=== PATIENT | female | born 1935 | race African-American/Black ===

== ENCOUNTER 2023-05-28 12:24 | Inpatient (IN) | payer OTHER ==
[~2023-05-28] VITALS: Ht 165.1 cm; Wt 51.6 kg
[2023-05-28 13:07] VITALS: O2SAT 95
[2023-05-28 14:30] LABS: Basophils # (auto) 0 10 ^3/uL (0-0.2); Basophils % (auto) 0.8 % (0.0-2.0); Eosinophils # (auto) 0 10 ^3/uL (0-0.8); Eosinophils % (auto) 0.1 % (0.0-7.0); Hematocrit 35.2 % (36.0-46.0); Lymphocytes # (auto) 0.7 10 ^3/uL (0.4-5.4); Lymphocytes % (auto) 11.8 % (10.0-50.0); Mean Corpuscular Hemoglobin 28.9 pg (28.0-32.0); Mean Corpuscular Hgb Conc. 31.1 g/dL (32.0-36.0); Mean Corpuscular Volume 92.7 fL (80.0-100.0); Monocytes # (auto) 0.3 10 ^3/uL (0-1.3); Monocytes % (auto) 5.5 % (0.0-12.0); Neutrophils # (auto) 4.6 10 ^3/uL (1.6-8.6); Neutrophils % (auto) 81.8 % (37.0-80.0); Nucleated Red Blood Cells % 0.1 %; Red Blood Cells 3.79 10^6/uL (4.0-5.20); White Blood Cell 5.6 10^3/uL (4.4-10.8)
[2023-05-28] MEDS: FUROSEMIDE 40 MG/4 ML VIAL IV ONE (14:41)
[2023-05-28] MEDS: cloNIDine HCL 0.1 MG TAB PO ONE ×2 (14:42→20:51)
[2023-05-28 14:43] LABS: Chloride 108 mmol/L (98-107); Potassium 3.8 mmol/L (3.5-5.1); Sodium 138 mmol/L (136-145)
[2023-05-28 14:44] LABS: Anion Gap 9 (5-15); Calcium 9.6 mg/dL (8.7-10.4); Carbon Dioxide 21 mmol/L (20-30)
[2023-05-28 14:49] LABS: BUN/Creatinine Ratio 15.6 (10.0-20.0); Blood Urea Nitrogen 21 mg/dL (9-23); Glucose 90 mg/dL (74-106)
[2023-05-28 14:50] LABS: Magnesium 2.1 mg/dL (1.6-2.6)
[2023-05-28 15:21] LABS: Urine Bacteria NONE SEEN /hpf (None Seen); Urine Blood TRACE /uL (Negative); Urine Clarity Clear (Clear); Urine Color Colorless (Yellow); Urine Hyaline Cast FEW /lpf (0 - 2); Urine Protein, UAD 3+ (Negative); Urine Specific Gravity 1.015 (1.001-1.035); Urine Urobilinogen Normal (Negative); Urine WBC 3 /hpf (0 - 5)
[2023-05-28] MEDS ORDERED: MORPHINE SULFATE INJ 2 MG/ml SYRG IV PRN (17:15)
[2023-05-28] MEDS ORDERED: ONDANSETRON HCL 4 MG/2 ML VIAL IV PRN (17:15)
[2023-05-28] MEDS ORDERED: DOCUSATE SOD 100 MG CAP PO PRN (17:15)
[2023-05-28] MEDS ORDERED: NITROGLYCERIN 0.4 MG SL TAB SL PRN (17:15)
[2023-05-28] MEDS ORDERED: FLUO60TA PO (17:23)
[2023-05-28] MEDS ORDERED: NIFE90TA75 PO (17:23)
[2023-05-28] MEDS ORDERED: CARV6.2551 PO (17:23)
[2023-05-28] MEDS ORDERED: ALLO100T PO (17:23)
[2023-05-28] MEDS ORDERED: ASPI-325 PO (17:23)
[2023-05-28] MEDS ORDERED: SIMV20TA20 PO (17:23)
[2023-05-28] MEDS ORDERED: POTA8TAB38 PO (17:23)
[2023-05-28] MEDS: FUROSEMIDE 100 MG/10ML VIAL IV SCH (19:29)
[2023-05-28 20:00] VITALS: O2SAT 96
[2023-05-28] MEDS: hydrALAZINE HCL 20 MG/ML VL IV PRN (20:01)
[2023-05-28] MEDS: CARVEDILOL 3.125 MG TAB PO SCH (22:29)
[2023-05-28] MEDS: ATORVASTATIN 20 MG TAB PO SCH (22:29)
[2023-05-29] VITALS (7 sets, daily range): BP systolic 127–186; BP diastolic 40–61; PULSE 64–72; RESP 14–21; TEMP 97.8–98.6; O2SAT 92–95
[2023-05-29 05:11] LABS: Basophils # (auto) 0.1 10 ^3/uL (0-0.2); Basophils % (auto) 0.9 % (0.0-2.0); Eosinophils # (auto) 0 10 ^3/uL (0-0.8); Eosinophils % (auto) 0.7 % (0.0-7.0); Hematocrit 32.8 % (36.0-46.0); Hemoglobin 10.1 g/dL (12.2-16.2); Lymphocytes # (auto) 1.1 10 ^3/uL (0.4-5.4); Lymphocytes % (auto) 17.2 % (10.0-50.0); Mean Corpuscular Hemoglobin 28.2 pg (28.0-32.0); Mean Corpuscular Hgb Conc. 30.8 g/dL (32.0-36.0); Mean Corpuscular Volume 91.8 fL (80.0-100.0); Monocytes # (auto) 0.6 10 ^3/uL (0-1.3); Monocytes % (auto) 9.7 % (0.0-12.0); Neutrophils # (auto) 4.5 10 ^3/uL (1.6-8.6); Neutrophils % (auto) 71.5 % (37.0-80.0); Nucleated Red Blood Cells % 0.1 %; Red Blood Cells 3.57 10^6/uL (4.0-5.20); Red Cell Distribution Width 18.2 % (11.8-14.3); White Blood Cell 6.2 10^3/uL (4.4-10.8)
[2023-05-29 05:32] LABS: Alanine Aminotransferase 11 U/L (7-40); Alkaline Phosphatase 81 U/L (46-116); Anion Gap 11 (5-15); BUN/Creatinine Ratio 11.4 (10.0-20.0); Blood Urea Nitrogen 16 mg/dL (9-23); Calcium 9.8 mg/dL (8.5-10.1); Carbon Dioxide 18 mmol/L (20-30); Chloride 109 mmol/L (98-107); Glucose 52 mg/dL (74-106); LDL Cholesterol 48 mg/dL (< 100); Potassium 3.8 mmol/L (3.5-5.1); Sodium 138 mmol/L (136-145); Triglycerides 66 mg/dL (< 150)
[2023-05-29 05:33] LABS: Albumin 3.2 g/dL (3.2-4.8); Aspartate Aminotransferase 28 U/L (13-40); Cholesterol 138 mg/dL (< 200); HDL Cholesterol 63 mg/dL (40-59)
[2023-05-29 05:34] LABS: Bilirubin, Total 0.3 mg/dL (0.2-1.0); Total Protein 6.2 g/dL (5.7-8.2)
[2023-05-29] MEDS: SPIRONOLACTONE 25 MG TAB PO SCH ×2 (07:39→17:32)
[2023-05-29] MEDS ORDERED: FUROSEMIDE 40 MG/4 ML VIAL IV SCH (10:00)
[2023-05-29] MEDS ORDERED: POTASSIUM CHLORIDE 8 MEQ TAB PO SCH (10:00)
[2023-05-29] MEDS: ALLOPURINOL 100 MG TAB PO SCH (10:44)
[2023-05-29] MEDS: NIFEdipine ER 30 MG TAB PO SCH (10:46)
[2023-05-29] MEDS: FLUoxetine HCL 10 MG CAP PO SCH (10:46)
[2023-05-29] MEDS: LISINOPRIL 20 MG TAB PO SCH (10:47)
[2023-05-29] MEDS: ENOXAPARIN SOD 30 MG/0.3 ML SYRINGE SC SCH (10:48)
[2023-05-29] MEDS: ASPirin-EC 81 mg tab PO SCH (10:48)
[2023-05-29 11:15] LABS: Magnesium 2.1 mg/dL (1.6-2.6)
[2023-05-29 11:17] LABS: Phosphorus 3.1 mg/dL (2.4-5.1)
[2023-05-29 13:28] LABS: INR 1.1 (0.9-1.15); Partial Thromboplastin Time 33.3 SEC (24.5-34.5); Prothrombin Time 11.5 sec (9.3-11.8)
[2023-05-29] MEDS ORDERED: LISI40TA16 PO (13:47)
[2023-05-29] MEDS ORDERED: AMLO1TAB22 PO (13:47)
[2023-05-29] MEDS ORDERED: HYDR25TA4 PO (13:47)
[2023-05-29] MEDS ORDERED: PANT40TA2 PO (13:47)
[2023-05-29] MEDS ORDERED: hydrALAZINE HCL 25 MG TAB PO SCH (14:00)
[2023-05-29] MEDS: hydrALAZINE HCL 25 MG TAB PO SCH (14:00)
[2023-05-29] MEDS ORDERED: ALLO100T PO (14:02)
[2023-05-29] MEDS: hydrALAZINE HCL 25 MG TAB PO ONE (16:12)
[2023-05-29] MEDS: metOLazone 5 MG TAB PO ONE (19:00)
[2023-05-29] MEDS: ACETAMINOPHEN 325 MG TAB PO PRN (22:06)
[2023-05-30] VITALS (7 sets, daily range): BP systolic 135–158; BP diastolic 42–48; PULSE 64–72; RESP 14–18; TEMP 98–98.4; O2SAT 93–98
[2023-05-30 05:52] LABS: Calcium 9.8 mg/dL (8.5-10.1); Chloride 106 mmol/L (98-107); Potassium 3.8 mmol/L (3.5-5.1); Sodium 137 mmol/L (136-145)
[2023-05-30 05:53] LABS: Anion Gap 11 (5-15); Carbon Dioxide 20 mmol/L (20-30)
[2023-05-30 05:59] LABS: BUN/Creatinine Ratio 13.5 (10.0-20.0); Blood Urea Nitrogen 23 mg/dL (9-23); Glucose 58 mg/dL (74-106)
[2023-05-30] MEDS: hydrALAZINE HCL 25 MG TAB PO SCH (14:53)
[2023-05-31 04:31] VITALS: BP 154/45; PULSE 73; RESP 14; TEMP 98.3; O2SAT 95
[2023-05-31 07:48] VITALS: BP 158/50; PULSE 72; RESP 18; TEMP 98.2; O2SAT 98
[2023-05-31 08:00] VITALS: PULSE 72; RESP 18; O2SAT 98
[2023-05-31 09:47] LABS: Chloride 104 mmol/L (98-107); Potassium 3.5 mmol/L (3.5-5.1); Sodium 135 mmol/L (136-145)
[2023-05-31 09:48] LABS: Anion Gap 6 (5-15); Carbon Dioxide 25 mmol/L (20-30)
[2023-05-31 09:49] LABS: Calcium 9.5 mg/dL (8.5-10.1)
[2023-05-31 09:53] LABS: BUN/Creatinine Ratio 12.8 (10.0-20.0); Blood Urea Nitrogen 22 mg/dL (9-23); Glucose 130 mg/dL (74-106)
[2023-05-31 12:27] VITALS: BP 168/52; PULSE 66; RESP 18; TEMP 98.6; O2SAT 97
[2023-05-31 16:27] VITALS: BP 133/52; PULSE 71; RESP 16; TEMP 98.1; O2SAT 93
[2023-05-31] MEDS ORDERED: FURO1TAB31 PO (17:05)
[2023-05-31] MEDS: INFLUENZA QUAD 2023-2024 0.5 ML SYRG IM ONE (17:21)
[2023-05-31 17:39] VITALS: BP 126/53; PULSE 62; RESP 17; TEMP 98; O2SAT 94
== END 2023-05-31 19:26 | disposition home or self-care (01) | DRG 280 ==
LOC: ER 12:24 → EDSEX 12:24 → EDBD 12:24 → TELE 17:23 → TELE-WESTW 05-29 10:55
PROVIDERS: ADMIT Nurse Practitioner Family; ATTEND Internal Medicine
DX: I13.2 Hypertensive heart and chronic kidney disease with heart failure and with stage 5 chronic kidney disease, or end stage renal disease (principal); I21.A1 Myocardial infarction type 2; I50.43 Acute on chronic combined systolic (congestive) and diastolic (congestive) heart failure; J96.01 Acute respiratory failure with hypoxia; N17.0 Acute kidney failure with tubular necrosis; I16.1 Hypertensive emergency; I73.9 Peripheral vascular disease, unspecified; E78.5 Hyperlipidemia, unspecified; M10.9 Gout, unspecified; F32.A Depression, unspecified; D64.9 Anemia, unspecified; Z99.2 Dependence on renal dialysis; Z85.3 Personal history of malignant neoplasm of breast; Z90.710 Acquired absence of both cervix and uterus; Z89.612 Acquired absence of left leg above knee; Z89.611 Acquired absence of right leg above knee; Z90.13 Acquired absence of bilateral breasts and nipples; Z87.891 Personal history of nicotine dependence; Z79.899 Other long term (current) drug therapy; Z90.49 Acquired absence of other specified parts of digestive tract
CPT/HCPCS: 36415; 71045; 76604; 76775; 80048; 80053; 80061; 81001; 82306; 82607; 83036; 83605; 83735; 83880; 84100; 84443; 84484; 85025; 85610; 85730; 87081; 93005; 93306; 99291; G0378

== ENCOUNTER 2023-07-26 17:17 | Inpatient (IN) | payer OTHER ==
[~2023-07-26] VITALS: Ht 160 cm; Wt 47.9 kg
[~2023-07-26 17:17] MED LIST: ALLO100T PO; ASPI-325 PO; CARV6.2551 PO; FLUO60TA PO; FURO1TAB31 PO; HYDR25TA4 PO; LISI40TA16 PO; NIFE90TA75 PO; PANT40TA2 PO; POTA8TAB38 PO; SIMV20TA20 PO
[2023-07-26 18:36] VITALS: PULSE 64; RESP 18; O2SAT 92
[2023-07-26] MEDS: IPRATROPIUM BROM 0.5 MG/2.5ML INH SOL NEB ONE (19:25)
[2023-07-26] MEDS: ALBUTEROL SULF 2.5 MG/0.5ML(0.5%) NEB SOLN NEB ONE (19:26)
[2023-07-26 19:48] LABS: Basophils # (auto) 0.1 10 ^3/uL (0-0.2); Basophils % (auto) 1.2 % (0.0-2.0); Eosinophils # (auto) 0 10 ^3/uL (0-0.8); Eosinophils % (auto) 0.1 % (0.0-7.0); Hematocrit 36.2 % (36.0-46.0); Hemoglobin 11.6 g/dL (12.2-16.2); Lymphocytes # (auto) 1.2 10 ^3/uL (0.4-5.4); Lymphocytes % (auto) 28.9 % (10.0-50.0); Mean Corpuscular Hemoglobin 28.3 pg (28.0-32.0); Mean Corpuscular Hgb Conc. 31.9 g/dL (32.0-36.0); Mean Corpuscular Volume 88.7 fL (80.0-100.0); Monocytes # (auto) 0.4 10 ^3/uL (0-1.3); Monocytes % (auto) 8.6 % (0.0-12.0); Neutrophils # (auto) 2.6 10 ^3/uL (1.6-8.6); Neutrophils % (auto) 61.2 % (37.0-80.0); Red Blood Cells 4.08 10^6/uL (4.0-5.20); Red Cell Distribution Width 20.2 % (11.8-14.3); White Blood Cell 4.3 10^3/uL (4.4-10.8)
[2023-07-26 20:05] LABS: Alanine Aminotransferase 59 U/L (7-40); Albumin 3.5 g/dL (3.2-4.8); Alkaline Phosphatase 86 U/L (46-116); Anion Gap 13 (5-15); Aspartate Aminotransferase 59 U/L (13-40); BUN/Creatinine Ratio 16.2 (10.0-20.0); Bilirubin, Total 0.5 mg/dL (0.2-1.0); Blood Urea Nitrogen 22 mg/dL (9-23); Calcium 10.2 mg/dL (8.7-10.4); Carbon Dioxide 21 mmol/L (20-30); Chloride 106 mmol/L (98-107); Glucose 70 mg/dL (74-106); Potassium 3.5 mmol/L (3.5-5.1); Sodium 140 mmol/L (136-145); Total Protein 6.5 g/dL (5.7-8.2)
[2023-07-26] MEDS: FUROSEMIDE 40 MG/4 ML VIAL IV ONE (22:09)
[2023-07-26] MEDS: NITROGLYCERIN 2% OINT 1GM PKG TD ONE (22:10)
[2023-07-26] MEDS ORDERED: MORPHINE SULFATE INJ 2 MG/ml SYRG IV PRN (22:30)
[2023-07-26] MEDS ORDERED: NITROGLYCERIN 0.4 MG SL TAB SL PRN (22:30)
[2023-07-26] MEDS ORDERED: ONDANSETRON HCL 4 MG/2 ML VIAL IV PRN (22:30)
[2023-07-26] MEDS ORDERED: ACETAMINOPHEN 325 MG TAB PO PRN (22:30)
[2023-07-26 22:41] LABS: Urine Bacteria None Seen /hpf (None Seen)
[2023-07-26 23:07] LABS: Urine Blood TRACE /uL (Negative); Urine Budding Yeast OCCASIONAL /hpf (None Seen); Urine Clarity Clear (Clear); Urine Color Light-Yellow (Yellow); Urine Hyaline Cast FEW /lpf (0 - 2); Urine Mucus FEW (None Seen); Urine Protein, UAD 3+ (Negative); Urine Specific Gravity 1.017 (1.001-1.035); Urine Urobilinogen Normal (Negative); Urine WBC 66 /hpf (0 - 5); Urine WBC Clumps PRESENT /hpf (None Seen)
[2023-07-27] VITALS (9 sets, daily range): BP systolic 129–180; BP diastolic 46–78; PULSE 63–73; RESP 17–22; TEMP 97.2–98.9; O2SAT 92–98
[2023-07-27] MEDS: hydrALAZINE HCL 20 MG/ML VL IV PRN (01:47)
[2023-07-27] MEDS: FUROSEMIDE 20 MG/2 ML VIAL IV SCH (05:22)
[2023-07-27 05:57] LABS: Basophils # (auto) 0 10 ^3/uL (0-0.2); Basophils % (auto) 0.9 % (0.0-2.0); Eosinophils # (auto) 0 10 ^3/uL (0-0.8); Eosinophils % (auto) 0.5 % (0.0-7.0); Hematocrit 33.5 % (36.0-46.0); Hemoglobin 10.5 g/dL (12.2-16.2); Lymphocytes # (auto) 1.3 10 ^3/uL (0.4-5.4); Lymphocytes % (auto) 27.9 % (10.0-50.0); Mean Corpuscular Hemoglobin 27.9 pg (28.0-32.0); Mean Corpuscular Hgb Conc. 31.4 g/dL (32.0-36.0); Mean Corpuscular Volume 88.9 fL (80.0-100.0); Monocytes # (auto) 0.6 10 ^3/uL (0-1.3); Monocytes % (auto) 13.6 % (0.0-12.0); Neutrophils # (auto) 2.6 10 ^3/uL (1.6-8.6); Neutrophils % (auto) 57.1 % (37.0-80.0); Nucleated Red Blood Cells % 0.3 %; Red Blood Cells 3.77 10^6/uL (4.0-5.20); Red Cell Distribution Width 19.5 % (11.8-14.3); White Blood Cell 4.5 10^3/uL (4.4-10.8)
[2023-07-27 06:14] LABS: Alanine Aminotransferase 46 U/L (7-40); Alkaline Phosphatase 74 U/L (46-116); Anion Gap 13 (5-15); Aspartate Aminotransferase 55 U/L (13-40); BUN/Creatinine Ratio 12.8 (10.0-20.0); Blood Urea Nitrogen 18 mg/dL (9-23); Calcium 9.6 mg/dL (8.5-10.1); Carbon Dioxide 21 mmol/L (20-30); Chloride 107 mmol/L (98-107); Glucose 59 mg/dL (74-106); Potassium 3.4 mmol/L (3.5-5.1); Sodium 141 mmol/L (136-145)
[2023-07-27 06:15] LABS: Albumin 3.2 g/dL (3.2-4.8); Bilirubin, Total 0.4 mg/dL (0.2-1.0); Total Protein 6.1 g/dL (5.7-8.2)
[2023-07-27] MEDS: ALLOPURINOL 100 MG TAB PO SCH (09:01)
[2023-07-27] MEDS: NIFEdipine ER 30 MG TAB PO SCH (09:02)
[2023-07-27] MEDS: ASPirin 81 mg TAB PO SCH (09:03)
[2023-07-27] MEDS: amLODIPine BESYLATE 5 MG TAB PO SCH (09:03)
[2023-07-27] MEDS: CARVEDILOL 3.125 MG TAB PO SCH ×2 (09:03→11:45)
[2023-07-27] MEDS: cefTRIAXone 1GM/50ML D5W 50 ML IV ONE (10:34)
[2023-07-27] MEDS: POTASSIUM CHL 10 Meq TABLET PO ONE (11:44)
[2023-07-27] MEDS: hydrALAZINE HCL 10 MG TAB PO ONE (11:44)
[2023-07-27] MEDS: ENOXAPARIN SOD 30 MG/0.3 ML SYRINGE SC ONE (11:46)
[2023-07-27] MEDS: IRON SUCROSE COMPLEX 100 ML IV SCH (11:46)
[2023-07-27] MEDS: hydrALAZINE HCL 10 MG TAB PO SCH (14:07)
[2023-07-27] MEDS: FUROSEMIDE 40 MG/4 ML VIAL IV SCH (17:33)
[2023-07-27] MEDS ORDERED: hydroCHLOROthiazide 25 MG TAB PO ONE (18:45)
[2023-07-27] MEDS ORDERED: VANCOMYCIN PER PHARMACY 0 MG IV SCH (18:45)
[2023-07-27 19:55] LABS: % Iron Saturation 13.2 % (15-50)
[2023-07-27] MEDS: VANCOMYCIN 750mg/150ml 150 ML IV ONE (21:19)
[2023-07-27] MEDS: ATORVASTATIN 20 MG TAB PO SCH (21:23)
[2023-07-28] VITALS (7 sets, daily range): BP systolic 121–186; BP diastolic 46–73; PULSE 66–140; RESP 17–20; TEMP 97.6–98.6; O2SAT 94–99
[2023-07-28] MEDS: hydroCHLOROthiazide 25 MG TAB PO ONE (00:30)
[2023-07-28 02:21] LABS: Rapid Influenza A Negative (Negative); Rapid Influenza B Negative (Negative)
[2023-07-28 02:22] LABS: COVID19 ANTIGEN SOFIA FIA NEGATIVE (NEGATIVE)
[2023-07-28 03:17] LABS: Creatinine, Urine 23.21 mg/dL (30.0-125.0)
[2023-07-28 06:40] LABS: Basophils # (auto) 0.1 10 ^3/uL (0-0.2); Basophils % (auto) 1.2 % (0.0-2.0); Eosinophils # (auto) 0.1 10 ^3/uL (0-0.8); Eosinophils % (auto) 1.8 % (0.0-7.0); Hematocrit 34.4 % (36.0-46.0); Hemoglobin 10.9 g/dL (12.2-16.2); Lymphocytes # (auto) 1.5 10 ^3/uL (0.4-5.4); Lymphocytes % (auto) 29.8 % (10.0-50.0); Mean Corpuscular Hemoglobin 28.6 pg (28.0-32.0); Mean Corpuscular Hgb Conc. 31.7 g/dL (32.0-36.0); Mean Corpuscular Volume 90.3 fL (80.0-100.0); Monocytes # (auto) 0.6 10 ^3/uL (0-1.3); Monocytes % (auto) 12.7 % (0.0-12.0); Neutrophils # (auto) 2.7 10 ^3/uL (1.6-8.6); Neutrophils % (auto) 54.5 % (37.0-80.0); Nucleated Red Blood Cells % 0.3 %; Red Blood Cells 3.81 10^6/uL (4.0-5.20); Red Cell Distribution Width 19.7 % (11.8-14.3); White Blood Cell 4.9 10^3/uL (4.4-10.8)
[2023-07-28] MEDS: cefTRIAXone 1GM/50ML D5W 50 ML IV SCH (08:04)
[2023-07-28] MEDS: ASPirin 81 mg TAB PO SCH (08:05)
[2023-07-28] MEDS: hydroCHLOROthiazide 25 MG TAB PO SCH (08:06)
[2023-07-28 08:31] LABS: Chloride 106 mmol/L (98-107); Sodium 140 mmol/L (136-145)
[2023-07-28 08:34] LABS: Anion Gap 12 (5-15); Calcium 10.1 mg/dL (8.5-10.1); Carbon Dioxide 22 mmol/L (20-30)
[2023-07-28 08:39] LABS: Alkaline Phosphatase 78 U/L (46-116); Glucose 101 mg/dL (74-106)
[2023-07-28 08:41] LABS: Albumin 3.4 g/dL (3.2-4.8); Aspartate Aminotransferase 47 U/L (13-40); Bilirubin, Total 0.3 mg/dL (0.2-1.0); Total Protein 6.5 g/dL (5.7-8.2)
[2023-07-28 08:44] LABS: Alanine Aminotransferase 43 U/L (7-40); Blood Urea Nitrogen 17 mg/dL (9-23); Potassium 3.3 mmol/L (3.5-5.1)
[2023-07-28 08:48] LABS: BUN/Creatinine Ratio 11.6 (10.0-20.0)
[2023-07-28] MEDS: ENOXAPARIN SOD 30 MG/0.3 ML SYRINGE SC SCH (10:00)
[2023-07-28] MEDS: POTASSIUM CHL 10 Meq TABLET PO ONE (12:19)
[2023-07-29] MEDS ORDERED: FUROSEMIDE 40 MG/4 ML VIAL IV SCH (10:00)
[2023-07-30 11:24] LABS: Hepatitis B Core Total AB Negative (Negative)
[2023-07-30 12:22] LABS: Hepatitis A Total Antibody Negative (Negative); Hepatitis B Surface Antibody Negative (Negative); Hepatitis B Surface Antigen Negative (Negative)
[2023-07-30 12:23] LABS: Hepatitis C Antibody Negative (Negative)
== END 2023-07-28 18:59 | disposition home or self-care (01) | DRG 280 ==
LOC: ER 17:17 → EDBD 17:17 → TELE 22:37 → TELE-CENTR 07-27 00:35
PROVIDERS: ADMIT Internal Medicine Pulmonary Disease; ATTEND Internal Medicine Pulmonary Disease
DX: I13.2 Hypertensive heart and chronic kidney disease with heart failure and with stage 5 chronic kidney disease, or end stage renal disease (principal); I50.33 Acute on chronic diastolic (congestive) heart failure; I21.A1 Myocardial infarction type 2; N18.6 End stage renal disease; J96.01 Acute respiratory failure with hypoxia; N17.0 Acute kidney failure with tubular necrosis; N39.0 Urinary tract infection, site not specified; E44.1 Mild protein-calorie malnutrition; Z68.1 Body mass index [BMI] 19.9 or less, adult; I50.82 Biventricular heart failure; I16.0 Hypertensive urgency; I25.10 Atherosclerotic heart disease of native coronary artery without angina pectoris; K21.9 Gastro-esophageal reflux disease without esophagitis; D64.9 Anemia, unspecified; E87.6 Hypokalemia; Z90.710 Acquired absence of both cervix and uterus; Z89.612 Acquired absence of left leg above knee; Z89.611 Acquired absence of right leg above knee; Z85.3 Personal history of malignant neoplasm of breast; Z87.891 Personal history of nicotine dependence
CPT/HCPCS: 36415; 71045; 80053; 80202; 81001; 82570; 82728; 83540; 83550; 83605; 83735; 83880; 84133; 84300; 84484; 85025; 85045; 86704; 86706; 86708; 86803; 87040; 87077; 87081; 87086; 87088; 87186; 87340; 87426; 87804; 93005; 94640; 99291; G0378; J1756

== ENCOUNTER 2023-10-19 04:51 | Inpatient (IN) | payer OTHER ==
[~2023-10-19] VITALS: Ht 121.9 cm; Wt 40.5 kg
[2023-10-19 05:45] VITALS: PULSE 59; RESP 18; O2SAT 97
[2023-10-19 07:08] LABS: Basophils # (auto) 0 10 ^3/uL (0-0.2); Basophils % (auto) 0.9 % (0.0-2.0); Eosinophils # (auto) 0 10 ^3/uL (0-0.8); Eosinophils % (auto) 0.5 % (0.0-7.0); Hematocrit 32.5 % (36.0-46.0); Hemoglobin 10.6 g/dL (12.2-16.2); Lymphocytes # (auto) 0.9 10 ^3/uL (0.4-5.4); Lymphocytes % (auto) 21.3 % (10.0-50.0); Mean Corpuscular Hemoglobin 30.3 pg (28.0-32.0); Mean Corpuscular Hgb Conc. 32.6 g/dL (32.0-36.0); Mean Corpuscular Volume 92.8 fL (80.0-100.0); Monocytes # (auto) 0.4 10 ^3/uL (0-1.3); Monocytes % (auto) 8.8 % (0.0-12.0); Neutrophils # (auto) 2.9 10 ^3/uL (1.6-8.6); Neutrophils % (auto) 68.5 % (37.0-80.0); Nucleated Red Blood Cells % 0.1 %; Red Cell Distribution Width 18.2 % (11.8-14.3); White Blood Cell 4.2 10^3/uL (4.4-10.8)
[2023-10-19 07:23] LABS: Chloride 110 mmol/L (98-107); Potassium 3.4 mmol/L (3.5-5.1); Sodium 139 mmol/L (136-145)
[2023-10-19 07:24] LABS: Anion Gap 4 (5-15); Calcium 10.2 mg/dL (8.7-10.4); Carbon Dioxide 25 mmol/L (20-30)
[2023-10-19 07:29] LABS: Glucose 100 mg/dL (74-106)
[2023-10-19 07:30] LABS: BUN/Creatinine Ratio 21.5 (10.0-20.0); Blood Urea Nitrogen 26 mg/dL (9-23)
[2023-10-19 07:35] VITALS: PULSE 65; RESP 20; O2SAT 96
[2023-10-19] MEDS: hydrALAZINE HCL 20 MG/ML VL IV ONE (08:16)
[2023-10-19] MEDS: FUROSEMIDE 40 MG/4 ML VIAL IV ONE (09:21)
[2023-10-19] MEDS ORDERED: MORPHINE SULFATE INJ 2 MG/ml SYRG IV PRN (11:15)
[2023-10-19] MEDS ORDERED: NITROGLYCERIN 0.4 MG SL TAB SL PRN (11:15)
[2023-10-19] MEDS: NITROGLYCERIN 50MG/250ML 250 ML IV SCH (11:39)
[2023-10-19 13:39] LABS: Magnesium 1.9 mg/dL (1.6-2.6)
[2023-10-19] MEDS: NIFEdipine ER 30 MG TAB PO ONE (13:56)
[2023-10-19] MEDS: FUROSEMIDE 20 MG/2 ML VIAL IV ONE (13:57)
[2023-10-19] MEDS ORDERED: PATIENTS OWN MEDICATION (Simvastatin 1 TAB) PO SCH (22:00)
[2023-10-19] MEDS ORDERED: ATORVASTATIN 20 MG TAB PO SCH (22:00)
[2023-10-19] MEDS ORDERED: FUROSEMIDE 20 MG/2 ML VIAL IV SCH (22:00)
[2023-10-19] MEDS: ATORVASTATIN 20 MG TAB PO SCH (22:15)
[2023-10-19] MEDS: FUROSEMIDE 100 MG/10ML VIAL IV SCH (22:23)
[2023-10-19] MEDS: hydrALAZINE HCL 20 MG/ML VL IV PRN (23:34)
[2023-10-20] VITALS (66 sets, daily range): BP systolic 107–182; BP diastolic 20–76; PULSE 57–69; RESP 11–21; TEMP 97.6–98.3; O2SAT 90–100
[2023-10-20 05:24] LABS: Basophils # (auto) 0 10 ^3/uL (0-0.2); Basophils % (auto) 1.2 % (0.0-2.0); Eosinophils # (auto) 0 10 ^3/uL (0-0.8); Eosinophils % (auto) 1.2 % (0.0-7.0); Hematocrit 28.6 % (36.0-46.0); Hemoglobin 9.6 g/dL (12.2-16.2); Lymphocytes # (auto) 1.3 10 ^3/uL (0.4-5.4); Lymphocytes % (auto) 32.7 % (10.0-50.0); Mean Corpuscular Hemoglobin 31.2 pg (28.0-32.0); Mean Corpuscular Hgb Conc. 33.6 g/dL (32.0-36.0); Mean Corpuscular Volume 92.8 fL (80.0-100.0); Monocytes # (auto) 0.5 10 ^3/uL (0-1.3); Monocytes % (auto) 12.5 % (0.0-12.0); Neutrophils # (auto) 2.2 10 ^3/uL (1.6-8.6); Neutrophils % (auto) 52.4 % (37.0-80.0); Nucleated Red Blood Cells % 0.1 %; Red Blood Cells 3.08 10^6/uL (4.0-5.20); Red Cell Distribution Width 18.5 % (11.8-14.3); White Blood Cell 4.1 10^3/uL (4.4-10.8)
[2023-10-20 05:58] LABS: Alanine Aminotransferase 15 U/L (7-40); Albumin 2.8 g/dL (3.2-4.8); Alkaline Phosphatase 65 U/L (46-116); Anion Gap 8 (5-15); Aspartate Aminotransferase 22 U/L (13-40); BUN/Creatinine Ratio 20.1 (10.0-20.0); Blood Urea Nitrogen 27 mg/dL (9-23); Calcium 10.1 mg/dL (8.7-10.4); Carbon Dioxide 25 mmol/L (20-30); Chloride 108 mmol/L (98-107); Glucose 88 mg/dL (74-106); Potassium 3.3 mmol/L (3.5-5.1); Sodium 141 mmol/L (136-145)
[2023-10-20 05:59] LABS: Bilirubin, Total 0.5 mg/dL (0.2-1.0); Total Protein 5.3 g/dL (5.7-8.2)
[2023-10-20] MEDS: ASPirin-EC 81 mg tab PO SCH (09:18)
[2023-10-20] MEDS: NIFEdipine ER 30 MG TAB PO SCH (09:19)
[2023-10-20] MEDS: PANTOPRAZOLE 40 MG TAB PO SCH (09:20)
[2023-10-20] MEDS: hydroCHLOROthiazide 25 MG TAB PO SCH (09:20)
[2023-10-20] MEDS: ALLOPURINOL 100 MG TAB PO SCH (09:20)
[2023-10-20] MEDS: POTASSIUM CHLORIDE 8 MEQ TAB PO SCH (09:21)
[2023-10-20] MEDS: ENOXAPARIN SOD 30 MG/0.3 ML SYRINGE SC SCH (09:22)
[2023-10-20] MEDS: POTASSIUM EFFERVESENT TAB 25 MEQ PO ONE (09:33)
[2023-10-20] MEDS ORDERED: ENOXAPARIN SOD 40 MG/0.4 ML SYRINGE SC SCH (10:00)
[2023-10-20] MEDS ORDERED: LOSARTAN POTASSIUM 50 MG TAB PO SCH (10:00)
[2023-10-20] MEDS ORDERED: FUROSEMIDE 40 MG TAB PO SCH (10:00)
[2023-10-20] MEDS ORDERED: CARVEDILOL 3.125 MG TAB PO ONE (13:00)
[2023-10-20] MEDS: FUROSEMIDE 40 MG/4 ML VIAL IV ONE (17:23)
[2023-10-20] MEDS ORDERED: CARVEDILOL 3.125 MG TAB PO SCH (22:00)
[2023-10-20] MEDS: hydrALAZINE HCL 25 MG TAB PO SCH (22:08)
[2023-10-21] VITALS (8 sets, daily range): BP systolic 123–158; BP diastolic 55–81; PULSE 58–129; RESP 16–22; TEMP 36.4; O2SAT 93–98
[2023-10-21] MEDS: ACETAMINOPHEN 325 MG TAB PO PRN (02:18)
[2023-10-21 07:17] LABS: Basophils # (auto) 0 10 ^3/uL (0-0.2); Basophils % (auto) 0.9 % (0.0-2.0); Chloride 106 mmol/L (98-107); Eosinophils # (auto) 0.1 10 ^3/uL (0-0.8); Eosinophils % (auto) 2.6 % (0.0-7.0); Hematocrit 30.2 % (36.0-46.0); Hemoglobin 10.1 g/dL (12.2-16.2); Lymphocytes # (auto) 1.5 10 ^3/uL (0.4-5.4); Lymphocytes % (auto) 30.4 % (10.0-50.0); Mean Corpuscular Hemoglobin 31.4 pg (28.0-32.0); Mean Corpuscular Hgb Conc. 33.4 g/dL (32.0-36.0); Mean Corpuscular Volume 93.8 fL (80.0-100.0); Monocytes # (auto) 0.6 10 ^3/uL (0-1.3); Monocytes % (auto) 12.8 % (0.0-12.0); Neutrophils # (auto) 2.6 10 ^3/uL (1.6-8.6); Neutrophils % (auto) 53.3 % (37.0-80.0); Nucleated Red Blood Cells % 0.3 %; Potassium 3.5 mmol/L (3.5-5.1); Red Blood Cells 3.22 10^6/uL (4.0-5.20); Sodium 138 mmol/L (136-145)
[2023-10-21 07:20] LABS: Glucose 83 mg/dL (74-106)
[2023-10-21 07:21] LABS: BUN/Creatinine Ratio 15.5 (10.0-20.0); Blood Urea Nitrogen 20 mg/dL (9-23)
[2023-10-21 07:24] LABS: Carbon Dioxide 24 mmol/L (20-30)
[2023-10-21 07:32] LABS: Anion Gap 8 (5-15)
[2023-10-21] MEDS: SPIRONOLACTONE 25 MG TAB PO SCH (09:58)
[2023-10-21] MEDS: CARVEDILOL 3.125 MG TAB PO SCH (10:00)
[2023-10-21] MEDS: ISOSORBIDE MONONITRATE ER 60 MG TAB PO SCH (10:00)
[2023-10-21] MEDS: FUROSEMIDE 40 MG/4 ML VIAL IV SCH (10:02)
[2023-10-21 15:34] LABS: Base Excess 3.1 mmol/L (-2.0-2.0)
[2023-10-21] MEDS ORDERED: SPIR25TA PO (17:31)
[2023-10-21] MEDS ORDERED: EMPA1TAB PO (17:31)
[2023-10-21] MEDS ORDERED: ATORVASTATIN 20 MG TAB PO SCH (22:00)
== END 2023-10-21 19:25 | disposition home or self-care (01) | DRG 280 ==
LOC: EDUNIT# 04:51 → EDBD 04:51 → ER 04:51 → TELE 11:14 → ICU CENTRL 10-20 03:45 → TELE-WESTW 10-20 17:58
PROVIDERS: ADMIT Internal Medicine Pulmonary Disease; ATTEND Internal Medicine Pulmonary Disease
DX: I13.2 Hypertensive heart and chronic kidney disease with heart failure and with stage 5 chronic kidney disease, or end stage renal disease (principal); I50.23 Acute on chronic systolic (congestive) heart failure; I21.A1 Myocardial infarction type 2; J96.01 Acute respiratory failure with hypoxia; N18.6 End stage renal disease; N17.9 Acute kidney failure, unspecified; E44.1 Mild protein-calorie malnutrition; I16.1 Hypertensive emergency; D64.9 Anemia, unspecified; E87.6 Hypokalemia; I25.10 Atherosclerotic heart disease of native coronary artery without angina pectoris; E78.5 Hyperlipidemia, unspecified; I73.9 Peripheral vascular disease, unspecified; K21.9 Gastro-esophageal reflux disease without esophagitis; Z89.612 Acquired absence of left leg above knee; Z91.199 Patient's noncompliance with other medical treatment and regimen due to unspecified reason; Z89.611 Acquired absence of right leg above knee; Z87.891 Personal history of nicotine dependence; Z90.49 Acquired absence of other specified parts of digestive tract; Z90.710 Acquired absence of both cervix and uterus; Z99.2 Dependence on renal dialysis; Z85.3 Personal history of malignant neoplasm of breast; Z90.11 Acquired absence of right breast and nipple; Z83.3 Family history of diabetes mellitus; Z82.49 Family history of ischemic heart disease and other diseases of the circulatory system; Z89.512 Acquired absence of left leg below knee; Z89.511 Acquired absence of right leg below knee; Z68.27 Body mass index [BMI] 27.0-27.9, adult
CPT/HCPCS: 36415; 36600; 71045; 80048; 80053; 80061; 82088; 82805; 83036; 83735; 83880; 84244; 84443; 84484; 85025; 87081; 93005; 93306; 93975; 96374; 96375; 99291; G0378

== ENCOUNTER 2024-02-18 09:57 | Inpatient (IN) | payer OTHER ==
[2024-02-18] VITALS (7 sets, daily range): BP systolic 167–169; BP diastolic 63–66; PULSE 60–67; RESP 16–20; TEMP 98; O2SAT 96–100
[~2024-02-18] VITALS: Ht 61 cm; Wt 44.2 kg
[~2024-02-18 09:57] MED LIST changes: +EMPA1TAB PO; -HYDR25TA4 PO; +SPIR25TA PO
--- NOTE | 2024-02-18 10:55 | ED.PDOC ---
HPI Comments 88-year-old female presented with complaints of shortness of breath that started today at 0730 in the morning when she woke up from the sleep. She mentioned that shortness of breath improved on sitting up but worsened on lying down. She denied any associated cough, chest pain, palpitations. She denied any other complaints of headache, nausea, vomiting, dizziness, diarrhea, constipation, generalized weakness. She did not take any of her home medications today, on arrival blood pressure is 233/99. 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 Social history Denied smoking, alcohol, marijuana or any other drug intake Medication history Lasix, carvedilol, spironolactone, atorvastatin, Jardiance, fluoxetine, nifedipine, aspirin, allopurinol Review of system As addressed in HPI Examination General Appearance: Alert, Oriented X3, Cooperative, No acute distress Respiratory: Crackles, basilar, on the right side Cardiovascular: Irregular rate Abdominal: Normal bowel sounds Extremities: Above-knee amputation bilateral, amputation at the level of hip on the left side and above knee in the right side Neuro: Normal speech, tone Differential diagnosis CHF exacerbation, COPD exacerbation, PE, NV, pneumonia, viral pneumonitis, anxiety, hypertensive crisis Attestation note: Dr. Medina: I was the supervising attending for this ED encounter. Please see the resident's notes. I was available for questions and consultations. Differential diagnosis: DDx include ACS, unstable angina, anxiety, PE, pneumothroax, neoplasm, cardiac ischemia, COPD, asthma, CHF, pleural effusion, tobacco abuse, pneumonia, hypoxia, hypercapnia, anemia., infection/sepsis., pulmonary edema. Asthma, Cardiac tamponade, infection. MDM: Patient presented with the above HPI.--dyspnea----workup was initiated. patient was found with the above mentioned diagnosis. Patient was given: Patient ED course and VS have been stabilized. Patient has been reassessed in the ED and remained in a stable condition. Pertinent incidental findings were discussed with the patient and/or family. Patient/family voices understanding and is agreeable with plan. Patient has been observed in the ED adequate length of time to insure improvement/stability. patient was admitted to the medicine team for further evaluation and treatment of their presentation. All the reports of any imaging studies that were ordered by myself were reviewed by myself. Chief Complaint: Shortness of Breath Time Seen by MD: 10:43 Primary Care Provider: DARIUSZ Reviewed Notes: Nurses Notes, Allergies Allergies: Coded Allergies: NO KNOWN ALLERGIES (Unverified , 05/28/23) Home Meds Active Scripts Empagliflozin (Jardiance) 10 Mg Tab, 10 MG PO DAILY for 30 Days, #30 TAB Prov:RITA AVILA RESIDENT 10/21/23 Spironolactone (Aldactone) 25 Mg Tab, 25 MG PO DAILY for 30 Days, #30 TAB Prov:RITA AVILA RESIDENT 10/21/23 Furosemide (Lasix) 40 Mg Tab, 40 MG PO DAILY for 15 Days, #15 TAB Prov:SAMSON ODOM DO 05/31/23 Reported Medications Allopurinol (Allopurinol) 100 Mg Tab, 100 MG PO DAILY, MG 05/29/23 Lisinopril (Lisinopril) 40 Mg Tab, 40 MG PO DAILY, MG 05/29/23 Pantoprazole Sodium Sesquihydr (Protonix) 40 Mg Tab, 40 MG PO DAILY, TAB 05/29/23 Aspirin (Aspirin Low Dose) 81 Mg Tab, 81 MG PO DAILY, TAB 05/28/23 Potassium Chloride (Klor-Con 8) 8 Meq Tab, 1 TAB PO DAILY 05/28/23 Simvastatin (Simvastatin) 20 Mg Tab, 1 TAB PO HS 05/28/23 Carvedilol (Carvedilol) 6.25 Mg Tab, 1 TAB PO BID 05/28/23 Nifedipine (Nifedipine Er) 90 Mg Tab, 1 TAB PO DAILY 05/28/23 Fluoxetine Hcl (FLUOXETINE HCL) 60 Mg Tab, 1 TAB PO QAM 05/28/23 Information Source: Patient Mode of Arrival: EMS X-Ray, Labs, Meds, VS Vital Signs Date Time Temp Pulse Resp B/P (MAP) Pulse Ox O2 Delivery O2 Flow Rate FiO2 02/18/24 12:53 62 225/98 02/18/24 12:51 62 20 225/94 (137) 96 02/18/24 11:56 59 238/99 02/18/24 11:39 61 20 238/99 (145) 96 02/18/24 11:28 60 02/18/24 11:11 67 20 96 Room Air* 0 02/18/24 11:10 98.1 60 20 246/99 (148) 96 98.1 02/18/24 09:57 18 98 Nasal Cannula* 1 02/18/24 09:57 97.8 84 18 136/84 (101) 98 Lab Test 02/18/24 12:19 02/18/24 11:21 02/18/24 11:10 Range/Units White Blood Count 6.7 4.4-10.8 10^3/uL Red Blood Count 3.78 L 4.0-5.20 10^6/uL Hemoglobin 11.4 L 12.2-16.2 g/dL Hematocrit 34.9 L 36.0-46.0 % Mean Corpuscular Volume 92.2 80.0-100.0 fL Mean Corpuscular Hemoglobin 30.3 28.0-32.0 pg Mean Corpuscular Hemoglobin Concent 32.8 32.0-36.0 g/dL Red Cell Distribution Width 17.4 H 11.8-14.3 % Platelet Count 217 140-450 10^3/uL Mean Platelet Volume 10.3 6.9-10.8 fL Neutrophils (%) (Auto) 77.6 37.0-80.0 % Lymphocytes (%) (Auto) 14.0 10.0-50.0 % Monocytes (%) (Auto) 6.8 0.0-12.0 % Eosinophils (%) (Auto) 0.7 0.0-7.0 % Basophils (%) (Auto) 0.9 0.0-2.0 % Neutrophils # (Auto) 5.2 1.6-8.6 10 ^3/uL Lymphocytes # (Auto) 0.9 0.4-5.4 10 ^3/uL Monocytes # (Auto) 0.5 0-1.3 10 ^3/uL Eosinophils # (Auto) 0.1 0-0.8 10 ^3/uL Basophils # (Auto) 0.1 0-0.2 10 ^3/uL Nucleated Red Blood Cells 0.1 % Troponin I High Sensitivity 73 *H 77 *H </=34 ng/L B-Type Natriuretic Peptide 4116.00 0-100 pg/mL Blood Gas Specimen Type Arterial Blood Gas Sample Site Right radial Blood Gas Patient Temperature 37.0 Arterial Blood Date Drawn Arterial Blood pH 7.428 7.350-7.450 Arterial Blood Partial Pressure CO2 33.2 32.0-45.0 mmHg Arterial Blood Partial Pressure O2 55.7 L 83.0-108.0 mmHg Arterial Blood HCO3 21.4 21.0-28.0 mmol/L Arterial Blood Oxygen Saturation 88.8 L 94.0-98.0 % Arterial Blood Base Excess -2.2 L -2.0-3.0 mmol/L Arterial Blood Oxyhemoglobin 87.3 L 94.0-98.0 % Arterial Blood Carboxyhemoglobin 1.3 0.5-1.5 % Arterial Blood Methemoglobin 0.4 0.0-1.5 % Braulio Test Yes Blood Gas Total Hemoglobin 12.30 12.0-16.0 g/dL Blood Gas Modality Room air FiO2 % 21.0 Sodium Level 138 136-145 mmol/L Potassium Level 4.5 3.5-5.1 mmol/L Chloride Level 109 H 98-107 mmol/L Carbon Dioxide Level 21 20-31 mmol/L Anion Gap 8 5-15 Blood Urea Nitrogen 38 H 9-23 mg/dL Creatinine 1.69 H 0.550-1.02 mg/dL Glomerular Filtration Rate Calc 29 >90 mL/min BUN/Creatinine Ratio 22.5 H 10.0-20.0 Serum Glucose 95 74-106 mg/dL Lactic Acid Level 1.0 0.4-2.0 mmol/L Calcium Level 10.3 8.7-10.4 mg/dL Magnesium Level 2.7 H 1.6-2.6 mg/dL Total Bilirubin 0.6 0.2-1.0 mg/dL Aspartate Amino Transferase (AST) 24 13-40 U/L Alanine Aminotransferase (ALT) 20 7-40 U/L Alkaline Phosphatase 114 46-116 U/L Total Protein 6.4 5.7-8.2 g/dL Albumin 3.4 3.2-4.8 g/dL Time of 1ST Reevaluation: 11:45 (Patient blood pressure is 233/99. We will give IV labetalol 5 mg once) Reevaluation 1ST: Unchanged Patient Education/Counseling: Diagnosis, Treatment Family Education/Counseling: No Family Present Comments Patient presented with the shortness of breath. workup was initiated. pt desaturated to 86% without oxygen, restarted on O2. ABG on room air reveals PO2 of 55.7. Chest x-ray showed multifocal opacities bilateral. Patient was given: IV labetalol for hypertensive crisis, and IV Zosyn for possible pneumonia Patient has been observed in the ED adequate length of time to insure improvement/stability. patient was admitted to the medicine team for further evaluation and treatment of their presentation. Departure 1 Departure Time of Disposition: 11:51 Impression: Primary Impression: Hypoxemia Additional Impressions: Hypertensive crisis Elevated troponin Multifocal pneumonia CHF exacerbation Disposition: ADMITTED INPATIENT Admit to: Tele Condition: Guarded Discharged With: Self Critical Care Note Critical Care Time?: Yes (35 min-critical care time only) I personally scribed for ADRIANA MEDINA DO ([email or web address]) on 02/18/24 at 17:34. Electronically submitted by Kary Mina ([facility]). RITA AVILA RESIDENT Feb 18, 2024 10:55 ADRIANA MEDINA DO Feb 18, 2024 12:23
--- NOTE | 2024-02-18 11:10 | DVH ---
CHEST RADIOGRAPH Indication: SOB Technique: Single frontal view of the chest was obtained COMPARISON: XY CHEST PORTABLE on DOS: 10/19/23, XY CHEST PORTABLE on DOS: 07/26/23, XY CHEST PORTABLE o n DOS: 05/28/23 FINDINGS: Lines and Tubes: None Lungs: Multifocal airspace disease. Pleura: No effusion. No pneumothorax. Cardiomediastinal contours: Cardiomegaly. Vascular calcifications of the aorta. Bones: Unremarkable IMPRESSION: Multifocal airspace disease.
[2024-02-18 11:26] LABS: Base Excess -2.2 mmol/L (-2.0-3.0)
[2024-02-18] MEDS: PIPERACILLIN-TAZOB 3.375GM 100 ML IV ONE (11:27)
[2024-02-18 11:43] LABS: Alanine Aminotransferase 20 U/L (7-40); Alkaline Phosphatase 114 U/L (46-116); Anion Gap 8 (5-15); BUN/Creatinine Ratio 22.5 (10.0-20.0); Blood Urea Nitrogen 38 mg/dL (9-23); Calcium 10.3 mg/dL (8.7-10.4); Carbon Dioxide 21 mmol/L (20-31); Chloride 109 mmol/L (98-107); Glucose 95 mg/dL (74-106); Magnesium 2.7 mg/dL (1.6-2.6); Potassium 4.5 mmol/L (3.5-5.1); Sodium 138 mmol/L (136-145)
[2024-02-18 11:44] LABS: Albumin 3.4 g/dL (3.2-4.8); Aspartate Aminotransferase 24 U/L (13-40)
[2024-02-18 11:45] LABS: Bilirubin, Total 0.6 mg/dL (0.2-1.0); Total Protein 6.4 g/dL (5.7-8.2)
[2024-02-18] MEDS: LABETALOL HCL 20 MG/4 ML VL IV ONE ×2 (11:56→13:56)
[2024-02-18 12:30] LABS: Basophils # (auto) 0.1 10 ^3/uL (0-0.2); Basophils % (auto) 0.9 % (0.0-2.0); Eosinophils # (auto) 0.1 10 ^3/uL (0-0.8); Eosinophils % (auto) 0.7 % (0.0-7.0); Hematocrit 34.9 % (36.0-46.0); Hemoglobin 11.4 g/dL (12.2-16.2); Lymphocytes # (auto) 0.9 10 ^3/uL (0.4-5.4); Mean Corpuscular Hemoglobin 30.3 pg (28.0-32.0); Mean Corpuscular Hgb Conc. 32.8 g/dL (32.0-36.0); Mean Corpuscular Volume 92.2 fL (80.0-100.0); Monocytes # (auto) 0.5 10 ^3/uL (0-1.3); Monocytes % (auto) 6.8 % (0.0-12.0); Neutrophils # (auto) 5.2 10 ^3/uL (1.6-8.6); Neutrophils % (auto) 77.6 % (37.0-80.0); Nucleated Red Blood Cells % 0.1 %; Platelet Count (auto) 217 10^3/uL (140-450); Red Blood Cells 3.78 10^6/uL (4.0-5.20); Red Cell Distribution Width 17.4 % (11.8-14.3); White Blood Cell 6.7 10^3/uL (4.4-10.8)
[2024-02-18] MEDS: CLOPIDOGREL BISULFATE 75 MG TAB PO SCH (13:15)
[2024-02-18] MEDS ORDERED: ONDANSETRON HCL 4 MG/2 ML VIAL IV PRN (13:15)
[2024-02-18] MEDS ORDERED: DEXTROSE (50%) 50ML SYRG IV PRN (13:15)
[2024-02-18] MEDS ORDERED: MAALOX PLUS or MAALOX 30 ML PO PRN (13:15)
[2024-02-18] MEDS ORDERED: ACETAMINOPHEN 325 MG TAB PO PRN (13:15)
[2024-02-18] MEDS ORDERED: HYDROcodone-ACET 5/325MG TAB PO PRN (13:15)
[2024-02-18] MEDS ORDERED: MORPHINE SULFATE INJ 2 MG/ml SYRG IV PRN (13:15)
[2024-02-18] MEDS: SODIUM CHLORIDE 0.9% 1,000 ML IV SCH (13:55)
--- NOTE | 2024-02-18 13:56 | DVHHP2 ---
History of Present Illness Reason for Visit: shortness of breath History of Present Illness 88 yo with PMH CHF,PR, CAD,CKD comes to the ed on evaluation with signs of htn urgency and shortness of breath and suspected multifocal pna patient was evaluated having hypoxia in the ed and recommended for admission Cardiovascular: CAD, CHF, HTN Renal/: Chronic renal insuff Review of Systems Constitutional: Yes: Weakness; No: Fever, Chills, Sweats, Malaise, Other Eyes: No: Pain, Vision change, Conjunctivae inflammation, Eyelid inflammation, Other, Redness ENT: No: Ear pain, Ear discharge, Nose pain, Nose discharge, Nose congestion, Mouth pain, Mouth swelling, Throat pain, Throat swelling, Other Respiratory: Cough, Shortness of breath; No: Dry, SOB with excertion, Wheezing, Hemoptysis, Pleuritic Pain, Sputum, Wheezing, Other Cardiovascular: Chest Pain; No: Palpitations, Orthopnea, Paroxysmal Noc. Dyspnea, Edema, Lt Headedness, Other Gastrointestinal: No: Nausea, Vomiting, Abdominal Pain, Diarrhea, Constipation, Melena, Hematochezia, Other Genitourinary: No Dysuria, No Frequency, No Incontinence, No Hematuria, No Retention, No Other Musculoskeletal: No: other, neck pain, shoulder pain, arm pain, back pain, hand pain, leg pain, foot pain Neurological: No: Weakness, Numbness, Incoordination, Change in speech, Confusion, Seizures, Other Allergies: Coded Allergies: NO KNOWN ALLERGIES (Unverified , 05/28/23) Exam Vital Signs Vital Signs Date Time Temp Pulse Resp B/P (MAP) Pulse Ox O2 Delivery O2 Flow Rate FiO2 02/18/24 12:53 62 225/98 02/18/24 12:51 20 96 02/18/24 11:11 Room Air* 0 21 02/18/24 11:10 98.1 98.1 General Appearance: Alert, Oriented X3 HEENT: Atraumatic, PERRLA Respiratory: Clear to auscultation Cardiovascular: Regular rate, Normal S1, Normal S2 Abdominal: Normal bowel sounds, Soft, No tenderness Extremities: No clubbing, No cyanosis, No edema Skin: No rashes, No breakdown Neuro: Normal gait, Normal speech Psych/Mental Status: Mood NL Labs/Xrays Labs Test 02/18/24 12:19 02/18/24 11:21 02/18/24 11:10 Range/Units White Blood Count 6.7 4.4-10.8 10^3/uL Red Blood Count 3.78 L 4.0-5.20 10^6/uL Hemoglobin 11.4 L 12.2-16.2 g/dL Hematocrit 34.9 L 36.0-46.0 % Mean Corpuscular Volume 92.2 80.0-100.0 fL Mean Corpuscular Hemoglobin 30.3 28.0-32.0 pg Mean Corpuscular Hemoglobin Concent 32.8 32.0-36.0 g/dL Red Cell Distribution Width 17.4 H 11.8-14.3 % Platelet Count 217 140-450 10^3/uL Mean Platelet Volume 10.3 6.9-10.8 fL Neutrophils (%) (Auto) 77.6 37.0-80.0 % Lymphocytes (%) (Auto) 14.0 10.0-50.0 % Monocytes (%) (Auto) 6.8 0.0-12.0 % Eosinophils (%) (Auto) 0.7 0.0-7.0 % Basophils (%) (Auto) 0.9 0.0-2.0 % Neutrophils # (Auto) 5.2 1.6-8.6 10 ^3/uL Lymphocytes # (Auto) 0.9 0.4-5.4 10 ^3/uL Monocytes # (Auto) 0.5 0-1.3 10 ^3/uL Eosinophils # (Auto) 0.1 0-0.8 10 ^3/uL Basophils # (Auto) 0.1 0-0.2 10 ^3/uL Nucleated Red Blood Cells 0.1 % Troponin I High Sensitivity 73 *H </=34 ng/L B-Type Natriuretic Peptide 4116.00 0-100 pg/mL Blood Gas Specimen Type Arterial Blood Gas Sample Site Right radial Blood Gas Patient Temperature 37.0 Arterial Blood Date Drawn Arterial Blood pH 7.428 7.350-7.450 Arterial Blood Partial Pressure CO2 33.2 32.0-45.0 mmHg Arterial Blood Partial Pressure O2 55.7 L 83.0-108.0 mmHg Arterial Blood HCO3 21.4 21.0-28.0 mmol/L Arterial Blood Oxygen Saturation 88.8 L 94.0-98.0 % Arterial Blood Base Excess -2.2 L -2.0-3.0 mmol/L Arterial Blood Oxyhemoglobin 87.3 L 94.0-98.0 % Arterial Blood Carboxyhemoglobin 1.3 0.5-1.5 % Arterial Blood Methemoglobin 0.4 0.0-1.5 % Braulio Test Yes Blood Gas Total Hemoglobin 12.30 12.0-16.0 g/dL Blood Gas Modality Room air FiO2 % 21.0 Sodium Level 138 136-145 mmol/L Potassium Level 4.5 3.5-5.1 mmol/L Chloride Level 109 H 98-107 mmol/L Carbon Dioxide Level 21 20-31 mmol/L Anion Gap 8 5-15 Blood Urea Nitrogen 38 H 9-23 mg/dL Creatinine 1.69 H 0.550-1.02 mg/dL Glomerular Filtration Rate Calc 29 >90 mL/min BUN/Creatinine Ratio 22.5 H 10.0-20.0 Serum Glucose 95 74-106 mg/dL Lactic Acid Level 1.0 0.4-2.0 mmol/L Calcium Level 10.3 8.7-10.4 mg/dL Magnesium Level 2.7 H 1.6-2.6 mg/dL Total Bilirubin 0.6 0.2-1.0 mg/dL Aspartate Amino Transferase (AST) 24 13-40 U/L Alanine Aminotransferase (ALT) 20 7-40 U/L Alkaline Phosphatase 114 46-116 U/L Total Protein 6.4 5.7-8.2 g/dL Albumin 3.4 3.2-4.8 g/dL Assessment/Plan Assessment/Plan Admit Med/Surg Suspected Multifocal PNA CXR with multiple opacities hypoxia PRN breathing Treatments IV abx Zosyn started in the Ed continue in patient HTN Urgency Given Labetolol in the ED BP 200/100 in the ed PRN hydralazine q6 history CKD Tropenemia Elevated trops denies chest pain elevated trops 77 first trop trops pending Plan discussed with: Patient My Orders Orders - JC ELLIS MD Procedure Category Date Status Time Allopurinol Tablet PHA 02/19/24 Logged (Zyloprim Tablet) 10:00 Aspirin Enteric PHA 02/19/24 Logged Coated Tablet 10:00 Empagliflozin PHA 02/19/24 Logged (Jardiance) 10:00 Furosemide Tablet PHA 02/19/24 Logged (Lasix Tablet) 10:00 Pantoprazole Tablet PHA 02/19/24 Logged (Protonix Tablet) 10:00 Potassium Er Tablet PHA 02/19/24 Logged (Klor-Con Tablet) 10:00 Spironolactone PHA 02/19/24 Logged (Aldactone) 10:00 (Nf) Carvedilol PHA 02/18/24 Logged 22:00 (Nf) Fluoxetine Hcl PHA 02/19/24 Logged 07:00 (Nf) Lisinopril PHA 02/19/24 Logged 10:00 (Nf) Nifedipine PHA 02/19/24 Logged (Nifedipine Er) 10:00 (Nf) Simvastatin PHA 02/18/24 Transmitted 22:00 Zosyn Extended PHA 02/18/24 Transmitted Infusion 14:00 Clopidogrel Bisulfate PHA 02/18/24 Transmitted (Plavix) 13:15 Albuterol Medneb PHA 02/18/24 Logged (Ventolin Medneb) 13:15 Ipratropium Medneb PHA 02/18/24 Logged (Atrovent Medneb) 13:15 Med Neb Initial RT 02/18/24 Logged Treatment 13:07 Glucose Blood PHA 02/18/24 Logged (Accu-Chek Comfort 16:00 Insulin R (Human) PHA 02/18/24 Logged (Insulin R) 16:00 Dextrose 50% Syringe PHA 02/18/24 Logged 13:15 Admit ADMIT 02/18/24 Transmitted 13:07 Code Status CODE 02/18/24 Transmitted 13:07 Vital Signs [facility] 02/18/24 In Process 13:07 Review Orders With [facility] 02/18/24 In Process Adm. 13:07 Consistent DIET 02/18/24 Transmitted Carb(Ccho)Diabetes Lunch Sodium Chloride 0.9% PHA 02/18/24 Logged 13:15 Alum & Mag PHA 02/18/24 Transmitted Hydrox-Simethicone 13:15 Docusate Sodium PHA 02/18/24 Transmitted Capsule (Colace 13:15 Acetaminophen Tablet PHA 02/18/24 Transmitted (Tylenol Tablet) 13:15 Notify Of Changes [facility] 02/18/24 In Process From Base 13:07 Advance Directive [facility] 02/18/24 In Process 13:07 Basic Metabolic Panel LAB 02/19/24 Verified 04:00 Complete Blood Count LAB 02/19/24 Verified 04:00 Patient Condition ORDERS 02/18/24 Transmitted 13:07 Allergies GREGOR[facility] 02/18/24 In Process 13:07 Hydrocodone-Acet PHA 02/18/24 Transmitted 5/325mg Tab ([place] 13:15 Ondansetron Hcl PHA 02/18/24 Transmitted (Zofran) 13:15 Morphine 2mg Iv Q4hprn PHA 02/18/24 Transmitted 13:15 Notify Md Of Changes GREG[facility] 02/18/24 In Process From Base 13:07 Oxygen By Nasal RT 02/18/24 Transmitted Cannula 13:07 Hydralazine Injection PHA 02/18/24 Transmitted (Apresoline Inject 13:15 Problem List: (1) Acute on chronic diastolic heart failure (2) ESRD on dialysis (3) Hypertensive crisis (4) Hypoxemia (5) Elevated troponin (6) Multifocal pneumonia Date of Service: Feb 18, 2024 Billing Provider: JC ELLIS MD Common Visit Codes: [id number] INP/OBS CARE (HIGH) JC ELLIS MD Feb 18, 2024 13:56
[2024-02-18] MEDS: PIPERACILLIN-TAZOB 3.375GM 100 ML IV SCH (14:00)
[2024-02-18] MEDS: hydrALAZINE HCL 20 MG/ML VL IV PRN (15:27)
[2024-02-18] MEDS: InsuLIN REG 1unit/0.01ml Soln (100units/ml) SC SCH (16:00)
[2024-02-18] MEDS: ACCU-CHEK COMFORT CURVE STRIP VI SCH (16:14)
[2024-02-18] MEDS: ALBUTEROL SULF 2.5 MG/0.5ML(0.5%) NEB SOLN NEB PRN (18:33)
[2024-02-18] MEDS: IPRATROPIUM BROM 0.5 MG/2.5ML INH SOL NEB PRN (18:33)
--- NOTE | 2024-02-18 19:09 | ECG ---
[facility] Test Date: 2024-02-18 Test Time: 09:59:38 Pat Name: BRIAN FAJARDO Department: ED Room: 0281 B Gender: F Misdraw Hand: LISA : 1935 Requested By: ADRIANA MEDINA Order Number: [id number] Reading MD: Beltran Ruvalcaba Measurements Intervals [place] Rate: 60 P: 32 NH: 161 QRS: -38 QRSD: 84 T: -60 QT: 505 QTc: 505 Interpretive Statements Sinus rhythm Left atrial enlargement LVH with secondary repolarization abnormality Inferior infarct, age indeterminate Probable anterior infarct, age indeterminate Prolonged QT interval Baseline wander in lead(s) V4 Electronically Signed On 02-19-2024 17:42:29 PST by Beltran Ruvalcaba Please click the below link to view image of tracing.
[2024-02-18] MEDS: CARVEDILOL 12.5 MG TAB PO SCH (21:41)
[2024-02-18] MEDS: ATORVASTATIN 20 MG TAB PO SCH (21:41)
[2024-02-18] MEDS ORDERED: PATIENTS OWN MEDICATION (Carvedilol 1 TAB) PO SCH (22:00)
[2024-02-18] MEDS ORDERED: PATIENTS OWN MEDICATION (Simvastatin 1 TAB) PO SCH (22:00)
[2024-02-19] VITALS (9 sets, daily range): BP systolic 114–186; BP diastolic 35–62; PULSE 52–58; RESP 16–19; TEMP 97.3–98.6; O2SAT 92–99
[2024-02-19 05:49] LABS: Basophils # (auto) 0.1 10 ^3/uL (0-0.2); Basophils % (auto) 0.9 % (0.0-2.0); Eosinophils # (auto) 0.1 10 ^3/uL (0-0.8); Eosinophils % (auto) 1.8 % (0.0-7.0); Hematocrit 31.8 % (36.0-46.0); Hemoglobin 10.4 g/dL (12.2-16.2); Lymphocytes % (auto) 17.3 % (10.0-50.0); Mean Corpuscular Hemoglobin 30.4 pg (28.0-32.0); Mean Corpuscular Hgb Conc. 32.8 g/dL (32.0-36.0); Mean Corpuscular Volume 92.7 fL (80.0-100.0); Monocytes # (auto) 0.6 10 ^3/uL (0-1.3); Monocytes % (auto) 10.9 % (0.0-12.0); Neutrophils # (auto) 3.8 10 ^3/uL (1.6-8.6); Neutrophils % (auto) 69.1 % (37.0-80.0); Nucleated Red Blood Cells % 0.2 %; Platelet Count (auto) 186 10^3/uL (140-450); Red Blood Cells 3.43 10^6/uL (4.0-5.20); Red Cell Distribution Width 17.2 % (11.8-14.3); White Blood Cell 5.5 10^3/uL (4.4-10.8)
[2024-02-19 05:58] LABS: Anion Gap 10 (5-15); Carbon Dioxide 21 mmol/L (20-31); Chloride 108 mmol/L (98-107); Potassium 4.6 mmol/L (3.5-5.1); Sodium 139 mmol/L (136-145)
[2024-02-19 06:00] LABS: Calcium 9.4 mg/dL (8.7-10.4)
[2024-02-19 06:04] LABS: BUN/Creatinine Ratio 23.6 (10.0-20.0); Blood Urea Nitrogen 43 mg/dL (9-23); Glucose 81 mg/dL (74-106)
[2024-02-19] MEDS: FLUoxetine HCL 20 MG CAP PO SCH (06:37)
[2024-02-19] MEDS ORDERED: PATIENTS OWN MEDICATION (Fluoxetine Hcl 1 TAB) PO SCH (07:00)
[2024-02-19] MEDS: ASPirin-EC 81 mg tab PO SCH (09:01)
[2024-02-19] MEDS: PANTOPRAZOLE 40 MG TAB PO SCH (09:01)
[2024-02-19] MEDS: ALLOPURINOL 100 MG TAB PO SCH (09:01)
[2024-02-19] MEDS: EMPAGLIFLOZIN 10 MG TAB PO SCH (09:01)
[2024-02-19] MEDS: SPIRONOLACTONE 25 MG TAB PO SCH (09:02)
[2024-02-19] MEDS: POTASSIUM CHLORIDE 8 MEQ TAB PO SCH (09:02)
[2024-02-19] MEDS: DOCUSATE SOD 100 MG CAP PO PRN (09:03)
[2024-02-19] MEDS: FUROSEMIDE 40 MG TAB PO SCH (09:03)
[2024-02-19] MEDS: LISINOPRIL 20 MG TAB PO SCH (09:04)
[2024-02-19] MEDS: NIFEdipine ER 30 MG TAB PO SCH (09:05)
[2024-02-19] MEDS ORDERED: FLUoxetine HCL 20 MG CAP PO SCH (10:00)
[2024-02-19] MEDS ORDERED: PATIENTS OWN MEDICATION (Lisinopril 40 MG) PO SCH (10:00)
[2024-02-19] MEDS ORDERED: PATIENTS OWN MEDICATION (Nifedipine (Nifedipine Er) 1 TAB) PO SCH (10:00)
--- NOTE | 2024-02-19 11:23 | DVHPN2 ---
Reviewed: Care Plan, H&P, Labs, Medications, Previous Orders Changes from previous H/P or p: No Changes Eyes: No Pain, No Vision change, No Conjunctivae inflammation, No Eyelid inflammation, No Other, No Redness ENT: No Ear pain, No Ear discharge, No Nose pain, No Nose discharge, No Nose congestion, No Mouth pain, No Mouth swelling, No Throat pain, No Throat swelling, No Other Cardiovascular: Chest Pain; No Palpitations, No Orthopnea, No Paroxysmal Noc. Dyspnea, No Edema, No Lt Headedness, No Other Respiratory: Cough; No Dry; Shortness of breath; No SOB with excertion, No Wheezing, No Hemoptysis, No Pleuritic Pain, No Sputum, No Other Gastrointestinal: No Nausea, No Vomiting, No Abdominal Pain, No Diarrhea, No Constipation, No Melena, No Hematochezia, No Other Genitourinary: No Dysuria, No Frequency, No Incontinence, No Hematuria, No Retention, No Other Musculoskeletal: No other, No neck pain, No shoulder pain, No arm pain, No back pain, No hand pain, No leg pain, No foot pain Objective Vitals Vital Signs Date Time Temp Pulse Resp B/P (MAP) Pulse Ox O2 Delivery O2 Flow Rate FiO2 02/19/24 09:05 186/62 02/19/24 09:02 60 02/19/24 08:52 98.6 17 98 98.6 02/19/24 07:30 Nasal Cannula* 2 28 Intake/Output Intake and Output 02/19/24 07:00 Intake Total 880 ml Output Total 400 ml Balance 480 ml Intake Oral 500 ml IV Total 380 ml Output Urine Total 400 ml Medications Current Medications Medications Dose Ordered Sig/Abundio Route Start Time Stop Time Status Last Admin Dose Admin Allopurinol 100 mg DAILY PO 02/19/24 10:00 02/19/24 09:01 100 MG Aspirin 81 mg DAILY PO 02/19/24 10:00 02/19/24 09:01 81 MG Empaglifozin 10 mg DAILY PO 02/19/24 10:00 02/19/24 09:01 10 MG Furosemide 40 mg DAILY PO 02/19/24 10:00 02/19/24 09:03 40 MG Pantoprazole Sodium 40 mg DAILY PO 02/19/24 10:00 02/19/24 09:01 40 MG Potassium Chloride 8 meq DAILY PO 02/19/24 10:00 02/19/24 09:02 8 MEQ Spironolactone 25 mg DAILY PO 02/19/24 10:00 02/19/24 09:02 25 MG Patient Own Medication 1 tab BID PO 02/18/24 22:00 UNV Patient Own Medication 1 tab QAM PO 02/19/24 07:00 UNV Patient Own Medication 40 mg DAILY PO 02/19/24 10:00 UNV Patient Own Medication 1 tab DAILY PO 02/19/24 10:00 UNV Patient Own Medication 1 tab HS PO 02/18/24 22:00 UNV Piperacillin Sod/ Tazobactam Sod 100 ml @ 100 mls/hr Q12HR IV 02/18/24 14:00 02/19/24 09:05 100 MLS/HR Clopidogrel Bisulfate 75 mg DAILY PO 02/18/24 13:15 02/19/24 09:01 75 MG Albuterol 2.5 mg Q4HWA PRN NEB 02/18/24 13:15 02/18/24 18:33 2.5 MG Ipratropium [place] 0.5 mg Q4HWA PRN NEB 02/18/24 13:15 02/18/24 18:33 0.5 MG Diagnostic Test (Pha) 1 strip IQ4HR 02/18/24 16:00 02/19/24 08:00 1 STRIP Insulin Human Regular IQ4HR SC 02/18/24 16:00 Dextrose 50 ml UD PRN IV 02/18/24 13:15 Sodium Chloride 1,000 ml @ 60 mls/hr [id number] IV 02/18/24 13:15 02/18/24 13:55 60 MLS/HR Al Hydrox/Mg Hydrox/Simethicone 30 ml Q6HP PRN PO 02/18/24 13:15 Docusate Sodium 100 mg BIDPRN PRN PO 02/18/24 13:15 02/19/24 09:03 100 MG Acetaminophen 650 mg Q6HP PRN PO 02/18/24 13:15 Acetaminophen/ Hydrocodone Bitart 1 tab Q4HP PRN PO 02/18/24 13:15 Ondansetron HCl 4 mg Q4HP PRN IV 02/18/24 13:15 Morphine Sulfate 2 mg Q4HPRN PRN IV 02/18/24 13:15 Hydralazine HCl 10 mg Q6HPRN PRN IV 02/18/24 13:15 02/19/24 01:12 10 MG Carvedilol 25 mg BID PO 02/18/24 22:00 02/19/24 09:02 25 MG Lisinopril 40 mg DAILY PO 02/19/24 10:00 02/19/24 09:04 40 MG Nifedipine 60 mg DAILY PO 02/19/24 10:00 02/19/24 09:05 60 MG Atorvastatin Calcium 10 mg HS PO 02/18/24 22:00 02/18/24 21:41 10 MG Fluoxetine HCl 60 mg QAM PO 02/19/24 07:00 02/19/24 06:37 60 MG Laboratory Results Laboratory Tests 02/19/24 04:59 Chemistry Test 02/19/24 04:59 Calcium Level 9.4 mg/dL (8.7-10.4) Cardiac Markers Test 02/18/24 12:19 B-Type Natriuretic Peptide 4116.00 pg/mL (0-100) Assessment/Plan Assessment/Plan (1) Acute on chronic diastolic heart failure (2) ESRD on dialysis (3) Hypertensive crisis (4) Hypoxemia (5) Elevated troponin (6) Multifocal pneumonia Continuing current management. Continuing with IV antibiotic Zosyn. Continuing with nebulizer. Appreciate pulmonology and Nephrology input. Continuing hemodialysis per schedule. Continuing with hypertensive medication. Plan discussed with: Patient Date of Service: Feb 19, 2024 Billing Provider: MCKAYLA HAWKINS MD Common Visit Codes: [id number] INP/OBS CARE(HIGH) MCKAYLA HAWKINS MD Feb 19, 2024 11:23
--- NOTE | 2024-02-19 15:06 | DVH ---
INDICATION: ckd TECHNIQUE: Multiple real-time sonographic images of the kidneys and bladder were obtained. COMPARISON: US KIDNEY on DOS: 05/29/23 FINDINGS: The right kidney measures 10 cm in length, which is normal in size. Bilateral increased echogenicity. Bilateral renal cysts are noted measuring up to 3 cm. There is mi ld left hydronephrosis. There is mild ascites. The left kidney measures 9 cm in length, which is normal in size IMPRESSION: Mild left hydronephrosis. Bilateral medical renal disease. mild ascites Bilateral renal cysts measuring up to 3 cm
--- NOTE | 2024-02-19 19:29 | DVHINCON2 ---
Date of service: Feb 19, 2024 Referring Physician Michael Reason for Consultation CKD History of Present Illness 88 y/o female presented to the ER with complaints of dyspnea. Reports hx of CHF,GA, CAD,and CKD with hx of dialysis in 2022 no longer on dialysis. Consulted for CKD. Patient does not recall most recent GFR. 02/17- BUN 38, creatinine 1.69, GFR 29. Repeat chemistry panel on 02/18 resulted in Na 139, K +4.6, BUN 43, creat 1.82, GFR 27. Denies CP, current dyspnea. On oxygen via NC. Denies GI issues. Denies NSAID use Past Medical History CHF, CAD, GA, CKD, past history of hemodialysis. Allergies: Coded Allergies: NO KNOWN ALLERGIES (Unverified , 05/28/23) Home Meds Active Scripts Empagliflozin (Jardiance) 10 Mg Tab, 10 MG PO DAILY for 30 Days, #30 TAB Prov:RITA AVILA RESIDENT 10/21/23 Spironolactone (Aldactone) 25 Mg Tab, 25 MG PO DAILY for 30 Days, #30 TAB Prov:RITA AVILA RESIDENT 10/21/23 Furosemide (Lasix) 40 Mg Tab, 40 MG PO DAILY for 15 Days, #15 TAB Prov:SAMSON ODOM DO 05/31/23 Reported Medications Allopurinol (Allopurinol) 100 Mg Tab, 100 MG PO DAILY, MG 05/29/23 Lisinopril (Lisinopril) 40 Mg Tab, 40 MG PO DAILY, MG 05/29/23 Pantoprazole Sodium Sesquihydr (Protonix) 40 Mg Tab, 40 MG PO DAILY, TAB 05/29/23 Aspirin (Aspirin Low Dose) 81 Mg Tab, 81 MG PO DAILY, TAB 05/28/23 Potassium Chloride (Klor-Con 8) 8 Meq Tab, 1 TAB PO DAILY 05/28/23 Simvastatin (Simvastatin) 20 Mg Tab, 1 TAB PO HS 05/28/23 Carvedilol (Carvedilol) 6.25 Mg Tab, 1 TAB PO BID 05/28/23 Nifedipine (Nifedipine Er) 90 Mg Tab, 1 TAB PO DAILY 05/28/23 Fluoxetine Hcl (FLUOXETINE HCL) 60 Mg Tab, 1 TAB PO QAM 05/28/23 Current Medications Current Medications Medications (Trade) Dose Ordered Sig/Abundio Route PRN Reason Start Time Stop Time Status Last Admin Allopurinol (Zyloprim Tablet) 100 mg DAILY PO 02/19/24 10:00 02/19/24 09:01 Aspirin (Ecotrin Enteric Coated Tablet) 81 mg DAILY PO 02/19/24 10:00 02/19/24 09:01 Empaglifozin (Jardiance) 10 mg DAILY PO 02/19/24 10:00 02/19/24 09:01 Furosemide (Lasix Tablet) 40 mg DAILY PO 02/19/24 10:00 02/19/24 09:03 Pantoprazole Sodium (Protonix Tablet) 40 mg DAILY PO 02/19/24 10:00 02/19/24 09:01 Potassium Chloride (Klor-Con Tablet) 8 meq DAILY PO 02/19/24 10:00 02/19/24 09:02 Spironolactone (Aldactone) 25 mg DAILY PO 02/19/24 10:00 02/19/24 09:02 Patient Own Medication 1 tab BID PO 02/18/24 22:00 UNV Patient Own Medication 1 tab QAM PO 02/19/24 07:00 UNV Patient Own Medication 40 mg DAILY PO 02/19/24 10:00 UNV Patient Own Medication 1 tab DAILY PO 02/19/24 10:00 UNV Patient Own Medication 1 tab HS PO 02/18/24 22:00 UNV Carvedilol (Coreg Tablet) 25 mg BID PO 02/18/24 22:00 02/19/24 09:02 Fluoxetine HCl (PROzac CAPSULE) 60 mg DAILY PO 02/19/24 10:00 02/18/24 14:17 DC Lisinopril (Zestril Tablet) 40 mg DAILY PO 02/19/24 10:00 02/19/24 09:04 Nifedipine (Procardia Xl (Time-Release)) 60 mg DAILY PO 02/19/24 10:00 02/19/24 09:05 Atorvastatin Calcium (Lipitor) 10 mg HS PO 02/18/24 22:00 02/18/24 21:41 Fluoxetine HCl (PROzac CAPSULE) 60 mg QAM PO 02/19/24 07:00 02/19/24 06:37 Family History: Diabetes mellitus G8 SISTER Hypertension G8 MOTHER Review of Systems 10 systems reviewed and negative except as per HPI H&P Exam Vital Signs/I&O Vital Sign Date Time Temp Pulse Resp B/P (MAP) Pulse Ox O2 Delivery O2 Flow Rate FiO2 02/19/24 16:59 98.0 54 17 137/43 (74) 93 98.0 02/19/24 07:30 Nasal Cannula* 2 28 Intake and Output 02/18/24 02/19/24 19:00 07:00 Intake Total 280 ml 600 ml Output Total 400 ml Balance 280 ml 200 ml Intake Oral 500 ml IV Total 280 ml 100 ml Output Urine Total 400 ml Physical Exam Gen: Patient appears stated age, in no acute distress HEENT: Pupils equal and reactive to light and accommodation Pulm: diminished bilaterally Cardio: RRR, normal S1 and S2 Abd: Normoactive bowel sounds, soft and nontender Ext: No edema Neuro: Alert and oriented x 4 Labs/Diagnostic Data Labs/Diagnostic Data Laboratory Tests Test 02/19/24 08:11 02/19/24 04:59 02/19/24 04:34 02/18/24 23:53 Range/Units POC Glucose 99 91 106 70-106 mg/dl White Blood Count 5.5 4.4-10.8 10^3/uL Red Blood Count 3.43 L 4.0-5.20 10^6/uL Hemoglobin 10.4 L 12.2-16.2 g/dL Hematocrit 31.8 L 36.0-46.0 % Mean Corpuscular Volume 92.7 80.0-100.0 fL Mean Corpuscular Hemoglobin 30.4 28.0-32.0 pg Mean Corpuscular Hemoglobin Concent 32.8 32.0-36.0 g/dL Red Cell Distribution Width 17.2 H 11.8-14.3 % Platelet Count 186 140-450 10^3/uL Mean Platelet Volume 9.7 6.9-10.8 fL Neutrophils (%) (Auto) 69.1 37.0-80.0 % Lymphocytes (%) (Auto) 17.3 10.0-50.0 % Monocytes (%) (Auto) 10.9 0.0-12.0 % Eosinophils (%) (Auto) 1.8 0.0-7.0 % Basophils (%) (Auto) 0.9 0.0-2.0 % Neutrophils # (Auto) 3.8 1.6-8.6 10 ^3/uL Lymphocytes # (Auto) 1.0 0.4-5.4 10 ^3/uL Monocytes # (Auto) 0.6 0-1.3 10 ^3/uL Eosinophils # (Auto) 0.1 0-0.8 10 ^3/uL Basophils # (Auto) 0.1 0-0.2 10 ^3/uL Nucleated Red Blood Cells 0.2 % Sodium Level 139 136-145 mmol/L Potassium Level 4.6 3.5-5.1 mmol/L Chloride Level 108 H 98-107 mmol/L Carbon Dioxide Level 21 20-31 mmol/L Anion Gap 10 5-15 Blood Urea Nitrogen 43 H 9-23 mg/dL Creatinine 1.82 H 0.550-1.02 mg/dL Glomerular Filtration Rate Calc 27 >90 mL/min BUN/Creatinine Ratio 23.6 H 10.0-20.0 Serum Glucose 81 74-106 mg/dL Calcium Level 9.4 8.7-10.4 mg/dL Test 02/18/24 20:31 02/18/24 16:13 02/18/24 14:02 02/18/24 12:19 Range/Units POC Glucose 94 83 70-106 mg/dl Troponin I High Sensitivity 74 *H 73 *H </=34 ng/L White Blood Count 6.7 4.4-10.8 10^3/uL Red Blood Count 3.78 L 4.0-5.20 10^6/uL Hemoglobin 11.4 L 12.2-16.2 g/dL Hematocrit 34.9 L 36.0-46.0 % Mean Corpuscular Volume 92.2 80.0-100.0 fL Mean Corpuscular Hemoglobin 30.3 28.0-32.0 pg Mean Corpuscular Hemoglobin Concent 32.8 32.0-36.0 g/dL Red Cell Distribution Width 17.4 H 11.8-14.3 % Platelet Count 217 140-450 10^3/uL Mean Platelet Volume 10.3 6.9-10.8 fL Neutrophils (%) (Auto) 77.6 37.0-80.0 % Lymphocytes (%) (Auto) 14.0 10.0-50.0 % Monocytes (%) (Auto) 6.8 0.0-12.0 % Eosinophils (%) (Auto) 0.7 0.0-7.0 % Basophils (%) (Auto) 0.9 0.0-2.0 % Neutrophils # (Auto) 5.2 1.6-8.6 10 ^3/uL Lymphocytes # (Auto) 0.9 0.4-5.4 10 ^3/uL Monocytes # (Auto) 0.5 0-1.3 10 ^3/uL Eosinophils # (Auto) 0.1 0-0.8 10 ^3/uL Basophils # (Auto) 0.1 0-0.2 10 ^3/uL Nucleated Red Blood Cells 0.1 % B-Type Natriuretic Peptide 4116.00 0-100 pg/mL Test 02/18/24 11:21 02/18/24 11:10 Range/Units Blood Gas Specimen Type Arterial Blood Gas Sample Site Right radial Blood Gas Patient Temperature 37.0 Arterial Blood Date Drawn Arterial Blood pH 7.428 7.350-7.450 Arterial Blood Partial Pressure CO2 33.2 32.0-45.0 mmHg Arterial Blood Partial Pressure O2 55.7 L 83.0-108.0 mmHg Arterial Blood HCO3 21.4 21.0-28.0 mmol/L Arterial Blood Oxygen Saturation 88.8 L 94.0-98.0 % Arterial Blood Base Excess -2.2 L -2.0-3.0 mmol/L Arterial Blood Oxyhemoglobin 87.3 L 94.0-98.0 % Arterial Blood Carboxyhemoglobin 1.3 0.5-1.5 % Arterial Blood Methemoglobin 0.4 0.0-1.5 % Braulio Test Yes Blood Gas Total Hemoglobin 12.30 12.0-16.0 g/dL Blood Gas Modality Room air FiO2 % 21.0 Sodium Level 138 136-145 mmol/L Potassium Level 4.5 3.5-5.1 mmol/L Chloride Level 109 H 98-107 mmol/L Carbon Dioxide Level 21 20-31 mmol/L Anion Gap 8 5-15 Blood Urea Nitrogen 38 H 9-23 mg/dL Creatinine 1.69 H 0.550-1.02 mg/dL Glomerular Filtration Rate Calc 29 >90 mL/min BUN/Creatinine Ratio 22.5 H 10.0-20.0 Serum Glucose 95 74-106 mg/dL Lactic Acid Level 1.0 0.4-2.0 mmol/L Calcium Level 10.3 8.7-10.4 mg/dL Magnesium Level 2.7 H 1.6-2.6 mg/dL Total Bilirubin 0.6 0.2-1.0 mg/dL Aspartate Amino Transferase (AST) 24 13-40 U/L Alanine Aminotransferase (ALT) 20 7-40 U/L Alkaline Phosphatase 114 46-116 U/L Troponin I High Sensitivity 77 *H </=34 ng/L Total Protein 6.4 5.7-8.2 g/dL Albumin 3.4 3.2-4.8 g/dL Plan/Recommendation 1.) MAYA on CKD- hemodynamically mediated. 2.) hx CKD IV 3.) Hypertensive crisis 4.) Multifocal pneumonia 5.) Acute on chronic diastolic heart failure 6) elevated troponin Patient has history of hemodialysis in 2022 no longer on hemodialysis. REC - Will evaluate blood pressure, electrolytes - Serial chemistry panels, urine studies, renal ultrasound - Hold lisinopril during timecourse of MAYA - Avoidance of NSAIDs/IV contrast is possible - Agree with continuing IV abx - We will continue to follow closely Thank you for the consult Plan discussed with: Patient, Other (Dr. Falk) NATHAN OLMOS EXCEPTIONAL NEEDS TEACHER Feb 19, 2024 19:28
--- NOTE | 2024-02-19 20:41 | DVHINCON2 ---
Date of service: Feb 19, 2024 Referring Physician Vishnu Rodriguez MD Reason for Consultation Acute hypoxic respiratory failure and multifocal pneumonia History of Present Illness An 88-year-old woman with past medical history of hypertension, CHF, [place], coronary artery disease, and CKD who presented to the ED on 02/18/24 with complaint of shortness of breath. Patient was found to have signs of hypertensive urgency and suspected multifocal pneumonia, was noted to be hypoxic in the ED and therefore, admitted for further care. Pulmonary consultation is requested for evaluation and management due to the above findings. Review of Systems: 14-point review of systems negative unless otherwise noted above. Past Medical History: Hypertension, CHF, coronary artery disease, [place], and CKD with hx of hemodialysis. Past Surgical History: None. Medications: Reviewed. Allergies: No known drug allergies. Family History: Mom with hypertension, sister with DM. Social History: Nonsmoker. No alcohol or illicit drug use. Family History: Diabetes mellitus G8 SISTER Hypertension G8 MOTHER Allergies: Coded Allergies: NO KNOWN ALLERGIES (Unverified , 05/28/23) Home Meds Active Scripts Empagliflozin (Jardiance) 10 Mg Tab, 10 MG PO DAILY for 30 Days, #30 TAB Prov:RITA AVILA RESIDENT 10/21/23 Spironolactone (Aldactone) 25 Mg Tab, 25 MG PO DAILY for 30 Days, #30 TAB Prov:RITA AVILA RESIDENT 10/21/23 Furosemide (Lasix) 40 Mg Tab, 40 MG PO DAILY for 15 Days, #15 TAB Prov:SAMSON ODOM DO 05/31/23 Reported Medications Allopurinol (Allopurinol) 100 Mg Tab, 100 MG PO DAILY, MG 05/29/23 Lisinopril (Lisinopril) 40 Mg Tab, 40 MG PO DAILY, MG 05/29/23 Pantoprazole Sodium Sesquihydr (Protonix) 40 Mg Tab, 40 MG PO DAILY, TAB 05/29/23 Aspirin (Aspirin Low Dose) 81 Mg Tab, 81 MG PO DAILY, TAB 05/28/23 Potassium Chloride (Klor-Con 8) 8 Meq Tab, 1 TAB PO DAILY 05/28/23 Simvastatin (Simvastatin) 20 Mg Tab, 1 TAB PO HS 05/28/23 Carvedilol (Carvedilol) 6.25 Mg Tab, 1 TAB PO BID 05/28/23 Nifedipine (Nifedipine Er) 90 Mg Tab, 1 TAB PO DAILY 05/28/23 Fluoxetine Hcl (FLUOXETINE HCL) 60 Mg Tab, 1 TAB PO QAM 05/28/23 Current Medications Current Medications Medications (Trade) Dose Ordered Sig/Abundio Route PRN Reason Start Time Stop Time Status Last Admin Allopurinol (Zyloprim Tablet) 100 mg DAILY PO 02/19/24 10:00 02/19/24 09:01 Aspirin (Ecotrin Enteric Coated Tablet) 81 mg DAILY PO 02/19/24 10:00 02/19/24 09:01 Empaglifozin (Jardiance) 10 mg DAILY PO 02/19/24 10:00 02/19/24 09:01 Furosemide (Lasix Tablet) 40 mg DAILY PO 02/19/24 10:00 02/19/24 09:03 Pantoprazole Sodium (Protonix Tablet) 40 mg DAILY PO 02/19/24 10:00 02/19/24 09:01 Potassium Chloride (Klor-Con Tablet) 8 meq DAILY PO 02/19/24 10:00 02/19/24 09:02 Spironolactone (Aldactone) 25 mg DAILY PO 02/19/24 10:00 02/19/24 09:02 Patient Own Medication 1 tab BID PO 02/18/24 22:00 UNV Patient Own Medication 1 tab QAM PO 02/19/24 07:00 UNV Patient Own Medication 40 mg DAILY PO 02/19/24 10:00 UNV Patient Own Medication 1 tab DAILY PO 02/19/24 10:00 UNV Patient Own Medication 1 tab HS PO 02/18/24 22:00 UNV Carvedilol (Coreg Tablet) 25 mg BID PO 02/18/24 22:00 02/19/24 09:02 Fluoxetine HCl (PROzac CAPSULE) 60 mg DAILY PO 02/19/24 10:00 02/18/24 14:17 DC Lisinopril (Zestril Tablet) 40 mg DAILY PO 02/19/24 10:00 02/19/24 19:30 DC 02/19/24 09:04 Nifedipine (Procardia Xl (Time-Release)) 60 mg DAILY PO 02/19/24 10:00 02/19/24 09:05 Atorvastatin Calcium (Lipitor) 10 mg HS PO 02/18/24 22:00 02/18/24 21:41 Fluoxetine HCl (PROzac CAPSULE) 60 mg QAM PO 02/19/24 07:00 02/19/24 06:37 Vital Signs Vital Signs Date Time Temp Pulse Resp B/P (MAP) Pulse Ox O2 Delivery O2 Flow Rate FiO2 02/19/24 16:59 98.0 54 17 137/43 (74) 93 98.0 02/19/24 07:30 Nasal Cannula* 2 28 Physical Exam Gen.: Patient lying in bed in no apparent distress. On supplemental oxygen. Head: Normocephalic, atraumatic. Eyes: EOMI/PERRLA. Ears: Normal hearing. Normal anatomy. Neck/trachea: Trachea midline, supple. Nose: Normal external anatomy. Mouth: Moist mucous membranes. Chest: Decreased air entry bilaterally. No wheezing or rhonchi. Cardiovascular: Positive S1, positive S2. Regular rate and rhythm. Abdomen: Positive bowel sounds in all 4 quadrants. Soft, non-tender, non- distended. : Deferred. Rectal: Deferred. Skin: Warm, dry. Intact. Extremities: 2+ radial pulses bilaterally. No lower extremity edema. Neuro: Awake, alert, oriented x3. No gross motor or sensory deficits. Cranial nerves II through XII intact. Gait not assessed. Labs/Diagnostic Data Labs Test 02/19/24 11:22 02/19/24 04:59 02/18/24 14:02 02/18/24 12:19 Range/Units POC Glucose 147 H 70-106 mg/dl White Blood Count 5.5 4.4-10.8 10^3/uL Red Blood Count 3.43 L 4.0-5.20 10^6/uL Hemoglobin 10.4 L 12.2-16.2 g/dL Hematocrit 31.8 L 36.0-46.0 % Mean Corpuscular Volume 92.7 80.0-100.0 fL Mean Corpuscular Hemoglobin 30.4 28.0-32.0 pg Mean Corpuscular Hemoglobin Concent 32.8 32.0-36.0 g/dL Red Cell Distribution Width 17.2 H 11.8-14.3 % Platelet Count 186 140-450 10^3/uL Mean Platelet Volume 9.7 6.9-10.8 fL Neutrophils (%) (Auto) 69.1 37.0-80.0 % Lymphocytes (%) (Auto) 17.3 10.0-50.0 % Monocytes (%) (Auto) 10.9 0.0-12.0 % Eosinophils (%) (Auto) 1.8 0.0-7.0 % Basophils (%) (Auto) 0.9 0.0-2.0 % Neutrophils # (Auto) 3.8 1.6-8.6 10 ^3/uL Lymphocytes # (Auto) 1.0 0.4-5.4 10 ^3/uL Monocytes # (Auto) 0.6 0-1.3 10 ^3/uL Eosinophils # (Auto) 0.1 0-0.8 10 ^3/uL Basophils # (Auto) 0.1 0-0.2 10 ^3/uL Nucleated Red Blood Cells 0.2 % Sodium Level 139 136-145 mmol/L Potassium Level 4.6 3.5-5.1 mmol/L Chloride Level 108 H 98-107 mmol/L Carbon Dioxide Level 21 20-31 mmol/L Anion Gap 10 5-15 Blood Urea Nitrogen 43 H 9-23 mg/dL Creatinine 1.82 H 0.550-1.02 mg/dL Glomerular Filtration Rate Calc 27 >90 mL/min BUN/Creatinine Ratio 23.6 H 10.0-20.0 Serum Glucose 81 74-106 mg/dL Calcium Level 9.4 8.7-10.4 mg/dL Troponin I High Sensitivity 74 *H </=34 ng/L B-Type Natriuretic Peptide 4116.00 0-100 pg/mL Test 02/18/24 11:21 02/18/24 11:10 Range/Units Blood Gas Specimen Type Arterial Blood Gas Sample Site Right radial Blood Gas Patient Temperature 37.0 Arterial Blood Date Drawn [id number] Arterial Blood pH 7.428 7.350-7.450 Arterial Blood Partial Pressure CO2 33.2 32.0-45.0 mmHg Arterial Blood Partial Pressure O2 55.7 L 83.0-108.0 mmHg Arterial Blood HCO3 21.4 21.0-28.0 mmol/L Arterial Blood Oxygen Saturation 88.8 L 94.0-98.0 % Arterial Blood Base Excess -2.2 L -2.0-3.0 mmol/L Arterial Blood Oxyhemoglobin 87.3 L 94.0-98.0 % Arterial Blood Carboxyhemoglobin 1.3 0.5-1.5 % Arterial Blood Methemoglobin 0.4 0.0-1.5 % Braulio Test Yes Blood Gas Total Hemoglobin 12.30 12.0-16.0 g/dL Blood Gas Modality Room air FiO2 % 21.0 Lactic Acid Level 1.0 0.4-2.0 mmol/L Magnesium Level 2.7 H 1.6-2.6 mg/dL Total Bilirubin 0.6 0.2-1.0 mg/dL Aspartate Amino Transferase (AST) 24 13-40 U/L Alanine Aminotransferase (ALT) 20 7-40 U/L Alkaline Phosphatase 114 46-116 U/L Total Protein 6.4 5.7-8.2 g/dL Albumin 3.4 3.2-4.8 g/dL Assessment Impression: Acute hypoxic respiratory failure Multifocal pneumonia Acute on chronic diastolic CHF exacerbation Elevated troponin Plan: Supplemental oxygen 2 LPM NC Titrate to keep O2 sats above 92%. Taper O2 as tolerated. ABG reviewed, c/w hypoxemia - PaO2 55.7 mmHg Blood pressure control. Continue bronchodilators. Continue antibiotics Send sputum if able to produce. Diurese w/ Lasix as tolerated. Monitor renal function. Monitor electrolytes. Supplement as necessary. Monitor ins and outs. GI prophylaxis w/ Protonix. DVT prophylaxis. Prognosis: Poor given patient's multiple co-morbidities. Rest of plan per hospitalist and other consultants. A total of 76 minutes of clinical care time was spent reviewing the patient record, examining the patient, making a diagnostic and therapeutic plan, discussing this plan with the medical personnel, following up on diagnostic studies and following the patient for clinical stability excluding any and all procedures. At least 50% of this time was spent in direct, [id number] contact. Thank you Dr. Vishnu Rodriguez MD, for allowing me to participate in this patient's care. Further recommendations will depend on the patient's clinical course. Please do not hesitate to contact me if you have any questions or concerns. This medical document was created using an electronic medical record system with [employer] system. Although these documentations are being carefully reviewed, there may still be some phonetic and typographical changes. The errors are purely typographical, due to imperfection on the software program, and do not reflect any compromise in the patient's medical care. Plan discussed with: Patient, Other (RN, Michael LOBATO) NIKKI PÉREZ MD Feb 19, 2024 20:41
[2024-02-19 22:51] LABS: Urine Bacteria None Seen /hpf (None Seen)
[2024-02-19 23:13] LABS: Urine Blood 1+ /uL (Negative); Urine Budding Yeast OCCASIONAL /hpf (None Seen); Urine Clarity Clear (Clear); Urine Color Light-Yellow (Yellow); Urine Hyaline Cast FEW /lpf (0 - 2); Urine Protein, UAD 1+ (Negative); Urine Specific Gravity 1.013 (1.001-1.035); Urine Urobilinogen Normal (Negative); Urine WBC 17 /hpf (0 - 5)
[2024-02-19 23:30] LABS: Creatinine, Urine 44.8 mg/dL (30.0-125.0)
[2024-02-20] VITALS (7 sets, daily range): BP systolic 128–186; BP diastolic 48–64; PULSE 50–61; RESP 16–18; TEMP 97.3–98.2; O2SAT 97–100
[2024-02-20 07:12] LABS: Basophils # (auto) 0 10 ^3/uL (0-0.2); Basophils % (auto) 0.5 % (0.0-2.0); Eosinophils # (auto) 0.3 10 ^3/uL (0-0.8); Eosinophils % (auto) 4.9 % (0.0-7.0); Hematocrit 30.6 % (36.0-46.0); Hemoglobin 9.9 g/dL (12.2-16.2); Lymphocytes # (auto) 1.3 10 ^3/uL (0.4-5.4); Lymphocytes % (auto) 21.4 % (10.0-50.0); Mean Corpuscular Hemoglobin 29.7 pg (28.0-32.0); Mean Corpuscular Hgb Conc. 32.3 g/dL (32.0-36.0); Mean Corpuscular Volume 91.7 fL (80.0-100.0); Monocytes # (auto) 0.7 10 ^3/uL (0-1.3); Monocytes % (auto) 11.5 % (0.0-12.0); Neutrophils # (auto) 3.7 10 ^3/uL (1.6-8.6); Neutrophils % (auto) 61.7 % (37.0-80.0); Platelet Count (auto) 191 10^3/uL (140-450); Red Blood Cells 3.34 10^6/uL (4.0-5.20); Red Cell Distribution Width 16.8 % (11.8-14.3)
[2024-02-20 07:15] LABS: Alanine Aminotransferase 14 U/L (7-40); Alkaline Phosphatase 87 U/L (46-116); Anion Gap 9 (5-15); Aspartate Aminotransferase 17 U/L (13-40); BUN/Creatinine Ratio 22.9 (10.0-20.0); Blood Urea Nitrogen 40 mg/dL (9-23); Calcium 9.5 mg/dL (8.7-10.4); Carbon Dioxide 22 mmol/L (20-31); Chloride 108 mmol/L (98-107); Glucose 90 mg/dL (74-106); Potassium 4.5 mmol/L (3.5-5.1); Sodium 139 mmol/L (136-145); Uric Acid 6.5 mg/dL (3.1-7.8)
[2024-02-20 07:16] LABS: Bilirubin, Total 0.3 mg/dL (0.2-1.0); Total Protein 5.4 g/dL (5.7-8.2)
[2024-02-20 07:33] LABS: Bilirubin, Direct 0.1 mg/dL (<0.3)
--- NOTE | 2024-02-20 13:48 | DVHPN2 ---
Progress Note - Dictate Date Seen: Feb 20, 2024 Medical Necessity Reason Pt with a Central, PICC or Fol: No Subjective States she feels okay vital signs Vital Sign Date Time Temp Pulse Resp B/P (MAP) Pulse Ox O2 Delivery O2 Flow Rate FiO2 02/20/24 12:58 185/70 02/20/24 12:50 98.0 58 18 100 98.0 02/20/24 09:49 Nasal Cannula 2.0 02/20/24 09:49 28 Total Intake and Output 02/19/24 02/19/24 02/20/24 15:00 23:00 07:00 Intake Total 100 ml 600 ml 200 ml Output Total 350 ml Balance 100 ml 250 ml 200 ml medications Current Medications Medications Dose Ordered Sig/Abundio Route Start Time Stop Time Status Last Admin Dose Admin Allopurinol 100 mg DAILY PO 02/19/24 10:00 02/20/24 09:41 100 MG Aspirin 81 mg DAILY PO 02/19/24 10:00 02/20/24 09:39 81 MG Empaglifozin 10 mg DAILY PO 02/19/24 10:00 02/20/24 09:39 10 MG Furosemide 40 mg DAILY PO 02/19/24 10:00 02/20/24 09:41 40 MG Pantoprazole Sodium 40 mg DAILY PO 02/19/24 10:00 02/20/24 09:40 40 MG Potassium Chloride 8 meq DAILY PO 02/19/24 10:00 02/20/24 09:40 8 MEQ Spironolactone 25 mg DAILY PO 02/19/24 10:00 02/20/24 09:41 25 MG Patient Own Medication 1 tab BID PO 02/18/24 22:00 UNV Patient Own Medication 1 tab QAM PO 02/19/24 07:00 UNV Patient Own Medication 40 mg DAILY PO 02/19/24 10:00 UNV Patient Own Medication 1 tab DAILY PO 02/19/24 10:00 UNV Patient Own Medication 1 tab HS PO 02/18/24 22:00 UNV Piperacillin Sod/ Tazobactam Sod 100 ml @ 100 mls/hr Q12HR IV 02/18/24 14:00 02/20/24 09:38 100 MLS/HR Clopidogrel Bisulfate 75 mg DAILY PO 02/18/24 13:15 02/20/24 09:40 75 MG Albuterol 2.5 mg Q4HWA PRN NEB 02/18/24 13:15 02/18/24 18:33 2.5 MG Ipratropium [place] 0.5 mg Q4HWA PRN NEB 02/18/24 13:15 02/18/24 18:33 0.5 MG Al Hydrox/Mg Hydrox/Simethicone 30 ml Q6HP PRN PO 02/18/24 13:15 Docusate Sodium 100 mg BIDPRN PRN PO 02/18/24 13:15 02/19/24 09:03 100 MG Acetaminophen 650 mg Q6HP PRN PO 02/18/24 13:15 Acetaminophen/ Hydrocodone Bitart 1 tab Q4HP PRN PO 02/18/24 13:15 Ondansetron HCl 4 mg Q4HP PRN IV 02/18/24 13:15 Morphine Sulfate 2 mg Q4HPRN PRN IV 02/18/24 13:15 Hydralazine HCl 10 mg Q6HPRN PRN IV 02/18/24 13:15 02/20/24 12:58 10 MG Carvedilol 25 mg BID PO 02/18/24 22:00 02/19/24 22:14 25 MG Nifedipine 60 mg DAILY PO 02/19/24 10:00 02/20/24 09:40 60 MG Atorvastatin Calcium 10 mg HS PO 02/18/24 22:00 02/19/24 22:14 10 MG Fluoxetine HCl 60 mg QAM PO 02/19/24 07:00 02/20/24 06:41 60 MG objective Gen: nad heent: nc/at, mmm lungs: cta anteriorly cvs: no rub abd: soft, bowel sounds audible ext: no edema skin: no rash neuro: alert and oriented laboratory and microbiology Laboratory Tests 02/20/24 05:51 Test 02/20/24 05:51 Range/Units Serum Glucose 90 74-106 mg/dL Assessment/Plan 1.) MAYA on CKD- hemodynamically mediated. 2.) hx CKD IV 3.) Hypertensive crisis 4.) Multifocal pneumonia 5.) Acute on chronic diastolic heart failure 6) elevated troponin REC - essentially stable GFR, clinically unchanged from Nephrology perspective. - avoidance of NSAIDs, IV contrast studies if able. - we will continue to follow along with you, discussed plan of care From renal standpoint with patient. Plan discussed with: Patient LELA LATHAM MD Feb 20, 2024 13:48
--- NOTE | 2024-02-20 14:37 | DVHPN2 ---
Subjective The patient is seen and examined at bedside. The patient feel better today. Less shortness a breath. Reviewed: Care Plan, H&P, Labs, Medications, Previous Orders Changes from previous H/P or p: No Changes Eyes: No Pain, No Vision change, No Conjunctivae inflammation, No Eyelid inflammation, No Other, No Redness ENT: No Ear pain, No Ear discharge, No Nose pain, No Nose discharge, No Nose congestion, No Mouth pain, No Mouth swelling, No Throat pain, No Throat swelling, No Other Cardiovascular: Chest Pain; No Palpitations, No Orthopnea, No Paroxysmal Noc. Dyspnea, No Edema, No Lt Headedness, No Other Respiratory: Cough; No Dry; Shortness of breath; No SOB with excertion, No Wheezing, No Hemoptysis, No Pleuritic Pain, No Sputum, No Other Gastrointestinal: No Nausea, No Vomiting, No Abdominal Pain, No Diarrhea, No Constipation, No Melena, No Hematochezia, No Other Genitourinary: No Dysuria, No Frequency, No Incontinence, No Hematuria, No Retention, No Other Musculoskeletal: No other, No neck pain, No shoulder pain, No arm pain, No back pain, No hand pain, No leg pain, No foot pain Objective Vitals Vital Signs Date Time Temp Pulse Resp B/P (MAP) Pulse Ox O2 Delivery O2 Flow Rate FiO2 02/20/24 12:58 185/70 02/20/24 12:50 98.0 58 18 100 98.0 02/20/24 09:49 Nasal Cannula 2.0 02/20/24 09:49 28 Intake/Output Intake and Output 02/20/24 07:00 Intake Total 900 ml Output Total 350 ml Balance 550 ml Intake Oral 700 ml IV Total 200 ml Output Urine Total 350 ml General Appearance: Alert, Oriented X3, Cooperative, No acute distress HEENT: Atraumatic, PERRLA, EOMI, Mucous membr. moist/pink Lungs: Clear to auscultation, Normal air movement Cardiovascular: Regular rate, Normal S1, Normal S2, No murmurs, Gallops, Rubs Abdomen: Normal bowel sounds, Soft, No tenderness Extremities: Other (Bilateral above-knee amputation) Neuro: Cranial nerves 3-12 NL Psych/Mental Status: Mental status NL Medications Current Medications Medications Dose Ordered Sig/Abundio Route Start Time Stop Time Status Last Admin Dose Admin Allopurinol 100 mg DAILY PO 02/19/24 10:00 02/20/24 09:41 100 MG Aspirin 81 mg DAILY PO 02/19/24 10:00 02/20/24 09:39 81 MG Empaglifozin 10 mg DAILY PO 02/19/24 10:00 02/20/24 09:39 10 MG Furosemide 40 mg DAILY PO 02/19/24 10:00 02/20/24 09:41 40 MG Pantoprazole Sodium 40 mg DAILY PO 02/19/24 10:00 02/20/24 09:40 40 MG Potassium Chloride 8 meq DAILY PO 02/19/24 10:00 02/20/24 09:40 8 MEQ Spironolactone 25 mg DAILY PO 02/19/24 10:00 02/20/24 09:41 25 MG Patient Own Medication 1 tab BID PO 02/18/24 22:00 UNV Patient Own Medication 1 tab QAM PO 02/19/24 07:00 UNV Patient Own Medication 40 mg DAILY PO 02/19/24 10:00 UNV Patient Own Medication 1 tab DAILY PO 02/19/24 10:00 UNV Patient Own Medication 1 tab HS PO 02/18/24 22:00 UNV Piperacillin Sod/ Tazobactam Sod 100 ml @ 100 mls/hr Q12HR IV 02/18/24 14:00 02/20/24 09:38 100 MLS/HR Clopidogrel Bisulfate 75 mg DAILY PO 02/18/24 13:15 02/20/24 09:40 75 MG Albuterol 2.5 mg Q4HWA PRN NEB 02/18/24 13:15 02/18/24 18:33 2.5 MG Ipratropium [place] 0.5 mg Q4HWA PRN NEB 02/18/24 13:15 02/18/24 18:33 0.5 MG Al Hydrox/Mg Hydrox/Simethicone 30 ml Q6HP PRN PO 02/18/24 13:15 Docusate Sodium 100 mg BIDPRN PRN PO 02/18/24 13:15 02/19/24 09:03 100 MG Acetaminophen 650 mg Q6HP PRN PO 02/18/24 13:15 Acetaminophen/ Hydrocodone Bitart 1 tab Q4HP PRN PO 02/18/24 13:15 Ondansetron HCl 4 mg Q4HP PRN IV 02/18/24 13:15 Morphine Sulfate 2 mg Q4HPRN PRN IV 02/18/24 13:15 Hydralazine HCl 10 mg Q6HPRN PRN IV 02/18/24 13:15 02/20/24 12:58 10 MG Carvedilol 25 mg BID PO 02/18/24 22:00 02/19/24 22:14 25 MG Nifedipine 60 mg DAILY PO 02/19/24 10:00 02/20/24 09:40 60 MG Atorvastatin Calcium 10 mg HS PO 02/18/24 22:00 02/19/24 22:14 10 MG Fluoxetine HCl 60 mg QAM PO 02/19/24 07:00 02/20/24 06:41 60 MG Laboratory Results Laboratory Tests 02/20/24 05:51 Chemistry Test 02/20/24 05:51 Albumin 3.0 g/dL (3.2-4.8) L Calcium Level 9.5 mg/dL (8.7-10.4) Phosphorus Level 3.0 mg/dL (2.4-5.1) Total Protein 5.4 g/dL (5.7-8.2) L LFT Test 02/20/24 05:51 Alanine Aminotransferase (ALT) 14 U/L (7-40) Alkaline Phosphatase 87 U/L (46-116) Aspartate Amino Transferase (AST) 17 U/L (13-40) Direct Bilirubin 0.1 mg/dL (<0.3) Total Bilirubin 0.3 mg/dL (0.2-1.0) HgA1c, TSH Test 02/20/24 05:51 Thyroid Stimulating Hormone (TSH) 0.26 uIU/mL (0.55-4.78) L Urinalysis Test 02/19/24 22:18 Urine Color Light-yellow (Yellow) Urine Clarity Clear (Clear) Urine pH 5.0 (5.0-9.0) Urine Specific [place] 1.013 (1.001-1.035) Urine Protein 1+ (Negative) H Urine Ketones Negative (Negative) Urine Blood 1+ /uL (Negative) H Urine Nitrite Negative (Negative) Urine Bilirubin Negative (Negative) Urine Urobilinogen Normal mg/dL (Negative) Urine Leukocyte Esterase 2+ /uL (Negative) Urine RBC 8 /hpf (0 - 4) Urine WBC 17 /hpf (0 - 5) Urine Squamous Epithelial Cells Few /hpf (<5) Urine Bacteria None seen /hpf (None Seen) Urine Hyaline Casts Few /lpf (0 - 2) Urine Yeast (Budding) Occasional /hpf (None Urine Creatinine 44.80 mg/dL (30.0-125.0) Urine Sodium 39 mmol/L (40-220) L Urine Glucose 3+ mg/dL (Normal) H Labs and/or images reviewed: Labs reviewed by me Assessment/Plan Assessment/Plan (1) Acute on chronic diastolic heart failure (2) ESRD on dialysis (3) Hypertensive crisis (4) Hypoxemia (5) Elevated troponin (6) Multifocal pneumonia (7) acute on chronic respiratory failure, the patient on home oxygen 2 L Continuing current management. Continuing with IV antibiotic Zosyn. Continuing with nebulizer. Appreciate pulmonology and Nephrology input. Continuing hemodialysis per schedule. Continuing with hypertensive medication. Encouraged the patient to sit up on bed. The patient had bilateral amputation so she can not walk around. Continuing pain medication. Continuing to monitor blood pressure Plan discussed with: Patient Date of Service: Feb 20, 2024 Billing Provider: MCKAYLA HAWKINS MD Common Visit Codes: [id number] INP/OBS CARE(HIGH) MCKAYLA HAWKINS MD Feb 20, 2024 14:37
--- NOTE | 2024-02-20 22:11 | DVHPN2 ---
Progress Note - Dictate Date Seen: Feb 20, 2024 Medical Necessity Reason Pt with a Central, PICC or Fol: Yes The following are medically ne: Erwin Catheter Reason for erwin catheter: Strict I&O Subjective Patient seen and examined at bedside. Remains on supplemental oxygen Overnight events reviewed. vital signs Vital Sign Date Time Temp Pulse Resp B/P (MAP) Pulse Ox O2 Delivery O2 Flow Rate FiO2 02/20/24 17:00 98.0 60 16 149/53 (85) 97 98.0 02/20/24 09:49 Nasal Cannula 2.0 02/20/24 09:49 28 Total Intake and Output 02/19/24 02/19/24 02/20/24 15:00 23:00 07:00 Intake Total 100 ml 600 ml 200 ml Output Total 350 ml Balance 100 ml 250 ml 200 ml medications Current Medications Medications Dose Ordered Sig/Abundio Route Start Time Stop Time Status Last Admin Dose Admin Allopurinol 100 mg DAILY PO 02/19/24 10:00 02/20/24 09:41 100 MG Aspirin 81 mg DAILY PO 02/19/24 10:00 02/20/24 09:39 81 MG Empaglifozin 10 mg DAILY PO 02/19/24 10:00 02/20/24 09:39 10 MG Furosemide 40 mg DAILY PO 02/19/24 10:00 02/20/24 09:41 40 MG Pantoprazole Sodium 40 mg DAILY PO 02/19/24 10:00 02/20/24 09:40 40 MG Potassium Chloride 8 meq DAILY PO 02/19/24 10:00 02/20/24 09:40 8 MEQ Spironolactone 25 mg DAILY PO 02/19/24 10:00 02/20/24 09:41 25 MG Patient Own Medication 1 tab BID PO 02/18/24 22:00 UNV Patient Own Medication 1 tab QAM PO 02/19/24 07:00 UNV Patient Own Medication 40 mg DAILY PO 02/19/24 10:00 UNV Patient Own Medication 1 tab DAILY PO 02/19/24 10:00 UNV Patient Own Medication 1 tab HS PO 02/18/24 22:00 UNV Piperacillin Sod/ Tazobactam Sod 100 ml @ 100 mls/hr Q12HR IV 02/18/24 14:00 02/20/24 09:38 100 MLS/HR Clopidogrel Bisulfate 75 mg DAILY PO 02/18/24 13:15 02/20/24 09:40 75 MG Albuterol 2.5 mg Q4HWA PRN NEB 02/18/24 13:15 02/18/24 18:33 2.5 MG Ipratropium [place] 0.5 mg Q4HWA PRN NEB 02/18/24 13:15 02/18/24 18:33 0.5 MG Al Hydrox/Mg Hydrox/Simethicone 30 ml Q6HP PRN PO 02/18/24 13:15 Docusate Sodium 100 mg BIDPRN PRN PO 02/18/24 13:15 02/19/24 09:03 100 MG Acetaminophen 650 mg Q6HP PRN PO 02/18/24 13:15 Acetaminophen/ Hydrocodone Bitart 1 tab Q4HP PRN PO 02/18/24 13:15 Ondansetron HCl 4 mg Q4HP PRN IV 02/18/24 13:15 Morphine Sulfate 2 mg Q4HPRN PRN IV 02/18/24 13:15 Hydralazine HCl 10 mg Q6HPRN PRN IV 02/18/24 13:15 02/20/24 12:58 10 MG Carvedilol 25 mg BID PO 02/18/24 22:00 02/19/24 22:14 25 MG Nifedipine 60 mg DAILY PO 02/19/24 10:00 02/20/24 09:40 60 MG Atorvastatin Calcium 10 mg HS PO 02/18/24 22:00 02/19/24 22:14 10 MG Fluoxetine HCl 60 mg QAM PO 02/19/24 07:00 02/20/24 06:41 60 MG objective Gen.: Patient lying in bed in no apparent distress. On supplemental oxygen. Head: Normocephalic, atraumatic. Eyes: EOMI/PERRLA. Ears: Normal hearing. Normal anatomy. Neck/trachea: Trachea midline, supple. Nose: Normal external anatomy. Mouth: Moist mucous membranes. Chest: Decreased air entry bilaterally. No wheezing or rhonchi. Cardiovascular: Positive S1, positive S2. Regular rate and rhythm. Abdomen: Positive bowel sounds in all 4 quadrants. Soft, non-tender, non- distended. : Deferred. Rectal: Deferred. Skin: Warm, dry. Intact. Extremities: 2+ radial pulses bilaterally. No lower extremity edema. Neuro: Awake, alert, oriented x3. No gross motor or sensory deficits. Cranial nerves II through XII intact. Gait not assessed. laboratory and microbiology Laboratory Tests 02/20/24 05:51 Test 02/20/24 05:51 Range/Units Serum Glucose 90 74-106 mg/dL Assessment/Plan Impression: Acute hypoxic respiratory failure Multifocal pneumonia Acute on chronic diastolic CHF exacerbation Elevated troponin Events: Remains on supplemental oxygen, 2 LPM NC Taper O2 as tolerated Continue bronchodilators Continue antibiotics Incentive spirometry Diurese w/ Lasix QD Monitor renal function. Monitor electrolytes. Supplement as necessary. GI prophylaxis w/ Protonix Labs and imaging reviewed. Rest of plan as noted below. Plan: Supplemental oxygen 2 LPM NC Titrate to keep O2 sats above 92%. Taper O2 as tolerated. ABG c/w hypoxemia - PaO2 55.7 mmHg Blood pressure control. Continue bronchodilators. Continue antibiotics Send sputum if able to produce. Diurese w/ Lasix as tolerated. Monitor renal function. Monitor electrolytes. Supplement as necessary. Monitor ins and outs. GI prophylaxis w/ Protonix. DVT prophylaxis. Prognosis: Poor given patient's multiple co-morbidities. Rest of plan per hospitalist and other consultants. A total of 51 minutes of clinical care time was spent reviewing the patient record, examining the patient, making a diagnostic and therapeutic plan, discussing this plan with the medical personnel, following up on diagnostic studies and following the patient for clinical stability excluding any and all procedures. At least 50% of this time was spent in direct, [id number] contact. Thank you Dr. Vishnu Rodriguez MD, for allowing me to participate in this patient's care. Further recommendations will depend on the patient's clinical course. Please do not hesitate to contact me if you have any questions or concerns. This medical document was created using an electronic medical record system with [employer] dictation system. Although these documentations are being carefully reviewed, there may still be some phonetic and typographical changes. The errors are purely typographical, due to imperfection on the software program, and do not reflect any compromise in the patient's medical care. Plan discussed with: Patient, Other (JACOB Pena) NIKKI PÉREZ MD Feb 20, 2024 22:11
[2024-02-21] VITALS (7 sets, daily range): BP systolic 144–183; BP diastolic 44–62; PULSE 53–60; RESP 16–18; TEMP 97.7–98.5; O2SAT 97–100
[2024-02-21 06:31] LABS: Anion Gap 9 (5-15); Carbon Dioxide 21 mmol/L (20-31); Chloride 108 mmol/L (98-107); Potassium 4.4 mmol/L (3.5-5.1); Sodium 138 mmol/L (136-145)
[2024-02-21 06:32] LABS: Calcium 10.1 mg/dL (8.7-10.4)
[2024-02-21 06:37] LABS: BUN/Creatinine Ratio 19.4 (10.0-20.0); Blood Urea Nitrogen 34 mg/dL (9-23); Glucose 81 mg/dL (74-106)
--- NOTE | 2024-02-21 10:09 | DVHPN2 ---
Eyes: No Pain, No Vision change, No Conjunctivae inflammation, No Eyelid inflammation, No Other, No Redness ENT: No Ear pain, No Ear discharge, No Nose pain, No Nose discharge, No Nose congestion, No Mouth pain, No Mouth swelling, No Throat pain, No Throat swelling, No Other Cardiovascular: Chest Pain; No Palpitations, No Orthopnea, No Paroxysmal Noc. Dyspnea, No Edema, No Lt Headedness, No Other Respiratory: Cough; No Dry; Shortness of breath; No SOB with excertion, No Wheezing, No Hemoptysis, No Pleuritic Pain, No Sputum, No Other Gastrointestinal: No Nausea, No Vomiting, No Abdominal Pain, No Diarrhea, No Constipation, No Melena, No Hematochezia, No Other Genitourinary: No Dysuria, No Frequency, No Incontinence, No Hematuria, No Retention, No Other Musculoskeletal: No other, No neck pain, No shoulder pain, No arm pain, No back pain, No hand pain, No leg pain, No foot pain Objective Vitals Vital Signs Date Time Temp Pulse Resp B/P (MAP) Pulse Ox O2 Delivery O2 Flow Rate FiO2 02/21/24 09:15 144/48 02/21/24 09:14 60 02/21/24 05:00 97.8 18 97 97.8 02/21/24 02:22 Nasal Cannula 2.0 02/21/24 02:22 28 Intake/Output Intake and Output 02/21/24 07:00 Intake Total 900 ml Output Total 725 ml Balance 175 ml Intake Oral 700 ml IV Total 200 ml Output Urine Total 725 ml # Voids 1 Medications Current Medications Medications Dose Ordered Sig/Abundio Route Start Time Stop Time Status Last Admin Dose Admin Allopurinol 100 mg DAILY PO 02/19/24 10:00 02/21/24 09:12 100 MG Aspirin 81 mg DAILY PO 02/19/24 10:00 02/21/24 09:11 81 MG Empaglifozin 10 mg DAILY PO 02/19/24 10:00 02/21/24 09:11 10 MG Furosemide 40 mg DAILY PO 02/19/24 10:00 02/21/24 09:13 40 MG Pantoprazole Sodium 40 mg DAILY PO 02/19/24 10:00 02/21/24 09:11 40 MG Potassium Chloride 8 meq DAILY PO 02/19/24 10:00 02/21/24 09:12 8 MEQ Spironolactone 25 mg DAILY PO 02/19/24 10:00 02/21/24 09:12 25 MG Patient Own Medication 1 tab BID PO 02/18/24 22:00 UNV Patient Own Medication 1 tab QAM PO 02/19/24 07:00 UNV Patient Own Medication 40 mg DAILY PO 02/19/24 10:00 UNV Patient Own Medication 1 tab DAILY PO 02/19/24 10:00 UNV Patient Own Medication 1 tab HS PO 02/18/24 22:00 UNV Piperacillin Sod/ Tazobactam Sod 100 ml @ 100 mls/hr Q12HR IV 02/18/24 14:00 02/21/24 09:16 100 MLS/HR Clopidogrel Bisulfate 75 mg DAILY PO 02/18/24 13:15 02/21/24 09:15 75 MG Albuterol 2.5 mg Q4HWA PRN NEB 02/18/24 13:15 02/18/24 18:[address] 0.5 mg Q4HWA PRN NEB 02/18/24 13:15 02/18/24 18:33 0.5 MG Al Hydrox/Mg Hydrox/Simethicone 30 ml Q6HP PRN PO 02/18/24 13:15 Docusate Sodium 100 mg BIDPRN PRN PO 02/18/24 13:15 02/19/24 09:03 100 MG Acetaminophen 650 mg Q6HP PRN PO 02/18/24 13:15 Acetaminophen/ Hydrocodone Bitart 1 tab Q4HP PRN PO 02/18/24 13:15 Ondansetron HCl 4 mg Q4HP PRN IV 02/18/24 13:15 Morphine Sulfate 2 mg Q4HPRN PRN IV 02/18/24 13:15 Hydralazine HCl 10 mg Q6HPRN PRN IV 02/18/24 13:15 02/21/24 07:53 10 MG Carvedilol 25 mg BID PO 02/18/24 22:00 02/21/24 09:14 25 MG Nifedipine 60 mg DAILY PO 02/19/24 10:00 02/21/24 09:15 60 MG Atorvastatin Calcium 10 mg HS PO 02/18/24 22:00 02/20/24 23:03 10 MG Fluoxetine HCl 60 mg QAM PO 02/19/24 07:00 02/21/24 06:36 60 MG Laboratory Results Laboratory Tests 02/20/24 05:51 02/21/24 05:26 Chemistry Test 02/21/24 05:26 Calcium Level 10.1 mg/dL (8.7-10.4) Urinalysis Test 02/19/24 22:18 Urine Color Light-yellow (Yellow) Urine Clarity Clear (Clear) Urine pH 5.0 (5.0-9.0) Urine Specific [place] 1.013 (1.001-1.035) Urine Protein 1+ (Negative) H Urine Ketones Negative (Negative) Urine Blood 1+ /uL (Negative) H Urine Nitrite Negative (Negative) Urine Bilirubin Negative (Negative) Urine Urobilinogen Normal mg/dL (Negative) Urine Leukocyte Esterase 2+ /uL (Negative) Urine RBC 8 /hpf (0 - 4) Urine WBC 17 /hpf (0 - 5) Urine Squamous Epithelial Cells Few /hpf (<5) Urine Bacteria None seen /hpf (None Seen) Urine Hyaline Casts Few /lpf (0 - 2) Urine Yeast (Budding) Occasional /hpf (None Urine Creatinine 44.80 mg/dL (30.0-125.0) Urine Sodium 39 mmol/L (40-220) L Urine Glucose 3+ mg/dL (Normal) H MCKAYLA HAWKINS MD Feb 21, 2024 10:09
--- NOTE | 2024-02-21 12:47 | DVHDS2 ---
Discharge Summary Date of Admission Feb 18, 2024 at 13:07 Labs/Diagnostic Data: Laboratory Results Test 02/21/24 05:26 02/20/24 05:51 02/19/24 22:18 02/19/24 11:22 Sodium Level 138 mmol/L (136-145) Potassium Level 4.4 mmol/L (3.5-5.1) Chloride Level 108 mmol/L (98-107) Carbon Dioxide Level 21 mmol/L (20-31) Anion Gap 9 (5-15) Blood Urea Nitrogen 34 mg/dL (9-23) Creatinine 1.75 mg/dL (0.550-1.02) Glomerular Filtration Rate Calc 28 mL/min (>90) BUN/Creatinine Ratio 19.4 (10.0-20.0) Serum Glucose 81 mg/dL (74-106) Calcium Level 10.1 mg/dL (8.7-10.4) White Blood Count 6.0 10^3/uL (4.4-10.8) Red Blood Count 3.34 10^6/uL (4.0-5.20) Hemoglobin 9.9 g/dL (12.2-16.2) Hematocrit 30.6 % (36.0-46.0) Mean Corpuscular Volume 91.7 fL (80.0-100.0) Mean Corpuscular Hemoglobin 29.7 pg (28.0-32.0) Mean Corpuscular Hemoglobin Concent 32.3 g/dL (32.0-36.0) Red Cell Distribution Width 16.8 % (11.8-14.3) Platelet Count 191 10^3/uL (140-450) Mean Platelet Volume 9.7 fL (6.9-10.8) Neutrophils (%) (Auto) 61.7 % (37.0-80.0) Lymphocytes (%) (Auto) 21.4 % (10.0-50.0) Monocytes (%) (Auto) 11.5 % (0.0-12.0) Eosinophils (%) (Auto) 4.9 % (0.0-7.0) Basophils (%) (Auto) 0.5 % (0.0-2.0) Neutrophils # (Auto) 3.7 10 ^3/uL (1.6-8.6) Lymphocytes # (Auto) 1.3 10 ^3/uL (0.4-5.4) Monocytes # (Auto) 0.7 10 ^3/uL (0-1.3) Eosinophils # (Auto) 0.3 10 ^3/uL (0-0.8) Basophils # (Auto) 0 10 ^3/uL (0-0.2) Nucleated Red Blood Cells 0.0 % Uric Acid 6.5 mg/dL (3.1-7.8) Phosphorus Level 3.0 mg/dL (2.4-5.1) Total Bilirubin 0.3 mg/dL (0.2-1.0) Direct Bilirubin 0.1 mg/dL (<0.3) Aspartate Amino Transferase (AST) 17 U/L (13-40) Alanine Aminotransferase (ALT) 14 U/L (7-40) Alkaline Phosphatase 87 U/L (46-116) Total Protein 5.4 g/dL (5.7-8.2) Albumin 3.0 g/dL (3.2-4.8) Thyroid Stimulating Hormone (TSH) 0.26 uIU/mL (0.55-4.78) Urine Color Light-yellow (Yellow) Urine Clarity Clear (Clear) Urine pH 5.0 (5.0-9.0) Urine Specific [place] 1.013 (1.001-1.035) Urine Protein 1+ (Negative) Urine Ketones Negative (Negative) Urine Blood 1+ /uL (Negative) Urine Nitrite Negative (Negative) Urine Bilirubin Negative (Negative) Urine Urobilinogen Normal mg/dL (Negative) Urine Leukocyte Esterase 2+ /uL (Negative) Urine RBC 8 /hpf (0 - 4) Urine WBC 17 /hpf (0 - 5) Urine Squamous Epithelial Cells Few /hpf (<5) Urine Bacteria None seen /hpf (None Seen) Urine Hyaline Casts Few /lpf (0 - 2) Urine Yeast (Budding) Occasional /hpf (None Urine Creatinine 44.80 mg/dL (30.0-125.0) Urine Sodium 39 mmol/L (40-220) Urine Glucose 3+ mg/dL (Normal) POC Glucose 147 mg/dl (70-106) Test 02/18/24 14:02 02/18/24 12:19 02/18/24 11:21 02/18/24 11:10 Troponin I High Sensitivity 74 ng/L (</=34) B-Type Natriuretic Peptide 4116.00 pg/mL (0-100) Blood Gas Specimen Type Arterial Blood Gas Sample Site Right radial Blood Gas Patient Temperature 37.0 Arterial Blood Date Drawn Arterial Blood pH 7.428 (7.350-7.450) Arterial Blood Partial Pressure CO2 33.2 mmHg (32.0-45.0) Arterial Blood Partial Pressure O2 55.7 mmHg (83.0-108.0) Arterial Blood HCO3 21.4 mmol/L (21.0-28.0) Arterial Blood Oxygen Saturation 88.8 % (94.0-98.0) Arterial Blood Base Excess -2.2 mmol/L (-2.0-3.0) Arterial Blood Oxyhemoglobin 87.3 % (94.0-98.0) Arterial Blood Carboxyhemoglobin 1.3 % (0.5-1.5) Arterial Blood Methemoglobin 0.4 % (0.0-1.5) Braulio Test Yes Blood Gas Total Hemoglobin 12.30 g/dL (12.0-16.0) Blood Gas Modality Room air FiO2 % 21.0 Lactic Acid Level 1.0 mmol/L (0.4-2.0) Magnesium Level 2.7 mg/dL (1.6-2.6) Other Laboratory Tests 02/21/24 05:26 02/20/24 05:51 Discharge Statement: "Patient was advised to return to the ER or call 911 if any headaches, dizziness, shortness of breath, chest pain, abdominal pain, bleeding, fevers, or worsening of medical condition. Patient was counseled about treatment plan, medications, possible side effects, patientverbalized understanding. All questions were answered to the best of my ability. This discharge took greater then 30 minutes in planning, reviewing documentation, counseling the patient, and discussing with other team members." ASSESSMENT ASSESSMENT Assessment MCKAYLA HAWKINS MD Feb 21, 2024 12:47
[2024-02-21] MEDS ORDERED: AZIT-185 PO (12:49)
--- NOTE | 2024-02-21 12:50 | DVHDS2 ---
Discharge Summary Date of Admission Feb 18, 2024 at 13:07 Date of Discharge: Feb 21, 2024 Admitting Diagnosis (1) Acute on chronic diastolic heart failure (2) ESRD on dialysis. The patient apparently stop dialysis since 2022. 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 Labs/Diagnostic Data: Laboratory Results Test 02/21/24 05:26 02/20/24 05:51 02/19/24 22:18 02/19/24 11:22 Sodium Level 138 mmol/L (136-145) Potassium Level 4.4 mmol/L (3.5-5.1) Chloride Level 108 mmol/L (98-107) Carbon Dioxide Level 21 mmol/L (20-31) Anion Gap 9 (5-15) Blood Urea Nitrogen 34 mg/dL (9-23) Creatinine 1.75 mg/dL (0.550-1.02) Glomerular Filtration Rate Calc 28 mL/min (>90) BUN/Creatinine Ratio 19.4 (10.0-20.0) Serum Glucose 81 mg/dL (74-106) Calcium Level 10.1 mg/dL (8.7-10.4) White Blood Count 6.0 10^3/uL (4.4-10.8) Red Blood Count 3.34 10^6/uL (4.0-5.20) Hemoglobin 9.9 g/dL (12.2-16.2) Hematocrit 30.6 % (36.0-46.0) Mean Corpuscular Volume 91.7 fL (80.0-100.0) Mean Corpuscular Hemoglobin 29.7 pg (28.0-32.0) Mean Corpuscular Hemoglobin Concent 32.3 g/dL (32.0-36.0) Red Cell Distribution Width 16.8 % (11.8-14.3) Platelet Count 191 10^3/uL (140-450) Mean Platelet Volume 9.7 fL (6.9-10.8) Neutrophils (%) (Auto) 61.7 % (37.0-80.0) Lymphocytes (%) (Auto) 21.4 % (10.0-50.0) Monocytes (%) (Auto) 11.5 % (0.0-12.0) Eosinophils (%) (Auto) 4.9 % (0.0-7.0) Basophils (%) (Auto) 0.5 % (0.0-2.0) Neutrophils # (Auto) 3.7 10 ^3/uL (1.6-8.6) Lymphocytes # (Auto) 1.3 10 ^3/uL (0.4-5.4) Monocytes # (Auto) 0.7 10 ^3/uL (0-1.3) Eosinophils # (Auto) 0.3 10 ^3/uL (0-0.8) Basophils # (Auto) 0 10 ^3/uL (0-0.2) Nucleated Red Blood Cells 0.0 % Uric Acid 6.5 mg/dL (3.1-7.8) Phosphorus Level 3.0 mg/dL (2.4-5.1) Total Bilirubin 0.3 mg/dL (0.2-1.0) Direct Bilirubin 0.1 mg/dL (<0.3) Aspartate Amino Transferase (AST) 17 U/L (13-40) Alanine Aminotransferase (ALT) 14 U/L (7-40) Alkaline Phosphatase 87 U/L (46-116) Total Protein 5.4 g/dL (5.7-8.2) Albumin 3.0 g/dL (3.2-4.8) Thyroid Stimulating Hormone (TSH) 0.26 uIU/mL (0.55-4.78) Urine Color Light-yellow (Yellow) Urine Clarity Clear (Clear) Urine pH 5.0 (5.0-9.0) Urine Specific [place] 1.013 (1.001-1.035) Urine Protein 1+ (Negative) Urine Ketones Negative (Negative) Urine Blood 1+ /uL (Negative) Urine Nitrite Negative (Negative) Urine Bilirubin Negative (Negative) Urine Urobilinogen Normal mg/dL (Negative) Urine Leukocyte Esterase 2+ /uL (Negative) Urine RBC 8 /hpf (0 - 4) Urine WBC 17 /hpf (0 - 5) Urine Squamous Epithelial Cells Few /hpf (<5) Urine Bacteria None seen /hpf (None Seen) Urine Hyaline Casts Few /lpf (0 - 2) Urine Yeast (Budding) Occasional /hpf (None Urine Creatinine 44.80 mg/dL (30.0-125.0) Urine Sodium 39 mmol/L (40-220) Urine Glucose 3+ mg/dL (Normal) POC Glucose 147 mg/dl (70-106) Test 02/18/24 14:02 02/18/24 12:19 02/18/24 11:21 02/18/24 11:10 Troponin I High Sensitivity 74 ng/L (</=34) B-Type Natriuretic Peptide 4116.00 pg/mL (0-100) Blood Gas Specimen Type Arterial Blood Gas Sample Site Right radial Blood Gas Patient Temperature 37.0 Arterial Blood Date Drawn Arterial Blood pH 7.428 (7.350-7.450) Arterial Blood Partial Pressure CO2 33.2 mmHg (32.0-45.0) Arterial Blood Partial Pressure O2 55.7 mmHg (83.0-108.0) Arterial Blood HCO3 21.4 mmol/L (21.0-28.0) Arterial Blood Oxygen Saturation 88.8 % (94.0-98.0) Arterial Blood Base Excess -2.2 mmol/L (-2.0-3.0) Arterial Blood Oxyhemoglobin 87.3 % (94.0-98.0) Arterial Blood Carboxyhemoglobin 1.3 % (0.5-1.5) Arterial Blood Methemoglobin 0.4 % (0.0-1.5) Braulio Test Yes Blood Gas Total Hemoglobin 12.30 g/dL (12.0-16.0) Blood Gas Modality Room air FiO2 % 21.0 Lactic Acid Level 1.0 mmol/L (0.4-2.0) Magnesium Level 2.7 mg/dL (1.6-2.6) Other Laboratory Tests 02/21/24 05:26 02/20/24 05:51 Brief Hx & Hospital Course: This is a 88 years old female with multiple medical history including hypertension, peripheral artery disease status post above knee amputation bilateral, history end-stage renal disease used to be on hemodialysis. The hemodialysis was stopped at the end of 2022. She come to emergency department because shortness for breath, cough, subjective fever and chills at home. The patient was found to have multilobar pneumonia and hypoxia. The patient was admitted. The patient was put on IV antibiotic with Zosyn 2.25 g IV Q 8 hours. The patient subsequently doing well. Less shortness for breath. Nephrology and counter intelligence agent see the patient in the hospital. The patient doing well today. The patient does not need more dialysis per Nephrology recommendation. The patient shortness for breath improved so I am going to discharge the patient home. Advised her to follow up with primary care physician 1-2 weeks. Follow up with counter intelligence agent per schedule. Follow up with her gem setter and her family advocate per schedule also. Physical exam: HEENT: Normocephalic atraumatic pupils equal react to light and accommodation. Extraocular muscles intact, conjunctiva pink, oropharynx moist, no thrush, no exudate. Lymphatic: No lymphadenopathy Cardiovascular exam: S1, S2 was heard. No murmurs, rubs, gallops Lung: Clear on auscultation bilaterally, no wheeze, rale, rhonchi. GI: Abdominal soft, nondistended, nontenderness, positive bowel sounds. Extremity: No crepitus, cyanosis, edema. Bilateral above-knee amputation Skin: Normal turgor, no rash. Psych: Alert, oriented x3. Neurology: No focal deficits, cranial nerve II to XII grossly intact. Condition at Discharge: Stable Final Diagnosis/Problems List (1) Acute on chronic diastolic heart failure (2) ESRD on dialysis. The patient apparently stop dialysis since 2022. 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 Patient was counseled about treatment plan, medications, possible side effects, patientverbalized understanding. All questions were answered to the best of my ability. This discharge took greater then 30 minutes in planning, reviewing documentation, counseling the patient, and discussing with other team members." ASSESSMENT ASSESSMENT Assessment pna Date of Service: Feb 21, 2024 Billing Provider: MCKAYLA HAWKINS MD Common Visit Codes: 97356-XOM/OBS DISCH DAY >30min MCKAYLA HAWKINS MD Feb 21, 2024 12:50
--- NOTE | 2024-02-21 23:07 | DVHPN2 ---
Progress Note - Dictate Date Seen: Feb 21, 2024 Medical Necessity Reason Pt with a Central, PICC or Fol: Yes The following are medically ne: Erwin Catheter Reason for erwin catheter: Strict I&O Subjective Patient seen and examined at bedside. Remains on supplemental oxygen Overnight events reviewed. vital signs Vital Sign Date Time Temp Pulse Resp B/P (MAP) Pulse Ox O2 Delivery O2 Flow Rate FiO2 02/21/24 17:19 169/84 02/21/24 17:00 98.5 57 17 97 98.5 02/21/24 08:00 Nasal Cannula* 2 28 Total Intake and Output 02/20/24 02/20/24 02/21/24 15:00 23:00 07:00 Intake Total 100 ml 700 ml 100 ml Output Total 725 ml Balance 100 ml -25 ml 100 ml medications Current Medications Medications Dose Ordered Sig/Abundio Route Start Time Stop Time Status Last Admin Dose Admin Patient Own Medication 1 tab BID PO 02/18/24 22:00 UNV Patient Own Medication 1 tab QAM PO 02/19/24 07:00 UNV Patient Own Medication 40 mg DAILY PO 02/19/24 10:00 UNV Patient Own Medication 1 tab DAILY PO 02/19/24 10:00 UNV Patient Own Medication 1 tab HS PO 02/18/24 22:00 UNV objective Gen.: Patient lying in bed in no apparent distress. On supplemental oxygen. Head: Normocephalic, atraumatic. Eyes: EOMI/PERRLA. Ears: Normal hearing. Normal anatomy. Neck/trachea: Trachea midline, supple. Nose: Normal external anatomy. Mouth: Moist mucous membranes. Chest: Decreased air entry bilaterally. No wheezing or rhonchi. Cardiovascular: Positive S1, positive S2. Regular rate and rhythm. Abdomen: Positive bowel sounds in all 4 quadrants. Soft, non-tender, non- distended. : Deferred. Rectal: Deferred. Skin: Warm, dry. Intact. Extremities: 2+ radial pulses bilaterally. No lower extremity edema. Neuro: Awake, alert, oriented x3. No gross motor or sensory deficits. Cranial nerves II through XII intact. Gait not assessed. laboratory and microbiology Laboratory Tests 02/21/24 05:26 02/20/24 05:51 Test 02/21/24 05:26 Range/Units Serum Glucose 81 74-106 mg/dL Assessment/Plan Impression: Acute hypoxic respiratory failure Multifocal pneumonia Acute on chronic diastolic CHF exacerbation Elevated troponin Events: Remains on supplemental oxygen, 2 LPM NC Taper O2 as tolerated Continue antibiotics Incentive spirometry Diurese w/ Lasix QD Monitor renal function. Monitor electrolytes. Supplement as necessary. GI prophylaxis w/ Protonix Labs and imaging reviewed. Rest of plan as noted below. Plan: Supplemental oxygen 2 LPM NC Titrate to keep O2 sats above 92%. Taper O2 as tolerated. ABG c/w hypoxemia - PaO2 55.7 mmHg Blood pressure control. Continue bronchodilators. Continue antibiotics Send sputum if able to produce. Diurese w/ Lasix as tolerated. Monitor renal function. Monitor electrolytes. Supplement as necessary. Monitor ins and outs. GI prophylaxis w/ Protonix. DVT prophylaxis. Prognosis: Poor given patient's multiple co-morbidities. Rest of plan per hospitalist and other consultants. A total of 51 minutes of clinical care time was spent reviewing the patient record, examining the patient, making a diagnostic and therapeutic plan, discussing this plan with the medical personnel, following up on diagnostic studies and following the patient for clinical stability excluding any and all procedures. At least 50% of this time was spent in direct, [id number] contact. Thank you Dr. Vishnu Rodriguez MD, for allowing me to participate in this patient's care. Further recommendations will depend on the patient's clinical course. Please do not hesitate to contact me if you have any questions or concerns. This medical document was created using an electronic medical record system with [employer] dictation system. Although these documentations are being carefully reviewed, there may still be some phonetic and typographical changes. The errors are purely typographical, due to imperfection on the software program, and do not reflect any compromise in the patient's medical care. Plan discussed with: Patient, Other (JACOB Ryder) NIKKI PÉREZ MD Feb 21, 2024 23:07
== END 2024-02-21 19:45 | disposition home or self-care (01) | DRG 177 ==
LOC: EDBD 09:57 → ER 09:57 → OVERFLOW 13:07 → WEST WING 17:47
PROVIDERS: ADMIT Hospitalist; ATTEND Internal Medicine
DX: J15.69 Pneumonia due to other Gram-negative bacteria (principal); I50.33 Acute on chronic diastolic (congestive) heart failure; J96.01 Acute respiratory failure with hypoxia; I13.0 Hypertensive heart and chronic kidney disease with heart failure and stage 1 through stage 4 chronic kidney disease, or unspecified chronic kidney disease; N18.4 Chronic kidney disease, stage 4 (severe); N17.9 Acute kidney failure, unspecified; J15.9 Unspecified bacterial pneumonia; I16.0 Hypertensive urgency; I25.10 Atherosclerotic heart disease of native coronary artery without angina pectoris; Z83.3 Family history of diabetes mellitus; Z82.49 Family history of ischemic heart disease and other diseases of the circulatory system; Z85.3 Personal history of malignant neoplasm of breast; Z98.61 Coronary angioplasty status; Z89.612 Acquired absence of left leg above knee; Z89.611 Acquired absence of right leg above knee
CPT/HCPCS: 36415; 36600; 71045; 76775; 80048; 80053; 80076; 81001; 82570; 82805; 82962; 83605; 83735; 83880; 84100; 84300; 84443; 84484; 84550; 85025; 93005; 94640; 99291; G0378; J1815; J2543

== ENCOUNTER → 2024-04-22 | Outpatient (CLI) | payer OTHER ==
[~2024-04-22] MED LIST changes: +AZIT-185 PO
[2024-04-22 11:56] LABS: Basophils # (auto) 0 10 ^3/uL (0-0.2); Basophils % (auto) 0.3 % (0.0-2.0); Eosinophils # (auto) 0.1 10 ^3/uL (0-0.8); Eosinophils % (auto) 0.9 % (0.0-7.0); Hematocrit 35.7 % (36.0-46.0); Hemoglobin 11.6 g/dL (12.2-16.2); Lymphocytes # (auto) 0.8 10 ^3/uL (0.4-5.4); Lymphocytes % (auto) 8.5 % (10.0-50.0); Mean Corpuscular Hemoglobin 30.1 pg (28.0-32.0); Mean Corpuscular Hgb Conc. 32.4 g/dL (32.0-36.0); Mean Corpuscular Volume 92.8 fL (80.0-100.0); Monocytes # (auto) 0.5 10 ^3/uL (0-1.3); Monocytes % (auto) 5.8 % (0.0-12.0); Neutrophils # (auto) 7.8 10 ^3/uL (1.6-8.6); Neutrophils % (auto) 84.5 % (37.0-80.0); Platelet Count (auto) 190 10^3/uL (140-450); Red Blood Cells 3.84 10^6/uL (4.0-5.20); White Blood Cell 9.2 10^3/uL (4.4-10.8)
[2024-04-22 12:03] LABS: Alanine Aminotransferase 27 U/L (7-40); Anion Gap 9 (5-15); Calcium 10.1 mg/dL (8.7-10.4); Carbon Dioxide 21 mmol/L (20-31); Potassium 4.7 mmol/L (3.5-5.1); Sodium 142 mmol/L (136-145); Triglycerides 43 mg/dL (< 150)
[2024-04-22 12:04] LABS: LDL Cholesterol 67 mg/dL (< 100)
[2024-04-22 12:05] LABS: Aspartate Aminotransferase 20 U/L (13-40); Bilirubin, Total 0.4 mg/dL (0.2-1.0); Cholesterol 142 mg/dL (< 200)
[2024-04-22 12:14] LABS: Alkaline Phosphatase 119 U/L (46-116); Blood Urea Nitrogen 44 mg/dL (9-23); Chloride 112 mmol/L (98-107); Glucose 106 mg/dL (74-106); HDL Cholesterol 64 mg/dL (40-59)
== END | disposition home or self-care (01) ==
LOC: LAB 10:46
PROVIDERS: ATTEND Nurse Practitioner Family
DX: I11.0 Hypertensive heart disease with heart failure (principal); I50.9 Heart failure, unspecified; D50.9 Iron deficiency anemia, unspecified
CPT/HCPCS: 36415; 80053; 80061; 84443; 85025

== ENCOUNTER 2024-05-20 13:41 | Inpatient (IN) | payer OTHER ==
[~2024-05-20] VITALS: Ht 165.1 cm; Wt 49.0 kg
--- NOTE | 2024-05-20 14:38 | ED.PDOC ---
History of Present Illness HPI Comments 88-year-old female with PMHx CVA, [place], HTN brought in by EMS presents with a chief complaint of SOB increasing over the past few days. Patient is normally SOB at baseline per EMS, but has been feeling increasingly worse over the past few days and family decided to call EMS. Patient was found to be 93% on room air and was placed on 3L/NC by EMS. Patient is hypertensive on arrival at 240/112 and rechecked at 250/108. Patient denies any chest pain at this time. Chief Complaint: Shortness of Breath Time Seen by MD: 14:10 Primary Care Provider: DARIUSZ Reviewed Notes: Medications, Allergies Allergies: Coded Allergies: NO KNOWN ALLERGIES (Unverified , 05/28/23) Home Meds Active Scripts Azithromycin (ZITHROMAX TABLET) 250 Mg Tb, 250 MG PO DAILY, #6 TAB take 2 tablets the first day, then one tablet daily until finish Prov:MCKAYLA HAWKINS MD 02/21/24 Empagliflozin (Jardiance) 10 Mg Tab, 10 MG PO DAILY for 30 Days, #30 TAB Prov:RITA AVILA RESIDENT 10/21/23 Spironolactone (Aldactone) 25 Mg Tab, 25 MG PO DAILY for 30 Days, #30 TAB Prov:RITA AVILA RESIDENT 10/21/23 Furosemide (Lasix) 40 Mg Tab, 40 MG PO DAILY for 15 Days, #15 TAB Prov:SAMSON ODOM DO 05/31/23 Reported Medications Ferrous Sulfate (Ferosul) 325 Mg Tab, 1 TAB PO 05/20/24 Allopurinol (Allopurinol) 100 Mg Tab, 100 MG PO DAILY, MG 05/29/23 Lisinopril (Lisinopril) 40 Mg Tab, 40 MG PO DAILY, MG 05/29/23 Pantoprazole Sodium Sesquihydr (Protonix) 40 Mg Tab, 40 MG PO DAILY, TAB 05/29/23 Aspirin (Aspirin Low Dose) 81 Mg Tab, 81 MG PO DAILY, TAB 05/28/23 Potassium Chloride (Klor-Con 8) 8 Meq Tab, 1 TAB PO DAILY 05/28/23 Simvastatin (Simvastatin) 20 Mg Tab, 1 TAB PO HS 05/28/23 Carvedilol (Carvedilol) 6.25 Mg Tab, 1 TAB PO BID 05/28/23 Nifedipine (Nifedipine Er) 90 Mg Tab, 1 TAB PO DAILY 05/28/23 Fluoxetine Hcl (FLUOXETINE HCL) 60 Mg Tab, 1 TAB PO QAM 05/28/23 Information Source: Emergency Med Personnel Mode of Arrival: EMS Severity: Moderate Timing: Days Duration: Intermittent Prehospital treatment: Oxygen Past Medical History PAST MEDICAL HISTORY: Cancer, CHF, ESRD, GERD, HTN, [place] Surgical History: Appendectomy, AKA, Hysterectomy, Tonsillectomy Family History Family History: Reviewed,noncontributory to illness Social History Smoker: Quit Greater Than 1 Year, Cigarettes Alcohol: Denies ETOH Use Drugs: Denies Drug Use Lives In: Home Constitutional: denies: chills, diaphoresis, fatigue, fever, malaise, sweats, weakness, others EENTM: denies: blurred vision, double vision, ear bleeding, ear discharge, ear drainage, ear pain, ear ringing, eye pain, eye redness, hearing loss, mouth pain, mouth swelling, nasal discharge, nose bleeding, nose congestion, nose pain, photophobia, tearing, throat pain, throat swelling, voice changes, others Respiratory: reports: SOB at rest, shortness of breath; denies: cough, hemoptysis, orthopnea, SOB with excertion, stridor, wheezing, others Cardiovascular: denies: chest pain, dizzy spells, diaphoresis, Dyspnea on exertion, edema, irregular heart beat, left arm pain, lightheadedness, palpitations, PND, syncope, others Gastrointestinal: denies: abdomen distended, abdominal pain, blood streaked bowels, constipated, diarrhea, dysphagia, difficulty swallowing, hematemesis, melena, nausea, poor appetite, poor fluid intake, rectal bleeding, rectal pain, vomiting, others Genitourinary: denies: abnormal vagina bleeding, burning, dyspareunia, dysuria, flank pain, frequency, hematuria, incontinence, pain, , vagina discharge, urgency, others Neurological: denies: dizziness, fainting, headache, left sided numbness, left sided weakness, numbness, paresthesia, pre-existing deficit, right sided numbness, right sided weakness, seizure, speech problems, tingling, tremors, weakness, others Musculoskeletal: denies: back pain, gout, joint pain, joint swelling, muscle pain, muscle stiffness, neck pain, others Integumetry: denies: bruises, change in color, change in hair/nails, dryness, laceration, lesions, lumps, rash, wounds, others Allergic/Immunocompromised: denies: Difficulty Healing, Frequent Infections, Hi ves, Itching, others Hematologic/Lymphatic: denies: anemia, blood clots, easy bleeding, easy bruising, swollen glands, others Endocrine: denies: excessive hunger, excessive sweating, excessive thirst, excessive urination, flushing, intolerance to cold, intolerance to heat, unexplained weight gain, unexplained weight loss, others Psychiatric: denies: anxiety, bipolar disorder, depression, hopeless, panic disorder, schizophrenia, sleepless, suicidal, others All Other Systems: Reviewed and Negative Physical Exam General Appearance: Moderate Distress, Thin HEENT: Normal ENT Inspection, Pharynx Normal, TMs Normal Neck: Full Range of Motion, Non-Tender, Normal, Normal Inspection Respiratory: Chest Non-Tender, Lungs Clear, No Accessory Muscle Use, Normal Breath Sounds, Respiratory Distress Cardiovascular: No Edema, No JVD, No Murmur, No Gallop, Normal Peripheral Pulses, Regular Rate/Rhythm Breast Exam: Deferred Gastrointestinal: No Organomegaly, Non Tender, No Pulsatile Mass, Normal Bowel Sounds, Soft Genitalia: Deferred Pelvic: Deferred Rectal: Deferred Extremities: No calf tenderness, Normal capillary refill, Normal range of motion, Non-tender, No pedal edema, Other (Bilateral lower extremity amputation ) Musculoskeletal : Apperance: Normal Neurologic: Alert, skiing teacher II-XII nml as Tested, No Motor Deficits, Normal Affect, Normal Mood, No Sensory Deficits Cerebellar Function: NOT DONE Reflexes: NOT DONE Skin: Dry, Normal Color, Warm Peripheral Pulses: 3+ Radial (R), 3+ Radial (L) Lymphatic: No Adenopathy Was a procedure done? Was a procedure done?: No Differential Dx Considerations may include: CHF Electrolyte imbalance X-Ray, Labs, Meds, VS Vital Signs Date Time Temp Pulse Resp B/P (MAP) Pulse Ox O2 Delivery O2 Flow Rate FiO2 05/20/24 15:45 218/106 05/20/24 15:34 218/106 05/20/24 15:00 61 18 218/106 (143) 96 05/20/24 14:02 24 95 Nasal Cannula 2.0 05/20/24 13:53 97.9 62 24 250/108 (155) 95 Lab Test 05/20/24 14:56 Range/Units White Blood Count 5.1 4.4-10.8 10^3/uL Red Blood Count 4.01 4.0-5.20 10^6/uL Hemoglobin 11.7 L 12.2-16.2 g/dL Hematocrit 37.0 36.0-46.0 % Mean Corpuscular Volume 92.4 80.0-100.0 fL Mean Corpuscular Hemoglobin 29.2 28.0-32.0 pg Mean Corpuscular Hemoglobin Concent 31.6 L 32.0-36.0 g/dL Red Cell Distribution Width 18.3 H 11.8-14.3 % Platelet Count 262 140-450 10^3/uL Mean Platelet Volume 9.1 6.9-10.8 fL Neutrophils (%) (Auto) 70.2 37.0-80.0 % Lymphocytes (%) (Auto) 20.0 10.0-50.0 % Monocytes (%) (Auto) 7.7 0.0-12.0 % Eosinophils (%) (Auto) 1.2 0.0-7.0 % Basophils (%) (Auto) 0.9 0.0-2.0 % Neutrophils # (Auto) 3.6 1.6-8.6 10 ^3/uL Lymphocytes # (Auto) 1.0 0.4-5.4 10 ^3/uL Monocytes # (Auto) 0.4 0-1.3 10 ^3/uL Eosinophils # (Auto) 0.1 0-0.8 10 ^3/uL Basophils # (Auto) 0 0-0.2 10 ^3/uL Nucleated Red Blood Cells 0.3 % Sodium Level 143 136-145 mmol/L Potassium Level 4.5 3.5-5.1 mmol/L Chloride Level 114 H 98-107 mmol/L Carbon Dioxide Level 20 20-31 mmol/L Anion Gap 9 5-15 Blood Urea Nitrogen 47 H 9-23 mg/dL Creatinine 1.27 H 0.550-1.02 mg/dL Glomerular Filtration Rate Calc 41 >90 mL/min BUN/Creatinine Ratio 37.0 H 10.0-20.0 Serum Glucose 100 74-106 mg/dL Calcium Level 10.3 8.7-10.4 mg/dL Troponin I High Sensitivity 100 *H </=34 ng/L Current Medications Medications (Trade) Dose Ordered Sig/Abundio Route Start Time Stop Time Status Last Admin Amlodipine Besylate (Norvasc Tablet) 10 mg ONCE ONCE PO 05/20/24 15:15 05/20/24 15:16 DC 05/20/24 15:34 Furosemide (Lasix Injection) 40 mg ONCE ONCE IV 05/20/24 15:30 05/20/24 15:31 DC 05/20/24 15:45 Piperacillin Sod/ Tazobactam Sod 100 ml @ 100 mls/hr ONCE ONCE IV 05/20/24 15:30 05/20/24 16:29 DC 05/20/24 16:02 Patient alert. Shortness a breath. Blood pressure elevated. Currently on oxygen. Was given Norvasc. Hypertension emergency. Has old bilateral lower extremity amputation. Chest x-ray does show CHF. Was given Lasix. Explained to the patient. Continue cardiac monitoring. Time of 1ST Reevaluation: 14:40 Reevaluation 1ST: Unchanged Patient Education/Counseling: Diagnosis, Treatment, Prognosis Family Education/Counseling: Diagnosis, Treatment, Prognosis Departure 1 Departure Time of Disposition: 15:21 Impression: Primary Impression: Acute on chronic diastolic heart failure Additional Impressions: Hypertensive emergency Pneumonitis Chronic kidney disease Qualified Codes: N18.9 - Chronic kidney disease, unspecified Demand ischemia Disposition: ADMITTED INPATIENT Admit to: Med Surg Condition: Guarded Critical Care Note Critical Care Time?: Yes (90 min-critical care time only) Critical care comment: Placed on oxygen Stability Stability form required: No Heart Score Heart Score: Heart Score Response (Comments) Value History Slightly Suspicious 0 EKG Normal 0 Age >65 2 Risk Factors >3 or Hx ASHD 2 Troponin Normal limit 0 Total 4 I personally scribed for SRIKANTH VAUGHAN MD ([email or web address]) on 05/20/24 at 14:38. Electronically submitted by Montez Aldana ([email or web address]). SRIKANTH VAUGHAN MD May 20, 2024 14:38
[2024-05-20] MEDS: SODIUM CHLORIDE 0.9% 1,000 ML IV ONE ×2 (14:45→20:28)
--- NOTE | 2024-05-20 14:56 | DVH ---
EXAM: XY CHEST PORTABLE Indication: sob Technique: Single frontal view of the chest was obtained Comparison: XY CHEST PORTABLE on DOS: 02/18/24, XY CHEST PORTABLE on DOS: 10/19/23, XY CHEST PORTABLE on DOS: 07/26/23, XY CHEST PORTABLE on DOS: 05/28/23 FINDINGS: Lines and Tubes: None Lungs: Pulmonary edema. Pleura: No effusion. No pneumothorax. Cardiomediastinal contours: Cardiomegaly. Atherosclerotic vascular calcifications of the thoracic aor ta are noted. Bones: No acute osseous abnormality. IMPRESSION: Cardiomegaly with pulmonary edema.
[2024-05-20 15:27] LABS: Basophils # (auto) 0 10 ^3/uL (0-0.2); Basophils % (auto) 0.9 % (0.0-2.0); Eosinophils # (auto) 0.1 10 ^3/uL (0-0.8); Eosinophils % (auto) 1.2 % (0.0-7.0); Hemoglobin 11.7 g/dL (12.2-16.2); Mean Corpuscular Hemoglobin 29.2 pg (28.0-32.0); Mean Corpuscular Hgb Conc. 31.6 g/dL (32.0-36.0); Mean Corpuscular Volume 92.4 fL (80.0-100.0); Monocytes # (auto) 0.4 10 ^3/uL (0-1.3); Monocytes % (auto) 7.7 % (0.0-12.0); Neutrophils # (auto) 3.6 10 ^3/uL (1.6-8.6); Neutrophils % (auto) 70.2 % (37.0-80.0); Nucleated Red Blood Cells % 0.3 %; Platelet Count (auto) 262 10^3/uL (140-450); Red Blood Cells 4.01 10^6/uL (4.0-5.20); Red Cell Distribution Width 18.3 % (11.8-14.3); White Blood Cell 5.1 10^3/uL (4.4-10.8)
[2024-05-20] MEDS: amLODIPine BESYLATE 5 MG TAB PO ONE (15:34)
[2024-05-20 15:44] LABS: Potassium 4.5 mmol/L (3.5-5.1); Sodium 143 mmol/L (136-145)
[2024-05-20 15:45] LABS: Anion Gap 9 (5-15); Calcium 10.3 mg/dL (8.7-10.4); Carbon Dioxide 20 mmol/L (20-31)
[2024-05-20] MEDS: FUROSEMIDE 40 MG/4 ML VIAL IV ONE (15:45)
[2024-05-20 15:49] LABS: Glucose 100 mg/dL (74-106)
[2024-05-20 15:51] LABS: Blood Urea Nitrogen 47 mg/dL (9-23); Chloride 114 mmol/L (98-107)
[2024-05-20] MEDS: PIPERACILLIN-TAZOB 3.375GM 100 ML IV ONE (16:02)
[2024-05-20] MEDS ORDERED: FERR325T20 PO (16:21)
[2024-05-20] MEDS ORDERED: ONDANSETRON HCL 4 MG/2 ML VIAL IV PRN (16:30)
--- NOTE | 2024-05-20 16:40 | DVHHP2 ---
History of Present Illness Reason for Visit: SOB History of Present Illness Harini Soni is an 88-year-old female with past medical history of CAD, AK, hypertension, COPD, CKD, CHF, breast cancer with a right mastectomy, appendectomy, bilateral AKA, hysterectomy, and tonsillectomy who presents to the ED for SOB x5 days. Patient states that it is difficult for her to lay down without being short of breath. She also reports that she does not use home o xygen. She is currently on 2 L nasal cannula. Patient also reports that she quit smoking and drinking and denies illicit drug use. Patient denies any chest pain, abdominal pain, nausea, vomiting, diarrhea, fever, chills, recent sick contacts, recent trauma or injury, lightheadedness, and dizziness. Patient also reports that she uses a scooter to mobilize. Cardiovascular: CAD, CHF, HTN, AK Pulmonary: COPD Renal/: Chronic renal insuff Past Medical History Breast cancer Past Surgical History: Appendectomy, Hysterectomy, Mastectomy, Other (Bilateral [id number] amputation), Tonsillectomy Family History: Other (Sisters with end-stage renal disease) Smoke: Quit ALCOHOL: none Drugs: None Lives: with Family Domestic Violence: Neg Review of Systems Constitutional: No: Fever, Chills, Sweats, Weakness, Malaise, Other Eyes: No: Pain, Vision change, Conjunctivae inflammation, Eyelid inflammation, Other, Redness ENT: No: Ear pain, Ear discharge, Nose pain, Nose discharge, Nose congestion, Mouth pain, Mouth swelling, Throat pain, Throat swelling, Other Respiratory: Shortness of breath; No: Cough, Dry, SOB with excertion, Wheezing, Hemoptysis, Pleuritic Pain, Sputum, Wheezing, Other Cardiovascular: No: Chest Pain, Palpitations, Orthopnea, Paroxysmal Noc. Dyspnea, Edema, Lt Headedness, Other Gastrointestinal: No: Nausea, Vomiting, Abdominal Pain, Diarrhea, Constipation, Melena, Hematochezia, Other Genitourinary: No Dysuria, No Frequency, No Incontinence, No Hematuria, No Retention, No Other Skin: No: Rash, Lesions, Jaundice, Bruising, Other Neurological: No: Weakness, Numbness, Incoordination, Change in speech, Confusion, Seizures, Other Allergies: Coded Allergies: NO KNOWN ALLERGIES (Unverified , 05/28/23) Medications Current Medications Medications Dose Ordered Sig/Abundio Route Start Time Stop Time Status Last Admin Dose Admin Ondansetron HCl 4 mg Q4HP PRN IV 05/20/24 16:30 UNV Enoxaparin Sodium 30 mg DAILY SC 05/21/24 10:00 UNV Acetaminophen 650 mg Q6HP PRN PO 05/20/24 16:30 UNV Allopurinol 100 mg DAILY PO 05/21/24 10:00 UNV Aspirin 81 mg DAILY PO 05/21/24 10:00 UNV Empaglifozin 10 mg DAILY PO 05/21/24 10:00 UNV Pantoprazole Sodium 40 mg DAILY PO 05/21/24 10:00 UNV Potassium Chloride 8 meq DAILY PO 05/21/24 10:00 UNV Spironolactone 25 mg DAILY PO 05/21/24 10:00 UNV Patient Own Medication 1 tab BID PO 05/20/24 22:00 UNV Patient Own Medication 1 tab QAM PO 05/21/24 07:00 UNV Patient Own Medication 40 mg DAILY PO 05/21/24 10:00 UNV Patient Own Medication 1 tab DAILY PO 05/21/24 10:00 UNV Patient Own Medication 1 tab HS PO 05/20/24 22:00 UNV Exam Vital Signs Vital Signs Date Time Temp Pulse Resp B/P (MAP) Pulse Ox O2 Delivery O2 Flow Rate FiO2 05/20/24 15:45 218/106 05/20/24 15:00 61 18 96 05/20/24 14:02 Nasal Cannula 2.0 05/20/24 13:53 97.9 General Appearance: Alert, Oriented X3, Cooperative, mild distress HEENT: Atraumatic, PERRLA, EOMI, Mucous membr. moist/pink Respiratory: Normal air movement, Other (CR joni) Cardiovascular: Normal S1, Normal S2, No murmurs Abdominal: Normal bowel sounds, Soft, No tenderness, No hepatospenomegaly, No masses Extremities: Normal pulses, No tenderness/swelling Neuro: Normal speech, Normal tone, Sensation intact Psych/Mental Status: Mental status NL Labs/Xrays Labs Test 05/20/24 14:56 Range/Units White Blood Count 5.1 4.4-10.8 10^3/uL Red Blood Count 4.01 4.0-5.20 10^6/uL Hemoglobin 11.7 L 12.2-16.2 g/dL Hematocrit 37.0 36.0-46.0 % Mean Corpuscular Volume 92.4 80.0-100.0 fL Mean Corpuscular Hemoglobin 29.2 28.0-32.0 pg Mean Corpuscular Hemoglobin Concent 31.6 L 32.0-36.0 g/dL Red Cell Distribution Width 18.3 H 11.8-14.3 % Platelet Count 262 140-450 10^3/uL Mean Platelet Volume 9.1 6.9-10.8 fL Neutrophils (%) (Auto) 70.2 37.0-80.0 % Lymphocytes (%) (Auto) 20.0 10.0-50.0 % Monocytes (%) (Auto) 7.7 0.0-12.0 % Eosinophils (%) (Auto) 1.2 0.0-7.0 % Basophils (%) (Auto) 0.9 0.0-2.0 % Neutrophils # (Auto) 3.6 1.6-8.6 10 ^3/uL Lymphocytes # (Auto) 1.0 0.4-5.4 10 ^3/uL Monocytes # (Auto) 0.4 0-1.3 10 ^3/uL Eosinophils # (Auto) 0.1 0-0.8 10 ^3/uL Basophils # (Auto) 0 0-0.2 10 ^3/uL Nucleated Red Blood Cells 0.3 % Sodium Level 143 136-145 mmol/L Potassium Level 4.5 3.5-5.1 mmol/L Chloride Level 114 H 98-107 mmol/L Carbon Dioxide Level 20 20-31 mmol/L Anion Gap 9 5-15 Blood Urea Nitrogen 47 H 9-23 mg/dL Creatinine 1.27 H 0.550-1.02 mg/dL Glomerular Filtration Rate Calc 41 >90 mL/min BUN/Creatinine Ratio 37.0 H 10.0-20.0 Serum Glucose 100 74-106 mg/dL Calcium Level 10.3 8.7-10.4 mg/dL Troponin I High Sensitivity 100 *H </=34 ng/L EXAM: XY CHEST PORTABLE Indication: sob Technique: Single frontal view of the chest was obtained Comparison: XY CHEST PORTABLE on DOS: 02/18/24, XY CHEST PORTABLE on DOS: 10/19/23, XY CHEST PORTABLE on DOS: 07/26/23, XY CHEST PORTABLE on DOS: 05/28/23 FINDINGS: Lines and Tubes: None Lungs: Pulmonary edema. Pleura: No effusion. No pneumothorax. Cardiomediastinal contours: Cardiomegaly. Atherosclerotic vascular shanika cifications of the thoracic aorta are noted. Bones: No acute osseous abnormality. IMPRESSION: Cardiomegaly with pulmonary edema. Assessment/Plan Assessment/Plan Assessment/Plan: Hypertensive emergency Acute on chronic CHF exacerbation Nicardipine drip ordered Zosyn ordered in ED diuretics Antihypertensives NS 2 L ordered in ED Batista catheterization UA Chest x-ray Troponin BNP Strict I&Os Daily weights Lovenox Antiemetics Pain management A.m. labs History of hypertension Continue home medications History of CAD History of AK Monitor History of COPD P.r.n. respiratory treatments History of CKD Follow up outpatient with PCP History of breast cancer with right mastectomy Follow up outpatient with PCP Ex tobacco use Counseled patient on maintenance of cessation of tobacco use FEN/PPX Diet Hep-Lock DVT prophylaxis Lovenox PUD prophylaxis- continue home medication, Protonix Admit to ICU Home medications reconciled Discussed plan of care with patient and nurse Plan discussed with: Patient My Orders Orders - BURT LEVINE [employer]GRAM[employer] Procedure Category Date Status Time B-Type Natriuretic LAB 05/20/24 Logged Peptide 16:18 Strict I & O GREGORIO 05/20/24 In Process 16:18 Daily Weight GREGORIO 05/20/24 In Process 16:18 Admit ADMIT 05/20/24 Transmitted 16:18 Allergies GREGORIO 05/20/24 In Process 16:18 Code Status CODE 05/20/24 Transmitted 16:18 Ondansetron Hcl PHA 05/20/24 Logged (Zofran) 16:30 Complete Blood Count LAB 05/21/24 Verified 04:00 Comprehensive LAB 05/21/24 Verified Metabolic Panel 04:00 Cardiac DIET 05/20/24 Transmitted Diet-2gna,Lofat,Lochol Dinner Enoxaparin Sodium PHA 05/21/24 Logged (Lovenox) 10:00 Acetaminophen Tablet PHA 05/20/24 Logged (Tylenol Tablet) 16:30 Allopurinol Tablet PHA 05/21/24 Logged (Zyloprim Tablet) 10:00 Aspirin Enteric PHA 05/21/24 Logged Coated Tablet 10:00 Empagliflozin PHA 05/21/24 Logged (Jardiance) 10:00 Pantoprazole Tablet PHA 05/21/24 Logged (Protonix Tablet) 10:00 Potassium Er Tablet PHA 05/21/24 Logged (Klor-Con Tablet) 10:00 Spironolactone PHA 05/21/24 Logged (Aldactone) 10:00 (Nf) Carvedilol PHA 05/20/24 Logged 22:00 (Nf) Fluoxetine Hcl PHA 05/21/24 Logged 07:00 (Nf) Lisinopril PHA 05/21/24 Logged 10:00 (Nf) Nifedipine PHA 05/21/24 Logged (Nifedipine Er) 10:00 (Nf) Simvastatin PHA 05/20/24 Logged 22:00 Date of Service: May 20, 2024 Billing Provider: BURT LEVINE Common Visit Codes: [id number] INP/OBS CARE (HIGH) BURT LEVINE May 20, 2024 16:40
[2024-05-20 16:55] LABS: Urine Bacteria None Seen /hpf (None Seen)
[2024-05-20 17:18] LABS: Urine Blood Negative /uL (Negative); Urine Clarity Clear (Clear); Urine Color Colorless (Yellow); Urine Protein, UAD 1+ (Negative); Urine Specific Gravity 1.009 (1.001-1.035); Urine Squamous Epithelial Cell FEW /hpf (<5); Urine Urobilinogen Normal (Negative); Urine WBC 3 /HPF (0-5); Urine pH 5.5 (5.0-9.0)
[2024-05-20] MEDS: FUROSEMIDE 40 MG/4 ML VIAL IV SCH (18:00)
[2024-05-20 20:16] VITALS: PULSE 53; O2SAT 94
[2024-05-20] MEDS: CARVEDILOL 3.125 MG TAB PO SCH (22:00)
[2024-05-20] MEDS: ATORVASTATIN 20 MG TAB PO SCH (22:14)
[2024-05-20] MEDS: ENOXAPARIN SOD 30 MG/0.3 ML SYRINGE SC SCH (23:47)
[2024-05-21] MEDS: FLUoxetine HCL 20 MG CAP PO SCH (06:02)
[2024-05-21 08:49] VITALS: PULSE 49; RESP 21; O2SAT 97
[2024-05-21] MEDS: PANTOPRAZOLE 40 MG TAB PO SCH (09:54)
[2024-05-21] MEDS: LISINOPRIL 20 MG TAB PO SCH (09:55)
[2024-05-21] MEDS ORDERED: ENOXAPARIN SOD 30 MG/0.3 ML SYRINGE SC SCH (10:00)
[2024-05-21] MEDS: SPIRONOLACTONE 25 MG TAB PO SCH (10:10)
[2024-05-21] MEDS: ASPirin-EC 81 mg tab PO SCH (10:12)
[2024-05-21] MEDS: EMPAGLIFLOZIN 10 MG TAB PO SCH (10:12)
[2024-05-21] MEDS: NIFEdipine ER 30 MG TAB PO SCH (10:13)
[2024-05-21] MEDS: ALLOPURINOL 100 MG TAB PO SCH (10:13)
[2024-05-21] MEDS: POTASSIUM CHLORIDE 8 MEQ TAB PO SCH (10:20)
[2024-05-21] MEDS: ACETAMINOPHEN 325 MG TAB PO PRN (11:27)
[2024-05-21 12:04] LABS: Basophils # (auto) 0 10 ^3/uL (0-0.2); Basophils % (auto) 0.7 % (0.0-2.0); Eosinophils # (auto) 0 10 ^3/uL (0-0.8); Eosinophils % (auto) 0.8 % (0.0-7.0); Hematocrit 37.6 % (36.0-46.0); Hemoglobin 11.8 g/dL (12.2-16.2); Lymphocytes % (auto) 18.8 % (10.0-50.0); Mean Corpuscular Hemoglobin 29.5 pg (28.0-32.0); Mean Corpuscular Hgb Conc. 31.5 g/dL (32.0-36.0); Mean Corpuscular Volume 93.6 fL (80.0-100.0); Monocytes # (auto) 0.3 10 ^3/uL (0-1.3); Monocytes % (auto) 6.1 % (0.0-12.0); Neutrophils # (auto) 4.1 10 ^3/uL (1.6-8.6); Neutrophils % (auto) 73.6 % (37.0-80.0); Platelet Count (auto) 291 10^3/uL (140-450); Red Blood Cells 4.01 10^6/uL (4.0-5.20); Red Cell Distribution Width 18.9 % (11.8-14.3); White Blood Cell 5.5 10^3/uL (4.4-10.8)
[2024-05-21 12:29] LABS: Alanine Aminotransferase 19 U/L (7-40); Albumin 3.8 g/dL (3.2-4.8); Alkaline Phosphatase 115 U/L (46-116); Anion Gap 11 (5-15); Aspartate Aminotransferase 26 U/L (13-40); BUN/Creatinine Ratio 25.8 (10.0-20.0); Calcium 9.9 mg/dL (8.7-10.4)
[2024-05-21 12:30] LABS: Bilirubin, Total 0.3 mg/dL (0.2-1.0); Total Protein 6.7 g/dL (5.7-8.2)
[2024-05-21 12:32] LABS: Blood Urea Nitrogen 40 mg/dL (9-23); Carbon Dioxide 18 mmol/L (20-31); Chloride 113 mmol/L (98-107); Glucose 117 mg/dL (74-106); Potassium 4.5 mmol/L (3.5-5.1); Sodium 142 mmol/L (136-145)
--- NOTE | 2024-05-21 14:49 | DVHPN2 ---
Subjective The patient is seen and examined at bedside. Complain of shortness for breath and tired. Reviewed: Care Plan, H&P, Labs, Medications, Previous Orders, Radiology Changes from previous H/P or p: No Changes Eyes: No Pain, No Vision change, No Conjunctivae inflammation, No Eyelid inflammation, No Other, No Redness ENT: No Ear pain, No Ear discharge, No Nose pain, No Nose discharge, No Nose congestion, No Mouth pain, No Mouth swelling, No Throat pain, No Throat swelling, No Other Cardiovascular: No Chest Pain, No Palpitations, No Orthopnea, No Paroxysmal Noc. Dyspnea, No Edema, No Lt Headedness, No Other Respiratory: No Cough, No Dry; Shortness of breath; No SOB with excertion, No Wheezing, No Hemoptysis, No Pleuritic Pain, No Sputum, No Other Gastrointestinal: No Nausea, No Vomiting, No Abdominal Pain, No Diarrhea, No Constipation, No Melena, No Hematochezia, No Other Genitourinary: No Dysuria, No Frequency, No Incontinence, No Hematuria, No Retention, No Other Skin: No Rash, No Lesions, No Jaundice, No Bruising, No Other Objective Vitals Vital Signs Date Time Temp Pulse Resp B/P (MAP) Pulse Ox O2 Delivery O2 Flow Rate FiO2 05/21/24 11:30 52 17 137/61 (86) 94 05/21/24 08:49 Nasal Cannula* 3 32 05/21/24 00:31 98.0 98.0 Intake/Output Intake and Output 05/21/24 07:00 Intake Total 1147.5 ml Output Total 400 ml Balance 747.5 ml Intake IV Total 1147.5 ml Output Urine Total 400 ml General Appearance: Alert, Cooperative HEENT: Atraumatic, PERRLA, EOMI, Mucous membr. moist/pink Neck: Supple Lungs: Clear to auscultation, Normal air movement Cardiovascular: Regular rate, Normal S1, Normal S2, No murmurs, Gallops, Rubs Abdomen: Normal bowel sounds, Soft, No tenderness Neuro: Cranial nerves 3-12 NL Medications Current Medications Medications Dose Ordered Sig/Abundio Route Start Time Stop Time Status Last Admin Dose Admin Ondansetron HCl 4 mg Q4HP PRN IV 05/20/24 16:30 Acetaminophen 650 mg Q6HP PRN PO 05/20/24 16:30 05/21/24 11:27 650 MG Allopurinol 100 mg DAILY PO 05/21/24 10:00 05/21/24 10:13 100 MG Aspirin 81 mg DAILY PO 05/21/24 10:00 05/21/24 10:12 81 MG Empaglifozin 10 mg DAILY PO 05/21/24 10:00 05/21/24 10:12 10 MG Pantoprazole Sodium 40 mg DAILY PO 05/21/24 10:00 05/21/24 09:54 40 MG Potassium Chloride 8 meq DAILY PO 05/21/24 10:00 05/21/24 10:20 8 MEQ Spironolactone 25 mg DAILY PO 05/21/24 10:00 05/21/24 10:10 25 MG Carvedilol 6.25 mg BID PO 05/20/24 22:00 05/21/24 10:12 6.25 MG Fluoxetine HCl 60 mg QAM PO 05/21/24 07:00 05/21/24 06:02 60 MG Lisinopril 40 mg DAILY PO 05/21/24 10:00 05/21/24 09:55 40 MG Nifedipine 90 mg DAILY PO 05/21/24 10:00 05/21/24 10:13 90 MG Atorvastatin Calcium 10 mg HS PO 05/20/24 22:00 05/20/24 22:14 10 MG Nicardipine HCl 250 ml @ 50 mls/hr Q5H IV 05/20/24 16:45 05/21/24 11:22 100 MLS/HR Furosemide 40 mg BIDD IV 05/20/24 18:00 05/21/24 06:01 40 MG Enoxaparin Sodium 30 mg DAILY SC 05/20/24 23:45 05/21/24 09:54 30 MG Laboratory Results Laboratory Tests 05/21/24 11:20 Chemistry Test 05/20/24 14:56 05/21/24 11:20 Calcium Level 10.3 mg/dL (8.7-10.4) 9.9 mg/dL (8.7-10.4) Albumin 3.8 g/dL (3.2-4.8) Total Protein 6.7 g/dL (5.7-8.2) Cardiac Markers Test 05/20/24 14:56 B-Type Natriuretic Peptide 3208.52 pg/mL (0-100) LFT Test 05/21/24 11:20 Alanine Aminotransferase (ALT) 19 U/L (7-40) Alkaline Phosphatase 115 U/L (46-116) Aspartate Amino Transferase (AST) 26 U/L (13-40) Total Bilirubin 0.3 mg/dL (0.2-1.0) Urinalysis Test 05/20/24 16:45 Urine Color Colorless (Yellow) Urine Clarity Clear (Clear) Urine pH 5.5 (5.0-9.0) Urine Specific [place] 1.009 (1.001-1.035) Urine Protein 1+ (Negative) H Urine Ketones Negative (Negative) Urine Blood Negative /uL (Negative) Urine Nitrite Negative (Negative) Urine Bilirubin Negative (Negative) Urine Urobilinogen Normal mg/dL (Negative) Urine Leukocyte Esterase Negative /uL (Negative) Urine RBC 2 /hpf (0 - 4) Urine Microscopic WBC 3 /HPF (0-5) Urine Squamous Epithelial Cells Few /hpf (<5) Urine Bacteria None seen /hpf (None Seen) Urine Glucose Normal mg/dL (Normal) Labs and/or images reviewed: Labs reviewed by me Assessment/Plan Assessment/Plan Hypertensive emergency Acute on chronic CHF exacerbation Hypertension Non ST-elevation [place] type 2 History of CAD History of [place] History of COPD Acute kidney injury superimposed on chronic kidney disease stage 3 History of breast cancer with right mastectomy History of tobacco abuse 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 Continuing with nifedipine drip. We will consult Nephrology. Continuing with Lasix This medical document was created using an electronic medical record system with [employer] direct computerized dictation system. Although this document has been carefully reviewed, there may still be some phonetic and typographical errors. These areas are purely typographical due to imperfections of the software programs, and do not reflect any compromise in the patient's medical care. Plan discussed with: Patient, Other (RN) Date of Service: May 21, 2024 Billing Provider: MCKAYLA HAWKINS MD Common Visit Codes: [id number] INP/OBS CARE(HIGH) MCKAYLA HAWKINS MD May 21, 2024 14:49
[2024-05-21 17:07] LABS: INR 1.11 (0.9-1.15); Partial Thromboplastin Time 27.7 SEC (24.5-34.5); Prothrombin Time 11.6 sec (9.3-11.8)
[2024-05-21 19:20] VITALS: PULSE 51; RESP 17; O2SAT 97
[2024-05-22 08:05] VITALS: PULSE 52; RESP 19
--- NOTE | 2024-05-22 12:45 | DVHPN2 ---
Subjective The patient is seen and examined at bedside. Blood pressure remained high. IV access is infiltrate. Reviewed: Care Plan, H&P, Labs, Medications, Previous Orders, Radiology Changes from previous H/P or p: No Changes Eyes: No Pain, No Vision change, No Conjunctivae inflammation, No Eyelid inflammation, No Other, No Redness ENT: No Ear pain, No Ear discharge, No Nose pain, No Nose discharge, No Nose congestion, No Mouth pain, No Mouth swelling, No Throat pain, No Throat swelling, No Other Cardiovascular: No Chest Pain, No Palpitations, No Orthopnea, No Paroxysmal Noc. Dyspnea, No Edema, No Lt Headedness, No Other Respiratory: No Cough, No Dry; Shortness of breath; No SOB with excertion, No Wheezing, No Hemoptysis, No Pleuritic Pain, No Sputum, No Other Gastrointestinal: No Nausea, No Vomiting, No Abdominal Pain, No Diarrhea, No Constipation, No Melena, No Hematochezia, No Other Genitourinary: No Dysuria, No Frequency, No Incontinence, No Hematuria, No Retention, No Other Skin: No Rash, No Lesions, No Jaundice, No Bruising, No Other Objective Vitals Vital Signs Date Time Temp Pulse Resp B/P (MAP) Pulse Ox O2 Delivery O2 Flow Rate FiO2 05/22/24 12:30 52 16 143/54 (83) 98 05/22/24 08:05 Nasal Cannula* 4 36 05/22/24 07:30 98.1 98.1 Intake/Output Intake and Output 05/22/24 07:00 Intake Total 841.25 ml Output Total 525 ml Balance 316.25 ml Intake IV Total 841.25 ml Output Urine Total 525 ml General Appearance: Alert, Oriented X3, Cooperative, No acute distress HEENT: Atraumatic, PERRLA, EOMI, Mucous membr. moist/pink Neck: Supple Lungs: Clear to auscultation, Normal air movement Cardiovascular: Regular rate, Normal S1, Normal S2, No murmurs, Gallops, Rubs Abdomen: Normal bowel sounds, Soft, No tenderness Neuro: Cranial nerves 3-12 NL Psych/Mental Status: Mental status NL Medications Current Medications Medications Dose Ordered Sig/Abundio Route Start Time Stop Time Status Last Admin Dose Admin Ondansetron HCl 4 mg Q4HP PRN IV 05/20/24 16:30 Acetaminophen 650 mg Q6HP PRN PO 2/21/25 16:30 05/21/24 11:27 650 MG Allopurinol 100 mg DAILY PO 05/21/24 10:00 05/22/24 10:23 100 MG Aspirin 81 mg DAILY PO 05/21/24 10:00 05/22/24 10:23 81 MG Empaglifozin 10 mg DAILY PO 05/21/24 10:00 05/22/24 10:23 10 MG Pantoprazole Sodium 40 mg DAILY PO 05/21/24 10:00 05/22/24 10:24 40 MG Potassium Chloride 8 meq DAILY PO 05/21/24 10:00 05/22/24 10:23 8 MEQ Spironolactone 25 mg DAILY PO 05/21/24 10:00 05/22/24 10:25 25 MG Carvedilol 6.25 mg BID PO 05/20/24 22:00 05/21/24 21:44 6.25 MG Fluoxetine HCl 60 mg QAM PO 05/21/24 07:00 05/22/24 06:36 60 MG Lisinopril 40 mg DAILY PO 05/21/24 10:00 05/21/24 09:55 40 MG Nifedipine 90 mg DAILY PO 05/21/24 10:00 05/22/24 10:24 90 MG Atorvastatin Calcium 10 mg HS PO 05/20/24 22:00 05/21/24 21:45 10 MG Nicardipine HCl 250 ml @ 50 mls/hr Q5H IV 05/20/24 16:45 05/22/24 06:36 50 MLS/HR Furosemide 40 mg BIDD IV 05/20/24 18:00 05/22/24 05:39 40 MG Enoxaparin Sodium 30 mg DAILY SC 05/20/24 23:45 05/22/24 10:25 30 MG Acetaminophen/ Hydrocodone Bitart 1 tab Q6HPRN PRN PO 05/21/24 15:30 Laboratory Results Laboratory Tests 05/21/24 11:20 Coagulation Test 05/21/24 16:31 Prothrombin Time 11.6 sec (9.3-11.8) Prothrombin Time INR 1.11 (0.9-1.15) Activated Partial Thromboplast Time 27.7 SEC (24.5-34.5) Urinalysis Test 05/20/24 16:45 Urine Color Colorless (Yellow) Urine Clarity Clear (Clear) Urine pH 5.5 (5.0-9.0) Urine Specific [place] 1.009 (1.001-1.035) Urine Protein 1+ (Negative) H Urine Ketones Negative (Negative) Urine Blood Negative /uL (Negative) Urine Nitrite Negative (Negative) Urine Bilirubin Negative (Negative) Urine Urobilinogen Normal mg/dL (Negative) Urine Leukocyte Esterase Negative /uL (Negative) Urine RBC 2 /hpf (0 - 4) Urine Microscopic WBC 3 /HPF (0-5) Urine Squamous Epithelial Cells Few /hpf (<5) Urine Bacteria None seen /hpf (None Seen) Urine Glucose Normal mg/dL (Normal) Labs and/or images reviewed: Labs reviewed by me Assessment/Plan Assessment/Plan Hypertensive emergency Acute on chronic CHF exacerbation Hypertension Non ST-elevation [place] type 2 History of CAD History of [place] History of COPD Acute kidney injury superimposed on chronic kidney disease stage 3 History of breast cancer with right mastectomy History of tobacco abuse 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 Continuing with nifedipine drip. PICC line placement if okay with Nephrology Cardiology consult Continuing with Lasix This medical document was created using an electronic medical record system with [employer] direct computerized dictation system. Although this document has been carefully reviewed, there may still be some phonetic and typographical errors. These areas are purely typographical due to imperfections of the software programs, and do not reflect any compromise in the patient's medical care. Plan discussed with: Patient My Orders Orders - MCKAYLA HAWKINS MD Procedure Category Date Status Time * Picc Line Consult CONS 05/21/24 Transmitted 15:12 Hydrocodone-Acet PHA 05/21/24 In Process 5/325mg Tab ([place] 15:30 *[facility] CONS 05/22/24 Transmitted -[place] 12:14 Date of Service: May 22, 2024 Billing Provider: MCKAYLA HAWKINS MD Common Visit Codes: [id number] INP/OBS CARE(HIGH) MCKAYLA HAWKINS MD May 22, 2024 12:45
--- NOTE | 2024-05-22 12:52 | DVHINCON2 ---
Date of service: May 22, [address] Marrufo Reason for Consultation Acute kidney injury History of Present Illness Patient is 88-year-old female with past medical history significant for Cancer, CHF, CKD, GERD, HTN, and OK is admitted for shortness of breath and hypertensive urgency. On admission patient found to have elevated BUN creatinine nephrology is consulted for acute kidney injury Past Medical History Breast Cancer, CHF, CKD, Acute kidney injury requiring hemodialysis now off he modialysis GERD, HTN, and OK Past Surgical History Surgical History: Appendectomy, AKA, Hysterectomy, mastectomy, Tonsillectomy Allergies: Coded Allergies: NO KNOWN ALLERGIES (Unverified , 05/28/23) Home Meds Active Scripts Azithromycin (ZITHROMAX TABLET) 250 Mg Tb, 250 MG PO DAILY, #6 TAB take 2 tablets the first day, then one tablet daily until finish Prov:MCKAYLA HAWKINS MD 02/21/24 Empagliflozin (Jardiance) 10 Mg Tab, 10 MG PO DAILY for 30 Days, #30 TAB Prov:RITA AVILA RESIDENT 10/21/23 Spironolactone (Aldactone) 25 Mg Tab, 25 MG PO DAILY for 30 Days, #30 TAB Prov:RITA AVILA RESIDENT 10/21/23 Furosemide (Lasix) 40 Mg Tab, 40 MG PO DAILY for 15 Days, #15 TAB Prov:SAMSON ODOM DO 05/31/23 Reported Medications Ferrous Sulfate (Ferosul) 325 Mg Tab, 1 TAB PO 05/20/24 Allopurinol (Allopurinol) 100 Mg Tab, 100 MG PO DAILY, MG 05/29/23 Lisinopril (Lisinopril) 40 Mg Tab, 40 MG PO DAILY, MG 05/29/23 Pantoprazole Sodium Sesquihydr (Protonix) 40 Mg Tab, 40 MG PO DAILY, TAB 05/29/23 Aspirin (Aspirin Low Dose) 81 Mg Tab, 81 MG PO DAILY, TAB 05/28/23 Potassium Chloride (Klor-Con 8) 8 Meq Tab, 1 TAB PO DAILY 05/28/23 Simvastatin (Simvastatin) 20 Mg Tab, 1 TAB PO HS 05/28/23 Carvedilol (Carvedilol) 6.25 Mg Tab, 1 TAB PO BID 05/28/23 Nifedipine (Nifedipine Er) 90 Mg Tab, 1 TAB PO DAILY 05/28/23 Fluoxetine Hcl (FLUOXETINE HCL) 60 Mg Tab, 1 TAB PO QAM 05/28/23 Current Medications Current Medications Medications (Trade) Dose Ordered Sig/Abundio Route PRN Reason Start Time Stop Time Status Last Admin Sodium Chloride (Saline Lock Ns) 10 ml QSHIFT@10,22 IV 05/22/24 22:00 Family History: Diabetes mellitus G8 SISTER Hypertension G8 MOTHER Review of Systems All 12 item review of systems reviewed with the patient nonsignificant except what is mentioned in the history of present illness H&P Exam Vital Signs/I&O Vital Sign Date Time Temp Pulse Resp B/P (MAP) Pulse Ox O2 Delivery O2 Flow Rate FiO2 05/22/24 15:27 51 137/43 05/22/24 12:30 16 98 05/22/24 08:05 Nasal Cannula* 4 36 05/22/24 07:30 98.1 98.1 Intake and Output 05/21/24 05/22/24 19:00 07:00 Intake Total 110.0 ml 731.25 ml Output Total 525 ml Balance -415.0 ml 731.25 ml IV Total 110.0 ml 731.25 ml Output Urine Total 525 ml Physical Exam Patient is awake alert Lungs bibasilar crackles Cardiac exam regular rate and rhythm GI soft nontender normal Left above knee amputation Right lbwea-[id number]-[id number] Neuro nonfocal Labs/Diagnostic Data Labs/Diagnostic Data Laboratory Tests Test 05/22/24 07:32 05/21/24 16:31 05/21/24 11:20 05/20/24 22:18 Range/Units POC Glucose 104 70-106 mg/dl Prothrombin Time 11.6 9.3-11.8 sec Prothrombin Time INR 1.11 0.9-1.15 Activated Partial Thromboplast Time 27.7 24.5-34.5 SEC White Blood Count 5.5 4.4-10.8 10^3/uL Red Blood Count 4.01 4.0-5.20 10^6/uL Hemoglobin 11.8 L 12.2-16.2 g/dL Hematocrit 37.6 36.0-46.0 % Mean Corpuscular Volume 93.6 80.0-100.0 fL Mean Corpuscular Hemoglobin 29.5 28.0-32.0 pg Mean Corpuscular Hemoglobin Concent 31.5 L 32.0-36.0 g/dL Red Cell Distribution Width 18.9 H 11.8-14.3 % Platelet Count 291 140-450 10^3/uL Mean Platelet Volume 9.1 6.9-10.8 fL Neutrophils (%) (Auto) 73.6 37.0-80.0 % Lymphocytes (%) (Auto) 18.8 10.0-50.0 % Monocytes (%) (Auto) 6.1 0.0-12.0 % Eosinophils (%) (Auto) 0.8 0.0-7.0 % Basophils (%) (Auto) 0.7 0.0-2.0 % Neutrophils # (Auto) 4.1 1.6-8.6 10 ^3/uL Lymphocytes # (Auto) 1.0 0.4-5.4 10 ^3/uL Monocytes # (Auto) 0.3 0-1.3 10 ^3/uL Eosinophils # (Auto) 0 0-0.8 10 ^3/uL Basophils # (Auto) 0 0-0.2 10 ^3/uL Nucleated Red Blood Cells 0.0 % Sodium Level 142 136-145 mmol/L Potassium Level 4.5 3.5-5.1 mmol/L Chloride Level 113 H 98-107 mmol/L Carbon Dioxide Level 18 L 20-31 mmol/L Anion Gap 11 5-15 Blood Urea Nitrogen 40 H 9-23 mg/dL Creatinine 1.55 H 0.550-1.02 mg/dL Glomerular Filtration Rate Calc 32 >90 mL/min BUN/Creatinine Ratio 25.8 H 10.0-20.0 Serum Glucose 117 H 74-106 mg/dL Calcium Level 9.9 8.7-10.4 mg/dL Total Bilirubin 0.3 0.2-1.0 mg/dL Aspartate Amino Transferase (AST) 26 13-40 U/L Alanine Aminotransferase (ALT) 19 7-40 U/L Alkaline Phosphatase 115 46-116 U/L Total Protein 6.7 5.7-8.2 g/dL Albumin 3.8 3.2-4.8 g/dL Troponin I High Sensitivity 101 *H </=34 ng/L Test 05/20/24 20:39 05/20/24 19:16 05/20/24 16:45 05/20/24 14:56 Range/Units Troponin I High Sensitivity 95 *H 107 *H 100 *H </=34 ng/L Urine Color Colorless Yellow Urine Clarity Clear Clear Urine pH 5.5 5.0-9.0 Urine Specific [place] 1.009 1.001-1.035 Urine Protein 1+ H Negative Urine Ketones Negative Negative Urine Blood Negative Negative /uL Urine Nitrite Negative Negative Urine Bilirubin Negative Negative Urine Urobilinogen Normal Negative mg/dL Urine Leukocyte Esterase Negative Negative /uL Urine RBC 2 0 - 4 /hpf Urine Microscopic WBC 3 0-5 /HPF Urine Squamous Epithelial Cells Few <5 /hpf Urine Bacteria None seen None Seen /hpf Urine Glucose Normal Normal mg/dL White Blood Count 5.1 4.4-10.8 10^3/uL Red Blood Count 4.01 4.0-5.20 10^6/uL Hemoglobin 11.7 L 12.2-16.2 g/dL Hematocrit 37.0 36.0-46.0 % Mean Corpuscular Volume 92.4 80.0-100.0 fL Mean Corpuscular Hemoglobin 29.2 28.0-32.0 pg Mean Corpuscular Hemoglobin Concent 31.6 L 32.0-36.0 g/dL Red Cell Distribution Width 18.3 H 11.8-14.3 % Platelet Count 262 140-450 10^3/uL Mean Platelet Volume 9.1 6.9-10.8 fL Neutrophils (%) (Auto) 70.2 37.0-80.0 % Lymphocytes (%) (Auto) 20.0 10.0-50.0 % Monocytes (%) (Auto) 7.7 0.0-12.0 % Eosinophils (%) (Auto) 1.2 0.0-7.0 % Basophils (%) (Auto) 0.9 0.0-2.0 % Neutrophils # (Auto) 3.6 1.6-8.6 10 ^3/uL Lymphocytes # (Auto) 1.0 0.4-5.4 10 ^3/uL Monocytes # (Auto) 0.4 0-1.3 10 ^3/uL Eosinophils # (Auto) 0.1 0-0.8 10 ^3/uL Basophils # (Auto) 0 0-0.2 10 ^3/uL Nucleated Red Blood Cells 0.3 % Sodium Level 143 136-145 mmol/L Potassium Level 4.5 3.5-5.1 mmol/L Chloride Level 114 H 98-107 mmol/L Carbon Dioxide Level 20 20-31 mmol/L Anion Gap 9 5-15 Blood Urea Nitrogen 47 H 9-23 mg/dL Creatinine 1.27 H 0.550-1.02 mg/dL Glomerular Filtration Rate Calc 41 >90 mL/min BUN/Creatinine Ratio 37.0 H 10.0-20.0 Serum Glucose 100 74-106 mg/dL Calcium Level 10.3 8.7-10.4 mg/dL B-Type Natriuretic Peptide 3208.52 0-100 pg/mL Assessment Acute kidney injury superimposed Chronic Kidney Disease secondary hemodynamic mediated Congestive heart failure exacerbation NSTEMI Hypertensive urgency Anemia of chronic kidney disease Peripheral arterial disease 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 I discussed my plan of care with the patient and primary nurse at the bedside I would like to thank Dr. Marrufo for the consult, will follow up Plan discussed with: Patient RAEANN RODRIGUEZ MD May 22, 2024 12:52
[2024-05-22] MEDS: LIDOCAINE 1% (LOCAL ANESTH.) PF 5ml SDV ID ONE (13:38)
--- NOTE | 2024-05-22 14:23 | DVH ---
EXAM: XY CHEST XRAY 1 VIEW TECHNIQUE: Single frontal chest radiograph CLINICAL HISTORY: PICC LINE PLACEMENT COMPARISON: XY CHEST PORTABLE on DOS: 05/20/24, XY CHEST PORTABLE on DOS: 02/18/24, XY CHEST PORTABLE on DOS: 10/19/23 Findings/Impression: Frontal chest radiograph demonstrates no acute osseous or superficial soft tissue abnormalities. Left upper extremity PICC terminates near the superior cavoatrial junction. The trachea is midline. Cardiomegaly. Coarsened interstitial markings, similar to prior. No pneumothorax, pleural effusions, or consolidations.
[2024-05-22] MEDS: MELATONIN 5 MG TAB PO ONE (22:01)
[2024-05-22] MEDS: SODIUM CHLOR 0.9% PF (SALINE LOCK) 10ML VIAL/SYR IV SCH (22:02)
[2024-05-23] MEDS: HYDROcodone-ACET 5/325MG TAB PO PRN (03:39)
[2024-05-23 08:14] LABS: Basophils # (auto) 0 10 ^3/uL (0-0.2); Basophils % (auto) 0.4 % (0.0-2.0); Eosinophils # (auto) 0.1 10 ^3/uL (0-0.8); Hematocrit 32.5 % (36.0-46.0); Hemoglobin 10.3 g/dL (12.2-16.2); Lymphocytes # (auto) 0.9 10 ^3/uL (0.4-5.4); Lymphocytes % (auto) 15.8 % (10.0-50.0); Mean Corpuscular Hemoglobin 29.5 pg (28.0-32.0); Mean Corpuscular Hgb Conc. 31.6 g/dL (32.0-36.0); Mean Corpuscular Volume 93.4 fL (80.0-100.0); Monocytes # (auto) 0.6 10 ^3/uL (0-1.3); Monocytes % (auto) 11.4 % (0.0-12.0); Neutrophils % (auto) 71.4 % (37.0-80.0); Nucleated Red Blood Cells % 0.1 %; Platelet Count (auto) 230 10^3/uL (140-450); Red Blood Cells 3.47 10^6/uL (4.0-5.20); Red Cell Distribution Width 18.3 % (11.8-14.3); White Blood Cell 5.6 10^3/uL (4.4-10.8)
[2024-05-23 08:29] LABS: Calcium 9.2 mg/dL (8.7-10.4); Sodium 141 mmol/L (136-145)
[2024-05-23 08:30] LABS: Anion Gap 10 (5-15)
[2024-05-23 08:35] LABS: Glucose 104 mg/dL (74-106)
[2024-05-23 08:36] LABS: Blood Urea Nitrogen 42 mg/dL (9-23); Carbon Dioxide 19 mmol/L (20-31); Chloride 112 mmol/L (98-107)
--- NOTE | 2024-05-23 11:20 | DVHPN2 ---
Progress Note Date Seen: May 23, 2024 Medical Necessity Reason Pt with a Central, PICC or Fol: Yes The following are medically ne: Batista Catheter Subjective Patient reports: Feels better Review of Systems: RESPIRATORY:Abnormal Objective vital signs Vital Sign Date Time Temp Pulse Resp B/P (MAP) Pulse Ox O2 Delivery O2 Flow Rate FiO2 05/23/24 10:45 47 12 162/39 (80) 99 05/23/24 07:30 Nasal Cannula* 5 40 05/23/24 07:15 98.2 98.2 Total Intake and Output 05/22/24 05/22/24 05/23/24 15:00 23:00 07:00 Intake Total 437.5 ml 250 ml 650 ml Output Total 200 ml Balance 237.5 ml 250 ml 650 ml medications Current Medications Medications Dose Ordered Sig/Abundio Route Start Time Stop Time Status Last Admin Dose Admin Ondansetron HCl 4 mg Q4HP PRN IV 05/20/24 16:30 Acetaminophen 650 mg Q6HP PRN PO 05/20/24 16:30 05/21/24 11:27 650 MG Allopurinol 100 mg DAILY PO 05/21/24 10:00 05/23/24 09:35 100 MG Aspirin 81 mg DAILY PO 05/21/24 10:00 05/23/24 09:35 81 MG Empaglifozin 10 mg DAILY PO 05/21/24 10:00 05/23/24 09:35 10 MG Pantoprazole Sodium 40 mg DAILY PO 05/21/24 10:00 05/23/24 09:37 40 MG Potassium Chloride 8 meq DAILY PO 05/21/24 10:00 05/23/24 09:37 8 MEQ Spironolactone 25 mg DAILY PO 05/21/24 10:00 05/23/24 09:37 25 MG Carvedilol 6.25 mg BID PO 05/20/24 22:00 05/23/24 09:38 6.25 MG Fluoxetine HCl 60 mg QAM PO 05/21/24 07:00 05/23/24 07:00 60 MG Lisinopril 40 mg DAILY PO 05/21/24 10:00 05/23/24 09:36 40 MG Nifedipine 90 mg DAILY PO 05/21/24 10:00 05/23/24 09:37 90 MG Atorvastatin Calcium 10 mg HS PO 05/20/24 22:00 05/22/24 22:04 10 MG Nicardipine HCl 250 ml @ 50 mls/hr Q5H IV 05/20/24 16:45 05/23/24 10:03 150 MLS/HR Furosemide 40 mg BIDD IV 05/20/24 18:00 05/23/24 06:04 40 MG Enoxaparin Sodium 30 mg DAILY SC 05/20/24 23:45 05/23/24 09:38 30 MG Acetaminophen/ Hydrocodone Bitart 1 tab Q6HPRN PRN PO 05/21/24 15:30 05/23/24 03:39 1 TAB Sodium Chloride 10 ml QSHIFT@10,22 IV 05/22/24 22:00 05/23/24 09:37 10 ML Examination: GENERAL:Abnormal, CVS:Abnormal, MSK:Abnormal laboratory and microbiology Laboratory Tests 05/23/24 07:29 Test 05/23/24 07:29 Range/Units Serum Glucose 104 74-106 mg/dL Problem List/Assessment/Plan Problem List/Assessment/Plan 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 Increase diuretic IV to q.6 hours. Monitor urinary output via Batista catheter We will consider dual diuretic therapy if does not have adequate output are response Start sodium bicarbonate due to metabolic acidosis Renal diet No emergent indication for hemodialysis however we will require close monitoring Currently on nifedipine recommend convert to p.o. Plan discussed with: Patient My Orders My Orders Orders - TERRY SMITH MD Procedure Category Date Status Time Furosemide Injection PHA 05/23/24 Transmitted (Lasix Injection) 11:15 Sodium Bicarb Tab PHA 05/23/24 Transmitted 14:00 TERRY SMITH MD May 23, 2024 11:20
--- NOTE | 2024-05-23 12:02 | DVHINCON2 ---
Date Seen: May 23, 2024 Referring Physician MD Fernanda Reason for Consultation Elevated troponin History of Present Illness This is an 88-year-old female patient who presents to emergency room with chief complaint of worsening shortness of breath for one week. She comes to the emergency room for further evaluation. Cardiology has now been consulted for elevated troponin level. Patient denies any chest pain or palpitations. Initial twelve lead electrocardiogram done at time of assessment and reveals junctional rhythm with prolonged QTc interval. Initial troponin level of 100ng/L with flat trend thereafter. Initial BNP level of 3208.52pg/mL. Significant past medical history includes congestive heart failure, hypertension, dyslipidemia, abdominal aorta aneurysm with repair, peripheral arterial disease status post bilateral qwxrz-psx-nclp amputation, previous acute kidney injury from ATN on hemodialysis with regained renal function (has not had dialysis since April 2023), breast cancer with right mastectomy, gout, and depression. The patient reports that she does not follow up with a health and safety trainer in the outpatient setting. The patient reports compliance with medications and diet. The patient's granddaughter who was at bedside states that the patient is not compliant with her diet and eats very salty foods. Past Medical History Past medical history reviewed. No other significant than mentioned above. Past Surgical History Abdominal aortic aneurysm repair Bilateral [id number] amputations Right mastectomy Hysterectomy Tonsillectomy Appendectomy Family History: Diabetes mellitus G8 SISTER Hypertension G8 MOTHER Family History Family history reviewed. Social History Denies the use of tobacco, alcohol or illicit drugs. Allergies: Coded Allergies: NO KNOWN ALLERGIES (Unverified , 05/28/23) Home Meds Active Scripts Azithromycin (ZITHROMAX TABLET) 250 Mg Tb, 250 MG PO DAILY, #6 TAB take 2 tablets the first day, then one tablet daily until finish Prov:MCKAYLA HAWKINS MD 02/21/24 Empagliflozin (Jardiance) 10 Mg Tab, 10 MG PO DAILY for 30 Days, #30 TAB Prov:RITA AVILA 10/21/23 Spironolactone (Aldactone) 25 Mg Tab, 25 MG PO DAILY for 30 Days, #30 TAB Prov:RITA AVILA RESIDENT 10/21/23 Furosemide (Lasix) 40 Mg Tab, 40 MG PO DAILY for 15 Days, #15 TAB Prov:SAMSON ODOM DO 05/31/23 Reported Medications Ferrous Sulfate (Ferosul) 325 Mg Tab, 1 TAB PO 05/20/24 Allopurinol (Allopurinol) 100 Mg Tab, 100 MG PO DAILY, MG 05/29/23 Lisinopril (Lisinopril) 40 Mg Tab, 40 MG PO DAILY, MG 05/29/23 Pantoprazole Sodium Sesquihydr (Protonix) 40 Mg Tab, 40 MG PO DAILY, TAB 05/29/23 Aspirin (Aspirin Low Dose) 81 Mg Tab, 81 MG PO DAILY, TAB 05/28/23 Potassium Chloride (Klor-Con 8) 8 Meq Tab, 1 TAB PO DAILY 05/28/23 Simvastatin (Simvastatin) 20 Mg Tab, 1 TAB PO HS 05/28/23 Carvedilol (Carvedilol) 6.25 Mg Tab, 1 TAB PO BID 05/28/23 Nifedipine (Nifedipine Er) 90 Mg Tab, 1 TAB PO DAILY 05/28/23 Fluoxetine Hcl (FLUOXETINE HCL) 60 Mg Tab, 1 TAB PO QAM 05/28/23 Home Meds Home medications reviewed. Current Medications Current Medications Medications (Trade) Dose Ordered Sig/Abundio Route PRN Reason Start Time Stop Time Status Last Admin Sodium Chloride (Saline Lock Ns) 10 ml QSHIFT@10,22 IV 05/22/24 22:00 05/23/24 09:37 Furosemide (Lasix Injection) 80 mg Q6HR IV 05/23/24 11:15 Sodium Bicarbonate 650 mg TID PO 05/23/24 14:00 Review of Systems Constitutional: No symptom reported Ears, Nose, & Throat: No symptom reported Eyes: No symptom reported Neurological: No symptoms reported Pulmonary/Respiratory: Shortness of breath Cardiovascular: No symptom reported Gastrointestinal: No symptom reported Genitourinary: No symptom reported Musculoskeletal: No symptom reported Skin: No symptom reported Psychiatric: No symptom reported Endocrine: No symptom reported Hematologic/Lymphatic: No symptom reported Vital Signs Vital Signs Date Time Temp Pulse Resp B/P (MAP) Pulse Ox O2 Delivery O2 Flow Rate FiO2 05/23/24 11:30 45 12 137/43 (74) 97 05/23/24 07:30 Nasal Cannula* 5 40 05/23/24 07:15 98.2 98.2 Physical Exam General Appearance: Cooperative. Well-developed. Well-nourished. No acute distress. Pulmonary/Respiratory: Clear, bilateral breaths sounds. Cardiovascular/Chest: Regular rate and rhythm. Peripheral Pulses: 2+ Radial (R). 2+ Radial (L). Abdominal Exam: Normal bowel sounds. Ankle Exam: Negative ankle edema Lower extremities: Negative lower extremity edema Neuro/Mental Status: A/OX4, coherent. Thoughts/Psych: Normal thought pattern. Appropriate mood and affect. Good judgment and insight. Appearance: No acute distress. Skin Exam: Normal inspection. Normal color. Warm and dry. Labs/Diagnostic Data Labs Test 05/23/24 07:29 05/22/24 07:32 05/21/24 16:31 05/21/24 11:20 Range/Units White Blood Count 5.6 4.4-10.8 10^3/uL Red Blood Count 3.47 L 4.0-5.20 10^6/uL Hemoglobin 10.3 L 12.2-16.2 g/dL Hematocrit 32.5 #L 36.0-46.0 % Mean Corpuscular Volume 93.4 80.0-100.0 fL Mean Corpuscular Hemoglobin 29.5 28.0-32.0 pg Mean Corpuscular Hemoglobin Concent 31.6 L 32.0-36.0 g/dL Red Cell Distribution Width 18.3 H 11.8-14.3 % Platelet Count 230 140-450 10^3/uL Mean Platelet Volume 9.2 6.9-10.8 fL Neutrophils (%) (Auto) 71.4 37.0-80.0 % Lymphocytes (%) (Auto) 15.8 10.0-50.0 % Monocytes (%) (Auto) 11.4 0.0-12.0 % Eosinophils (%) (Auto) 1.0 0.0-7.0 % Basophils (%) (Auto) 0.4 0.0-2.0 % Neutrophils # (Auto) 4.0 1.6-8.6 10 ^3/uL Lymphocytes # (Auto) 0.9 0.4-5.4 10 ^3/uL Monocytes # (Auto) 0.6 0-1.3 10 ^3/uL Eosinophils # (Auto) 0.1 0-0.8 10 ^3/uL Basophils # (Auto) 0 0-0.2 10 ^3/uL Nucleated Red Blood Cells 0.1 % Sodium Level 141 136-145 mmol/L Potassium Level 5.0 3.5-5.1 mmol/L Chloride Level 112 H 98-107 mmol/L Carbon Dioxide Level 19 L 20-31 mmol/L Anion Gap 10 5-15 Blood Urea Nitrogen 42 H 9-23 mg/dL Creatinine 1.83 H 0.550-1.02 mg/dL Glomerular Filtration Rate Calc 27 >90 mL/min BUN/Creatinine Ratio 23.0 H 10.0-20.0 Serum Glucose 104 74-106 mg/dL Calcium Level 9.2 8.7-10.4 mg/dL POC Glucose 104 70-106 mg/dl Prothrombin Time 11.6 9.3-11.8 sec Prothrombin Time INR 1.11 0.9-1.15 Activated Partial Thromboplast Time 27.7 24.5-34.5 SEC Total Bilirubin 0.3 0.2-1.0 mg/dL Aspartate Amino Transferase (AST) 26 13-40 U/L Alanine Aminotransferase (ALT) 19 7-40 U/L Alkaline Phosphatase 115 46-116 U/L Total Protein 6.7 5.7-8.2 g/dL Albumin 3.8 3.2-4.8 g/dL Test 05/20/24 22:18 05/20/24 16:45 05/20/24 14:56 Range/Units Troponin I High Sensitivity 101 *H </=34 ng/L Urine Color Colorless Yellow Urine Clarity Clear Clear Urine pH 5.5 5.0-9.0 Urine Specific [place] 1.009 1.001-1.035 Urine Protein 1+ H Negative Urine Ketones Negative Negative Urine Blood Negative Negative /uL Urine Nitrite Negative Negative Urine Bilirubin Negative Negative Urine Urobilinogen Normal Negative mg/dL Urine Leukocyte Esterase Negative Negative /uL Urine RBC 2 0 - 4 /hpf Urine Microscopic WBC 3 0-5 /HPF Urine Squamous Epithelial Cells Few <5 /hpf Urine Bacteria None seen None Seen /hpf Urine Glucose Normal Normal mg/dL B-Type Natriuretic Peptide 3208.52 0-100 pg/mL Assessment Acute on chronic decompensated HFrEF, NYHA class III Hypertensive urgency NSTEMI type II secondary to above ?Cardiac amyloidosis Dyslipidemia Prolonged QTc interval Peripheral arterial disease s/p bilateral above the knee amputations Acute on chronic kidney disease Medical noncompliance Plan/Recommendation We will continue following plan/recommendations (Dr. Ruvalcaba): * Transthoracic echocardiogram to evaluate cardiac function * Previous echocardiogram from 10/20/2023 reveals an EF of 35% * Guideline directed medical therapy for CHF as renal function permits * Aggressive BP control * Decrease beta rc-patient bradycardic at time of assessment * Aggressive diuresis as tolerated * Strict intake and output, daily weights, maintain fluid restriction * Avoid medication that prolong QTc interval; patient is at risk for Torsades de pointes * Lipid-lowering agent * Nephrology recommendations Case discussed with . Thank you for allowing us to care for this patient. Please call with any questions or concerns. Critical care time spent: 42 minutes This medical document was created using an electronic medical record system with voice recognition software and computerized dictation system. Although this document has been carefully reviewed, there might still be some phonetic and typographical errors. Occasional wrong-word or ``sound-alike substitutions may have occurred due to the inherent limitations of voice recognition software. These areas are purely typographical due to imperfections of the software programs and do not reflect any compromise in the patient's medical care. Please read the chart carefully and recognize, using context, where these substitutions have occurred. Plan discussed with: Patient NYHA Physical activity limitations: Class3(Marked) ordinary Date of Service: May 23, 2024 Billing Provider: SUKHDEV CORTES Cardiology Common Codes: 03030-AQQDXSH INP/OBS CARE (High) Cardiology Consultation Codes: 56937-[id number] CONSULT <45MIN SUKHDEV CORTES May 23, 2024 12:02
[2024-05-23] MEDS: FUROSEMIDE 40 MG/4 ML VIAL IV SCH (12:08)
--- NOTE | 2024-05-23 12:33 | ECG ---
[facility] Test Date: 2024-05-23 Test Time: 12:32:19 Pat Name: BRIAN FAJARDO Department: er Room: 0219T Gender: F Rehabilitation Director: sivakumar : [id number] Requested By: SUKHDEV CORTES Order Number: [id number] Reading MD: Beltran Ruvalcaba Measurements Intervals [place] Rate: 47 P: -65 [place]: 246 QRS: 259 QRSD: 93 T: 13 QT: 693 QTc: 613 Interpretive Statements Sinus or ectopic atrial bradycardia Left anterior fascicular block Anterolateral infarct, age indeterminate Prolonged QT interval Baseline wander in lead(s) V1,V6 Electronically Signed On 05-28-2024 17:07:07 PST by Beltran Ruvalcaba Please click the below link to view image of tracing.
[2024-05-23] MEDS: SODIUM BICARBONATE 650 MG TAB PO SCH (13:47)
[2024-05-23 18:28] LABS: Magnesium 2.1 mg/dL (1.6-2.6)
[2024-05-23 19:30] VITALS: PULSE 49; RESP 12; O2SAT 96
--- NOTE | 2024-05-23 19:51 | DVHPN2 ---
Subjective in bed resting Reviewed: Care Plan, H&P, Labs, Medications, Previous Orders, Radiology Changes from previous H/P or p: No Changes Eyes: No Pain, No Vision change, No Conjunctivae inflammation, No Eyelid inflammation, No Other, No Redness ENT: No Ear pain, No Ear discharge, No Nose pain, No Nose discharge, No Nose congestion, No Mouth pain, No Mouth swelling, No Throat pain, No Throat swelling, No Other Cardiovascular: No Chest Pain, No Palpitations, No Orthopnea, No Paroxysmal Noc. Dyspnea, No Edema, No Lt Headedness, No Other Respiratory: No Cough, No Dry; Shortness of breath; No SOB with excertion, No Wheezing, No Hemoptysis, No Pleuritic Pain, No Sputum, No Other Gastrointestinal: No Nausea, No Vomiting, No Abdominal Pain, No Diarrhea, No Constipation, No Melena, No Hematochezia, No Other Genitourinary: No Dysuria, No Frequency, No Incontinence, No Hematuria, No Retention, No Other Skin: No Rash, No Lesions, No Jaundice, No Bruising, No Other Objective Vitals Vital Signs Date Time Temp Pulse Resp B/P (MAP) Pulse Ox O2 Delivery O2 Flow Rate FiO2 05/23/24 19:01 51 15 114/42 (66) 100 05/23/24 07:30 Nasal Cannula* 5 40 05/23/24 07:15 98.2 98.2 Intake/Output Intake and Output 05/23/24 07:00 Intake Total 1337.5 ml Output Total 200 ml Balance 1137.5 ml Intake Oral 0 ml IV Total 1337.5 ml Output Urine Total 200 ml General Appearance: Alert, Oriented X3, Cooperative, No acute distress HEENT: Atraumatic, PERRLA, EOMI, Mucous membr. moist/pink Neck: Supple Lungs: Clear to auscultation, Normal air movement Cardiovascular: Regular rate, Normal S1, Normal S2, No murmurs, Gallops, Rubs Abdomen: Normal bowel sounds, Soft, No tenderness Neuro: Cranial nerves 3-12 NL Psych/Mental Status: Mental status NL Medications Current Medications Medications Dose Ordered Sig/Abundio Route Start Time Stop Time Status Last Admin Dose Admin Ondansetron HCl 4 mg Q4HP PRN IV 05/20/24 16:30 Acetaminophen 650 mg Q6HP PRN PO 05/20/24 16:30 05/21/24 11:27 650 MG Allopurinol 100 mg DAILY PO 05/21/24 10:00 05/23/24 09:35 100 MG Aspirin 81 mg DAILY PO 05/21/24 10:00 05/23/24 09:35 81 MG Empaglifozin 10 mg DAILY PO 05/21/24 10:00 05/23/24 09:35 10 MG Pantoprazole Sodium 40 mg DAILY PO 05/21/24 10:00 05/23/24 09:37 40 MG Fluoxetine HCl 60 mg QAM PO 05/21/24 07:00 05/23/24 07:00 60 MG Lisinopril 40 mg DAILY PO 05/21/24 10:00 05/23/24 09:36 40 MG Nifedipine 90 mg DAILY PO 05/21/24 10:00 05/23/24 09:37 90 MG Atorvastatin Calcium 10 mg HS PO 05/20/24 22:00 05/22/24 22:04 10 MG Nicardipine HCl 250 ml @ 50 mls/hr Q5H IV 05/20/24 16:45 05/23/24 10:03 150 MLS/HR Enoxaparin Sodium 30 mg DAILY SC 05/20/24 23:45 05/23/24 09:38 30 MG Acetaminophen/ Hydrocodone Bitart 1 tab Q6HPRN PRN PO 05/21/24 15:30 05/23/24 03:39 1 TAB Sodium Chloride 10 ml QSHIFT@10,22 IV 05/22/24 22:00 05/23/24 09:37 10 ML Furosemide 80 mg Q6HR IV 05/23/24 11:15 05/23/24 18:17 80 MG Sodium Bicarbonate 650 mg TID PO 05/23/24 14:00 05/23/24 13:47 650 MG Carvedilol 3.125 mg BID PO 05/23/24 22:00 Laboratory Results Laboratory Tests 05/23/24 07:29 Chemistry Test 05/23/24 07:29 Calcium Level 9.2 mg/dL (8.7-10.4) Magnesium Level 2.1 mg/dL (1.6-2.6) Lipid panel Test 05/23/24 07:29 Cholesterol Level 136 mg/dL (< 200) HDL Cholesterol 50 mg/dL (40-59) Triglycerides Level 46 mg/dL (< 150) HgA1c, TSH Test 05/23/24 07:29 Hemoglobin A1c 5.0 % A1C (<5.7) Thyroid Stimulating Hormone (TSH) 2.11 uIU/mL (0.55-4.78) Urinalysis Test 05/20/24 16:45 Urine Color Colorless (Yellow) Urine Clarity Clear (Clear) Urine pH 5.5 (5.0-9.0) Urine Specific [place] 1.009 (1.001-1.035) Urine Protein 1+ (Negative) H Urine Ketones Negative (Negative) Urine Blood Negative /uL (Negative) Urine Nitrite Negative (Negative) Urine Bilirubin Negative (Negative) Urine Urobilinogen Normal mg/dL (Negative) Urine Leukocyte Esterase Negative /uL (Negative) Urine RBC 2 /hpf (0 - 4) Urine Microscopic WBC 3 /HPF (0-5) Urine Squamous Epithelial Cells Few /hpf (<5) Urine Bacteria None seen /hpf (None Seen) Urine Glucose Normal mg/dL (Normal) Assessment/Plan Assessment/Plan Hypertensive emergency Acute on chronic CHF exacerbation Hypertension Non ST-elevation CA type 2 History of CAD History of CA History of COPD Acute kidney injury superimposed on chronic kidney disease stage 3 History of breast cancer with right mastectomy History of tobacco abuse 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 Continuing with nifedipine drip. PICC line placement if okay with Nephrology Cardiology consult>echo ordered Continuing with Lasix>increased to 80 mg q 6 per nephrology. No indication for urgent HD Plan discussed with: Patient Date of Service: May 23, 2024 Billing Provider: TYSON NAVARRO MD Common Visit Codes: [id number] INP/OBS CARE(HIGH) TYSON NAVARRO MD May 23, 2024 19:51
--- NOTE | 2024-05-23 20:05 | DVH ---
INDICATION: Hypertension TECHNIQUE: Multiple real-time sonographic images of the kidneys and bladder were obtained. Duplex Doppler evaluation including color Doppler and spectral/pulsed waveform analysis of the bilate ral renal arteries was performed. COMPARISON: US RENAL ARTERY COMP on DOS: 10/20/23 FINDINGS: The right kidney measures 10.4 cm in length. The right renal echogenicity, contour and cortical thick ness are within normal limits. No hydronephrosis or large masses/calculi are seen. Multiple right gumaro al cysts are present measuring up to 3.3 cm. The left kidney measures 9.2 cm in length. The left renal echogenicity, contour, and cortical thickne ss are within normal limits. No hydronephrosis or large masses/calculi are seen. Aorta peak systolic velocity, 28 cm/s Right renal artery peak systolic velocity, 30 cm/s (< 180 cm/s = normal). Left renal artery peak systolic velocity 19 cm/s (< 180 cm/s = normal). Right RAR : 1.0 (< 3.5, normal) Left RAR 0.7 (< 3.5, normal) Right RI: 0.8 (< 0.75, normal) Left RI: 0.7 (< 0.75, normal) IMPRESSION: Limited examination secondary to patient body habitus and patient motion artifact. No findings to suggest renal artery stenosis. *Mandy Argueta Techniques in Noninvasive Vascular Diagnosis 2001
--- NOTE | 2024-05-23 20:06 | DVH ---
Exam: US US GUIDED VASCULAR ACCESS Clinical History: PICC Line Insertion Comparison: None Findings: Targeted sonographic evaluation of the upper extremity veinwas obtained utilizing grayscale and color Doppler imaging. IMPRESSION: Sonographic assistance for central line placement. Please refer to procedural report for detailed fin dings.
[2024-05-23] MEDS: CARVEDILOL 3.125 MG TAB PO SCH (22:00)
[2024-05-24] VITALS (50 sets, daily range): BP systolic 120–211; BP diastolic 33–152; PULSE 46–162; RESP 12–22; TEMP 97.8–98.6; O2SAT 76–100
[2024-05-24 07:43] LABS: Anion Gap 10 (5-15); Chloride 105 mmol/L (98-107); Potassium 4.9 mmol/L (3.5-5.1)
[2024-05-24 07:49] LABS: BUN/Creatinine Ratio 22.9 (10.0-20.0)
[2024-05-24 07:55] LABS: Blood Urea Nitrogen 49 mg/dL (9-23); Carbon Dioxide 18 mmol/L (20-31); Glucose 271 mg/dL (74-106); Sodium 133 mmol/L (136-145)
--- NOTE | 2024-05-24 12:05 | DVHPN2 ---
Progress Note Date Seen: May 24, 2024 Medical Necessity Reason Pt with a Central, PICC or Fol: Yes The following are medically ne: Batista Catheter Subjective Patient reports: Feels better Objective vital signs Vital Sign Date Time Temp Pulse Resp B/P (MAP) Pulse Ox O2 Delivery O2 Flow Rate FiO2 05/24/24 11:34 156/62 05/24/24 09:47 54 05/24/24 06:45 9 05/24/24 06:30 97 05/23/24 19:30 97.9 97.9 05/23/24 19:30 Nasal Cannula* 6 44 Total Intake and Output 05/23/24 05/23/24 05/24/24 15:00 23:00 07:00 Intake Total 1100 ml 450 ml 546 ml Output Total 550 ml Balance 1100 ml 450 ml -4 ml medications Current Medications Medications Dose Ordered Sig/Abundio Route Start Time Stop Time Status Last Admin Dose Admin Ondansetron HCl 4 mg Q4HP PRN IV 05/20/24 16:30 Acetaminophen 650 mg Q6HP PRN PO 05/20/24 16:30 05/21/24 11:27 650 MG Allopurinol 100 mg DAILY PO 05/21/24 10:00 05/24/24 09:41 100 MG Aspirin 81 mg DAILY PO 05/21/24 10:00 05/24/24 09:47 81 MG Empaglifozin 10 mg DAILY PO 05/21/24 10:00 05/24/24 09:37 10 MG Pantoprazole Sodium 40 mg DAILY PO 05/21/24 10:00 05/24/24 09:33 40 MG Fluoxetine HCl 60 mg QAM PO 05/21/24 07:00 05/24/24 06:48 60 MG Lisinopril 40 mg DAILY PO 05/21/24 10:00 05/24/24 09:37 40 MG Nifedipine 90 mg DAILY PO 05/21/24 10:00 05/24/24 09:40 90 MG Atorvastatin Calcium 10 mg HS PO 05/20/24 22:00 05/23/24 22:35 10 MG Nicardipine HCl 250 ml @ 50 mls/hr Q5H IV 05/20/24 16:45 05/24/24 06:15 50 MLS/HR Enoxaparin Sodium 30 mg DAILY SC 05/20/24 23:45 05/24/24 09:51 30 MG Acetaminophen/ Hydrocodone Bitart 1 tab Q6HPRN PRN PO 05/21/24 15:30 05/23/24 22:52 1 TAB Sodium Chloride 10 ml QSHIFT@10,22 IV 05/22/24 22:00 05/24/24 09:47 10 ML Furosemide 80 mg Q6HR IV 05/23/24 11:15 05/24/24 11:34 80 MG Sodium Bicarbonate 650 mg TID PO 05/23/24 14:00 05/24/24 09:38 650 MG Carvedilol 3.125 mg BID PO 05/23/24 22:00 Metolazone 5 mg DAILY PO 05/24/24 11:15 UNV Examination: CVS:Normal, MSK:Abnormal, SKIN:Abnormal laboratory and microbiology Laboratory Tests 05/24/24 07:09 05/23/24 07:29 Test 05/24/24 07:09 Range/Units Serum Glucose 271 H 74-106 mg/dL Problem List/Assessment/Plan Problem List/Assessment/Plan Acute kidney injury on chronic kidney disease stage 4 Grade 3 diastolic heart failure , EF 35% -- 2023 Hypertensive emergency Hyperkalemia Metabolic acidosis PVD b/l AKA Echocardiogram ongoing report high BP could be missread due to peripheral vascular disease difficult to obtain accurate measurements Due to hyperkalemia recommend discontinue oral potassium, discontinue spironolactone. loop diuretic IV to q.6 hours , add metolazone Monitor urinary output via Batista catheter sodium bicarbonate due to metabolic acidosis Renal diet , fluid restriction No emergent indication for hemodialysis however we will require close monitoring oral BP meds tolerate SBP 140-160 Plan discussed with: Patient My Orders My Orders Orders - TERRY SMITH MD Procedure Category Date Status Time Metolazone (Zaroxolyn) PHA 05/24/24 Logged 11:15 Basic Metabolic Panel LAB 05/25/24 Verified 04:00 TERRY SMITH MD May 24, 2024 12:05
--- NOTE | 2024-05-24 13:06 | DVHPN2 ---
Consult Progress Note Subjective Other Systems: The patient remains in sinus bradycardia on athletic monitor with low voltage Objective vital signs Vital Sign Date Time Temp Pulse Resp B/P (MAP) Pulse Ox O2 Delivery O2 Flow Rate FiO2 05/24/24 12:15 62 16 175/55 (95) 93 05/24/24 12:00 Nasal Cannula* 5 40 05/24/24 08:01 97.8 97.8 Total Intake and Output 05/23/24 05/23/24 05/24/24 15:00 23:00 07:00 Intake Total 1100 ml 450 ml 596 ml Output Total 550 ml Balance 1100 ml 450 ml 46 ml medications Current Medications Medications Dose Ordered Sig/Abundio Route Start Time Stop Time Status Last Admin Dose Admin Ondansetron HCl 4 mg Q4HP PRN IV 05/20/24 16:30 Acetaminophen 650 mg Q6HP PRN PO 05/20/24 16:30 05/21/24 11:27 650 MG Allopurinol 100 mg DAILY PO 05/21/24 10:00 05/24/24 09:41 100 MG Aspirin 81 mg DAILY PO 05/21/24 10:00 05/24/24 09:47 81 MG Empaglifozin 10 mg DAILY PO 05/21/24 10:00 05/24/24 09:37 10 MG Pantoprazole Sodium 40 mg DAILY PO 05/21/24 10:00 05/24/24 09:33 40 MG Fluoxetine HCl 60 mg QAM PO 05/21/24 07:00 05/24/24 06:48 60 MG Lisinopril 40 mg DAILY PO 05/21/24 10:00 05/24/24 09:37 40 MG Nifedipine 90 mg DAILY PO 05/21/24 10:00 05/24/24 09:40 90 MG Atorvastatin Calcium 10 mg HS PO 05/20/24 22:00 05/23/24 22:35 10 MG Nicardipine HCl 250 ml @ 50 mls/hr Q5H IV 05/20/24 16:45 05/24/24 06:15 50 MLS/HR Enoxaparin Sodium 30 mg DAILY SC 05/20/24 23:45 05/24/24 09:51 30 MG Acetaminophen/ Hydrocodone Bitart 1 tab Q6HPRN PRN PO 05/21/24 15:30 05/23/24 22:52 1 TAB Sodium Chloride 10 ml QSHIFT@, IV 05/22/24 22:00 05/24/24 09:47 10 ML Furosemide 80 mg Q6HR IV 05/23/24 11:15 05/24/24 11:34 80 MG Sodium Bicarbonate 650 mg TID PO 05/23/24 14:00 05/24/24 09:38 650 MG Carvedilol 3.125 mg BID PO 05/23/24 22:00 Metolazone 5 mg DAILY PO 05/24/24 11:15 UNV Examination: GENERAL:Abnormal, LUNGS:Normal, CVS:Normal, NEURO:Normal laboratory and microbiology Laboratory Tests 05/24/24 07:09 05/23/24 07:29 Test 05/24/24 07:09 Range/Units Serum Glucose 271 H 74-106 mg/dL Problem List/Assessment/Plan Problem List/Assessment/Plan Acute on chronic decompensated HFrEF, NYHA class III Hypertensive urgency NSTEMI type II secondary to above ?Cardiac amyloidosis Dyslipidemia Prolonged QTc interval Peripheral arterial disease s/p bilateral above the knee amputations Acute on chronic kidney disease Medical noncompliance Plan/Recommendation (Dr. Ruvalcaba): * Transthoracic echocardiogram to evaluate cardiac function * Previous echocardiogram from 10/20/2023 reveals an EF of 35% * Guideline directed medical therapy for CHF as renal function permits * Aggressive BP control * Aggressive diuresis as tolerated * Strict intake and output, daily weights, maintain fluid restriction * Avoid medication that prolong QTc interval; patient is at risk for Torsades de pointes * Lipid-lowering agent * Repeat EKG in AM Case discussed with . Thank you for allowing us to care for this patient. Please call with any questions or concerns. Critical care time spent: 37 minutes.This medical document was created using an electronic medical record system with voice recognition software and computerized dictation system. Although this document has been carefully reviewed, there might still be some phonetic and typographical errors. Occasional wrong-word or ``sound-alike substitutions may have occurred due to the inherent limitations of voice recognition software. These areas are purely typographical due to imperfections of the software programs and do not reflect any compromise in the patient's medical care. Please read the chart carefully and recognize, using context, where these substitutions have occurred. Plan discussed with: Patient Date of Service: May 24, 2024 Billing Provider: SUKHDEV CORTES Common Visit Codes: [id number] CARE 30-74 MIN SUKHDEV CORTES May 24, 2024 13:06
[2024-05-24] MEDS: metOLazone 5 MG TAB PO SCH (15:11)
[2024-05-24] MEDS: hydrALAZINE HCL 25 MG TAB PO PRN (17:00)
--- NOTE | 2024-05-24 18:43 | DVHPN2 ---
Subjective Seen and examined at bedside. Monitor BP and adjust meds as needed Reviewed: Care Plan, H&P, Labs, Medications, Previous Orders, Radiology Changes from previous H/P or p: No Changes Eyes: No Pain, No Vision change, No Conjunctivae inflammation, No Eyelid inflammation, No Other, No Redness ENT: No Ear pain, No Ear discharge, No Nose pain, No Nose discharge, No Nose congestion, No Mouth pain, No Mouth swelling, No Throat pain, No Throat swelling, No Other Cardiovascular: No Chest Pain, No Palpitations, No Orthopnea, No Paroxysmal Noc. Dyspnea, No Edema, No Lt Headedness, No Other Respiratory: No Cough, No Dry; Shortness of breath; No SOB with excertion, No Wheezing, No Hemoptysis, No Pleuritic Pain, No Sputum, No Other Gastrointestinal: No Nausea, No Vomiting, No Abdominal Pain, No Diarrhea, No Constipation, No Melena, No Hematochezia, No Other Genitourinary: No Dysuria, No Frequency, No Incontinence, No Hematuria, No Retention, No Other Skin: No Rash, No Lesions, No Jaundice, No Bruising, No Other Objective Vitals Vital Signs Date Time Temp Pulse Resp B/P (MAP) Pulse Ox O2 Delivery O2 Flow Rate FiO2 05/24/24 18:15 63 15 172/50 (90) 05/24/24 18:00 76 05/24/24 18:00 Nasal Cannula* 5 40 05/24/24 16:00 98.6 98.6 Intake/Output Intake and Output 05/24/24 07:00 Intake Total 2146 ml Output Total 550 ml Balance 1596 ml Intake Oral 396 ml IV Total 1750 ml Output Urine Total 550 ml General Appearance: Alert, Oriented X3, Cooperative, No acute distress HEENT: Atraumatic, PERRLA, EOMI, Mucous membr. moist/pink Neck: Supple Lungs: Other (Creps) Cardiovascular: Regular rate, Normal S1, Normal S2, No murmurs, Gallops, Rubs Abdomen: Normal bowel sounds, Soft, No tenderness Musculoskeletal: Other (B/L BKA) Neuro: Cranial nerves 3-12 NL Psych/Mental Status: Mental status NL Medications Current Medications Medications Dose Ordered Sig/Abundio Route Start Time Stop Time Status Last Admin Dose Admin Ondansetron HCl 4 mg Q4HP PRN IV 05/20/24 16:30 Acetaminophen 650 mg Q6HP PRN PO 05/20/24 16:30 05/21/24 11:27 650 MG Allopurinol 100 mg DAILY PO 05/21/24 10:00 05/24/24 09:41 100 MG Aspirin 81 mg DAILY PO 05/21/24 10:00 05/24/24 09:47 81 MG Empaglifozin 10 mg DAILY PO 05/21/24 10:00 05/24/24 09:37 10 MG Pantoprazole Sodium 40 mg DAILY PO 05/21/24 10:00 05/24/24 09:33 40 MG Fluoxetine HCl 60 mg QAM PO 05/21/24 07:00 05/24/24 06:48 60 MG Lisinopril 40 mg DAILY PO 05/21/24 10:00 05/24/24 09:37 40 MG Nifedipine 90 mg DAILY PO 05/21/24 10:00 05/24/24 09:40 90 MG Atorvastatin Calcium 10 mg HS PO 05/20/24 22:00 05/23/24 22:35 10 MG Nicardipine HCl 250 ml @ 50 mls/hr Q5H IV 05/20/24 16:45 05/24/24 06:15 50 MLS/HR Enoxaparin Sodium 30 mg DAILY SC 05/20/24 23:45 05/24/24 09:51 30 MG Acetaminophen/ Hydrocodone Bitart 1 tab Q6HPRN PRN PO 05/21/24 15:30 05/24/24 18:30 1 TAB Sodium Chloride 10 ml QSHIFT@10,22 IV 05/22/24 22:00 05/24/24 09:47 10 ML Furosemide 80 mg Q6HR IV 05/23/24 11:15 05/24/24 17:42 80 MG Sodium Bicarbonate 650 mg TID PO 05/23/24 14:00 05/24/24 15:11 650 MG Carvedilol 3.125 mg BID PO 05/23/24 22:00 Metolazone 5 mg DAILY PO 05/24/24 11:15 05/24/24 15:11 5 MG Hydralazine HCl 25 mg Q8HR PRN PO 05/24/24 16:30 05/24/24 17:00 25 MG Laboratory Results Laboratory Tests 05/23/24 07:29 05/24/24 07:09 Chemistry Test 05/23/24 20:10 05/24/24 07:09 Albumin Pending Albumin/Globulin Ratio Pending Total Protein Pending Calcium Level 9.0 mg/dL (8.7-10.4) Urinalysis Test 05/20/24 16:45 Urine Color Colorless (Yellow) Urine Clarity Clear (Clear) Urine pH 5.5 (5.0-9.0) Urine Specific [place] 1.009 (1.001-1.035) Urine Protein 1+ (Negative) H Urine Ketones Negative (Negative) Urine Blood Negative /uL (Negative) Urine Nitrite Negative (Negative) Urine Bilirubin Negative (Negative) Urine Urobilinogen Normal mg/dL (Negative) Urine Leukocyte Esterase Negative /uL (Negative) Urine RBC 2 /hpf (0 - 4) Urine Microscopic WBC 3 /HPF (0-5) Urine Squamous Epithelial Cells Few /hpf (<5) Urine Bacteria None seen /hpf (None Seen) Urine Glucose Normal mg/dL (Normal) Assessment/Plan Assessment/Plan Hypertensive emergency- Monitor and adjust meds as needed Acute on chronic CHF exacerbation- Lasix Non ST-elevation LA type 2- Cardio Eval Acute kidney injury superimposed on chronic kidney disease stage 3 due to ATN? 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
[2024-05-24] MEDS: cloNIDine HCL 0.1 MG TAB PO ONE (19:54)
[2024-05-25] VITALS (7 sets, daily range): BP systolic 156–176; BP diastolic 54–130; PULSE 65–80; RESP 18–20; TEMP 98.1–98.5; O2SAT 94–97
--- NOTE | 2024-05-25 07:38 | DVHSR ---
APPROVED REPORT EXAM: Two-dimensional and M-mode echocardiogram with Doppler and color Doppler. Blood Pressure: 143/41 mmHg INDICATION Evaluate cardiac function RISK FACTORS Height: 5'5", Weight: 120 DIMENSIONS LVDd4.0 (3.8-5.7cm)LA (2D)4.7 (1.9-4.0cm)Aortic Root3.0 (2.0-3.7cm) LVDs2.7 (2.5-4.0cm)LA (MM) (1.9-4.0cm)Aortic Cusp Exc1.7 (1.5-2.0cm) EF (%) 55.0 (55-70%)Rt. Atrium4.8 (1.9-4.0cm)Asc. Aorta cm IVSd1.4 (0.7-1.1cm)RV (D)5.2 (1.8-2.4cm) PWd1.5 (0.7-1.1cm) Mitral Valve MitralMitral Stenosis E wave1.19m/sMV Mean GR.mmHg A wave0.78m/sMV Peak GR.mmHg E/A ratio1.52D MVAcm2 DECEL [id number] 1/2 Timems Aortic Valve Aortic ValveAortic Stenosis V10.79m/Skylar Mean GR.3mmHg V21.21m/Skylar Peak GR.6mmHg LVOT Diameter1.8 (1.8-2.4cm)Doppler AVA1.66cm2 Pulmonic Valve V20.72m/s Tricuspid Valve TR Velocity3.33m/s [id number] Conclusion Technically good study. Sinus bradycardia. Biatrial and biventricular enlargement. Concentric LVH of moderate degree. Mild thickening of the aortic leaflets. Mild thickening and mild calcification of the left coronary cusp Left ventricular function is mildly diminished. There is a component of systolic as well as diastoli c dysfunction of [id number]-[id number] degree. EF is approximately 40%. Impaired diastolic relaxation at least grade 3. Normal RV function. Moderate tricuspid insufficiency. Noted pulmonary hypertension. Inflow patterns suggest significant diastolic dysfunction. Moderate pulmonic insufficiency. Small pericardial effusion not hemodynamically significant. No intracardiac masses thrombi or vegetations discernible.
[2024-05-25 08:07] LABS: Immunoglobulin A 318 mg/dL (64-422); Immunoglobulin G, Serum 1064 mg/dL (586-1602); Immunoglobulin M 81 mg/dL (26-217)
[2024-05-25] MEDS ORDERED: hydrALAZINE HCL 25 MG TAB PO PRN (08:15)
[2024-05-25] MEDS: CARVEDILOL 3.125 MG TAB PO SCH (09:04)
--- NOTE | 2024-05-25 10:16 | DVH ---
LEFT Upper Extremity Venous Duplex Clinical History: SWELLING, PICC LINE Comparison: None Findings: Duplex Doppler evaluation of the venous system of the LEFT lower neck and upper extremity including c olor Doppler and spectral/pulsed waveform analysis was performed. Nonocclusive thrombus seen along the PICC line at the left subclavian and axillary vein. Impression: Nonocclusive thrombus seen along the PICC line at the left subclavian and axillary vein. Critical Result: DVT Findings discussed with PATIENTS RN at 05/25/2024 10:13 AM, and acknowledged receipt and understandin g of the findings.
--- NOTE | 2024-05-25 10:25 | ECG ---
[facility] [place] Test Date: 2024-05-24 Test Time: 21:17:27 Pat Name: BRIAN FAJARDO Department: ED Room: 0219T Gender: F Low Pressure Firer: THADDEUS : 1935 Requested By: SUKHDEV CORTES Order Number: [id number] Reading MD: Beltran Ruvalcaba Measurements Intervals [place] Rate: 66 P: 50 VA: 172 QRS: -52 QRSD: 65 T: 0 QT: 526 QTc: 552 Interpretive Statements Sinus rhythm Probable left atrial enlargement Left anterior fascicular block Anterolateral infarct, age indeterminate Prolonged QT interval Electronically Signed On 05-28-2024 17:34:34 PST by Beltran Ruvalcaba Please click the below link to view image of tracing.
[2024-05-25 11:01] LABS: Anion Gap 9 (5-15); Carbon Dioxide 22 mmol/L (20-31); Potassium 4.8 mmol/L (3.5-5.1); Sodium 140 mmol/L (136-145)
[2024-05-25 11:02] LABS: Calcium 9.5 mg/dL (8.7-10.4)
[2024-05-25 11:07] LABS: BUN/Creatinine Ratio 25.1 (10.0-20.0); Magnesium 1.9 mg/dL (1.6-2.6)
[2024-05-25 11:09] LABS: Phosphorus 4.5 mg/dL (2.4-5.1)
[2024-05-25 11:16] LABS: Blood Urea Nitrogen 57 mg/dL (9-23); Chloride 109 mmol/L (98-107); Glucose 106 mg/dL (74-106)
--- NOTE | 2024-05-25 14:06 | DVHPN2 ---
Progress Note Date Seen: May 25, 2024 Medical Necessity Reason Pt with a Central, PICC or Fol: Yes The following are medically ne: Batista Catheter Objective vital signs Vital Sign Date Time Temp Pulse Resp B/P (MAP) Pulse Ox O2 Delivery O2 Flow Rate FiO2 05/25/24 13:09 161/71 05/25/24 09:04 67 05/25/24 08:58 98.1 20 97 98.1 05/25/24 01:45 Nasal Cannula* 5 40 Total Intake and Output 05/24/24 05/24/24 05/25/24 15:00 23:00 07:00 Intake Total 25 ml 600 ml Output Total 1200 ml 1350 ml Balance 25 ml -600 ml -1350 ml medications Current Medications Medications Dose Ordered Sig/Abundio Route Start Time Stop Time Status Last Admin Dose Admin Ondansetron HCl 4 mg Q4HP PRN IV 05/20/24 16:30 Acetaminophen 650 mg Q6HP PRN PO 05/20/24 16:30 05/21/24 11:27 650 MG Allopurinol 100 mg DAILY PO 05/21/24 10:00 05/25/24 09:03 100 MG Aspirin 81 mg DAILY PO 05/21/24 10:00 05/25/24 09:03 81 MG Pantoprazole Sodium 40 mg DAILY PO 05/21/24 10:00 05/25/24 09:02 40 MG Fluoxetine HCl 60 mg QAM PO 05/21/24 07:00 05/25/24 05:21 60 MG Nifedipine 90 mg DAILY PO 05/21/24 10:00 05/25/24 09:02 90 MG Enoxaparin Sodium 30 mg DAILY SC 05/20/24 23:45 05/25/24 09:05 30 MG Acetaminophen/ Hydrocodone Bitart 1 tab Q6HPRN PRN PO 05/21/24 15:30 05/24/24 18:30 1 TAB Sodium Chloride 10 ml QSHIFT@10, IV 05/22/24 22:00 05/25/24 10:00 10 ML Furosemide 80 mg Q6HR IV 05/23/24 11:15 05/25/24 13:09 80 MG Sodium Bicarbonate 650 mg TID PO 05/23/24 14:00 05/25/24 13:13 650 MG Metolazone 5 mg DAILY PO 05/24/24 11:15 05/25/24 09:03 5 MG Atorvastatin Calcium 40 mg HS PO 05/25/24 22:00 Carvedilol 6.25 mg BID PO 05/25/24 10:00 05/25/24 09:04 6.25 MG Hydralazine HCl 100 mg Q8HR PRN PO 05/25/24 08:15 Examination: GENERAL:Abnormal, CVS:Abnormal, ABDOMEN:Abnormal, NEURO:Abnormal laboratory and microbiology Laboratory Tests 05/25/24 10:33 05/23/24 07:29 Test 05/25/24 10:33 Range/Units Serum Glucose 106 74-106 mg/dL Problem List/Assessment/Plan Problem List/Assessment/Plan Acute kidney injury on chronic kidney disease stage 4 severe systolic and diastolic HF Hypertensive emergency Hyperkalemia Metabolic acidosis PVD b/l AKA high BP could be missread due to peripheral vascular disease difficult to obtain accurate measurements Due to hyperkalemia recommend discontinue oral potassium, discontinue spironolactone. loop diuretic IV to q.8 hours , add metolazone -> decrease metolzone tomorrow Monitor urinary output via Batista catheter sodium bicarbonate due to metabolic acidosis Renal diet , fluid restriction No emergent indication for hemodialysis however we will require close monitoring oral BP meds tolerate SBP 140-160 Plan discussed with: Patient TERRY SMITH MD May 25, 2024 14:06
[2024-05-25] MEDS: FUROSEMIDE 40 MG/4 ML VIAL IV SCH (14:15)
--- NOTE | 2024-05-25 15:23 | DVHCONRES ---
Date Seen: May 25, 2024 Resident Creating Document: ENRIQUE WALL Jr., MD Referring Physician yazan Reason for Consultation non occlusive dvt of left subclavian vein History of Present Illness This is an 88-year-old female patient who presents to emergency room with chief complaint of worsening shortness of breath for one week. She comes to the emergency room for further evaluation. Cardiology has now been consulted for elevated troponin level. Patient denies any chest pain or palpitations. Initial twelve lead electrocardiogram done at time of assessment and reveals junctional rhythm with prolonged QTc interval. picc line place on admission. left arm swelling over the last 24 hours Past Medical History congestive heart failure, hypertension, dyslipidemia, abdominal aorta aneurysm with repair, peripheral arterial disease status post bilateral [id number] amputation, previous acute kidney injury from ATN on hemodialysis with regained renal function (has not had dialysis since April 2023), breast cancer with right mastectomy, gout, and depression Family History: Diabetes mellitus G8 SISTER Hypertension G8 MOTHER Social History non smoker or drinker Allergies: Coded Allergies: NO KNOWN ALLERGIES (Unverified , 05/28/23) Home Meds Active Scripts Azithromycin (ZITHROMAX TABLET) 250 Mg Tb, 250 MG PO DAILY, #6 TAB take 2 tablets the first day, then one tablet daily until finish Prov:MCKAYLA HAWKINS MD 02/21/24 Empagliflozin (Jardiance) 10 Mg Tab, 10 MG PO DAILY for 30 Days, #30 TAB Prov:RITA AVILA RESIDENT 10/21/23 Spironolactone (Aldactone) 25 Mg Tab, 25 MG PO DAILY for 30 Days, #30 TAB Prov:RITA AVILA RESIDENT 10/21/23 Furosemide (Lasix) 40 Mg Tab, 40 MG PO DAILY for 15 Days, #15 TAB Prov:SAMSON ODOM DO 05/31/23 Reported Medications Ferrous Sulfate (Ferosul) 325 Mg Tab, 1 TAB PO 05/20/24 Allopurinol (Allopurinol) 100 Mg Tab, 100 MG PO DAILY, MG 05/29/23 Lisinopril (Lisinopril) 40 Mg Tab, 40 MG PO DAILY, MG 05/29/23 Pantoprazole Sodium Sesquihydr (Protonix) 40 Mg Tab, 40 MG PO DAILY, TAB 05/29/23 Aspirin (Aspirin Low Dose) 81 Mg Tab, 81 MG PO DAILY, TAB 05/28/23 Potassium Chloride (Klor-Con 8) 8 Meq Tab, 1 TAB PO DAILY 05/28/23 Simvastatin (Simvastatin) 20 Mg Tab, 1 TAB PO HS 05/28/23 Carvedilol (Carvedilol) 6.25 Mg Tab, 1 TAB PO BID 05/28/23 Nifedipine (Nifedipine Er) 90 Mg Tab, 1 TAB PO DAILY 05/28/23 Fluoxetine Hcl (FLUOXETINE HCL) 60 Mg Tab, 1 TAB PO QAM 05/28/23 Current Medications Current Medications Medications (Trade) Dose Ordered Sig/Abundio Route PRN Reason Start Time Stop Time Status Last Admin Hydralazine HCl (Apresoline Tablet) 25 mg Q8HR PRN PO SBP>170 05/24/24 16:30 05/25/24 08:10 DC 05/25/24 05:28 Atorvastatin Calcium (Lipitor) 40 mg HS PO 05/25/24 22:00 Carvedilol (Coreg Tablet) 6.25 mg BID PO 05/25/24 10:00 05/25/24 09:04 Hydralazine HCl (Apresoline Tablet) 100 mg Q8HR PRN PO SBP>170 05/25/24 08:15 Furosemide (Lasix Injection) 80 mg Q8HR IV 05/25/24 14:15 Hydralazine HCl (Apresoline Tablet) 25 mg Q8HR PO 05/25/24 14:15 Enoxaparin Sodium (Lovenox) 50 mg Q12HR SC 05/25/24 22:00 UNV Review of Systems all systems reviewed otherwise negative other positives in hpi Vital Signs Vital Signs Date Time Temp Pulse Resp B/P (MAP) Pulse Ox O2 Delivery O2 Flow Rate FiO2 05/25/24 13:09 161/71 05/25/24 10:04 60 05/25/24 08:58 98.1 20 97 98.1 05/25/24 08:00 Nasal Cannula* 4 36 Physical Exam left arm swelling. left upper arm picc line Labs/Diagnostic Data Labs Test 05/25/24 10:33 05/23/24 20:10 05/23/24 07:29 05/22/24 07:32 Range/Units Sodium Level 140 # 136-145 mmol/L Potassium Level 4.8 3.5-5.1 mmol/L Chloride Level 109 H 98-107 mmol/L Carbon Dioxide Level 22 20-31 mmol/L Anion Gap 9 5-15 Blood Urea Nitrogen 57 H 9-23 mg/dL Creatinine 2.27 H 0.550-1.02 mg/dL Glomerular Filtration Rate Calc 21 >90 mL/min BUN/Creatinine Ratio 25.1 H 10.0-20.0 Serum Glucose 106 74-106 mg/dL Calcium Level 9.5 8.7-10.4 mg/dL Phosphorus Level 4.5 2.4-5.1 mg/dL Magnesium Level 1.9 1.6-2.6 mg/dL Serum Immunoglobulin G 7325 369-2014 mg/dL Immunoglobulin A 318 64-422 mg/dL Immunoglobulin M 81 26-217 mg/dL White Blood Count 5.6 4.4-10.8 10^3/uL Red Blood Count 3.47 L 4.0-5.20 10^6/uL Hemoglobin 10.3 L 12.2-16.2 g/dL Hematocrit 32.5 #L 36.0-46.0 % Mean Corpuscular Volume 93.4 80.0-100.0 fL Mean Corpuscular Hemoglobin 29.5 28.0-32.0 pg Mean Corpuscular Hemoglobin Concent 31.6 L 32.0-36.0 g/dL Red Cell Distribution Width 18.3 H 11.8-14.3 % Platelet Count 230 140-450 10^3/uL Mean Platelet Volume 9.2 6.9-10.8 fL Neutrophils (%) (Auto) 71.4 37.0-80.0 % Lymphocytes (%) (Auto) 15.8 10.0-50.0 % Monocytes (%) (Auto) 11.4 0.0-12.0 % Eosinophils (%) (Auto) 1.0 0.0-7.0 % Basophils (%) (Auto) 0.4 0.0-2.0 % Neutrophils # (Auto) 4.0 1.6-8.6 10 ^3/uL Lymphocytes # (Auto) 0.9 0.4-5.4 10 ^3/uL Monocytes # (Auto) 0.6 0-1.3 10 ^3/uL Eosinophils # (Auto) 0.1 0-0.8 10 ^3/uL Basophils # (Auto) 0 0-0.2 10 ^3/uL Nucleated Red Blood Cells 0.1 % Hemoglobin A1c 5.0 <5.7 % A1C Triglycerides Level 46 < 150 mg/dL Cholesterol Level 136 < 200 mg/dL LDL Cholesterol 74 < 100 mg/dL HDL Cholesterol 50 40-59 mg/dL Thyroid Stimulating Hormone (TSH) 2.11 0.55-4.78 uIU/mL POC Glucose 104 70-106 mg/dl Test 05/21/24 16:31 05/21/24 11:20 05/20/24 22:18 05/20/24 16:45 Range/Units Prothrombin Time 11.6 9.3-11.8 sec Prothrombin Time INR 1.11 0.9-1.15 Activated Partial Thromboplast Time 27.7 24.5-34.5 SEC Total Bilirubin 0.3 0.2-1.0 mg/dL Aspartate Amino Transferase (AST) 26 13-40 U/L Alanine Aminotransferase (ALT) 19 7-40 U/L Alkaline Phosphatase 115 46-116 U/L Troponin I High Sensitivity 101 *H </=34 ng/L Urine Color Colorless Yellow Urine Clarity Clear Clear Urine pH 5.5 5.0-9.0 Urine Specific [place] 1.009 1.001-1.035 Urine Protein 1+ H Negative Urine Ketones Negative Negative Urine Blood Negative Negative /uL Urine Nitrite Negative Negative Urine Bilirubin Negative Negative Urine Urobilinogen Normal Negative mg/dL Urine Leukocyte Esterase Negative Negative /uL Urine RBC 2 0 - 4 /hpf Urine Microscopic WBC 3 0-5 /HPF Urine Squamous Epithelial Cells Few <5 /hpf Urine Bacteria None seen None Seen /hpf Urine Glucose Normal Normal mg/dL Test 05/20/24 14:56 Range/Units B-Type Natriuretic Peptide 3208.52 0-100 pg/mL PROCEDURE(s): LUDVT - LT Upper DVT REASON: SWELLING, PICC LINE ORDER NUMBER(s): [id number], ACCESSION NUMBER(s): [id number] LEFT Upper Extremity Venous Duplex Clinical History: SWELLING, PICC LINE Comparison: None Findings: Duplex Doppler evaluation of the venous system of the LEFT lower neck and upper extremity including color Doppler and spectral/pulsed waveform analysis was performed. Nonocclusive thrombus seen along the PICC line at the left subclavian and axillary vein. Impression: Nonocclusive thrombus seen along the PICC line at the left subclavian and axillary vein. Assessment non occlusive dvt of left subclavian with picc line inplace Rec. anticoagulation repeat u/s in 5 days If symptoms worsen or dvt on repeat u/s is more occlusive will need to pull picc line. Plan/Recommendation non occlusive dvt of left subclavian with picc line inplace Rec. anticoagulation repeat u/s in 5 days If symptoms worsen or dvt on repeat u/s is more occlusive will need to pull picc line. Plan discussed with: Patient ENRIQUE WALL Jr., MD May 25, 2024 15:23
--- NOTE | 2024-05-25 15:53 | DVHPN2 ---
Consult Progress Note Subjective Other Systems: Patient denies any cardiac symptoms at time of assessment Objective vital signs Vital Sign Date Time Temp Pulse Resp B/P (MAP) Pulse Ox O2 Delivery O2 Flow Rate FiO2 05/25/24 13:09 161/71 05/25/24 10:04 60 05/25/24 08:58 98.1 20 97 98.1 05/25/24 08:00 Nasal Cannula* 4 36 Total Intake and Output 05/24/24 05/24/24 05/25/24 15:00 23:00 07:00 Intake Total 25 ml 600 ml Output Total 1200 ml 1350 ml Balance 25 ml -600 ml -1350 ml medications Current Medications Medications Dose Ordered Sig/Abundio Route Start Time Stop Time Status Last Admin Dose Admin Ondansetron HCl 4 mg Q4HP PRN IV 05/20/24 16:30 Acetaminophen 650 mg Q6HP PRN PO 05/20/24 16:30 05/21/24 11:27 650 MG Allopurinol 100 mg DAILY PO 05/21/24 10:00 05/25/24 09:03 100 MG Aspirin 81 mg DAILY PO 05/21/24 10:00 05/25/24 09:03 81 MG Pantoprazole Sodium 40 mg DAILY PO 05/21/24 10:00 05/25/24 09:02 40 MG Fluoxetine HCl 60 mg QAM PO 05/21/24 07:00 05/25/24 05:21 60 MG Nifedipine 90 mg DAILY PO 05/21/24 10:00 05/25/24 09:02 90 MG Acetaminophen/ Hydrocodone Bitart 1 tab Q6HPRN PRN PO 05/21/24 15:30 05/24/24 18:30 1 TAB Sodium Chloride 10 ml QSHIFT@10,22 IV 05/22/24 22:00 05/25/24 10:00 10 ML Sodium Bicarbonate 650 mg TID PO 05/23/24 14:00 05/25/24 13:13 650 MG Metolazone 5 mg DAILY PO 05/24/24 11:15 05/25/24 09:03 5 MG Atorvastatin Calcium 40 mg HS PO 05/25/24 22:00 Carvedilol 6.25 mg BID PO 05/25/24 10:00 05/25/24 09:04 6.25 MG Hydralazine HCl 100 mg Q8HR PRN PO 05/25/24 08:15 Furosemide 80 mg Q8HR IV 05/25/24 14:15 Hydralazine HCl 25 mg Q8HR PO 05/25/24 14:15 Enoxaparin Sodium 50 mg DAILY SC 05/25/24 22:00 Examination: GENERAL:Abnormal (Generalized weakness), LUNGS:Normal, CVS:Normal, NEURO:Normal laboratory and microbiology Laboratory Tests 05/25/24 10:33 05/23/24 07:29 Test 05/25/24 10:33 Range/Units Serum Glucose 106 74-106 mg/dL Problem List/Assessment/Plan Problem List/Assessment/Plan Acute on chronic decompensated HFrEF, NYHA class III Hypertensive urgency NSTEMI type II secondary to above ?Cardiac amyloidosis Dyslipidemia Prolonged QTc interval Peripheral arterial disease s/p bilateral above the knee amputations Pulmonary hypertension Nonocclusive DVT of left subclavian Acute on chronic kidney disease Medical noncompliance Plan/Recommendation (Dr. Ruvalcaba): * Transthoracic echocardiogram reveals EF 40%, RVSP 52 mmHg * Guideline directed medical therapy for CHF as renal function permits * Aggressive BP control * Aggressive diuresis as tolerated * Strict intake and output, daily weights, maintain fluid restriction * Avoid medication that prolong QTc interval; patient is at risk for Torsades de pointes * Lipid-lowering agent Case discussed with . Thank you for allowing us to care for this patient. Please call with any questions or concerns. This medical document was created using an electronic medical record system with voice recognition software and computerized dictation system. Although this document has been carefully reviewed, there might still be some phonetic and typographical errors. Occasional wrong-word or ``sound-alike substitutions may have occurred due to the inherent limitations of voice recognition software. These areas are purely typographical due to imperfections of the software programs and do not reflect any compromise in the patient's medical care. Please read the chart carefully and recognize, using context, where these substitutions have occurred. Plan discussed with: Patient, Other (Bedside RN) Date of Service: May 25, 2024 Billing Provider: SUKHDEV CORTES Common Visit Codes: [id number] INP/OBS CARE(HIGH) SUKHDEV CORTES May 25, 2024 15:53
[2024-05-25] MEDS: hydrALAZINE HCL 25 MG TAB PO SCH (16:55)
[2024-05-25 17:07] LABS: Albumin 2.3 g/dL (2.9-4.4); Alpha-1-Globulin 0.3 g/dL (0.0-0.4); Alpha-2-Globulin 0.6 g/dL (0.4-1.0); Gamma Globulin 1.1 g/dL (0.4-1.8); Globulin Total 2.8 g/dL (2.2-3.9); Protein Total Serum 5.1 g/dL (6.0-8.5)
--- NOTE | 2024-05-25 18:26 | DVHPN2 ---
Subjective in bed resting Reviewed: Care Plan, H&P, Labs, Medications, Previous Orders, Radiology Changes from previous H/P or p: No Changes Eyes: No Pain, No Vision change, No Conjunctivae inflammation, No Eyelid inflammation, No Other, No Redness ENT: No Ear pain, No Ear discharge, No Nose pain, No Nose discharge, No Nose congestion, No Mouth pain, No Mouth swelling, No Throat pain, No Throat swelling, No Other Cardiovascular: No Chest Pain, No Palpitations, No Orthopnea, No Paroxysmal Noc. Dyspnea, No Edema, No Lt Headedness, No Other Respiratory: No Cough, No Dry; Shortness of breath; No SOB with excertion, No Wheezing, No Hemoptysis, No Pleuritic Pain, No Sputum, No Other Gastrointestinal: No Nausea, No Vomiting, No Abdominal Pain, No Diarrhea, No Constipation, No Melena, No Hematochezia, No Other Genitourinary: No Dysuria, No Frequency, No Incontinence, No Hematuria, No Retention, No Other Skin: No Rash, No Lesions, No Jaundice, No Bruising, No Other Objective Vitals Vital Signs Date Time Temp Pulse Resp B/P (MAP) Pulse Ox O2 Delivery O2 Flow Rate FiO2 05/25/24 17:00 98.4 70 18 156/72 (100) 97 98.4 05/25/24 08:00 Nasal Cannula* 4 36 Intake/Output Intake and Output 05/25/24 07:00 Intake Total 625 ml Output Total 2550 ml Balance -1925 ml Intake Oral 600 ml IV Total 25 ml Output Urine Total 2550 ml General Appearance: Alert, Oriented X3, Cooperative, No acute distress HEENT: Atraumatic, PERRLA, EOMI, Mucous membr. moist/pink Neck: Supple Lungs: Other (Creps) Cardiovascular: Regular rate, Normal S1, Normal S2, No murmurs, Gallops, Rubs Abdomen: Normal bowel sounds, Soft, No tenderness Musculoskeletal: Other (B/L BKA) Neuro: Cranial nerves 3-12 NL Psych/Mental Status: Mental status NL Medications Current Medications Medications Dose Ordered Sig/Abundio Route Start Time Stop Time Status Last Admin Dose Admin Ondansetron HCl 4 mg Q4HP PRN IV 05/20/24 16:30 Acetaminophen 650 mg Q6HP PRN PO 05/20/24 16:30 05/21/24 11:27 650 MG Allopurinol 100 mg DAILY PO 05/21/24 10:00 05/25/24 09:03 100 MG Aspirin 81 mg DAILY PO 05/21/24 10:00 05/25/24 09:03 81 MG Pantoprazole Sodium 40 mg DAILY PO 05/21/24 10:00 05/25/24 09:02 40 MG Nifedipine 90 mg DAILY PO 05/21/24 10:00 05/25/24 09:02 90 MG Acetaminophen/ Hydrocodone Bitart 1 tab Q6HPRN PRN PO 05/21/24 15:30 05/24/24 18:30 1 TAB Sodium Chloride 10 ml QSHIFT@10,22 IV 05/22/24 22:00 05/25/24 10:00 10 ML Sodium Bicarbonate 650 mg TID PO 05/23/24 14:00 05/25/24 13:13 650 MG Metolazone 5 mg DAILY PO 05/24/24 11:15 05/25/24 09:03 5 MG Atorvastatin Calcium 40 mg HS PO 05/25/24 22:00 Carvedilol 6.25 mg BID PO 05/25/24 10:00 05/25/24 09:04 6.25 MG Hydralazine HCl 100 mg Q8HR PRN PO 05/25/24 08:15 Hold Furosemide 80 mg Q8HR IV 05/25/24 14:15 Hydralazine HCl 25 mg Q8HR PO 05/25/24 14:15 05/25/24 16:55 25 MG Enoxaparin Sodium 50 mg DAILY SC 05/25/24 22:00 Laboratory Results Laboratory Tests 05/23/24 07:29 05/25/24 10:33 Chemistry Test 05/25/24 10:33 Calcium Level 9.5 mg/dL (8.7-10.4) Magnesium Level 1.9 mg/dL (1.6-2.6) Phosphorus Level 4.5 mg/dL (2.4-5.1) Urinalysis Test 05/20/24 16:45 Urine Color Colorless (Yellow) Urine Clarity Clear (Clear) Urine pH 5.5 (5.0-9.0) Urine Specific [place] 1.009 (1.001-1.035) Urine Protein 1+ (Negative) H Urine Ketones Negative (Negative) Urine Blood Negative /uL (Negative) Urine Nitrite Negative (Negative) Urine Bilirubin Negative (Negative) Urine Urobilinogen Normal mg/dL (Negative) Urine Leukocyte Esterase Negative /uL (Negative) Urine RBC 2 /hpf (0 - 4) Urine Microscopic WBC 3 /HPF (0-5) Urine Squamous Epithelial Cells Few /hpf (<5) Urine Bacteria None seen /hpf (None Seen) Urine Glucose Normal mg/dL (Normal) Assessment/Plan Assessment/Plan Hypertensive emergency Acute on chronic CHF exacerbation Hypertension Non ST-elevation IN type 2 History of CAD History of IN History of COPD Acute kidney injury superimposed on chronic kidney disease stage 3 History of breast cancer with right mastectomy History of tobacco abuse 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 now on oral nifedipine PICC line placed New DVT left subclavia vein noted on US, non occlusive>Lovenox started and can continue using. Vascular surgery consulted Cardiology consult managing BP Continuing with Lasix>increased to 80 mg q8 hours per nephrology Plan discussed with: Patient My Orders Orders - TYSON NAVARRO MD Procedure Category Date Status Time Enoxaparin Sodium PHA 05/25/24 In Process (Lovenox) 22:00 Communication Order ORDERS 05/25/24 Transmitted 17:38 Date of Service: May 25, 2024 Billing Provider: TYSON NAVARRO MD Common Visit Codes: [id number] INP/OBS CARE(HIGH) TYSON NAVARRO MD May 25, 2024 18:26
[2024-05-25] MEDS: ATORVASTATIN 20 MG TAB PO SCH (22:02)
[2024-05-25] MEDS: ENOXAPARIN SOD 100 MG/1 ML SYRINGE SC SCH (22:07)
[2024-05-26] VITALS (8 sets, daily range): BP systolic 146–196; BP diastolic 56–82; PULSE 65–71; RESP 16–19; TEMP 97.1–99.2; O2SAT 85–100
--- NOTE | 2024-05-26 11:25 | DVHPN2 ---
Consult Progress Note Subjective Other Systems: Normal sinus rhythm on media monitor Objective vital signs Vital Sign Date Time Temp Pulse Resp B/P (MAP) Pulse Ox O2 Delivery O2 Flow Rate FiO2 05/26/24 09:35 196/63 05/26/24 09:34 70 05/26/24 09:00 97.6 19 94 97.6 05/25/24 20:00 Nasal Cannula* 4 36 Total Intake and Output 05/25/24 05/25/24 05/26/24 15:00 23:00 07:00 Intake Total 15 ml 300 ml 100 ml Output Total 2600 ml 3850 ml Balance 15 ml -2300 ml -3750 ml medications Current Medications Medications Dose Ordered Sig/Abundio Route Start Time Stop Time Status Last Admin Dose Admin Ondansetron HCl 4 mg Q4HP PRN IV 05/20/24 16:30 Acetaminophen 650 mg Q6HP PRN PO 05/20/24 16:30 05/21/24 11:27 650 MG Allopurinol 100 mg DAILY PO 05/21/24 10:00 05/26/24 09:34 100 MG Aspirin 81 mg DAILY PO 05/21/24 10:00 05/26/24 09:33 81 MG Pantoprazole Sodium 40 mg DAILY PO 05/21/24 10:00 05/26/24 09:35 40 MG Nifedipine 90 mg DAILY PO 05/21/24 10:00 05/26/24 09:34 90 MG Acetaminophen/ Hydrocodone Bitart 1 tab Q6HPRN PRN PO 05/21/24 15:30 05/24/24 18:30 1 TAB Sodium Chloride 10 ml QSHIFT@10,22 IV 05/22/24 22:00 05/26/24 09:49 10 ML Sodium Bicarbonate 650 mg TID PO 05/23/24 14:00 05/26/24 06:03 650 MG Metolazone 5 mg DAILY PO 05/24/24 11:15 05/26/24 09:35 5 MG Atorvastatin Calcium 40 mg HS PO 05/25/24 22:00 05/25/24 22:02 40 MG Carvedilol 6.25 mg BID PO 05/25/24 10:00 05/26/24 09:34 6.25 MG Hydralazine HCl 100 mg Q8HR PRN PO 05/25/24 08:15 Furosemide 80 mg Q8HR IV 05/25/24 14:15 05/26/24 06:02 80 MG Hydralazine HCl 25 mg Q8HR PO 05/25/24 14:15 05/26/24 06:03 25 MG Enoxaparin Sodium 50 mg DAILY SC 05/25/24 22:00 05/26/24 09:39 50 MG Examination: GENERAL:Normal, LUNGS:Normal, CVS:Normal, NEURO:Normal laboratory and microbiology Laboratory Tests 05/25/24 10:33 05/23/24 07:29 Test 05/25/24 10:33 Range/Units Serum Glucose 106 74-106 mg/dL Problem List/Assessment/Plan Problem List/Assessment/Plan Acute on chronic decompensated HFrEF, NYHA class III Hypertensive urgency NSTEMI type II secondary to above ?Cardiac amyloidosis Dyslipidemia Prolonged QTc interval Peripheral arterial disease s/p bilateral above the knee amputations Pulmonary hypertension Nonocclusive DVT of left subclavian Acute on chronic kidney disease Medical noncompliance Plan/Recommendation (Dr. Ruvalcaba): * Transthoracic echocardiogram reveals EF 40%, RVSP 52 mmHg * Guideline directed medical therapy for CHF as renal function permits * Avoid MARIE/ARB/ARNI/MRA/SGLT2i * Aggressive BP control * Aggressive diuresis as tolerated * Strict intake and output, daily weights, maintain fluid restriction * Avoid medication that prolong QTc interval; patient is at risk for Torsades de pointes * Lipid-lowering agent * Pending labs: Serum immunofixation, protein electrophoresis * Repeat EKG in AM to assess QTc interval Case discussed with . Thank you for allowing us to care for this patient. Please call with any questions or concerns. This medical document was created using an electronic medical record system with voice recognition software and computerized dictation system. Although this document has been carefully reviewed, there might still be some phonetic and typographical errors. Occasional wrong-word or ``sound-alike substitutions may have occurred due to the inherent limitations of voice recognition software. These areas are purely typographical due to imperfections of the software programs and do not reflect any compromise in the patient's medical care. Please read the chart carefully and recognize, using context, where these substitutions have occurred. Plan discussed with: Patient Date of Service: May 26, 2024 Billing Provider: SUKHDEV CORTES Common Visit Codes: [id number] INP/OBS CARE(HIGH) SUKHDEV CORTES [facility] May 26, 2024 11:25
[2024-05-26 13:41] LABS: Hemoglobin 12.4 g/dL (12.2-16.2); Mean Corpuscular Hemoglobin 29.5 pg (28.0-32.0); Mean Corpuscular Hgb Conc. 32.7 g/dL (32.0-36.0); Mean Corpuscular Volume 90.4 fL (80.0-100.0); Platelet Count (auto) 155 10^3/uL (140-450); Red Blood Cells 4.21 10^6/uL (4.0-5.20); Red Cell Distribution Width 17.2 % (11.8-14.3); White Blood Cell 7.4 10^3/uL (4.4-10.8)
[2024-05-26 13:44] LABS: Basophils % (manual) 0 (0.0-2.0); Blast Cells 0; Eosinophils % (manual) 0 (0-7); Metamyelocytes % 0; Myelocytes % 0; Promyelocytes % 0; Reactive Lymphocytes 0
[2024-05-26 13:48] LABS: Chloride 104 mmol/L (98-107); Potassium 4.1 mmol/L (3.5-5.1); Sodium 139 mmol/L (136-145)
[2024-05-26 13:49] LABS: Anion Gap 11 (5-15); Carbon Dioxide 24 mmol/L (20-31)
[2024-05-26 13:50] LABS: Calcium 9.9 mg/dL (8.7-10.4)
[2024-05-26 13:54] LABS: Glucose 104 mg/dL (74-106)
[2024-05-26 13:55] LABS: Blood Urea Nitrogen 54 mg/dL (9-23)
--- NOTE | 2024-05-26 14:12 | DVHPN2 ---
Progress Note Date Seen: May 26, 2024 Medical Necessity Reason Pt with a Central, PICC or Fol: Yes The following are medically ne: Batista Catheter Objective vital signs Vital Sign Date Time Temp Pulse Resp B/P (MAP) Pulse Ox O2 Delivery O2 Flow Rate FiO2 05/26/24 09:35 196/63 05/26/24 09:34 70 05/26/24 09:00 97.6 19 94 97.6 05/25/24 20:00 Nasal Cannula* 4 36 Total Intake and Output 05/25/24 05/25/24 05/26/24 15:00 23:00 07:00 Intake Total 15 ml 300 ml 100 ml Output Total 2600 ml 3850 ml Balance 15 ml -2300 ml -3750 ml medications Current Medications Medications Dose Ordered Sig/Abundio Route Start Time Stop Time Status Last Admin Dose Admin Ondansetron HCl 4 mg Q4HP PRN IV 05/20/24 16:30 Acetaminophen 650 mg Q6HP PRN PO 05/20/24 16:30 05/21/24 11:27 650 MG Allopurinol 100 mg DAILY PO 05/21/24 10:00 05/26/24 09:34 100 MG Aspirin 81 mg DAILY PO 05/21/24 10:00 05/26/24 09:33 81 MG Pantoprazole Sodium 40 mg DAILY PO 05/21/24 10:00 05/26/24 09:35 40 MG Nifedipine 90 mg DAILY PO 05/21/24 10:00 05/26/24 09:34 90 MG Acetaminophen/ Hydrocodone Bitart 1 tab Q6HPRN PRN PO 05/21/24 15:30 05/24/24 18:30 1 TAB Sodium Chloride 10 ml QSHIFT@10,22 IV 05/22/24 22:00 05/26/24 09:49 10 ML Sodium Bicarbonate 650 mg TID PO 05/23/24 14:00 05/26/24 06:03 650 MG Metolazone 5 mg DAILY PO 05/24/24 11:15 05/26/24 09:35 5 MG Atorvastatin Calcium 40 mg HS PO 05/25/24 22:00 05/25/24 22:02 40 MG Carvedilol 6.25 mg BID PO 05/25/24 10:00 05/26/24 09:34 6.25 MG Furosemide 80 mg Q8HR IV 05/25/24 14:15 05/26/24 06:02 80 MG Hydralazine HCl 25 mg Q8HR PO 05/25/24 14:15 05/26/24 06:03 25 MG Enoxaparin Sodium 50 mg DAILY SC 05/25/24 22:00 05/26/24 09:39 50 MG Isosorbide Mononitrate 30 mg DAILY PO 05/27/24 10:00 UNV Examination: GENERAL:Normal, CVS:Abnormal, MSK:Abnormal laboratory and microbiology Laboratory Tests 05/26/24 13:24 Test 05/26/24 13:24 Range/Units Serum Glucose 104 74-106 mg/dL Problem List/Assessment/Plan Problem List/Assessment/Plan Acute kidney injury on chronic kidney disease stage 4 severe systolic and diastolic HF Hypertensive emergency Hyperkalemia Metabolic acidosis PVD b/l AKA s/p 6L UOP high BP could be missread due to peripheral vascular disease difficult to obtain accurate measurements ( can only measure from 1 arm current which has a superficial clot). Consider [place] for BP measurement if clinical signs of orthostasis or confusion. Low diastolic BP noted Due to hyperkalemia recommend discontinue oral potassium, discontinue spironolactone. loop diuretic IV to q.8 hours ,DC metolazone will start taper doses cardiology Monitor urinary output via Batista catheter sodium bicarbonate due to metabolic acidosis Renal diet , fluid restriction No emergent indication for hemodialysis however we will require close monitoring oral BP meds tolerate SBP 140-160 Plan discussed with: Patient My Orders My Orders Orders - TERRY SMITH MD Procedure Category Date Status Time Furosemide Injection PHA 05/25/24 In Process (Lasix Injection) 14:15 Hydralazine Hcl PHA 05/25/24 In Process Tablet (Apresoline 14:15 TERRY SMITH MD May 26, 2024 14:11
[2024-05-26 14:30] LABS: Band Neutrophils % (manual) 3; Lymphocytes % (manual) 11 (10.0-50.0); Monocytes % (manual) 4 (0-12); Platelet Estimate Adequate
[2024-05-26] MEDS ORDERED: ISOSORBIDE DINITRATE 10 MG TAB PO SCH (14:40)
[2024-05-26] MEDS: ISOSORBIDE DINITRATE 10 MG TAB PO SCH ×2 (15:24→23:16)
--- NOTE | 2024-05-26 17:14 | DVHPN2 ---
Subjective in bed resting Reviewed: Care Plan, H&P, Labs, Medications, Previous Orders, Radiology Changes from previous H/P or p: No Changes Eyes: No Pain, No Vision change, No Conjunctivae inflammation, No Eyelid inflammation, No Other, No Redness ENT: No Ear pain, No Ear discharge, No Nose pain, No Nose discharge, No Nose congestion, No Mouth pain, No Mouth swelling, No Throat pain, No Throat swelling, No Other Cardiovascular: No Chest Pain, No Palpitations, No Orthopnea, No Paroxysmal Noc. Dyspnea, No Edema, No Lt Headedness, No Other Respiratory: No Cough, No Dry; Shortness of breath; No SOB with excertion, No Wheezing, No Hemoptysis, No Pleuritic Pain, No Sputum, No Other Gastrointestinal: No Nausea, No Vomiting, No Abdominal Pain, No Diarrhea, No Constipation, No Melena, No Hematochezia, No Other Genitourinary: No Dysuria, No Frequency, No Incontinence, No Hematuria, No Retention, No Other Skin: No Rash, No Lesions, No Jaundice, No Bruising, No Other Objective Vitals Vital Signs Date Time Temp Pulse Resp B/P (MAP) Pulse Ox O2 Delivery O2 Flow Rate FiO2 05/26/24 15:24 149/82 05/26/24 13:00 97.7 69 16 97 97.7 05/25/24 20:00 Nasal Cannula* 4 36 Intake/Output Intake and Output 05/26/24 07:00 Intake Total 415 ml Output Total 6450 ml Balance -6035 ml Intake Oral 415 ml Output Urine Total 6450 ml General Appearance: Alert, Oriented X3, Cooperative, No acute distress HEENT: Atraumatic, PERRLA, EOMI, Mucous membr. moist/pink Neck: Supple Lungs: Other (Creps) Cardiovascular: Regular rate, Normal S1, Normal S2, No murmurs, Gallops, Rubs Abdomen: Normal bowel sounds, Soft, No tenderness Musculoskeletal: Other (B/L BKA) Neuro: Cranial nerves 3-12 NL Psych/Mental Status: Mental status NL Medications Current Medications Medications Dose Ordered Sig/Abundio Route Start Time Stop Time Status Last Admin Dose Admin Ondansetron HCl 4 mg Q4HP PRN IV 05/20/24 16:30 Acetaminophen 650 mg Q6HP PRN PO 05/20/24 16:30 05/21/24 11:27 650 MG Allopurinol 100 mg DAILY PO 05/21/24 10:00 05/26/24 09:34 100 MG Aspirin 81 mg DAILY PO 05/21/24 10:00 05/26/24 09:33 81 MG Pantoprazole Sodium 40 mg DAILY PO 05/21/24 10:00 05/26/24 09:35 40 MG Nifedipine 90 mg DAILY PO 05/21/24 10:00 05/26/24 09:34 90 MG Acetaminophen/ Hydrocodone Bitart 1 tab Q6HPRN PRN PO 05/21/24 15:30 05/24/24 18:30 1 TAB Sodium Chloride 10 ml QSHIFT@10,22 IV 05/22/24 22:00 05/26/24 09:49 10 ML Sodium Bicarbonate 650 mg TID PO 05/23/24 14:00 05/26/24 15:10 650 MG Atorvastatin Calcium 40 mg HS PO 05/25/24 22:00 05/25/24 22:02 40 MG Carvedilol 6.25 mg BID PO 05/25/24 10:00 05/26/24 09:34 6.25 MG Furosemide 80 mg Q8HR IV 05/25/24 14:15 05/26/24 15:12 80 MG Hydralazine HCl 25 mg Q8HR PO 05/25/24 14:15 05/26/24 15:11 25 MG Enoxaparin Sodium 50 mg DAILY SC 05/25/24 22:00 05/26/24 09:39 50 MG Isosorbide Dinitrate 10 mg HS PO 05/26/24 22:00 Isosorbide Dinitrate 20 mg DAILY PO 05/26/24 14:50 05/26/24 15:24 20 MG Laboratory Results Laboratory Tests 05/26/24 13:24 Chemistry Test 05/26/24 13:24 Calcium Level 9.9 mg/dL (8.7-10.4) Urinalysis Test 05/20/24 16:45 Urine Color Colorless (Yellow) Urine Clarity Clear (Clear) Urine pH 5.5 (5.0-9.0) Urine Specific [place] 1.009 (1.001-1.035) Urine Protein 1+ (Negative) H Urine Ketones Negative (Negative) Urine Blood Negative /uL (Negative) Urine Nitrite Negative (Negative) Urine Bilirubin Negative (Negative) Urine Urobilinogen Normal mg/dL (Negative) Urine Leukocyte Esterase Negative /uL (Negative) Urine RBC 2 /hpf (0 - 4) Urine Microscopic WBC 3 /HPF (0-5) Urine Squamous Epithelial Cells Few /hpf (<5) Urine Bacteria None seen /hpf (None Seen) Urine Glucose Normal mg/dL (Normal) Assessment/Plan Assessment/Plan Hypertensive emergency Acute on chronic CHF exacerbation Hypertension Non ST-elevation [place] type 2 History of CAD History of [place] History of COPD Acute kidney injury superimposed on chronic kidney disease stage 3 History of breast cancer with right mastectomy History of tobacco abuse 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 now on oral nifedipine PICC line placed New DVT left subclavia vein noted on US, non occlusive>Lovenox started and can continue using. per vascular non op management unless worsening symptoms Cardiology consult managing BP Continuing with Lasix>increased to 80 mg q8 hours per nephrology Plan discussed with: Patient My Orders Orders - TYSON NAVARRO MD Procedure Category Date Status Time Communication Order ORDERS 05/25/24 Transmitted 17:38 Date of Service: May 26, 2024 Billing Provider: TYSON NAVARRO MD Common Visit Codes: [id number] INP/OBS CARE(HIGH) TYSON NAVARRO MD May 26, 2024 17:14
[2024-05-27] VITALS (10 sets, daily range): BP systolic 128–174; BP diastolic 53–95; PULSE 57–70; RESP 15–18; TEMP 97.5–98.3; O2SAT 95–99
[2024-05-27] MEDS: CARVEDILOL 3.125 MG TAB PO SCH (09:55)
[2024-05-27] MEDS: ISOSORBIDE MONONITRATE ER 60 MG TAB PO SCH (09:55)
[2024-05-27] MEDS: ENOXAPARIN SOD 60 MG/0.6 ML SYRINGE SC SCH (09:56)
--- NOTE | 2024-05-27 10:38 | DVHPN2 ---
Consult Progress Note Date Seen: May 27, 2024 Subjective Other Systems: Denies any cardiac symptoms Objective vital signs Vital Sign Date Time Temp Pulse Resp B/P (MAP) Pulse Ox O2 Delivery O2 Flow Rate FiO2 05/27/24 09:55 70 157/95 05/27/24 09:00 98.3 17 98 98.3 05/26/24 20:00 Nasal Cannula* 4 36 Total Intake and Output 05/26/24 05/26/24 05/27/24 15:00 23:00 07:00 Intake Total 200 ml 575 ml Output Total 3000 ml 2150 ml Balance -2800 ml -1575 ml medications Current Medications Medications Dose Ordered Sig/Abundio Route Start Time Stop Time Status Last Admin Dose Admin Ondansetron HCl 4 mg Q4HP PRN IV 05/20/24 16:30 Acetaminophen 650 mg Q6HP PRN PO 05/20/24 16:30 05/21/24 11:27 650 MG Allopurinol 100 mg DAILY PO 05/21/24 10:00 05/27/24 09:42 100 MG Aspirin 81 mg DAILY PO 05/21/24 10:00 05/27/24 09:42 81 MG Pantoprazole Sodium 40 mg DAILY PO 05/21/24 10:00 05/27/24 09:42 40 MG Nifedipine 90 mg DAILY PO 05/21/24 10:00 05/27/24 09:42 90 MG Acetaminophen/ Hydrocodone Bitart 1 tab Q6HPRN PRN PO 05/21/24 15:30 05/24/24 18:30 1 TAB Sodium Chloride 10 ml QSHIFT@10,22 IV 05/22/24 22:00 05/27/24 09:48 10 ML Sodium Bicarbonate 650 mg TID PO 05/23/24 14:00 05/27/24 05:18 650 MG Atorvastatin Calcium 40 mg HS PO 05/25/24 22:00 05/26/24 21:33 40 MG Furosemide 80 mg Q8HR IV 05/25/24 14:15 05/27/24 05:18 80 MG Hydralazine HCl 25 mg Q8HR PO 05/25/24 14:15 05/27/24 05:18 25 MG Isosorbide Mononitrate 60 mg DAILY PO 05/27/24 10:00 05/27/24 09:55 60 MG Carvedilol 12.5 mg BID PO 05/27/24 10:00 05/27/24 09:55 12.5 MG Enoxaparin Sodium 50 mg DAILY SC 05/27/24 10:00 05/27/24 09:56 50 MG Examination: LUNGS:Normal, CVS:Normal (No evidence of torsades de pointes or cardiac arrhythmias on monitor), NEURO:Normal laboratory and microbiology Laboratory Tests 05/26/24 13:24 Test 05/26/24 13:24 Range/Units Serum Glucose 104 74-106 mg/dL Problem List/Assessment/Plan Problem List/Assessment/Plan Acute on chronic decompensated HFrEF, NYHA class III Hypertensive urgency NSTEMI type II secondary to above Rule out cardiac amyloidosis Prolonged QTc interval Peripheral arterial disease s/p bilateral above the knee amputations Pulmonary hypertension, moderate degree Nonocclusive DVT of left subclavian Acute on chronic kidney disease Dyslipidemia Medical noncompliance Plan/Recommendation (Dr. Ruvalcaba) * Transthoracic echocardiogram revealed EF 40%, RVSP 52 mmHg * Guideline directed medical therapy for CHF as renal function permits * Avoid MARIE/ARB/ARNI/MRA/SGLT2i * Aggressive BP control: Coreg, isosorbide mononitrate, hydralazine * Avoid medications that prolong QTc interval; patient is at risk for Torsades de pointes * Latest ECG on 05/27/24 revealed QTc 723 ms. No evidence of torsades de pointed or arrhythmias on monitor tech * Lipid-lowering agent and single antiplatelet therapy * Pending labs: Serum immunofixation, protein electrophoresis * Anticoagulation therapy per vascular recommendations Patient appears euvolemic. No cardiac arrhythmias present on monitor tech. AC therapy per vascular specialist recommendations. Follow-up with Cardiology on 06/03/24 at 1100 for pending labs to rule out cardiac amyloidosis. There is no further cardiac work-up indicated at this time. Kindly call with any questions or concerns. Thank you for allowing us to care for this patient. This medical document was created using an electronic medical record system with voice recognition software and computerized dictation system. Although this document has been carefully reviewed, there might still be some phonetic and typographical errors. Occasional wrong-word or ``sound-alike substitutions may have occurred due to the inherent limitations of voice recognition software. These areas are purely typographical due to imperfections of the software programs and do not reflect any compromise in the patient's medical care. Please read the chart carefully and recognize, using context, where these substitutions have occurred. Plan discussed with: Patient, Other Date of Service: May 27, 2024 Billing Provider: CORIE FIGUEREDO Cardiology Common Codes: [id number] HOSP CARE(High CORIE FIGUEREOD May 27, 2024 10:38
[2024-05-27 12:34] LABS: Alanine Aminotransferase 10 U/L (7-40); Alkaline Phosphatase 89 U/L (46-116); Anion Gap 8 (5-15); Aspartate Aminotransferase 33 U/L (13-40); BUN/Creatinine Ratio 22.2 (10.0-20.0); Calcium 9.8 mg/dL (8.7-10.4); Carbon Dioxide 26 mmol/L (20-31); Chloride 101 mmol/L (98-107); Potassium 4.6 mmol/L (3.5-5.1); Total Protein 6.7 g/dL (5.7-8.2)
[2024-05-27 12:35] LABS: Albumin 3.5 g/dL (3.2-4.8); Bilirubin, Total 0.2 mg/dL (0.2-1.0); Blood Urea Nitrogen 51 mg/dL (9-23); Glucose 129 mg/dL (74-106); Sodium 135 mmol/L (136-145)
[2024-05-27 13:52] LABS: Basophils # (auto) 0.1 10 ^3/uL (0-0.2); Basophils % (auto) 0.8 % (0.0-2.0); Eosinophils # (auto) 0 10 ^3/uL (0-0.8); Eosinophils % (auto) 0.7 % (0.0-7.0); Hematocrit 33.5 % (36.0-46.0); Hemoglobin 10.9 g/dL (12.2-16.2); Lymphocytes # (auto) 0.7 10 ^3/uL (0.4-5.4); Lymphocytes % (auto) 11.2 % (10.0-50.0); Mean Corpuscular Hemoglobin 29.5 pg (28.0-32.0); Mean Corpuscular Hgb Conc. 32.4 g/dL (32.0-36.0); Mean Corpuscular Volume 90.9 fL (80.0-100.0); Monocytes # (auto) 0.6 10 ^3/uL (0-1.3); Monocytes % (auto) 8.8 % (0.0-12.0); Neutrophils # (auto) 5.1 10 ^3/uL (1.6-8.6); Neutrophils % (auto) 78.5 % (37.0-80.0); Nucleated Red Blood Cells % 0.1 %; Platelet Count (auto) 257 10^3/uL (140-450); Red Blood Cells 3.68 10^6/uL (4.0-5.20); Red Cell Distribution Width 17.4 % (11.8-14.3); White Blood Cell 6.5 10^3/uL (4.4-10.8)
--- NOTE | 2024-05-27 13:59 | ECG ---
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
--- NOTE | 2024-05-27 14:00 | ECG ---
[facility] Test Date: 2024-05-27 Test Time: 04:14:36 Pat Name: BRIAN FAJARDO Department: Respiratoy Room: 0219T B Gender: F Stock Mover: GP : 1935 Requested By: SUKHDEV CORTES Order Number: [id number] Reading MD: Beltran Ruvalcaba Measurements Intervals [place] Rate: 67 P: 46 AL: 183 QRS: -68 QRSD: 66 T: 44 QT: 684 QTc: 723 Interpretive Statements Sinus rhythm Left atrial enlargement Inferior infarct, old Extensive anterior infarct, old Lateral leads are also involved Prolonged QT interval Electronically Signed On 05-28-2024 15:59:39 PST by Beltran Ruvalcaba Please click the below link to view image of tracing.
--- NOTE | 2024-05-27 16:31 | DVHPN2 ---
Progress Note Date Seen: May 27, 2024 Medical Necessity Reason Pt with a Central, PICC or Fol: Yes The following are medically ne: Batista Catheter Subjective Patient reports: Feels better Objective vital signs Vital Sign Date Time Temp Pulse Resp B/P (MAP) Pulse Ox O2 Delivery O2 Flow Rate FiO2 05/27/24 16:00 169/62 05/27/24 13:00 98.2 67 15 95 98.2 05/27/24 08:05 Nasal Cannula* 4 36 Total Intake and Output 05/26/24 05/26/24 05/27/24 15:00 23:00 07:00 Intake Total 200 ml 575 ml Output Total 3000 ml 2150 ml Balance -2800 ml -1575 ml medications Current Medications Medications Dose Ordered Sig/Abundio Route Start Time Stop Time Status Last Admin Dose Admin Ondansetron HCl 4 mg Q4HP PRN IV 05/20/24 16:30 Acetaminophen 650 mg Q6HP PRN PO 05/20/24 16:30 05/21/24 11:27 650 MG Allopurinol 100 mg DAILY PO 05/21/24 10:00 05/27/24 09:42 100 MG Aspirin 81 mg DAILY PO 05/21/24 10:00 05/27/24 09:42 81 MG Pantoprazole Sodium 40 mg DAILY PO 05/21/24 10:00 05/27/24 09:42 40 MG Nifedipine 90 mg DAILY PO 05/21/24 10:00 05/27/24 09:42 90 MG Acetaminophen/ Hydrocodone Bitart 1 tab Q6HPRN PRN PO 05/21/24 15:30 05/24/24 18:30 1 TAB Sodium Chloride 10 ml QSHIFT@10,22 IV 05/22/24 22:00 05/27/24 09:48 10 ML Sodium Bicarbonate 650 mg TID PO 05/23/24 14:00 05/27/24 16:01 650 MG Atorvastatin Calcium 40 mg HS PO 05/25/24 22:00 05/26/24 21:33 40 MG Furosemide 80 mg Q8HR IV 05/25/24 14:15 05/27/24 16:00 80 MG Hydralazine HCl 25 mg Q8HR PO 05/25/24 14:15 05/27/24 16:00 25 MG Isosorbide Mononitrate 60 mg DAILY PO 05/27/24 10:00 05/27/24 09:55 60 MG Carvedilol 12.5 mg BID PO 05/27/24 10:00 05/27/24 09:55 12.5 MG Enoxaparin Sodium 50 mg DAILY SC 05/27/24 10:00 05/27/24 09:56 50 MG Examination: GENERAL:Abnormal, CVS:Abnormal, NEURO:Abnormal laboratory and microbiology Laboratory Tests 05/27/24 13:25 05/27/24 11:02 Test 05/27/24 11:02 Range/Units Serum Glucose 129 H 74-106 mg/dL Problem List/Assessment/Plan Problem List/Assessment/Plan Acute kidney injury on chronic kidney disease stage 4 severe systolic and diastolic HF Hypertensive emergency Hyperkalemia Metabolic acidosis PVD b/l AKA high BP could be misread due to peripheral vascular disease difficult to obtain accurate measurements ( can only measure from 1 arm current which has a superficial clot). Consider [place] for BP measurement if clinical signs of orthostasis or confusion. Low diastolic BP noted, will adjust BP meds per MAP Due to hyperkalemia recommend discontinue oral potassium, discontinue spironolactone. loop diuretic IV reduce to daily cardiology Monitor urinary output via Batista catheter sodium bicarbonate due to metabolic acidosis Renal diet , fluid restriction No emergent indication for hemodialysis however we will require close monitoring oral BP meds tolerate SBP 140-160 Plan discussed with: Patient Dietary Evaluation Review Comments: dietary Protein may be increased to 1.0.-1.2 g/kg BW if pt is back on dialysis. Expected Outcomes/Goals: Improved nutrition status TERRY SMITH MD May 27, 2024 16:31
--- NOTE | 2024-05-27 17:14 | DVHPN2 ---
Subjective 05/27 - Patient was doing well, no shortness a breath, remains on oxygen,. Has some bibasilar rales, bilateral amputation stumps have trace pitting edema. Patient was reporting. Cardiology signing off. Nephrology still evaluating. Decreasing diuresis to IV once daily. Reviewed: Care Plan, H&P, Labs, Medications, Previous Orders, Radiology Changes from previous H/P or p: No Changes Eyes: No Pain, No Vision change, No Conjunctivae inflammation, No Eyelid inflammation, No Other, No Redness ENT: No Ear pain, No Ear discharge, No Nose pain, No Nose discharge, No Nose congestion, No Mouth pain, No Mouth swelling, No Throat pain, No Throat swelling, No Other Cardiovascular: No Chest Pain, No Palpitations, No Orthopnea, No Paroxysmal Noc. Dyspnea, No Edema, No Lt Headedness, No Other Respiratory: Shortness of breath Gastrointestinal: No Nausea, No Vomiting, No Abdominal Pain, No Diarrhea, No Constipation, No Melena, No Hematochezia, No Other Genitourinary: No Dysuria, No Frequency, No Incontinence, No Hematuria, No Retention, No Other Skin: No Rash, No Lesions, No Jaundice, No Bruising, No Other Objective Vitals Vital Signs Date Time Temp Pulse Resp B/P (MAP) Pulse Ox O2 Delivery O2 Flow Rate FiO2 05/27/24 16:00 169/62 05/27/24 13:00 98.2 67 15 95 98.2 05/27/24 08:05 Nasal Cannula* 4 36 Intake/Output Intake and Output 05/27/24 07:00 Intake Total 775 ml Output Total 5150 ml Balance -4375 ml Intake Oral 775 ml Output Urine Total 5150 ml # Bowel Movements 1 Exam remains on oxygen,. Has some bibasilar rales, bilateral amputation stumps have trace pitting edema. General Appearance: Alert, Oriented X3, Cooperative, No acute distress HEENT: Atraumatic, PERRLA, EOMI, Mucous membr. moist/pink Neck: Supple Lungs: Other Cardiovascular: Regular rate, Normal S1, Normal S2, No murmurs, Gallops, Rubs Abdomen: Normal bowel sounds, Soft, No tenderness Musculoskeletal: Other Neuro: Cranial nerves 3-12 NL Psych/Mental Status: Mental status NL Medications Current Medications Medications Dose Ordered Sig/Abundio Route Start Time Stop Time Status Last Admin Dose Admin Ondansetron HCl 4 mg Q4HP PRN IV 05/20/24 16:30 Acetaminophen 650 mg Q6HP PRN PO 05/20/24 16:30 05/21/24 11:27 650 MG Allopurinol 100 mg DAILY PO 05/21/24 10:00 05/27/24 09:42 100 MG Aspirin 81 mg DAILY PO 05/21/24 10:00 05/27/24 09:42 81 MG Pantoprazole Sodium 40 mg DAILY PO 05/21/24 10:00 05/27/24 09:42 40 MG Nifedipine 90 mg DAILY PO 05/21/24 10:00 05/27/24 09:42 90 MG Acetaminophen/ Hydrocodone Bitart 1 tab Q6HPRN PRN PO 05/21/24 15:30 05/24/24 18:30 1 TAB Sodium Chloride 10 ml QSHIFT@10,22 IV 05/22/24 22:00 05/27/24 09:48 10 ML Sodium Bicarbonate 650 mg TID PO 05/23/24 14:00 05/27/24 16:01 650 MG Atorvastatin Calcium 40 mg HS PO 05/25/24 22:00 05/26/24 21:33 40 MG Hydralazine HCl 25 mg Q8HR PO 05/25/24 14:15 05/27/24 16:00 25 MG Isosorbide Mononitrate 60 mg DAILY PO 05/27/24 10:00 05/27/24 09:55 60 MG Carvedilol 12.5 mg BID PO 05/27/24 10:00 05/27/24 09:55 12.5 MG Enoxaparin Sodium 50 mg DAILY SC 05/27/24 10:00 05/27/24 09:56 50 MG Furosemide 80 mg DAILY IV 05/28/24 10:00 Laboratory Results Laboratory Tests 05/27/24 11:02 05/27/24 13:25 Chemistry Test 05/27/24 11:02 Albumin 3.5 g/dL (3.2-4.8) Calcium Level 9.8 mg/dL (8.7-10.4) Total Protein 6.7 g/dL (5.7-8.2) Cardiac Markers Test 05/27/24 13:25 B-Type Natriuretic Peptide 1426.42 pg/mL (0-100) LFT Test 05/27/24 11:02 Alanine Aminotransferase (ALT) 10 U/L (7-40) Alkaline Phosphatase 89 U/L (46-116) Aspartate Amino Transferase (AST) 33 U/L (13-40) Total Bilirubin 0.2 mg/dL (0.2-1.0) Urinalysis Test 05/20/24 16:45 Urine Color Colorless (Yellow) Urine Clarity Clear (Clear) Urine pH 5.5 (5.0-9.0) Urine Specific [place] 1.009 (1.001-1.035) Urine Protein 1+ (Negative) H Urine Ketones Negative (Negative) Urine Blood Negative /uL (Negative) Urine Nitrite Negative (Negative) Urine Bilirubin Negative (Negative) Urine Urobilinogen Normal mg/dL (Negative) Urine Leukocyte Esterase Negative /uL (Negative) Urine RBC 2 /hpf (0 - 4) Urine Microscopic WBC 3 /HPF (0-5) Urine Squamous Epithelial Cells Few /hpf (<5) Urine Bacteria None seen /hpf (None Seen) Urine Glucose Normal mg/dL (Normal) Labs and/or images reviewed: Labs reviewed by me, Image(s) reviewed by me Assessment/Plan Assessment/Plan 05/27 - Patient was doing well, no shortness a breath, remains on oxygen,. Has some bibasilar rales, bilateral amputation stumps have trace pitting edema. Patient was reporting. Cardiology signing off. Nephrology still evaluating. Decreasing diuresis to IV once daily. 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 Nephrology still evaluating. Decreasing diuresis to IV once daily. DVT left subclavia vein noted on US, non occlusive>Lovenox started and can continue using. per vascular non op management unless worsening symptoms Decreasing Lasix IV 80 mg daily per nephrology Monitor urinary output via Batista catheter discontinue oral potassium, discontinue spironolactone. sodium bicarbonate due to metabolic acidosis Renal diet , fluid restriction Plan discussed with: Patient Date of Service: May 27, 2024 Billing Provider: CRISELDA ZALDIVAR MD Common Visit Codes: [id number] INP/OBS CARE(HIGH) CRISELDA ZALDIVAR MD May 27, 2024 17:14
[2024-05-28] VITALS (12 sets, daily range): BP systolic 107–156; BP diastolic 48–64; PULSE 59–125; RESP 15–18; TEMP 98.1–99; O2SAT 93–98
[2024-05-28] MEDS: FUROSEMIDE 40 MG/4 ML VIAL IV SCH (09:31)
[2024-05-28] MEDS ORDERED: POLYETHYLENE GLYCOL 17 GM PWDR PO PRN (09:45)
[2024-05-28] MEDS ORDERED: DOCUSATE CALCIUM 240 MG CAP PO SCH (10:00)
--- NOTE | 2024-05-28 15:08 | DVHPN2 ---
Progress Note Date Seen: May 28, 2024 Medical Necessity Reason Pt with a Central, PICC or Fol: Yes The following are medically ne: Batista Catheter Subjective Patient reports: Feels worse Objective vital signs Vital Sign Date Time Temp Pulse Resp B/P (MAP) Pulse Ox O2 Delivery O2 Flow Rate FiO2 05/28/24 13:00 98.2 125 15 107/48 (67) 93 98.2 05/28/24 11:37 2.0 28 05/28/24 10:55 Nasal Cannula Total Intake and Output 05/27/24 05/27/24 05/28/24 15:00 23:00 07:00 Intake Total 750 ml 400 ml Output Total 2100 ml 1075 ml Balance -1350 ml -675 ml medications Current Medications Medications Dose Ordered Sig/Abundio Route Start Time Stop Time Status Last Admin Dose Admin Ondansetron HCl 4 mg Q4HP PRN IV 05/20/24 16:30 Acetaminophen 650 mg Q6HP PRN PO 05/20/24 16:30 05/21/24 11:27 650 MG Allopurinol 100 mg DAILY PO 05/21/24 10:00 05/28/24 09:33 100 MG Aspirin 81 mg DAILY PO 05/21/24 10:00 05/28/24 09:31 81 MG Pantoprazole Sodium 40 mg DAILY PO 05/21/24 10:00 05/28/24 09:33 40 MG Nifedipine 90 mg DAILY PO 05/21/24 10:00 05/28/24 09:33 90 MG Acetaminophen/ Hydrocodone Bitart 1 tab Q6HPRN PRN PO 05/21/24 15:30 05/27/24 21:57 1 TAB Sodium Chloride 10 ml QSHIFT@10,22 IV 05/22/24 22:00 05/28/24 09:34 10 ML Sodium Bicarbonate 650 mg TID PO 05/23/24 14:00 05/28/24 05:53 650 MG Atorvastatin Calcium 40 mg HS PO 05/25/24 22:00 05/27/24 21:55 40 MG Hydralazine HCl 25 mg Q8HR PO 05/25/24 14:15 05/28/24 05:53 25 MG Isosorbide Mononitrate 60 mg DAILY PO 05/27/24 10:00 05/28/24 09:33 60 MG Carvedilol 12.5 mg BID PO 05/27/24 10:00 05/28/24 09:34 12.5 MG Enoxaparin Sodium 50 mg DAILY SC 05/27/24 10:00 05/28/24 09:34 50 MG Furosemide 80 mg DAILY IV 05/28/24 10:00 05/28/24 09:31 80 MG Polyethylene Glycol 17 gm DAILYPRN PRN PO 05/28/24 09:45 Docusate Calcium 240 mg BID PO 05/28/24 10:00 Cancel Docusate Sodium 100 mg BID PO 05/28/24 22:00 Examination: GENERAL:Abnormal, CVS:Abnormal, ABDOMEN:Abnormal laboratory and microbiology Laboratory Tests 05/27/24 13:25 05/27/24 11:02 Test 05/27/24 11:02 Range/Units Serum Glucose 129 H 74-106 mg/dL Problem List/Assessment/Plan Problem List/Assessment/Plan Acute kidney injury on chronic kidney disease stage 4 severe systolic and diastolic HF Hypertensive emergency Hyperkalemia Metabolic acidosis PVD b/l AKA obtain renal panal loop diuretic IV cardiology Monitor urinary output via Batista catheter sodium bicarbonate due to metabolic acidosis Renal diet , fluid restriction No emergent indication for hemodialysis however we will require close monitoring Plan discussed with: Patient My Orders My Orders Orders - TERRY SMITH MD Procedure Category Date Status Time Furosemide Injection PHA 05/28/24 In Process (Lasix Injection) 10:00 Dietary Evaluation Review Comments: dietary Protein may be increased to 1.0.-1.2 g/kg BW if pt is back on dialysis. Expected Outcomes/Goals: Improved nutrition status TERRY SMITH MD May 28, 2024 15:08
[2024-05-28] MEDS: DOCUSATE SOD 100 MG CAP PO ONE (15:39)
--- NOTE | 2024-05-28 18:08 | DVHPN2 ---
Subjective update 05/28 05/27 - Patient was doing well, no shortness a breath, remains on oxygen,. Has some bibasilar rales, bilateral amputation stumps have trace pitting edema. Patient was reporting. Cardiology signing off. Nephrology still evaluating. Decreasing diuresis to IV once daily. 05/28 - she was appearing well, doing much better. still some rales and still on oxygen. Plan to give more gentle diuresis, per with BiPAP at night, sudden oxygen we will try to wean off, if unable to wean off we will need V/Q scan PE study likely, a.m. dimer and labs Reviewed: Care Plan, H&P, Labs, Medications, Previous Orders, Radiology Changes from previous H/P or p: No Changes General: Per HPI Eyes: No Pain, No Vision change, No Conjunctivae inflammation, No Eyelid inflammation, No Other, No Redness ENT: No Ear pain, No Ear discharge, No Nose pain, No Nose discharge, No Nose congestion, No Mouth pain, No Mouth swelling, No Throat pain, No Throat swelling, No Other Cardiovascular: No Chest Pain, No Palpitations, No Orthopnea, No Paroxysmal Noc. Dyspnea, No Edema, No Lt Headedness, No Other Respiratory: Shortness of breath Gastrointestinal: No Nausea, No Vomiting, No Abdominal Pain, No Diarrhea, No Constipation, No Melena, No Hematochezia, No Other Genitourinary: No Dysuria, No Frequency, No Incontinence, No Hematuria, No Retention, No Other Skin: No Rash, No Lesions, No Jaundice, No Bruising, No Other Objective Vitals Vital Signs Date Time Temp Pulse Resp B/P (MAP) Pulse Ox O2 Delivery O2 Flow Rate FiO2 05/28/24 17:00 99.0 65 15 135/53 (80) 95 99.0 05/28/24 11:37 2.0 28 05/28/24 10:55 Nasal Cannula Intake/Output Intake and Output 05/28/24 07:00 Intake Total 1150 ml Output Total 3175 ml Balance -2025 ml Intake Oral 1150 ml Output Urine Total 3175 ml Exam remains on oxygen,. Has some bibasilar rales, bilateral amputation stumps have trace pitting edema. General Appearance: Alert, Oriented X3, Cooperative, No acute distress HEENT: Atraumatic, PERRLA, EOMI, Mucous membr. moist/pink Neck: Supple Lungs: Other Cardiovascular: Regular rate, Normal S1, Normal S2, No murmurs, Gallops, Rubs Abdomen: Normal bowel sounds, Soft, No tenderness Musculoskeletal: Other Neuro: Cranial nerves 3-12 NL Psych/Mental Status: Mental status NL Medications Current Medications Medications Dose Ordered Sig/Abundio Route Start Time Stop Time Status Last Admin Dose Admin Ondansetron HCl 4 mg Q4HP PRN IV 05/20/24 16:30 Acetaminophen 650 mg Q6HP PRN PO 05/20/24 16:30 05/21/24 11:27 650 MG Allopurinol 100 mg DAILY PO 05/21/24 10:00 05/28/24 09:33 100 MG Aspirin 81 mg DAILY PO 05/21/24 10:00 05/28/24 09:31 81 MG Pantoprazole Sodium 40 mg DAILY PO 05/21/24 10:00 05/28/24 09:33 40 MG Nifedipine 90 mg DAILY PO 05/21/24 10:00 05/28/24 09:33 90 MG Acetaminophen/ Hydrocodone Bitart 1 tab Q6HPRN PRN PO 05/21/24 15:30 05/27/24 21:57 1 TAB Sodium Chloride 10 ml QSHIFT@10,22 IV 05/22/24 22:00 05/28/24 09:34 10 ML Sodium Bicarbonate 650 mg TID PO 05/23/24 14:00 05/28/24 15:39 650 MG Atorvastatin Calcium 40 mg HS PO 05/25/24 22:00 05/27/24 21:55 40 MG Hydralazine HCl 25 mg Q8HR PO 05/25/24 14:15 05/28/24 05:53 25 MG Isosorbide Mononitrate 60 mg DAILY PO 05/27/24 10:00 05/28/24 09:33 60 MG Carvedilol 12.5 mg BID PO 05/27/24 10:00 05/28/24 09:34 12.5 MG Enoxaparin Sodium 50 mg DAILY SC 05/27/24 10:00 05/28/24 09:34 50 MG Furosemide 80 mg DAILY IV 05/28/24 10:00 05/28/24 09:31 80 MG Polyethylene Glycol 17 gm DAILYPRN PRN PO 05/28/24 09:45 Docusate Calcium 240 mg BID PO 05/28/24 10:00 Cancel Docusate Sodium 100 mg BID PO 05/28/24 22:00 Laboratory Results Laboratory Tests 05/27/24 11:02 05/27/24 13:25 Urinalysis Test 05/20/24 16:45 Urine Color Colorless (Yellow) Urine Clarity Clear (Clear) Urine pH 5.5 (5.0-9.0) Urine Specific [place] 1.009 (1.001-1.035) Urine Protein 1+ (Negative) H Urine Ketones Negative (Negative) Urine Blood Negative /uL (Negative) Urine Nitrite Negative (Negative) Urine Bilirubin Negative (Negative) Urine Urobilinogen Normal mg/dL (Negative) Urine Leukocyte Esterase Negative /uL (Negative) Urine RBC 2 /hpf (0 - 4) Urine Microscopic WBC 3 /HPF (0-5) Urine Squamous Epithelial Cells Few /hpf (<5) Urine Bacteria None seen /hpf (None Seen) Urine Glucose Normal mg/dL (Normal) Labs and/or images reviewed: Labs reviewed by me, Image(s) reviewed by me Assessment/Plan Assessment/Plan 05/28 - she was appearing well, doing much better. still some rales and still on oxygen. Plan to give more gentle diuresis, per with BiPAP at night, sudden oxygen we will try to wean off, if unable to wean off we will need V/Q scan PE study likely, a.m. 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 -Nephrology still evaluating. Decreasing diuresis to IV once daily. -DVT left subclavia vein noted on US, non occlusive>Lovenox started and can continue using. per vascular non op management unless worsening symptoms -Decreasing Lasix IV 80 mg daily per nephrology -Monitor urinary output via Batista catheter - discontinue oral potassium, discontinue spironolactone. -sodium bicarbonate due to metabolic acidosis -Renal diet , fluid restriction -Plan to give more gentle diuresis, per with BiPAP at night, sudden oxygen we will try to wean off, if unable to wean off we will need V/Q scan PE study likely, a.m. dimer and labs Plan discussed with: Patient My Orders Orders - CRISELDA ZALDIVAR MD Procedure Category Date Status Time * Dietary Consult CONS 05/28/24 Transmitted 08:18 Pt Request For Service PT 05/28/24 Logged 09:43 Polyethylene Glycol PHA 05/28/24 In Process 17g Powder (Miralax 09:45 Docusate Sodium PHA 05/28/24 In Process Capsule (Colace 22:00 BIPAP RT 05/28/24 Logged 10:07 Date of Service: May 28, 2024 Billing Provider: CRISELDA ZALDIVAR MD Common Visit Codes: [id number] INP/OBS CARE(HIGH) CRISELDA ZALDIVAR MD May 28, 2024 18:08
[2024-05-28] MEDS: DOCUSATE SOD 100 MG CAP PO SCH (23:35)
[2024-05-29] VITALS (8 sets, daily range): BP systolic 134–152; BP diastolic 49–75; PULSE 61–120; RESP 16–20; TEMP 97.5–98.2; O2SAT 95–99
[2024-05-29 07:23] LABS: Basophils # (auto) 0 10 ^3/uL (0-0.2); Basophils % (auto) 0.6 % (0.0-2.0); Eosinophils # (auto) 0.1 10 ^3/uL (0-0.8); Eosinophils % (auto) 1.4 % (0.0-7.0); Hematocrit 36.8 % (36.0-46.0); Lymphocytes % (auto) 14.6 % (10.0-50.0); Mean Corpuscular Hemoglobin 29.5 pg (28.0-32.0); Mean Corpuscular Hgb Conc. 32.6 g/dL (32.0-36.0); Mean Corpuscular Volume 90.4 fL (80.0-100.0); Monocytes # (auto) 0.9 10 ^3/uL (0-1.3); Monocytes % (auto) 12.6 % (0.0-12.0); Neutrophils # (auto) 4.8 10 ^3/uL (1.6-8.6); Neutrophils % (auto) 70.8 % (37.0-80.0); Platelet Count (auto) 272 10^3/uL (140-450); Red Blood Cells 4.07 10^6/uL (4.0-5.20); Red Cell Distribution Width 16.8 % (11.8-14.3); White Blood Cell 6.8 10^3/uL (4.4-10.8)
[2024-05-29 07:37] LABS: Sodium 140 mmol/L (136-145)
[2024-05-29 07:38] LABS: Anion Gap 11 (5-15); Calcium 9.7 mg/dL (8.7-10.4)
[2024-05-29 07:40] LABS: Carbon Dioxide 31 mmol/L (20-31); Chloride 98 mmol/L (98-107); Potassium 2.9 mmol/L (3.5-5.1)
[2024-05-29 07:43] LABS: BUN/Creatinine Ratio 32.5 (10.0-20.0); Glucose 103 mg/dL (74-106)
[2024-05-29 07:47] LABS: Blood Urea Nitrogen 65 mg/dL (9-23)
[2024-05-29] MEDS: POTASSIUM CHLORIDE 40 MEQ, LIDOCAINE 1% (LOCAL ANESTH.) 4 ML in SODIUM CHL 0.9% 250 ML IV ONE (08:45)
--- NOTE | 2024-05-29 13:14 | DVHPN2 ---
Progress Note Date Seen: May 29, 2024 Medical Necessity Reason Pt with a Central, PICC or Fol: Yes The following are medically ne: Batista Catheter Subjective Review of Systems: HEENT:Normal Objective vital signs Vital Sign Date Time Temp Pulse Resp B/P (MAP) Pulse Ox O2 Delivery O2 Flow Rate FiO2 05/29/24 13:00 97.5 65 16 152/72 (98) 99 97.5 05/29/24 08:00 Nasal Cannula* 2 28 Total Intake and Output 05/28/24 05/28/24 05/29/24 15:00 23:00 07:00 Intake Total 360 ml 680 ml Output Total 1350 ml 950 ml Balance -990 ml -270 ml medications Current Medications Medications Dose Ordered Sig/Abundio Route Start Time Stop Time Status Last Admin Dose Admin Ondansetron HCl 4 mg Q4HP PRN IV 05/20/24 16:30 Acetaminophen 650 mg Q6HP PRN PO 05/20/24 16:30 05/21/24 11:27 650 MG Allopurinol 100 mg DAILY PO 05/21/24 10:00 05/29/24 09:58 100 MG Aspirin 81 mg DAILY PO 05/21/24 10:00 05/29/24 09:57 81 MG Pantoprazole Sodium 40 mg DAILY PO 05/21/24 10:00 05/29/24 10:01 40 MG Nifedipine 90 mg DAILY PO 05/21/24 10:00 05/29/24 09:58 90 MG Acetaminophen/ Hydrocodone Bitart 1 tab Q6HPRN PRN PO 05/21/24 15:30 05/27/24 21:57 1 TAB Sodium Chloride 10 ml QSHIFT@10,22 IV 05/22/24 22:00 05/29/24 10:11 10 ML Sodium Bicarbonate 650 mg TID PO 05/23/24 14:00 05/29/24 06:34 650 MG Atorvastatin Calcium 40 mg HS PO 05/25/24 22:00 05/28/24 23:34 40 MG Hydralazine HCl 25 mg Q8HR PO 05/25/24 14:15 05/29/24 06:34 25 MG Isosorbide Mononitrate 60 mg DAILY PO 05/27/24 10:00 05/29/24 09:57 60 MG Carvedilol 12.5 mg BID PO 05/27/24 10:00 05/29/24 10:01 12.5 MG Enoxaparin Sodium 50 mg DAILY SC 05/27/24 10:00 05/29/24 10:05 50 MG Furosemide 80 mg DAILY IV 05/28/24 10:00 05/29/24 10:10 80 MG Polyethylene Glycol 17 gm DAILYPRN PRN PO 05/28/24 09:45 Docusate Calcium 240 mg BID PO 05/28/24 10:00 Cancel Docusate Sodium 100 mg BID PO 05/28/24 22:00 05/29/24 09:59 100 MG Examination: GENERAL:Abnormal, CVS:Normal, ABDOMEN:Normal, MSK:Abnormal laboratory and microbiology Laboratory Tests 05/29/24 06:47 Test 05/29/24 06:47 Range/Units Serum Glucose 103 74-106 mg/dL Problem List/Assessment/Plan Problem List/Assessment/Plan 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
--- NOTE | 2024-05-29 15:34 | DVHDS2 ---
Discharge Summary Date of Admission May 20, 2024 at 16:21 Date of Discharge: May 29, 2024 Labs/Diagnostic Data: Laboratory Results Test 05/29/24 06:47 05/28/24 19:30 05/27/24 13:25 05/27/24 11:02 White Blood Count 6.8 10^3/uL (4.4-10.8) Red Blood Count 4.07 10^6/uL (4.0-5.20) Hemoglobin 12.0 g/dL (12.2-16.2) Hematocrit 36.8 % (36.0-46.0) Mean Corpuscular Volume 90.4 fL (80.0-100.0) Mean Corpuscular Hemoglobin 29.5 pg (28.0-32.0) Mean Corpuscular Hemoglobin Concent 32.6 g/dL (32.0-36.0) Red Cell Distribution Width 16.8 % (11.8-14.3) Platelet Count 272 10^3/uL (140-450) Mean Platelet Volume 9.1 fL (6.9-10.8) Neutrophils (%) (Auto) 70.8 % (37.0-80.0) Lymphocytes (%) (Auto) 14.6 % (10.0-50.0) Monocytes (%) (Auto) 12.6 % (0.0-12.0) Eosinophils (%) (Auto) 1.4 % (0.0-7.0) Basophils (%) (Auto) 0.6 % (0.0-2.0) Neutrophils # (Auto) 4.8 10 ^3/uL (1.6-8.6) Lymphocytes # (Auto) 1.0 10 ^3/uL (0.4-5.4) Monocytes # (Auto) 0.9 10 ^3/uL (0-1.3) Eosinophils # (Auto) 0.1 10 ^3/uL (0-0.8) Basophils # (Auto) 0 10 ^3/uL (0-0.2) Nucleated Red Blood Cells 0.0 % Sodium Level 140 mmol/L (136-145) Potassium Level 2.9 mmol/L (3.5-5.1) Chloride Level 98 mmol/L (98-107) Carbon Dioxide Level 31 mmol/L (20-31) Anion Gap 11 (5-15) Blood Urea Nitrogen 65 mg/dL (9-23) Creatinine 2.00 mg/dL (0.550-1.02) Glomerular Filtration Rate Calc 24 mL/min (>90) BUN/Creatinine Ratio 32.5 (10.0-20.0) Serum Glucose 103 mg/dL (74-106) Calcium Level 9.7 mg/dL (8.7-10.4) D-Dimer, Quantitative 1.63 mg/L FEU (0.0-0.49) B-Type Natriuretic Peptide 1426.42 pg/mL (0-100) Total Bilirubin 0.2 mg/dL (0.2-1.0) Aspartate Amino Transferase (AST) 33 U/L (13-40) Alanine Aminotransferase (ALT) 10 U/L (7-40) Alkaline Phosphatase 89 U/L (46-116) Total Protein 6.7 g/dL (5.7-8.2) Albumin 3.5 g/dL (3.2-4.8) Test 05/26/24 13:24 05/25/24 10:33 05/23/24 20:10 05/23/24 07:29 Differential Total Cells Counted 100.0 (100) Neutrophils % (Manual) 82 (37.0-80.0) Band Neutrophils % (Manual) 3 Lymphocytes % (Manual) 11 (10.0-50.0) Monocytes % (Manual) 4 (0-12) Eosinophils % (Manual) 0 (0-7) Basophils % (Manual) 0 (0.0-2.0) Metamyelocytes % (manual) 0 Myelocytes % (Manual) 0 Promyelocytes % (Manual) 0 Blast Cells % (Manual) 0 Reactive Lymphocytes 0 Platelet Estimate Adequate Clumped Platelets Few Phosphorus Level 4.5 mg/dL (2.4-5.1) Magnesium Level 1.9 mg/dL (1.6-2.6) Serum Immunoglobulin G 1064 mg/dL (586-1602) Globulin (PEP) 2.8 g/dL (2.2-3.9) Albumin/Globulin Ratio 0.8 (0.7-1.7) Nubit-9-Jrpofxwab 0.3 g/dL (0.0-0.4) Hvxzt-2-Zkpgturus 0.6 g/dL (0.4-1.0) Beta Globulins 0.9 g/dL (0.7-1.3) Gamma Globulins 1.1 g/dL (0.4-1.8) Protein Electrophoresis M-Ethan Not observed g/dL (Not Protein Electrophoresis Note Comment (.) Immunoglobulin A 318 mg/dL (64-422) Immunoglobulin M 81 mg/dL (26-217) Serum Immunofixation Comment (.) Hemoglobin A1c 5.0 % A1C (<5.7) Triglycerides Level 46 mg/dL (< 150) Cholesterol Level 136 mg/dL (< 200) LDL Cholesterol 74 mg/dL (< 100) HDL Cholesterol 50 mg/dL (40-59) Thyroid Stimulating Hormone (TSH) 2.11 uIU/mL (0.55-4.78) Test 05/22/24 07:32 05/21/24 16:31 05/20/24 22:18 05/20/24 16:45 POC Glucose 104 mg/dl (70-106) Prothrombin Time 11.6 sec (9.3-11.8) Prothrombin Time INR 1.11 (0.9-1.15) Activated Partial Thromboplast Time 27.7 SEC (24.5-34.5) Troponin I High Sensitivity 101 ng/L (</=34) Urine Color Colorless (Yellow) Urine Clarity Clear (Clear) Urine pH 5.5 (5.0-9.0) Urine Specific [place] 1.009 (1.001-1.035) Urine Protein 1+ (Negative) Urine Ketones Negative (Negative) Urine Blood Negative /uL (Negative) Urine Nitrite Negative (Negative) Urine Bilirubin Negative (Negative) Urine Urobilinogen Normal mg/dL (Negative) Urine Leukocyte Esterase Negative /uL (Negative) Urine RBC 2 /hpf (0 - 4) Urine Microscopic WBC 3 /HPF (0-5) Urine Squamous Epithelial Cells Few /hpf (<5) Urine Bacteria None seen /hpf (None Seen) Urine Glucose Normal mg/dL (Normal) Other Laboratory Tests 05/29/24 06:47 Brief Hx & Hospital Course: HPI: 88-year-old female with past medical history of CAD, GA, hypertension, COPD, CKD, CHF, breast cancer with a right mastectomy, appendectomy, bilateral AKA, hysterectomy, and tonsillectomy who presents to the ED for SOB x5 days. Patient states that it is difficult for her to lay down without being short of breath. She also reports that she does not use home oxygen. She is currently on 2 L nasal cannula. Patient also reports that she quit smoking and drinking and denies illicit drug use. Patient denies any chest pain, abdominal pain, nausea, vomiting, diarrhea, fever, chills, recent sick contacts, recent trauma or injury, lightheadedness, and dizziness. Patient also reports that she uses a scooter to mobilize. Summary: Patient presented with clinically volume overloaded, with a type 2 NSTEMI from volume overload troponinemia, BNP 3200. She has also acute hypoxic respiratory failure requiring nasal cannula to maintain saturations. Patient started on IV this is diuresis, continue home meds, consulted Cardiology, Nephrology,. Later she was found to have a DVT left subclavian and anticoagulation started. Diuresis is increased to 80 TID with significant urine output and eventually as clinically improved decreased to p.o. 40 Lasix. Patient is tried on BiPAP and some Lasix on 05/28 to help patient wean off oxygen. Patient is weaned off oxygen and is euvolemic on 05/29, safe for discharge with the plan below. 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 Patient was counseled about treatment plan, medications, possible side effects, patientverbalized understanding. All questions were answered to the best of my ability. This discharge took greater then 30 minutes in planning, reviewing documentation, counseling the patient, and discussing with other team members." ASSESSMENT ASSESSMENT Assessment Date of Service: May 29, 2024 Billing Provider: CRISELDA ZALDIVAR MD Common Visit Codes: [id number] DISCH DAY >30min CRISELDA ZALDIVAR MD May 29, 2024 15:34
[2024-05-29] MEDS ORDERED: SODI650T PO (15:38)
[2024-05-29] MEDS ORDERED: HYDR25TA87 PO (15:38)
[2024-05-29] MEDS ORDERED: ISO60SRT PO (15:38)
[2024-05-29] MEDS ORDERED: APIX5TAB PO (15:43)
== END 2024-05-29 20:30 | disposition home or self-care (01) | DRG 280 ==
LOC: EDBD 13:41 → ER 13:41 → OVERFLOW 16:21 → CENTRAL 05-25 04:00 → TELE-CENTR 05-27 02:24
PROVIDERS: ADMIT Student in an Organized Health Care Education/Training Program; ATTEND Student in an Organized Health Care Education/Training Program
PROC: 02HV33Z Insertion of Infusion Device into Superior Vena Cava, Percutaneous Approach (ICD-10-PCS; principal; 2024-05-22)
PROC: B548ZZA Ultrasonography of Superior Vena Cava, Guidance (ICD-10-PCS; 2024-05-22)
PROC: 5A09357 Assistance with Respiratory Ventilation, Less than 24 Consecutive Hours, Continuous Positive Airway Pressure (ICD-10-PCS; 2024-05-28)
DX: I13.2 Hypertensive heart and chronic kidney disease with heart failure and with stage 5 chronic kidney disease, or end stage renal disease (principal); I50.43 Acute on chronic combined systolic (congestive) and diastolic (congestive) heart failure; I21.A1 Myocardial infarction type 2; J96.01 Acute respiratory failure with hypoxia; I16.1 Hypertensive emergency; N17.9 Acute kidney failure, unspecified; I82.B12 Acute embolism and thrombosis of left subclavian vein; E87.20 Acidosis, unspecified; I82.A12 Acute embolism and thrombosis of left axillary vein; J44.9 Chronic obstructive pulmonary disease, unspecified; J98.4 Other disorders of lung; E78.5 Hyperlipidemia, unspecified; I25.10 Atherosclerotic heart disease of native coronary artery without angina pectoris; K21.9 Gastro-esophageal reflux disease without esophagitis; D63.1 Anemia in chronic kidney disease; E87.5 Hyperkalemia; I27.20 Pulmonary hypertension, unspecified; Z91.199 Patient's noncompliance with other medical treatment and regimen due to unspecified reason; Z99.2 Dependence on renal dialysis; Z83.3 Family history of diabetes mellitus; Z86.73 Personal history of transient ischemic attack (TIA), and cerebral infarction without residual deficits; Z90.11 Acquired absence of right breast and nipple; N18.30 Chronic kidney disease, stage 3 unspecified; Z90.710 Acquired absence of both cervix and uterus; Z87.891 Personal history of nicotine dependence; Z89.511 Acquired absence of right leg below knee; Z89.612 Acquired absence of left leg above knee; Z89.611 Acquired absence of right leg above knee; Z85.3 Personal history of malignant neoplasm of breast; Z82.49 Family history of ischemic heart disease and other diseases of the circulatory system; Z79.899 Other long term (current) drug therapy; Z79.82 Long term (current) use of aspirin; I73.9 Peripheral vascular disease, unspecified
CPT/HCPCS: 36415; 36569; 71045; 76937; 80048; 80053; 80061; 81001; 82784; 82962; 83036; 83735; 83880; 84100; 84155; 84165; 84443; 84484; 85007; 85025; 85027; 85379; 85610; 85730; 86334; 93005; 93306; 93971; 93975; 94660; 96365; 96375; 97163; 99291; 99292; G0378; J2003; J2543

== ENCOUNTER 2024-07-04 15:47 | Inpatient (IN) | payer OTHER ==
[~2024-07-04] VITALS: Ht 162.6 cm; Wt 65.3 kg
[~2024-07-04 15:47] MED LIST changes: +APIX5TAB PO; -AZIT-185 PO; +FERR325T20 PO; +HYDR25TA87 PO; +ISO60SRT PO; +NIFE1TAB30 PO; +POTA-180 PO; -POTA8TAB38 PO; +SODI650T PO; -SPIR25TA PO
[2024-07-04] MEDS ORDERED: FURO40TA4 PO (16:33)
--- NOTE | 2024-07-04 16:48 | ECG ---
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
[2024-07-04 17:15] LABS: Basophils # (auto) 0 10 ^3/uL (0-0.2); Basophils % (auto) 0.7 % (0.0-2.0); Eosinophils # (auto) 0.1 10 ^3/uL (0-0.8); Monocytes # (auto) 0.5 10 ^3/uL (0-1.3); Neutrophils # (auto) 3.2 10 ^3/uL (1.6-8.6); Platelet Count (auto) 210 10^3/uL (140-450); White Blood Cell 5.1 10^3/uL (4.4-10.8)
[2024-07-04 17:17] LABS: Eosinophils % (auto) 2.2 % (0.0-7.0); Hematocrit 35.5 % (36.0-46.0); Lymphocytes # (auto) 1.2 10 ^3/uL (0.4-5.4); Lymphocytes % (auto) 23.6 % (10.0-50.0); Mean Corpuscular Hgb Conc. 30.9 g/dL (32.0-36.0); Monocytes % (auto) 10.6 % (0.0-12.0); Neutrophils % (auto) 62.9 % (37.0-80.0); Nucleated Red Blood Cells % 0.1 %; Red Blood Cells 3.78 10^6/uL (4.0-5.20); Red Cell Distribution Width 19.2 % (11.8-14.3)
--- NOTE | 2024-07-04 17:18 | ED.PDOC ---
History of Present Illness HPI Comments This is an 89-year-old female who comes in with chief complaint of shortness a breath with some abdominal distention. The patient comes from home after the rabbit breeder called and stated that she seemed to be somewhat short of breath. She denies any vomiting or diarrhea. There has been no fever or chills. EN route, the patient had an oxygen saturation of 92%. She does have a history of COPD as well as CHF. She denies any chest pain, nausea, vomiting or diarrhea. Upon arrival she was able to give us her medical history. He is currently bed ridden so the shortness for breath is at rest at this time. She denies any fever or productive cough. Chief Complaint: Abdominal Pain Time Seen by MD: 16:00 Primary Care Provider: DARIUSZ Lucero Notes: Nurses Notes, Branch Controller Notes, Medications, Allergies (No allergies to medications) Allergies: Coded Allergies: NO KNOWN ALLERGIES (Unverified , 05/28/23) Home Meds Active Scripts Apixaban Base (ELIQUIS) 5 Mg Tab, 2.5 MG PO BID for 90 Days, #30 TAB 2 Refills Prov:CRISELDA ZALDIVAR MD 05/29/24 Hydralazine HCl (Hydralazine HCl) 25 Mg Tab, 25 MG PO Q8HR for 30 Days, #90 TAB 0 Refills Prov:CRISELDA ZALDIVAR MD 05/29/24 Isosorbide Mononitrate (Isosorbide Mononitrate ER) 60 Mg Tab, 60 MG PO DAILY for 30 Days, #30 TAB 0 Refills Prov:CRISELDA ZALDIVAR MD 05/29/24 Sodium Bicarbonate (Sodium Bicarbonate) 650 Mg Tab, 650 MG PO TID for 30 Days, #90 TAB 0 Refills Prov:CRISELDA ZALDIVAR MD 05/29/24 Empagliflozin (Jardiance) 10 Mg Tab, 10 MG PO DAILY for 30 Days, #30 TAB Prov:RITA AVILA RESIDENT 10/21/23 Furosemide (Lasix) 40 Mg Tab, 40 MG PO DAILY for 15 Days, #15 TAB Prov:SAMSON ODOM DO 05/31/23 Reported Medications Ferrous Sulfate (Ferosul) 325 Mg Tab, 1 TAB PO 05/20/24 Allopurinol (Allopurinol) 100 Mg Tab, 100 MG PO DAILY, MG 05/29/23 Pantoprazole Sodium Sesquihydr (Protonix) 40 Mg Tab, 40 MG PO DAILY, TAB 05/29/23 Aspirin (Aspirin Low Dose) 81 Mg Tab, 81 MG PO DAILY, TAB 05/28/23 Simvastatin (Simvastatin) 20 Mg Tab, 1 TAB PO HS 05/28/23 Carvedilol (Carvedilol) 6.25 Mg Tab, 1 TAB PO BID 05/28/23 Nifedipine (Nifedipine Er) 90 Mg Tab, 1 TAB PO DAILY 05/28/23 Fluoxetine Hcl (FLUOXETINE HCL) 60 Mg Tab, 1 TAB PO QAM 05/28/23 Information Source: Patient, Emergency Med Personnel Mode of Arrival: EMS Severity: Moderate Timing: Days Duration: Since onset Prehospital treatment: Deputy Head Past Medical History PAST MEDICAL HISTORY: Cancer, CHF, ESRD, GERD, HTN, [place] Surgical History: Appendectomy, AKA, Hysterectomy, Tonsillectomy Family History Family History: Reviewed,noncontributory to illness Social History Smoker: Quit Greater Than 1 Year, Cigarettes Alcohol: Denies ETOH Use Drugs: Denies Drug Use Lives In: Home Physical Exam General Appearance: Moderate Distress HEENT: Normal ENT Inspection, Pharynx Normal, TMs Normal Neck: Full Range of Motion, Non-Tender, Normal, Normal Inspection Respiratory: Chest Non-Tender, Lungs Clear, No Accessory Muscle Use, No Respiratory Distress, Normal Breath Sounds Cardiovascular: No Edema, No JVD, No Murmur, No Gallop, Tachycardia Breast Exam: Deferred Gastrointestinal: No Organomegaly, Non Tender, No Pulsatile Mass, Normal Bowel Sounds, Soft Genitalia: Deferred Pelvic: Deferred Rectal: Deferred Extremities: No calf tenderness, Normal capillary refill, Other (Bilateral AKA) Musculoskeletal : Apperance: Normal Neurologic: Alert, research assoc II-XII nml as Tested, No Motor Deficits, Normal Affect, Normal Mood, No Sensory Deficits Cerebellar Function: Normal Reflexes: Normal Skin: Dry, Normal Color, Warm Lymphatic: No Adenopathy Was a procedure done? Was a procedure done?: No EKG EKG : Pulse Rate (adult): 124 Remus: Normal Cardiac Rhythm: ST Block: None ST: Nonsp Differential Dx Considerations may include: Acute on chronic diastolic heart failure, generalized weakness, electrolyte imbalance X-Ray, Labs, Meds, VS Vital Signs Date Time Temp Pulse Resp B/P (MAP) Pulse Ox O2 Delivery O2 Flow Rate FiO2 07/04/24 19:53 99.1 63 20 158/70 (99) 84 99.1 07/04/24 16:14 124 07/04/24 16:05 98.3 125 22 174/98 (123) 92 98.3 Lab Test 07/04/24 16:50 Range/Units White Blood Count 5.1 4.4-10.8 10^3/uL Red Blood Count 3.78 L 4.0-5.20 10^6/uL Hemoglobin 11.0 L 12.2-16.2 g/dL Hematocrit 35.5 L 36.0-46.0 % Mean Corpuscular Volume 94.0 80.0-100.0 fL Mean Corpuscular Hemoglobin 29.0 28.0-32.0 pg Mean Corpuscular Hemoglobin Concent 30.9 L 32.0-36.0 g/dL Red Cell Distribution Width 19.2 H 11.8-14.3 % Platelet Count 210 140-450 10^3/uL Mean Platelet Volume 8.6 6.9-10.8 fL Neutrophils (%) (Auto) 62.9 37.0-80.0 % Lymphocytes (%) (Auto) 23.6 10.0-50.0 % Monocytes (%) (Auto) 10.6 0.0-12.0 % Eosinophils (%) (Auto) 2.2 0.0-7.0 % Basophils (%) (Auto) 0.7 0.0-2.0 % Neutrophils # (Auto) 3.2 1.6-8.6 10 ^3/uL Lymphocytes # (Auto) 1.2 0.4-5.4 10 ^3/uL Monocytes # (Auto) 0.5 0-1.3 10 ^3/uL Eosinophils # (Auto) 0.1 0-0.8 10 ^3/uL Basophils # (Auto) 0 0-0.2 10 ^3/uL Nucleated Red Blood Cells 0.1 % Sodium Level 142 136-145 mmol/L Potassium Level 4.3 3.5-5.1 mmol/L Chloride Level 112 H 98-107 mmol/L Carbon Dioxide Level 19 L 20-31 mmol/L Anion Gap 11 5-15 Blood Urea Nitrogen 44 H 9-23 mg/dL Creatinine 1.57 H 0.550-1.02 mg/dL Glomerular Filtration Rate Calc 32 >90 mL/min BUN/Creatinine Ratio 28.0 H 10.0-20.0 Serum Glucose 110 H 74-106 mg/dL Calcium Level 9.1 8.7-10.4 mg/dL Troponin I High Sensitivity 136 *H </=34 ng/L B-Type Natriuretic Peptide 2275.42 0-100 pg/mL Current Medications Medications (Trade) Dose Ordered Sig/Abundio Route Start Time Stop Time Status Last Admin Methylprednisolone Sodium Succinate (Solu Medrol) 125 mg ONCE ONCE IV 07/04/24 16:30 07/04/24 16:31 DC 07/04/24 19:55 The chest x-ray shows: IMPRESSION: 1. CHRONIC INTERSTITIAL CHANGES AND CARDIOMEGALY. The patient was given Solu-Medrol 125 mg IV push The BNP is elevated at 2275.42 The troponin level is elevated 136 The BUN and creatinine are also elevated The patient was CBC shows mild anemia The patient was being admitted at this time Images Reviewed?: Images reviewed and evaluated by me Time of 1ST Reevaluation: 21:21 Reevaluation 1ST: Unchanged Patient Education/Counseling: Diagnosis, Treatment, Prognosis Family Education/Counseling: No Family Present Departure 1 Departure Time of Disposition: 21:19 Impression: Primary Impression: Acute on chronic diastolic heart failure Additional Impression: Elevated troponin Disposition: ADMITTED INPATIENT Admit to: [facility] Condition: Fair Critical Care Note Critical Care Time?: Yes (35 min-critical care time only) Stability Stability form required: Yes Unstable for transfer: Telemetry monitoring (Telemetry monitoring required), ED Physician Assesment (Clinical assesment) Heart Score Heart Score: Heart Score Response (Comments) Value History N/A 0 EKG N/A 0 Age N/A 0 Risk Factors N/A 0 Troponin N/A 0 Total 0 HARDIK RIGGINS MD Jul 04, 2024 17:18
[2024-07-04 17:24] LABS: Potassium 4.3 mmol/L (3.5-5.1); Sodium 142 mmol/L (136-145)
[2024-07-04 17:25] LABS: Anion Gap 11 (5-15); Calcium 9.1 mg/dL (8.7-10.4)
[2024-07-04 17:29] LABS: Carbon Dioxide 19 mmol/L (20-31); Chloride 112 mmol/L (98-107)
[2024-07-04 17:31] LABS: Blood Urea Nitrogen 44 mg/dL (9-23); Glucose 110 mg/dL (74-106)
[2024-07-04] MEDS: methylPREDNISolone SOD SUCC 125 MG/2 ML VL IV ONE (19:55)
--- NOTE | 2024-07-04 20:39 | DVH ---
CHEST RADIOGRAPH Indication: sob Technique: Single frontal view of the chest was obtained Comparison: XY CHEST XRAY 1 VIEW on DOS: 05/22/24, XY CHEST PORTABLE on DOS: 05/20/24, XY CHEST PORTABL E on DOS: 02/18/24 FINDINGS: SINGLE FRONTAL VIEW OF THE CHEST WAS COMPARED TO PRIOR STUDY OF APRIL 2024. PATIENT HAS CARDIOMEGALY, PROMINENT PULMONARY ARTERIES AND CHRONIC INTERSTITIAL CHANGES. FOLLOW-UP CT EXAMINATION OF THE CHEST IS SUGGESTED. AND CARDIAC ECHO IMPRESSION: 1. CHRONIC INTERSTITIAL CHANGES AND CARDIOMEGALY.
[2024-07-04 23:00] VITALS: PULSE 62; RESP 23; O2SAT 90
[2024-07-05] MEDS: FUROSEMIDE 40 MG/4 ML VIAL IV ONE (01:14)
[2024-07-05 02:08] LABS: COVID19 ANTIGEN SOFIA FIA NEGATIVE (NEGATIVE); Rapid Influenza A Negative (Negative); Rapid Influenza B Negative (Negative)
[2024-07-05] MEDS ORDERED: NITROGLYCERIN 0.4 MG SL TAB SL PRN (02:30)
[2024-07-05] MEDS ORDERED: DOCUSATE SOD 100 MG CAP PO PRN (02:30)
[2024-07-05] MEDS ORDERED: MORPHINE SULFATE INJ 2 MG/ml SYRG IV PRN ×2 (02:30)
[2024-07-05] MEDS ORDERED: ONDANSETRON HCL 4 MG/2 ML VIAL IV PRN (02:30)
[2024-07-05] MEDS: NIFEdipine ER 30 MG TAB PO ONE (03:07)
[2024-07-05] MEDS ORDERED: CARV25TA55 PO (03:45)
[2024-07-05 04:10] LABS: Urine Bacteria FEW /hpf (None Seen); Urine Blood Negative /uL (Negative); Urine Clarity Clear (Clear); Urine Color Light-Yellow (Yellow); Urine Protein, UAD 2+ (Negative); Urine Specific Gravity 1.014 (1.001-1.035); Urine Squamous Epithelial Cell FEW /hpf (<5); Urine Urobilinogen Normal (Negative); Urine WBC 18 /HPF (0-5); Urine WBC Clumps PRESENT /hpf (None Seen)
[2024-07-05] MEDS: hydrALAZINE HCL 20 MG/ML VL IV PRN (04:18)
--- NOTE | 2024-07-05 05:43 | DVHHPRES ---
History of Present Illness Resident Creating Document: EVELYN AVITIA RESIDENT History of Present Illness Harini Soni, an 88-year-old female with a complex medical history including coronary artery disease (CAD), myocardial infarction ([place]), hypertension, chronic obstructive pulmonary disease (COPD), chronic kidney disease (CKD), congestive heart failure (CHF), and breast cancer (status post right mastectomy), presented to the emergency department with shortness of breath for five days. She finds it difficult to lie down without experiencing breathlessness and is currently on 2 liters of oxygen via nasal cannula. She has quit smoking and drinking, denies illicit drug use, and reports no chest pain, abdominal pain, or other acute symptoms. Her past surgical history includes appendectomy, hysterectomy, bilateral qhnfx-vtd-ypvu amputation, and tonsillectomy. She uses a scooter for mobility and lives with her family. Past Medical History CAD, CHF, HTN, [place] COPD CKD Breast cancer Past Surgical History Appendectomy, Hysterectomy, Mastectomy, Other (Bilateral emkef-sik-rmfu amputation), Tonsillectomy Family History Other (Sisters with end-stage renal disease) Smoke: Quit ALCOHOL: none Drugs: None Lives: with Family Review of Systems Constitutional: Yes: Malaise; No: Fever, Chills, Sweats, Weakness, Other Eyes: No: Pain, Vision change, Conjunctivae inflammation, Eyelid inflammation, Other, Redness ENT: No: Ear pain, Ear discharge, Nose pain, Nose discharge, Nose congestion, Mouth pain, Mouth swelling, Throat pain, Throat swelling, Other Respiratory: Cough, Dry, Shortness of breath, SOB with excertion; No: Wheezing, Hemoptysis, Pleuritic Pain, Sputum, Wheezing, Other Cardiovascular: No: Chest Pain, Palpitations, Orthopnea, Paroxysmal Noc. Dyspn ea, Edema, Lt Headedness, Other Gastrointestinal: Abdominal Pain, Diarrhea, Constipation, Melena, Hematochezia, Other; No: Nausea, Vomiting Genitourinary: No Dysuria, No Frequency, No Incontinence, No Hematuria, No Retention, No Other Musculoskeletal: No: other, neck pain, shoulder pain, arm pain, back pain, hand pain, leg pain, foot pain Skin: No: Rash, Lesions, Jaundice, Bruising, Other Neurological: No: Weakness, Numbness, Incoordination, Change in speech, Confusion, Seizures, Other Allergies: Coded Allergies: NO KNOWN ALLERGIES (Unverified , 05/28/23) Medications Current Medications Medications Dose Ordered Sig/Abundio Route Start Time Stop Time Status Last Admin Dose Admin Ondansetron HCl 4 mg Q4HP PRN IV 07/05/24 02:30 Docusate Sodium 100 mg BIDPRN PRN PO 07/05/24 02:30 Enoxaparin Sodium 30 mg DAILY SC 07/05/24 10:00 Morphine Sulfate 2 mg Q4HPRN PRN IV 07/05/24 02:30 Nitroglycerin 0.4 mg Q5MINP PRN SL 07/05/24 02:30 Morphine Sulfate 2 mg Q30M PRN IV 07/05/24 02:30 Nifedipine 60 mg DAILY PO 07/06/24 10:00 Allopurinol 100 mg DAILY PO 07/05/24 10:00 Apixaban 2.5 mg BID PO 07/05/24 10:00 UNV Furosemide 40 mg BIDD IV 07/05/24 06:00 Clopidogrel Bisulfate 75 mg DAILY PO 07/05/24 10:00 Hydralazine HCl 10 mg Q6HP PRN IV 07/05/24 04:00 07/05/24 04:18 10 MG Atorvastatin Calcium 40 mg HS PO 07/05/24 22:00 UNV Ceftriaxone Sodium 50 ml @ 100 mls/hr DAILY@09 IV 07/05/24 09:00 UNV Carvedilol 25 mg Q12HR PO 07/05/24 10:00 UNV Exam Vital Signs Vital Signs Date Time Temp Pulse Resp B/P (MAP) Pulse Ox O2 Delivery O2 Flow Rate FiO2 07/05/24 04:18 179/63 07/05/24 04:00 61 07/05/24 00:01 17 94 07/04/24 19:53 99.1 99.1 General Appearance: Alert, Oriented X3, Cooperative, mild distress HEENT: Atraumatic, PERRLA, EOMI, Mucous membr. moist/pink Respiratory: Normal air movement, Other (crackles 3 L NC) Cardiovascular: Regular rate, Normal S1, Normal S2, No murmurs, Gallops, Rubs Abdominal: Normal bowel sounds, Soft, No tenderness, No hepatospenomegaly, No masses, Other (full flanks) Extremities: No clubbing, No cyanosis, Normal pulses, Other (edema) Skin: No rashes, No breakdown, No significant lesion Neuro: Normal speech, Strength at 5/5 X4 ext, Normal tone, Sensation intact, Cranial nerves 3-12 NL, Reflexes 2+, Other (baseline wheelchair bound. ) Psych/Mental Status: Mental status NL, Mood NL Labs/Xrays Labs Test 07/05/24 04:27 07/05/24 03:39 07/05/24 01:23 07/04/24 16:50 Range/Units Troponin I High Sensitivity 295 *H </=34 ng/L Urine Color Light-yellow Yellow Urine Clarity Clear Clear Urine pH 6.0 5.0-9.0 Urine Specific [place] 1.014 1.001-1.035 Urine Protein 2+ H Negative Urine Ketones Negative Negative Urine Blood Negative Negative /uL Urine Nitrite Negative Negative Urine Bilirubin Negative Negative Urine Urobilinogen Normal Negative mg/dL Urine Leukocyte Esterase 1+ Negative /uL Urine RBC <1 0 - 4 /hpf Urine WBC Clumps Present None Seen /hpf Urine Microscopic WBC 18 H 0-5 /HPF Urine Squamous Epithelial Cells Few <5 /hpf Urine Bacteria Few H None Seen /hpf Urine Glucose Normal Normal mg/dL Influenza Type A Antigen Negative Negative Influenza Type B Antigen Negative Negative SARS-CoV-2 Antigen (Rapid) Negative NEGATIVE White Blood Count 5.1 4.4-10.8 10^3/uL Red Blood Count 3.78 L 4.0-5.20 10^6/uL Hemoglobin 11.0 L 12.2-16.2 g/dL Hematocrit 35.5 L 36.0-46.0 % Mean Corpuscular Volume 94.0 80.0-100.0 fL Mean Corpuscular Hemoglobin 29.0 28.0-32.0 pg Mean Corpuscular Hemoglobin Concent 30.9 L 32.0-36.0 g/dL Red Cell Distribution Width 19.2 H 11.8-14.3 % Platelet Count 210 140-450 10^3/uL Mean Platelet Volume 8.6 6.9-10.8 fL Neutrophils (%) (Auto) 62.9 37.0-80.0 % Lymphocytes (%) (Auto) 23.6 10.0-50.0 % Monocytes (%) (Auto) 10.6 0.0-12.0 % Eosinophils (%) (Auto) 2.2 0.0-7.0 % Basophils (%) (Auto) 0.7 0.0-2.0 % Neutrophils # (Auto) 3.2 1.6-8.6 10 ^3/uL Lymphocytes # (Auto) 1.2 0.4-5.4 10 ^3/uL Monocytes # (Auto) 0.5 0-1.3 10 ^3/uL Eosinophils # (Auto) 0.1 0-0.8 10 ^3/uL Basophils # (Auto) 0 0-0.2 10 ^3/uL Nucleated Red Blood Cells 0.1 % B-Type Natriuretic Peptide 2275.42 0-100 pg/mL Assessment/Plan Assessment/Plan Assessment Acute on chronic CHF exacerbation, NYHA III-IV Acute hypoxic respiratory failure 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 Noted pulmonary hypertension. Moderate pulmonic insufficiency. Hypertensive emergency Primary essential HTN, uncontrolled Non ST-elevation [place] type 2 Hyperlipidemia History of CAD History of [place] History of COPD History of breast cancer with right mastectomy History of tobacco abuse H/o DVT left subclavian vein and axillary non occlusive on eliquis Chronic normocytic anemia, RDW elevated Ruled out COVID and INfluenza Biatrial and biventricular enlargement. Concentric LVH of moderate degree. Mild thickening of the aortic leaflets. Mild thickening and mild calcification of the left coronary cusp Surgical history of Appendectomy Surgical history of Hysterectomy Surgical history of Mastectomy S/p Bilateral ifqpy-zdh-ncms amputation, besline wheelchair bound Surgical history of Tonsillectomy H/o Gout on allopurinol Anxiety/depression GERD Plan: -Check Iron panel. ferritin, correct as needed with iv iron as per AFFIRM-HF Trial -lasix iv 40 mg bid, fluid restriction, CHF education, counseling, cardiac diet. -wean O2 as tolerated to keep SpO2 around 92%. -low blood pressure slowly over 24-48 hours , restart home medications, as patient isn't MAYA, holding lisinopril. -avoid QTC prolonging drugs -Continue other home medications and GDMT as tolerated. likely will benefit from adding spironolactone to home GDTM as tolerate. -iv ceftriaxone, urine culture, blood culture, follow up. -physical therapy and social work as needed. -overall poor prognosis given advanced age and complex cardiovascular disease. Diet: Cardiac diet with 2 g salt restriction and 1000 mL fluid restriction per 24 hour. DVT prophylaxis: Continue home Eliquis GI prophylaxis with IV PPI Code status: Full code, discussed with the bedside, patient chart is evaluated, physical exam, medical planning consists of total 37 minutes. Patient is agreeable to the hospital admission and further medical care. Discussed with Dr. Harris Plan discussed with: Patient, Other (primary team RN) My Orders Orders - EVELYN AVITIA RESIDENT Procedure Category Date Status Time Admit ADMIT 07/05/24 Transmitted 02:21 Allergies GREGORIO 07/05/24 In Process 02:21 Code Status CODE 07/05/24 Transmitted 02:21 Oxygen Per Hour RT 07/05/24 Transmitted 02:21 Ondansetron Hcl PHA 07/05/24 In Process (Zofran) 02:30 Docusate Sodium PHA 07/05/24 In Process Capsule (Colace 02:30 Complete Blood Count LAB 07/06/24 Verified 04:00 Comprehensive LAB 07/06/24 Verified Metabolic Panel 04:00 Cardiac DIET 07/05/24 Transmitted Diet-2gna,Lofat,Lochol Breakfast Pt Request For Service PT 07/05/24 Logged 02:21 Echo 2d Mode Cardiac US 07/05/24 Logged DOP 02:21 Condition: Serious GREGORIO 07/05/24 In Process 02:21 Morphine Sulfate PHA 07/05/24 In Process Injection 02:30 Nitroglycerin PHA 07/05/24 In Process Sublingual (Ntrostat 02:30 Morphine Sulfate PHA 07/05/24 In Process Injection 02:30 Oxygen By Nasal RT 07/05/24 Transmitted Cannula 02:21 Stat Ekg For Chest GREGORIO 07/05/24 In Process Pain 02:21 Notify Md Of Changes GREGORIO 07/05/24 In Process From Base 02:21 Medicare Specialist For GREGORIO 07/05/24 In Process 24 Hours 02:21 Emergency Dysrhythmia GREGORIO 07/05/24 In Process Protocol 02:21 Rhythm Strips Once GREGORIO 07/05/24 In Process Every Shift 02:21 Enoxaparin Sodium PHA 07/05/24 In Process (Lovenox) 10:00 Thyroid Stimulating LAB 07/05/24 In Process Hormone 02:54 Nifedipine Er PHA 07/06/24 In Process (Procardia Xl 10:00 Iron Panel LAB 07/05/24 Logged 02:57 Ferritin LAB 07/05/24 Logged 02:57 Lactic Acid W/ Reflex LAB 07/05/24 Logged Order 04:00 Allopurinol Tablet PHA 07/05/24 In Process (Zyloprim Tablet) 10:00 Apixaban (Eliquis) PHA 07/05/24 Pending 10:00 Furosemide Injection PHA 07/05/24 In Process (Lasix Injection) 06:00 Insert/Manage Urinary GREGORIO 07/05/24 In Process Catheter 03:30 Lipase LAB 07/05/24 In Process 03:32 Maintain Fluid GREGORIO 07/05/24 In Process Restrictions 03:32 Obtain Daily Weight GREGORIO 07/05/24 In Process 03:32 Echo 2d Mode Cardiac US 07/05/24 Logged DOP 03:32 Copy Of Previous Echo GREGORIO 07/05/24 In Process Report T 03:32 Oxygen By Nasal RT 07/05/24 Transmitted Cannula 03:32 Early Ambulation GREGORIO 07/05/24 In Process 03:32 Cardiac GREGORIO 07/05/24 In Process Rehabilitation - Outpa Subjective Activity GREGORIO 07/05/24 In Process Tolerance 03:32 Strict I & O GREGORIO 07/05/24 In Process 03:32 Teach: Heart Failure GREGORIO 07/05/24 In Process 03:32 Magnesium LAB 07/05/24 In Process 03:32 * Cardiology Consult CONS 07/05/24 Transmitted 03:32 Cardiac ORDERS 07/05/24 Transmitted Rehabilitation: 03:32 Ct Ab Pel Wo Con-No CT 07/05/24 Taken Oral Or Iv 03:32 Clopidogrel Bisulfate PHA 07/05/24 In Process (Plavix) 10:00 Comprehensive LAB 07/05/24 In Process Metabolic Panel 03:32 Hydralazine Injection PHA 07/05/24 In Process (Apresoline Inject 04:00 Atorvastatin (Lipitor) PHA 07/05/24 Logged 05:30 Atorvastatin (Lipitor) PHA 07/05/24 Logged 22:00 Ceftriaxone 1gm/50ml PHA 07/05/24 Logged D5w (Rocephin) 09:00 Ceftriaxone 1gm/50ml PHA 07/05/24 Logged D5w (Rocephin) 05:30 Blood Culture MELONY 07/05/24 Logged 05:28 Urine Bacterial MELONY 07/05/24 Logged Culture 05:28 Carvedilol Tablet PHA 07/05/24 Logged (Coreg Tablet) 05:30 Carvedilol Tablet PHA 07/05/24 Logged (Coreg Tablet) 10:00 Date of Service: Jul 05, 2024 Billing Provider: JEROME HARRIS MD Common Visit Codes: [id number] INP/OBS CARE (HIGH) EVELYN AVITIA RESIDENT Jul 05, 2024 05:43 JEROME HARRIS MD Jul 11, 2024 22:10
--- NOTE | 2024-07-05 05:58 | DVH ---
EXAM: CT Abdomen and Pelvis Without Intravenous Contrast CLINICAL INDICATION: acute abdominal pain, swelling. TECHNIQUE: Axial computed tomography images of the abdomen and pelvis without intravenous contrast. This CT exam was performed using one or more of the following dose reduction techniques: automated exposure control, adjustment of the mA and/or kV according to patient size, and/or use of iterative r econstruction technique. CONTRAST: RADIATION DOSE: CTDIvol = 14.22 mGy, DLP = 778.33 mGy-cm COMPARISON: None FINDINGS: LUNG BASES: Unremarkable. No mass. No consolidation. HEART: Cardiomegaly. Lung emphysema. ABDOMEN: LIVER: Unremarkable. GALLBLADDER AND BILE DUCTS: Unremarkable. No calcified stones. No ductal dilation. PANCREAS: Unremarkable. No ductal dilation. SPLEEN: Unremarkable. No splenomegaly. ADRENALS: Unremarkable. No mass. KIDNEYS AND URETERS: Right renal cysts. No obstructing stones. No hydronephrosis. STOMACH AND BOWEL: Fecal retention in the colon consistent with constipation. Colonic diverticulos is without acute diverticulitis. No obstruction. PELVIS: APPENDIX: No findings to suggest acute appendicitis. BLADDER: Unremarkable. No stones. REPRODUCTIVE: Unremarkable as visualized. ABDOMEN and PELVIS: INTRAPERITONEAL SPACE: Unremarkable. No free air. No significant fluid collection. BONES/JOINTS: No acute fracture. No dislocation. SOFT TISSUES: Diffuse soft tissue edema suggesting anasarca. VASCULATURE: Scattered calcified atherosclerotic disease of aorta. Indwelling fem-fem bypass. Ind welling aortic left fem bypass. No abdominal aortic aneurysm. LYMPH NODES: Unremarkable. No enlarged lymph nodes. OTHER FINDINGS: . IMPRESSION: 1. Diffuse soft tissue edema suggesting anasarca. 2. Fecal retention in the colon consistent with constipation. 3. Colonic diverticulosis without acute diverticulitis.
[2024-07-05] MEDS: hydrALAZINE HCL 20 MG/ML VL IV ONE (06:07)
[2024-07-05] MEDS: FUROSEMIDE 40 MG/4 ML VIAL IV SCH (06:19)
[2024-07-05] MEDS: ATORVASTATIN 20 MG TAB PO ONE (06:26)
[2024-07-05] MEDS: cefTRIAXone 1GM/50ML D5W 50 ML IV ONE (06:26)
[2024-07-05] MEDS: CARVEDILOL 12.5 MG TAB PO ONE (06:54)
[2024-07-05 06:56] LABS: % Iron Saturation 8.9 % (15-50)
[2024-07-05 06:58] LABS: Alanine Aminotransferase 10 U/L (7-40); Albumin 3.4 g/dL (3.2-4.8); Anion Gap 10 (5-15); Aspartate Aminotransferase 19 U/L (13-40); BUN/Creatinine Ratio 24.4 (10.0-20.0); Calcium 9.4 mg/dL (8.7-10.4); Carbon Dioxide 21 mmol/L (20-31); Lipase 42 U/L (12-53); Magnesium 2.1 mg/dL (1.6-2.6); Sodium 143 mmol/L (136-145); Total Protein 6.5 g/dL (5.7-8.2)
[2024-07-05 07:00] LABS: Chloride 112 mmol/L (98-107)
[2024-07-05 07:01] LABS: Bilirubin, Total 0.2 mg/dL (0.2-1.0); Blood Urea Nitrogen 41 mg/dL (9-23); Glucose 134 mg/dL (74-106)
[2024-07-05 07:14] LABS: Alkaline Phosphatase 104 U/L (46-116)
--- NOTE | 2024-07-05 08:31 | ECG ---
[facility] Test Date: 2024-07-05 Test Time: 01:33:06 Pat Name: BRIAN FAJARDO Department: ED Room: 0292T Gender: F Computer Language Coder: THADDEUS : 1935 Requested By: KEE WHITMAN Order Number: [id number] Reading MD: Beltran Ruvalcaba Measurements Intervals [place] Rate: 60 P: 38 VA: 173 QRS: -39 QRSD: 63 T: 0 QT: 520 QTc: 520 Interpretive Statements Sinus rhythm Probable left atrial enlargement Inferior infarct, old Probable anterior infarct, age indeterminate Prolonged QT interval Electronically Signed On 07-07-2024 20:43:19 PDT by Beltran Ruvalcaba Please click the below link to view image of tracing.
--- NOTE | 2024-07-05 09:03 | DVHINCON2 ---
Date Seen: Jul 05, 2024 Referring Physician MD [place] resident Reason for Consultation CHF exacerbation History of Present Illness This is an 89-year-old female patient who presents to emergency room with chief complaint of abdominal pain and worsening shortness of breath for approximately one week. She comes to emergency room for further evaluation. Cardiology has been consulted at this time for CHF exacerbation. Initial twelve lead electrocardiogram reveals sinus tachycardia with first-degree AV block, ST segment depression to inferolateral leads, and prolonged QTc interval. Initial troponin level of 136ng/L with up trend and peak level at 295ng/L. Initial BNP level of 2275.42pg/mL. The patient denies any cardiac symptoms. Significant past medical history includes congestive heart failure, hypertension, dyslipidemia, abdominal aorta aneurysm with repair, peripheral arterial disease status post bilateral zibbv-kci-cdav amputation, previous acute kidney injury from ATN on hemodialysis with regained renal function (has not had dialysis si ake April 2023), COPD, breast cancer with right mastectomy, gout, and depression. 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 The patient admits to dietary indiscretions and reports noncompliance with medications. Past Medical History Past medical history reviewed. No other significant than mentioned above. Past Surgical History Abdominal aortic aneurysm repair Bilateral gekyr-izc-[id number] amputations Right mastectomy Hysterectomy Tonsillectomy Appendectomy Family History: Diabetes mellitus G8 SISTER Hypertension G8 MOTHER Family History Family history reviewed. Social History Denies the use of tobacco, alcohol or illicit drugs. Allergies: Coded Allergies: NO KNOWN ALLERGIES (Unverified , 05/28/23) Home Meds Active Scripts Apixaban Base (ELIQUIS) 5 Mg Tab, 2.5 MG PO BID for 90 Days, #30 TAB 2 Refills Prov:CRISELDA ZALDIVAR MD 05/29/24 Hydralazine HCl (Hydralazine HCl) 25 Mg Tab, 25 MG PO Q8HR for 30 Days, #90 TAB 0 Refills Prov:CRISELDA ZALDIVAR MD 05/29/24 Isosorbide Mononitrate (Isosorbide Mononitrate ER) 60 Mg Tab, 60 MG PO DAILY for 30 Days, #30 TAB 0 Refills Prov:CRISELDA ZALDIVAR MD 05/29/24 Sodium Bicarbonate (Sodium Bicarbonate) 650 Mg Tab, 650 MG PO TID for 30 Days, #90 TAB 0 Refills Prov:CRISELDA ZALDIVAR MD 05/29/24 Empagliflozin (Jardiance) 10 Mg Tab, 10 MG PO DAILY for 30 Days, #30 TAB Prov:RIAT AVILA 10/21/23 Furosemide (Lasix) 40 Mg Tab, 40 MG PO DAILY for 15 Days, #15 TAB Prov:SAMSON ODOM DO 05/31/23 Reported Medications Carvedilol (Carvedilol) 25 Mg Tab, 1 TAB PO BID 07/05/24 Ferrous Sulfate (Ferosul) 325 Mg Tab, 1 TAB PO 05/20/24 Allopurinol (Allopurinol) 100 Mg Tab, 100 MG PO DAILY, MG 05/29/23 Pantoprazole Sodium Sesquihydr (Protonix) 40 Mg Tab, 40 MG PO DAILY, TAB 05/29/23 Aspirin (Aspirin Low Dose) 81 Mg Tab, 81 MG PO DAILY, TAB 05/28/23 Simvastatin (Simvastatin) 20 Mg Tab, 1 TAB PO HS 05/28/23 Carvedilol (Carvedilol) 6.25 Mg Tab, 1 TAB PO BID 05/28/23 Nifedipine (Nifedipine Er) 90 Mg Tab, 1 TAB PO DAILY 05/28/23 Fluoxetine Hcl (FLUOXETINE HCL) 60 Mg Tab, 1 TAB PO QAM 05/28/23 Home Meds Home medications reviewed. Current Medications Current Medications Medications (Trade) Dose Ordered Sig/Abundio Route PRN Reason Start Time Stop Time Status Last Admin Ondansetron HCl (Zofran) 4 mg Q4HP PRN IV NAUSEA / VOMITING 07/05/24 02:30 Docusate Sodium (Colace Capsule) 100 mg BIDPRN PRN PO FOR CONSTIPATION 07/05/24 02:30 Enoxaparin Sodium (Lovenox) 30 mg DAILY SC 07/05/24 10:00 Morphine Sulfate 2 mg Q4HPRN PRN IV SEVERE PAIN (7-10 PAIN SCALE) 07/05/24 02:30 Nitroglycerin (Ntrostat Sublingual) 0.4 mg Q5MINP PRN SL FOR CHEST PAIN 07/05/24 02:30 Morphine Sulfate 2 mg Q30M PRN IV FOR CHEST PAIN 07/05/24 02:30 Nifedipine (Procardia Xl (Time-Release)) 60 mg DAILY PO 07/06/24 10:00 Allopurinol (Zyloprim Tablet) 100 mg DAILY PO 07/05/24 10:00 Apixaban (Eliquis) 2.5 mg BID PO 07/05/24 10:00 Future Hold Furosemide (Lasix Injection) 40 mg BIDD IV 07/05/24 06:00 07/05/24 06:19 Clopidogrel Bisulfate (Plavix) 75 mg DAILY PO 07/05/24 10:00 Hydralazine HCl (Apresoline Injection) 10 mg Q6HP PRN IV SBP>150 07/05/24 04:00 07/05/24 04:18 Atorvastatin Calcium (Lipitor) 40 mg HS PO 07/05/24 22:00 Ceftriaxone Sodium 50 ml @ 100 mls/hr DAILY@09 IV 07/06/24 09:00 Carvedilol (Coreg Tablet) 25 mg Q12HR PO 07/05/24 22:00 Spironolactone (Aldactone) 25 mg BIDD PO 07/05/24 18:00 UNV Review of Systems Constitutional: No symptom reported Ears, Nose, & Throat: No symptom reported Eyes: No symptom reported Neurological: No symptoms reported Pulmonary/Respiratory: Shortness of breath Cardiovascular: No symptom reported Gastrointestinal: Abdominal pain Genitourinary: No symptom reported Musculoskeletal: No symptom reported Skin: No symptom reported Psychiatric: No symptom reported Endocrine: No symptom reported Hematologic/Lymphatic: No symptom reported Vital Signs Vital Signs Date Time Temp Pulse Resp B/P (MAP) Pulse Ox O2 Delivery O2 Flow Rate FiO2 07/05/24 06:54 63 188/61 07/05/24 06:00 15 97 07/04/24 23:02 98.9 98.9 07/04/24 23:00 Nasal Cannula* 2 28 Physical Exam General Appearance: Cooperative. Well-developed. Well-nourished. No acute dist ress. Pulmonary/Respiratory: Clear, bilateral breaths sounds. Cardiovascular/Chest: Regular rate and rhythm Peripheral Pulses: 2+ Radial (R). 2+ Radial (L). Abdominal Exam: Normal bowel sounds. Ankle Exam: Negative ankle edema Neuro/Mental Status: A/OX4, coherent. Thoughts/Psych: Normal thought pattern. Appropriate mood and affect. Good judgment and insight. Appearance: No acute distress. Skin Exam: Normal inspection. Normal color. Warm and dry. Labs/Diagnostic Data Labs Test 07/05/24 05:57 07/05/24 04:27 07/05/24 03:39 07/05/24 01:23 Range/Units Sodium Level 143 136-145 mmol/L Potassium Level 4.0 3.5-5.1 mmol/L Chloride Level 112 H 98-107 mmol/L Carbon Dioxide Level 21 20-31 mmol/L Anion Gap 10 5-15 Blood Urea Nitrogen 41 H 9-23 mg/dL Creatinine 1.68 H 0.550-1.02 mg/dL Glomerular Filtration Rate Calc 29 >90 mL/min BUN/Creatinine Ratio 24.4 H 10.0-20.0 Serum Glucose 134 H 74-106 mg/dL Lactic Acid Level 0.6 0.4-2.0 mmol/L Calcium Level 9.4 8.7-10.4 mg/dL Magnesium Level 2.1 1.6-2.6 mg/dL Iron Level 24 L 50-170 ug/dL Total Iron Binding Capacity 271 250-425 ug/dL Percent Iron Saturation 8.9 L 15-50 % Ferritin 132.5 10-291 ng/mL Total Bilirubin 0.2 0.2-1.0 mg/dL Aspartate Amino Transferase (AST) 19 13-40 U/L Alanine Aminotransferase (ALT) 10 7-40 U/L Alkaline Phosphatase 104 46-116 U/L Total Protein 6.5 5.7-8.2 g/dL Albumin 3.4 3.2-4.8 g/dL Lipase 42 12-53 U/L Troponin I High Sensitivity 295 *H </=34 ng/L Thyroid Stimulating Hormone (TSH) 0.88 0.55-4.78 uIU/mL Urine Color Light-yellow Yellow Urine Clarity Clear Clear Urine pH 6.0 5.0-9.0 Urine Specific [place]cess[place] 1.014 1.001-1.035 Urine Protein 2+ H Negative Urine Ketones Negative Negative Urine Blood Negative Negative /uL Urine Nitrite Negative Negative Urine Bilirubin Negative Negative Urine Urobilinogen Normal Negative mg/dL Urine Leukocyte Esterase 1+ Negative /uL Urine RBC <1 0 - 4 /hpf Urine WBC Clumps Present None Seen /hpf Urine Microscopic WBC 18 H 0-5 /HPF Urine Squamous Epithelial Cells Few <5 /hpf Urine Bacteria Few H None Seen /hpf Urine Glucose Normal Normal mg/dL Influenza Type A Antigen Negative Negative Influenza Type B Antigen Negative Negative SARS-CoV-2 Antigen (Rapid) Negative NEGATIVE Test 07/04/24 16:50 Range/Units White Blood Count 5.1 4.4-10.8 10^3/uL Red Blood Count 3.78 L 4.0-5.20 10^6/uL Hemoglobin 11.0 L 12.2-16.2 g/dL Hematocrit 35.5 L 36.0-46.0 % Mean Corpuscular Volume 94.0 80.0-100.0 fL Mean Corpuscular Hemoglobin 29.0 28.0-32.0 pg Mean Corpuscular Hemoglobin Concent 30.9 L 32.0-36.0 g/dL Red Cell Distribution Width 19.2 H 11.8-14.3 % Platelet Count 210 140-450 10^3/uL Mean Platelet Volume 8.6 6.9-10.8 fL Neutrophils (%) (Auto) 62.9 37.0-80.0 % Lymphocytes (%) (Auto) 23.6 10.0-50.0 % Monocytes (%) (Auto) 10.6 0.0-12.0 % Eosinophils (%) (Auto) 2.2 0.0-7.0 % Basophils (%) (Auto) 0.7 0.0-2.0 % Neutrophils # (Auto) 3.2 1.6-8.6 10 ^3/uL Lymphocytes # (Auto) 1.2 0.4-5.4 10 ^3/uL Monocytes # (Auto) 0.5 0-1.3 10 ^3/uL Eosinophils # (Auto) 0.1 0-0.8 10 ^3/uL Basophils # (Auto) 0 0-0.2 10 ^3/uL Nucleated Red Blood Cells 0.1 % B-Type Natriuretic Peptide 2275.42 0-100 pg/mL Assessment Acute on chronic decompensated HFrEF, NYHA class III Hypertensive urgency NSTEMI type II secondary to above Dyslipidemia Prolonged QTc interval Peripheral arterial disease s/p bilateral above the knee amputations History of nonocclusive DVT of left subclavian (on Eliquis) Acute on chronic kidney disease Medical noncompliance Plan/Recommendation We will continue following plan/recommendations (Dr. Ruvalcaba): * Transthoracic echocardiogram from 05/23/2024 reveals EF 40%, RVSP 52 mmHg * Guideline directed medical therapy for CHF as renal function permits * Avoid ACEi/ARB/ARNI/MRA/ SGLT2i given renal function * Aggressive BP control * Aggressive diuresis as tolerated * Strict intake and output, daily weights, maintain fluid restriction * Avoid medication that prolong QTc interval; patient is at risk for Torsades de pointes * Lipid-lowering agent and single antiplatelet therapy * Nephrology recommendations Thank you for allowing us to care for this patient. Please call with any questions or concerns. Critical care time spent: 42 minutes This medical document was created using an electronic medical record system with voice recognition software and computerized dictation system. Although this document has been carefully reviewed, there might still be some phonetic and typographical errors. Occasional wrong-word or ``sound-alike substitutions may have occurred due to the inherent limitations of voice recognition software. These areas are purely typographical due to imperfections of the software programs and do not reflect any compromise in the patient's medical care. Please read the chart carefully and recognize, using context, where these substitutions have occurred. Plan discussed with: Patient NYHA Physical activity limitations: Class3(Marked) ordinary (activity causes symtoms) Date of Service: Jul 05, 2024 Billing Provider: SUKHDEV CORTES Cardiology Common Codes: [id number] INP/OBS CARE (High) Cardiology Consultation Codes: [id number] CONSULT <45MIN SUKHDEV CORTES Jul 05, 2024 09:03
[2024-07-05] MEDS: SPIRONOLACTONE 25 MG TAB PO ONE (09:41)
[2024-07-05] MEDS ORDERED: APIXABAN 5 MG TAB PO SCH (10:00)
[2024-07-05] MEDS ORDERED: ENOXAPARIN SOD 30 MG/0.3 ML SYRINGE SC SCH (10:00)
[2024-07-05] MEDS: ISOSORBIDE MONONITRATE ER 60 MG TAB PO SCH (10:24)
[2024-07-05] MEDS: CLOPIDOGREL BISULFATE 75 MG TAB PO SCH (10:25)
[2024-07-05] MEDS: ALLOPURINOL 100 MG TAB PO SCH (10:25)
[2024-07-05 13:15] VITALS: PULSE 57; RESP 18; O2SAT 98
--- NOTE | 2024-07-05 14:25 | DVHPNRES ---
Progress Note Date Seen: Jul 05, 2024 Resident Creating Document: SHEKHAR GUZMAN RESIDENT Has the PT tested + for MRSA If YES, has PT been informed?: No Medical Necessity Reason Pt with a Central, PICC or Fol: No Medical Necessity Reason Patient is an 89 year old female with a past medical history IN, COPD, CAD, CHF, chronic kidney disease (CKD) who presented to the ED with shortness of breath and abdominal distension for the past five days. Patient said she finds if difficult to lie flat as she experiences shortness of breath. She is currently on 2L of oxygen via nasal canula. But she is not usually on home oxygen. Patient told me that she has tried to be compliant with her all her medications; however, her daughter who is her primary caregiver does not always give the medications on time or miss them all together sometime. She also mention that sometime she drops the medications and can reach it. Hence she is not getting the right amount hen she gives it to her he that she loses them and so she not taking the adequate amount of medication that she is supposed to take.Patient said she quit smoking and drinking, denies illicit drug use, and reports no chest pain, abdominal pain, or other acute symptoms. In the ED, her lab values showed elevated troponin 136--> 289--> 295 and BNP of 2275. chest x-ray shows chronic interstitial changes and cardiomegaly. Patient is currently on furosemide and has produced 800ml of urine thus far. Of note, patient was recently discharged from the hospital in April 2024 where she was managed for acute chf exacerbation and patient on GDMT. Past Medical History: CAD, CHF, HTN, IN,COPD, CKD, right Breast cancer s/p b mastectomy Past Surgical History: Appendectomy, Hysterectomy, Mastectomy, Other (Bilateral qoazs-imk-zkan amputation), Tonsillectomy Social history: lives at home with family, used to smoke for 25 years ( 1/2 pack a day) Family history: Noncontributory Subjective Review of Systems Constitutional: Denies fever no chills, feeling of malaise HEENT: Denies headache, ear pain, ear discharges, conjunctivitis, nasal discharge throat pain Cardiovascular: Denies chest pain, palpitation, orthopnea, PND, or pedal edema Respiratory: Mild shortness of breath, cough, sputum production, hemoptysis, GI: Denies abdominal pain, nausea, vomiting, diarrhea, hematemesis, hematochezia, : Denies frequency, urgency, hematuria, Endocrine: Denies unintentional weight gain or weight loss, feeling of hot flashes, Giorgio: Denies easy bruising, bleeding disorders, epistaxis Musculoskeletal: No, swelling at the time of seeing the patient. AKA a, whole left leg amputation. Psych: No evidence of depression, fortino, suicidal ideation Objective vital signs Vital Sign Date Time Temp Pulse Resp B/P (MAP) Pulse Ox O2 Delivery O2 Flow Rate FiO2 07/05/24 13:15 57 18 98 Nasal Cannula* 2 28 07/05/24 10:24 173/59 07/05/24 09:20 98.2 98.2 Total Intake and Output 07/04/24 07/04/24 07/05/24 15:00 23:00 07:00 Intake Total 50 ml Balance 50 ml medications Current Medications Medications Dose Ordered Sig/Abundio Route Start Time Stop Time Status Last Admin Dose Admin Ondansetron HCl 4 mg Q4HP PRN IV 07/05/24 02:30 Docusate Sodium 100 mg BIDPRN PRN PO 07/05/24 02:30 Morphine Sulfate 2 mg Q4HPRN PRN IV 07/05/24 02:30 Nitroglycerin 0.4 mg Q5MINP PRN SL 07/05/24 02:30 Morphine Sulfate 2 mg Q30M PRN IV 07/05/24 02:30 Allopurinol 100 mg DAILY PO 07/05/24 10:00 07/05/24 10:25 100 MG Furosemide 40 mg BIDD IV 07/05/24 06:00 07/05/24 06:19 40 MG Clopidogrel Bisulfate 75 mg DAILY PO 07/05/24 10:00 07/05/24 10:25 75 MG Atorvastatin Calcium 40 mg HS PO 07/05/24 22:00 Ceftriaxone Sodium 50 ml @ 100 mls/hr DAILY@09 IV 07/06/24 09:00 Carvedilol 25 mg Q12HR PO 07/05/24 22:00 Isosorbide Mononitrate 60 mg DAILY PO 07/05/24 10:00 07/05/24 10:24 60 MG Hydralazine HCl 25 mg Q8HR PO 07/05/24 14:00 Apixaban 2.5 mg BID PO 07/05/24 22:00 Examination General Appearance: Alert, Oriented X3, Cooperative, Mild acute distress HEENT: Atraumatic, PERRLA, EOMI, Mucous membrane moist/pink Respiratory: MILD crackles bilateral, Normal air movement Cardiovascular: Regular rate, Normal S1, Normal S2, No murmurs, no chest wall tenderness Abdominal: significant abdominal surgery with scars due to vessel disease Extremities: left leg amputated, right leg AKA. Skin: No rashes, No breakdown, No significant lesion Neuro: Normal gait, Normal speech, Strength at 5/5 X4 ext, Normal tone, Sensation intact, Cranial nerves 3-12 NL, Reflexes 2+ Psych/Mental Status: Mental status NL, Mood NL laboratory and microbiology Laboratory Tests 07/05/24 05:57 07/04/24 16:50 Test 07/05/24 05:57 Range/Units Serum Glucose 134 H 74-106 mg/dL Problem List/Assessment/Plan Problem List/Assessment/Plan Assessment Acute on chronic CHF exacerbation, NYHA III-IV Acute hypoxic respiratory failure Heart failure with mildly reduced EF (HFmrEF 40%) Impaired diastolic relaxation ~ least grade 3 Acute kidney injury superimposed on chronic kidney disease stage 3 (baseline 1.2 Cr.) MAYA likely due to VMN Mixed type congestive heart failure, component of systolic as well as diastolic dysfunction of fgivuzvj-sy-hkgdeq degree Abdominal pain and distention due to fluid overload Prolonged QTC UTI Moderate tricuspid insufficiency. Noted pulmonary hypertension. Moderate pulmonic insufficiency. Hypertensive emergency Primary essential HTN, uncontrolled Non ST-elevation IN type 2 Hyperlipidemia History of CAD History of IN History of COPD History of breast cancer with right mastectomy History of tobacco abuse H/o DVT left subclavian vein and axillary non occlusive on eliquis Chronic normocytic anemia, RDW elevated Ruled out COVID and INfluenza Biatrial and biventricular enlargement. Concentric LVH of moderate degree. Mild thickening of the aortic leaflets. Mild thickening and mild calcification of the left coronary cusp Surgical history of Appendectomy Surgical history of Hysterectomy Surgical history of Mastectomy S/p Bilateral urxtu-rhz-vkrn amputation, besline wheelchair bound Surgical history of Tonsillectomy H/o Gout on allopurinol Anxiety/depression GERD Plan: IV Furosemide 40 mg, Entresto ( HOLD for 36 hour wash out period for MARIE- I, patient home medication include lisinopril), fluid restriction, CHF education, counseling, cardiac diet. Check Iron panel. ferritin, correct as needed with iv iron as per AFFIRM-HF Trial -wean O2 as tolerated to keep SpO2 around 92%. -low blood pressure slowly over 24-48 hours , restart home medications, as patient isn't MAYA, holding lisinopril. -avoid QTC prolonging drugs -Continue other home medications and GDMT as tolerated. likely will benefit from adding spironolactone to home GDTM as tolerate. -iv ceftriaxone, urine culture, blood culture, follow up. -physical therapy and social work as needed. -overall poor prognosis given advanced age and complex cardiovascular disease. Diet: Cardiac diet with 2 g salt restriction and 1000 mL fluid restriction per 24 hour. DVT prophylaxis: Continue home Eliquis GI prophylaxis with IV PPI Plan discussed with: Patient Date of Service: Jul 05, 2024 Billing Provider: JEROME HARRIS MD Common Visit Codes: [id number] INP/OBS CARE(HIGH) SHEKHAR GUZMAN RESIDENT Jul 05, 2024 14:25 JEROME HARRIS MD Jul 12, 2024 21:14
[2024-07-05] MEDS: hydrALAZINE HCL 25 MG TAB PO SCH (14:52)
[2024-07-05 17:00] VITALS: BP 173/63; PULSE 57; RESP 16; TEMP 97.3; O2SAT 95
[2024-07-05] MEDS ORDERED: SPIRONOLACTONE 25 MG TAB PO SCH (18:00)
[2024-07-05 20:00] VITALS: PULSE 63
[2024-07-05 21:00] VITALS: BP 171/59; PULSE 85; RESP 18; TEMP 97.7; O2SAT 97
[2024-07-05] MEDS: CARVEDILOL 12.5 MG TAB PO SCH (21:57)
[2024-07-05] MEDS: APIXABAN 5 MG TAB PO SCH (21:59)
[2024-07-05] MEDS: ISOSORBIDE DINITRATE 10 MG TAB PO SCH (21:59)
[2024-07-05] MEDS: ATORVASTATIN 20 MG TAB PO SCH (21:59)
[2024-07-06] VITALS (8 sets, daily range): BP systolic 170–195; BP diastolic 58–73; PULSE 49–59; RESP 17–18; TEMP 97–98.1; O2SAT 97–99
[2024-07-06] MEDS: hydrALAZINE HCL 20 MG/ML VL IV ONE ×2 (04:30→23:55)
[2024-07-06 07:26] LABS: Eosinophils # (auto) 0 10 ^3/uL (0-0.8); Hemoglobin 10.2 g/dL (12.2-16.2); Lymphocytes # (auto) 1.5 10 ^3/uL (0.4-5.4); Monocytes # (auto) 0.6 10 ^3/uL (0-1.3); Neutrophils # (auto) 3.6 10 ^3/uL (1.6-8.6); Nucleated Red Blood Cells % 0.1 %; White Blood Cell 5.7 10^3/uL (4.4-10.8)
[2024-07-06 07:31] LABS: Basophils # (auto) 0.1 10 ^3/uL (0-0.2); Basophils % (auto) 1.3 % (0.0-2.0); Eosinophils % (auto) 0.4 % (0.0-7.0); Hematocrit 32.9 % (36.0-46.0); Lymphocytes % (auto) 25.6 % (10.0-50.0); Mean Corpuscular Hemoglobin 28.9 pg (28.0-32.0); Mean Corpuscular Hgb Conc. 30.9 g/dL (32.0-36.0); Mean Corpuscular Volume 93.4 fL (80.0-100.0); Monocytes % (auto) 9.7 % (0.0-12.0); Platelet Count (auto) 192 10^3/uL (140-450); Red Blood Cells 3.52 10^6/uL (4.0-5.20)
[2024-07-06 07:39] LABS: Alanine Aminotransferase 10 U/L (7-40); Alkaline Phosphatase 96 U/L (46-116); Anion Gap 10 (5-15); BUN/Creatinine Ratio 24.5 (10.0-20.0); Calcium 9.2 mg/dL (8.7-10.4); Glucose 98 mg/dL (74-106); Potassium 4.1 mmol/L (3.5-5.1); Sodium 140 mmol/L (136-145)
[2024-07-06 07:40] LABS: Aspartate Aminotransferase 16 U/L (13-40); Total Protein 6.1 g/dL (5.7-8.2)
[2024-07-06 07:42] LABS: Albumin 3.2 g/dL (3.2-4.8); Bilirubin, Total 0.2 mg/dL (0.2-1.0); Blood Urea Nitrogen 38 mg/dL (9-23); Carbon Dioxide 19 mmol/L (20-31); Chloride 111 mmol/L (98-107)
[2024-07-06] MEDS: SACUBITRIL-VALSARTAN 24mg/26mg TAB PO SCH (09:05)
[2024-07-06] MEDS: cefTRIAXone 1GM/50ML D5W 50 ML IV SCH (09:10)
[2024-07-06] MEDS ORDERED: NIFEdipine ER 30 MG TAB PO SCH (10:00)
--- NOTE | 2024-07-06 13:11 | DVHPN2 ---
Consult Progress Note Subjective Other Systems: Patient in sinus bradycardia on cardiac cath technologist at time of assessment. Denies any cardiac symptoms Objective vital signs Vital Sign Date Time Temp Pulse Resp B/P (MAP) Pulse Ox O2 Delivery O2 Flow Rate FiO2 07/06/24 09:10 64 195/73 07/06/24 08:52 97.8 17 98 97.8 07/06/24 08:00 Nasal Cannula* 2 28 Total Intake and Output 07/05/24 07/05/24 07/06/24 15:00 23:00 07:00 Intake Total 250 ml Output Total 800 ml 500 ml Balance -800 ml -250 ml medications Current Medications Medications Dose Ordered Sig/Abundio Route Start Time Stop Time Status Last Admin Dose Admin Ondansetron HCl 4 mg Q4HP PRN IV 07/05/24 02:30 Docusate Sodium 100 mg BIDPRN PRN PO 07/05/24 02:30 Morphine Sulfate 2 mg Q4HPRN PRN IV 07/05/24 02:30 Nitroglycerin 0.4 mg Q5MINP PRN SL 07/05/24 02:30 Morphine Sulfate 2 mg Q30M PRN IV 07/05/24 02:30 Allopurinol 100 mg DAILY PO 07/05/24 10:00 07/06/24 09:07 100 MG Clopidogrel Bisulfate 75 mg DAILY PO 07/05/24 10:00 07/06/24 09:07 75 MG Atorvastatin Calcium 40 mg HS PO 07/05/24 22:00 07/05/24 21:59 40 MG Ceftriaxone Sodium 50 ml @ 100 mls/hr DAILY@09 IV 07/06/24 09:00 07/06/24 09:10 100 MLS/HR Carvedilol 25 mg Q12HR PO 07/05/24 22:00 07/06/24 09:10 25 MG Hydralazine HCl 25 mg Q8HR PO 07/05/24 14:00 07/06/24 06:08 25 MG Apixaban 2.5 mg BID PO 07/05/24 22:00 07/06/24 09:08 2.5 MG Isosorbide Dinitrate 10 mg Q8HR PO 07/05/24 22:00 07/06/24 06:09 10 MG Sacubitril/ Valsartan 1 tab BID PO 07/06/24 10:00 07/06/24 09:05 1 TAB Furosemide 40 mg DAILY IV 07/07/24 10:00 Examination: GENERAL:Abnormal (Generalized weakness), LUNGS:Normal, CVS:Normal, NEURO:Normal laboratory and microbiology Laboratory Tests 07/06/24 06:44 Test 07/06/24 06:44 Range/Units Serum Glucose 98 74-106 mg/dL Problem List/Assessment/Plan Problem List/Assessment/Plan Acute on chronic decompensated HFrEF, NYHA class III Hypertensive urgency NSTEMI type II secondary to above Dyslipidemia Prolonged QTc interval Pulmonary hypertension Peripheral arterial disease 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 Ruvalcaba): * Transthoracic echocardiogram from 05/23/2024 reveals EF 40%, RVSP 52 mmHg * Guideline directed medical therapy for CHF as renal function permits * Avoid ACEi/ARB/ARNI/MRA/ SGLT2i given renal function * Aggressive BP control * Aggressive diuresis as tolerated * Strict intake and output, daily weights, maintain fluid restriction * Avoid medication that prolong QTc interval; patient is at risk for Torsades de pointes * Lipid-lowering agent and single antiplatelet therapy * Close Cardiac surveillance Thank you for allowing us to care for this patient. Please call with any questions or concerns. This medical document was created using an electronic medical record system with voice recognition software and computerized dictation system. Although this document has been carefully reviewed, there might still be some phonetic and typographical errors. Occasional wrong-word or ``sound-alike substitutions may have occurred due to the inherent limitations of voice recognition software. These areas are purely typographical due to imperfections of the software programs and do not reflect any compromise in the patient's medical care. Please read the chart carefully and recognize, using context, where these substitutions have occurred. Plan discussed with: Patient Date of Service: Jul 06, 2024 Billing Provider: SUKHDEV CORTES Common Visit Codes: [id number] INP/OBS CARE(HIGH) SUKHDEV CORTES Jul 06, 2024 13:11
--- NOTE | 2024-07-06 19:16 | DVHPNRES ---
Progress Note Date Seen: Jul 06, 2024 Resident Creating Document: SHEKHAR GUZMAN RESIDENT Has the PT tested + for MRSA If YES, has PT been informed?: No Medical Necessity Reason Pt with a Central, PICC or Fol: No Medical Necessity Reason Medical Necessity Reason Patient is an 89 year old female with a past medical history [place], COPD, CAD, CHF, chronic kidney disease (CKD) who presented to the ED with shortness of breath and abdominal distension for the past five days. Patient said she finds if difficult to lie flat as she experiences shortness of breath. She is currently on 2L of oxygen via nasal canula. But she is not usually on home oxygen. Patient told me that she has tried to be compliant with her all her medications; however, her daughter who is her primary caregiver does not always give the medications on time or miss them all together sometime. She also mention that sometime she drops the medications and can reach it. Hence she is not getting the right amount hen she gives it to her he that she loses them and so she not taking the adequate amount of medication that she is supposed to take.Patient said she quit smoking and drinking, denies illicit drug use, and reports no chest pain, abdominal pain, or other acute symptoms. In the ED, her lab values showed elevated troponin 136--> 289--> 295 and BNP of 2275. chest x-ray shows chronic interstitial changes and cardiomegaly. Patient is currently on furosemide and has produced 800ml of urine thus far. Of note, patient was recently discharged from the hospital in April 2024 where she was managed for acute chf exacerbation and patient on GDMT. Past Medical History: CAD, CHF, HTN, [place],COPD, CKD, right Breast cancer s/p b mastectomy Past Surgical History: Appendectomy, Hysterectomy, Mastectomy, Other (Bilateral [id number] amputation), Tonsillectomy Social history: lives at home with family, used to smoke for 25 years ( 1/2 pack a day) Family history: Noncontributory PN: 07/06/2024 Patient stable on 2L oxygen. her blood pressure been a little high in the 170s SBP and 60s DBP. She has no major concern at the hospital. But she mentioned about not been well cared for at home. Patient lives with her daughter and son in-law. She mentioned that she has been missing her medications because her daughters gives them to her when she gets the time. Somethings she would go for days with taking her medication. We spoke about Hospice care where would have some care for her proper. Will have the SW talk to her more about it and for arrangement once she qualifies. Subjective Review of Systems Constitutional: Denies fever no chills no feeling of malaise HEENT: Denies headache, ear pain, ear discharges, conjunctivitis, nasal discharge throat pain Cardiovascular: Denies chest pain, palpitation, orthopnea, PND, or pedal edema Respiratory:improving shortness of breath, no cough, sputum production, hemoptysis, GI: Denies abdominal pain, nausea, vomiting, diarrhea, hematemesis, hematochezia, : Denies frequency, urgency, hematuria, Endocrine: Denies unintentional weight gain or weight loss, feeling of hot flashes, Giorgio: Denies easy bruising, bleeding disorders, epistaxis Musculoskeletal: bilateral low extremities amputee Psych: No evidence of depression, fortino, suicidal ideation Objective vital signs Vital Sign Date Time Temp Pulse Resp B/P (MAP) Pulse Ox O2 Delivery O2 Flow Rate FiO2 07/06/24 17:00 97.9 59 17 185/63 (103) 98 97.9 07/06/24 08:00 Nasal Cannula* 2 28 Total Intake and Output 07/05/24 07/05/24 07/06/24 15:00 23:00 07:00 Intake Total 250 ml Output Total 800 ml 500 ml Balance -800 ml -250 ml medications Current Medications Medications Dose Ordered Sig/Abundio Route Start Time Stop Time Status Last Admin Dose Admin Ondansetron HCl 4 mg Q4HP PRN IV 07/05/24 02:30 Docusate Sodium 100 mg BIDPRN PRN PO 07/05/24 02:30 Morphine Sulfate 2 mg Q4HPRN PRN IV 07/05/24 02:30 Nitroglycerin 0.4 mg Q5MINP PRN SL 07/05/24 02:30 Morphine Sulfate 2 mg Q30M PRN IV 07/05/24 02:30 Allopurinol 100 mg DAILY PO 07/05/24 10:00 07/06/24 09:07 100 MG Clopidogrel Bisulfate 75 mg DAILY PO 07/05/24 10:00 07/06/24 09:07 75 MG Atorvastatin Calcium 40 mg HS PO 07/05/24 22:00 07/05/24 21:59 40 MG Ceftriaxone Sodium 50 ml @ 100 mls/hr DAILY@09 IV 07/06/24 09:00 07/06/24 09:10 100 MLS/HR Carvedilol 25 mg Q12HR PO 07/05/24 22:00 07/06/24 09:10 25 MG Hydralazine HCl 25 mg Q8HR PO 07/05/24 14:00 07/06/24 14:05 25 MG Apixaban 2.5 mg BID PO 07/05/24 22:00 07/06/24 09:08 2.5 MG Isosorbide Dinitrate 10 mg Q8HR PO 07/05/24 22:00 07/06/24 14:05 10 MG Sacubitril/ Valsartan 1 tab BID PO 07/06/24 10:00 07/06/24 09:05 1 TAB Furosemide 40 mg DAILY IV 07/07/24 10:00 Examination General Appearance: Alert, Oriented X3, Cooperative, No acute distress HEENT: Atraumatic, PERRLA, EOMI, Mucous membrane moist/pink Respiratory: on Oxygen, 2L, Clear to auscultation, Normal air movement Cardiovascular: Regular rate, Normal S1, Normal S2, No murmurs, no chest wall tenderness Abdominal: NO distention, no tenderness, bowel sounds present, no scars noted Extremities: amputated Skin: No rashes, No breakdown, No significant lesion Neuro: Normal gait, Normal speech, Strength at 5/5 X4 ext, Normal tone, Sensation intact, Cranial nerves 3-12 NL, Reflexes 2+ Psych/Mental Status: Mental status NL, Mood NL laboratory and microbiology Laboratory Tests 07/06/24 06:44 Test 07/06/24 06:44 Range/Units Serum Glucose 98 74-106 mg/dL Microbiology Date/Time Source Procedure Growth Status 07/05/24 22:45 Nose MRSA Screen - Final Complete 07/05/24 08:53 Blood Blood Culture - Preliminary NO GROWTH AFTER 24 HOURS OF INCUBATION. 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 Noted pulmonary hypertension. Moderate pulmonic insufficiency. 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 Concentric LVH of moderate degree. Mild thickening of the aortic leaflets. Mild thickening and mild calcification of the left coronary cusp Surgical history of Appendectomy Surgical history of Hysterectomy Surgical history of Mastectomy S/p Bilateral aftmg-vhf-ggef amputation, baseline wheelchair bound Surgical history of Tonsillectomy H/o Gout on allopurinol Anxiety/depression GERD Plan: IV Furosemide 40 mg, Resumed Entresto after 36 houred of AE-I washout period -wean O2 as tolerated to keep SpO2 around 92%. -low blood pressure slowly over 24-48 hours , restart home medications, as patient isn't MAYA, holding lisinopril. -avoid QTC prolonging drugs -Continue other home medications and GDMT as tolerated. likely will benefit from adding spironolactone to home GDTM as tolerate. -iv ceftriaxone, urine culture, blood culture, follow up. -physical therapy and social work as needed. -overall poor prognosis given advanced age and complex cardiovascular disease. Diet: Cardiac diet with 2 g salt restriction and 1000 mL fluid restriction per 24 hour. DVT prophylaxis: Continue home Eliquis GI prophylaxis with IV PPI Goal of care discussed + Dr. Harris for 15 minutes: Comfort care; we discussed Hospice care with the patient and she is in agreement Plan discussed with: Patient My Orders My Orders Orders - SHEKHAR GUZMAN RESIDENT Procedure Category Date Status Time Furosemide Injection PHA 07/07/24 In Process (Lasix Injection) 10:00 Date of Service: Jul 06, 2024 Billing Provider: JEROME HARRIS MD Common Visit Codes: [id number] INP/OBS CARE(HIGH) SHEKHAR GUZMAN RESIDENT Jul 06, 2024 19:16 JEROME HARRIS MD Jul 12, 2024 21:22
[2024-07-07] VITALS (8 sets, daily range): BP systolic 167–202; BP diastolic 53–67; PULSE 55–69; RESP 17–20; TEMP 97.1–98.3; O2SAT 90–97
[2024-07-07] MEDS ORDERED: SACUBITRIL-VALSARTAN 24mg/26mg TAB PO SCH (06:15)
[2024-07-07] MEDS: SACUBITRIL-VALSARTAN 24mg/26mg TAB PO SCH ×2 (06:41→21:47)
[2024-07-07 08:59] LABS: Basophils # (auto) 0.1 10 ^3/uL (0-0.2); Basophils % (auto) 0.9 % (0.0-2.0); Eosinophils # (auto) 0.1 10 ^3/uL (0-0.8); Hemoglobin 11.8 g/dL (12.2-16.2); Lymphocytes # (auto) 1.1 10 ^3/uL (0.4-5.4); Red Cell Distribution Width 18.5 % (11.8-14.3)
[2024-07-07 09:02] LABS: Eosinophils % (auto) 1.7 % (0.0-7.0); Hematocrit 37.6 % (36.0-46.0); Lymphocytes % (auto) 19.6 % (10.0-50.0); Mean Corpuscular Hemoglobin 28.6 pg (28.0-32.0); Mean Corpuscular Hgb Conc. 31.3 g/dL (32.0-36.0); Mean Corpuscular Volume 91.4 fL (80.0-100.0); Monocytes # (auto) 0.5 10 ^3/uL (0-1.3); Neutrophils % (auto) 69.8 % (37.0-80.0); Platelet Count (auto) 232 10^3/uL (140-450); Red Blood Cells 4.12 10^6/uL (4.0-5.20); White Blood Cell 5.8 10^3/uL (4.4-10.8)
[2024-07-07] MEDS: FUROSEMIDE 40 MG/4 ML VIAL IV SCH (10:07)
[2024-07-07 10:33] LABS: Anion Gap 8 (5-15); Carbon Dioxide 23 mmol/L (20-31); Sodium 141 mmol/L (136-145)
[2024-07-07 10:34] LABS: Calcium 9.5 mg/dL (8.7-10.4)
[2024-07-07 10:39] LABS: BUN/Creatinine Ratio 31.5 (10.0-20.0)
[2024-07-07 10:40] LABS: Blood Urea Nitrogen 47 mg/dL (9-23); Chloride 110 mmol/L (98-107); Glucose 131 mg/dL (74-106)
[2024-07-07] MEDS: cloNIDine HCL 0.1 MG TAB PO ONE (12:55)
--- NOTE | 2024-07-07 15:31 | DVHPN2 ---
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 Denies any cardiac symptoms at time of assessment. Complaints of constipation Objective vital signs Vital Sign Date Time Temp Pulse Resp B/P (MAP) Pulse Ox O2 Delivery O2 Flow Rate FiO2 07/07/24 12:55 199/67 07/07/24 11:08 69 07/07/24 09:00 98.3 17 97 98.3 07/06/24 20:00 Nasal Cannula* 2 28 Total Intake and Output 07/06/24 07/06/24 07/07/24 15:00 23:00 07:00 Intake Total 50 ml 240 ml 550 ml Output Total 750 ml 950 ml Balance 50 ml -510 ml -400 ml medications Current Medications Medications Dose Ordered Sig/Abundio Route Start Time Stop Time Status Last Admin Dose Admin Ondansetron HCl 4 mg Q4HP PRN IV 07/05/24 02:30 Docusate Sodium 100 mg BIDPRN PRN PO 07/05/24 02:30 Morphine Sulfate 2 mg Q4HPRN PRN IV 07/05/24 02:30 Nitroglycerin 0.4 mg Q5MINP PRN SL 07/05/24 02:30 Morphine Sulfate 2 mg Q30M PRN IV 07/05/24 02:30 Allopurinol 100 mg DAILY PO 07/05/24 10:00 07/07/24 10:08 100 MG Clopidogrel Bisulfate 75 mg DAILY PO 07/05/24 10:00 07/07/24 10:07 75 MG Atorvastatin Calcium 40 mg HS PO 07/05/24 22:00 07/06/24 21:56 40 MG Ceftriaxone Sodium 50 ml @ 100 mls/hr DAILY@09 IV 07/06/24 09:00 07/07/24 10:06 100 MLS/HR Carvedilol 25 mg Q12HR PO 07/05/24 22:00 07/07/24 10:08 25 MG Hydralazine HCl 25 mg Q8HR PO 07/05/24 14:00 07/07/24 06:03 25 MG Apixaban 2.5 mg BID PO 07/05/24 22:00 07/07/24 10:09 2.5 MG Isosorbide Dinitrate 10 mg Q8HR PO 07/05/24 22:00 07/07/24 06:02 10 MG Furosemide 40 mg DAILY IV 07/07/24 10:00 07/07/24 10:07 40 MG Clonidine HCl 0.1 mg BID PO 07/07/24 22:00 Sacubitril/ Valsartan 2 tab BID PO 07/07/24 22:00 Examination: GENERAL:Abnormal (Generalized weakness), LUNGS:Normal, CVS:Normal, NEURO:Normal laboratory and microbiology Laboratory Tests 07/07/24 08:36 Test 07/07/24 08:36 Range/Units Serum Glucose 131 H 74-106 mg/dL Problem List/Assessment/Plan Problem List/Assessment/Plan Acute on chronic decompensated HFrEF, NYHA class III Hypertensive urgency NSTEMI type II secondary to above Dyslipidemia Prolonged QTc interval Pulmonary hypertension Peripheral arterial disease 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 Ruvalcaba): * Transthoracic echocardiogram from 05/23/2024 reveals EF 40%, RVSP 52 mmHg * Guideline directed medical therapy for CHF as renal function permits * Avoid ACEi/ARB/ARNI/MRA/ SGLT2i given renal function * Aggressive BP control * Aggressive diuresis as tolerated * Strict intake and output, daily weights, maintain fluid restriction * Avoid medication that prolong QTc interval; patient is at risk for Torsades de pointes * Lipid-lowering agent and single antiplatelet therapy * Close Cardiac surveillance Thank you for allowing us to care for this patient. Please call with any questions or concerns. This medical document was created using an electronic medical record system with voice recognition software and computerized dictation system. Although this document has been carefully reviewed, there might still be some phonetic and typographical errors. Occasional wrong-word or ``sound-alike substitutions may have occurred due to the inherent limitations of voice recognition software. These areas are purely typographical due to imperfections of the software programs and do not reflect any compromise in the patient's medical care. Please read the chart carefully and recognize, using context, where these substitutions have occurred. Plan discussed with: Patient Date of Service: Jul 07, 2024 Billing Provider: SUKHDEV CORTES Common Visit Codes: [id number] INP/OBS CARE(HIGH) SUKHDEV CORTES Jul 07, 2024 15:31
--- NOTE | 2024-07-07 19:51 | DVHPNRES ---
Progress Note Date Seen: Jul 07, 2024 Resident Creating Document: SHEKHAR GUZMAN RESIDENT Has the PT tested + for MRSA If YES, has PT been informed?: No Medical Necessity Reason Pt with a Central, PICC or Fol: No Medical Necessity Reason Patient is an 89 year old female with a past medical history [place], COPD, CAD, CHF, chronic kidney disease (CKD) who presented to the ED with shortness of breath and abdominal distension for the past five days. Patient said she finds if difficult to lie flat as she experiences shortness of breath. She is currently on 2L of oxygen via nasal canula. But she is not usually on home oxygen. Patient told me that she has tried to be compliant with her all her medications; however, her daughter who is her primary caregiver does not always give the medications on time or miss them all together sometime. She also mention that sometime she drops the medications and can reach it. Hence she is not getting the right amount hen she gives it to her he that she loses them and so she not taking the adequate amount of medication that she is supposed to take.Patient said she quit smoking and drinking, denies illicit drug use, and reports no chest pain, abdominal pain, or other acute symptoms. In the ED, her lab values showed elevated troponin 136--> 289--> 295 and BNP of 2275. chest x-ray shows chronic interstitial changes and cardiomegaly. Patient is currently on furosemide and has produced 800ml of urine thus far. Of note, patient was recently discharged from the hospital in April 2024 where she was managed for acute chf exacerbation and patient on GDMT. Past Medical History: CAD, CHF, HTN, [place],COPD, CKD, right Breast cancer s/p b mastectomy Past Surgical History: Appendectomy, Hysterectomy, Mastectomy, Other (Bilateral avzfe-gxz-hvyy amputation), Tonsillectomy Social history: lives at home with family, used to smoke for 25 years ( 1/2 pack a day) Family history: Noncontributory PN: 07/06/2024 Patient stable on 2L oxygen. her blood pressure been a little high in the 170s SBP and 60s DBP. She has no major concern at the hospital. But she mentioned about not been well cared for at home. Patient lives with her daughter and son in-law. She mentioned that she has been missing her medications because her daughters gives them to her when she gets the time. Somethings she would go for days with taking her medication. We spoke about Hospice care where would have some care for her proper. Will have the SW talk to her more about it and for arrangement once she qualifies. PN: 07/07/2024 Patient is seen and examined at the bedside. She is doing a lot better than she feels. Urine output today [id number]. She is currently on 1 L of oxygen compared to yesterday when she was on 2L. So, she is improving. Her blood pressure has been persistently elevated in the 200s SBP despite patient being in 4-5 antihypertensive medications. Will double her Entresto today and also add clonidine and will monitor her bp overnight and see how she response. Otherwise she has no other complaints. Patient spoke with the case manage/SW today and she would like hospice care with [facility]. Subjective Review of Systems Constitutional: Denies fever no chills no feeling of malaise HEENT: Denies headache, ear pain, ear discharges, conjunctivitis, nasal discharge throat pain Cardiovascular: Denies chest pain, palpitation, orthopnea, PND, or pedal edema Respiratory: Denies shortness of breath, cough cough, sputum production, hemoptysis, GI: Denies abdominal pain, nausea, vomiting, diarrhea, hematemesis, hematochezia, : Denies frequency, urgency, hematuria, Endocrine: Denies unintentional weight gain or weight loss, feeling of hot flashes, Giorgio: Denies easy bruising, bleeding disorders, epistaxis Musculoskeletal: Denies joint pains, muscle aches Psych: No evidence of depression, fortino, suicidal ideation Objective vital signs Vital Sign Date Time Temp Pulse Resp B/P (MAP) Pulse Ox O2 Delivery O2 Flow Rate FiO2 07/07/24 17:00 97.7 55 17 167/53 (91) 94 97.7 07/07/24 08:00 Nasal Cannula* 2 28 Total Intake and Output 07/06/24 07/06/24 07/07/24 15:00 23:00 07:00 Intake Total 50 ml 240 ml 550 ml Output Total 750 ml 950 ml Balance 50 ml -510 ml -400 ml medications Current Medications Medications Dose Ordered Sig/Abundio Route Start Time Stop Time Status Last Admin Dose Admin Ondansetron HCl 4 mg Q4HP PRN IV 07/05/24 02:30 Docusate Sodium 100 mg BIDPRN PRN PO 07/05/24 02:30 Morphine Sulfate 2 mg Q4HPRN PRN IV 07/05/24 02:30 Nitroglycerin 0.4 mg Q5MINP PRN SL 07/05/24 02:30 Morphine Sulfate 2 mg Q30M PRN IV 07/05/24 02:30 Allopurinol 100 mg DAILY PO 07/05/24 10:00 07/07/24 10:08 100 MG Clopidogrel Bisulfate 75 mg DAILY PO 07/05/24 10:00 07/07/24 10:07 75 MG Atorvastatin Calcium 40 mg HS PO 07/05/24 22:00 07/06/24 21:56 40 MG Ceftriaxone Sodium 50 ml @ 100 mls/hr DAILY@09 IV 07/06/24 09:00 07/07/24 10:06 100 MLS/HR Carvedilol 25 mg Q12HR PO 07/05/24 22:00 07/07/24 10:08 25 MG Hydralazine HCl 25 mg Q8HR PO 07/05/24 14:00 07/07/24 16:35 25 MG Apixaban 2.5 mg BID PO 07/05/24 22:00 07/07/24 10:09 2.5 MG Isosorbide Dinitrate 10 mg Q8HR PO 07/05/24 22:00 07/07/24 16:36 10 MG Furosemide 40 mg DAILY IV 07/07/24 10:00 07/07/24 10:07 40 MG Clonidine HCl 0.1 mg BID PO 07/07/24 22:00 Sacubitril/ Valsartan 2 tab BID PO 07/07/24 22:00 Examination General Appearance: Alert, Oriented X3, Cooperative, No acute distress HEENT: Atraumatic, PERRLA, EOMI, Mucous membrane moist/pink Respiratory: on Oxygen, 2L, Clear to auscultation, Normal air movement Cardiovascular: Regular rate, Normal S1, Normal S2, No murmurs, no chest wall tenderness Abdominal: NO distention, no tenderness, bowel sounds present, no scars noted Extremities: amputated, extensive atherosclerotic vessels on CT Skin: No rashes, No breakdown, No significant lesion Neuro: Normal speech, Strength at 5/5 X2 ext, Normal tone, Sensation intact, Cranial nerves 3-12 NL, Reflexes 2+ Psych/Mental Status: Mental status NL, Mood NL laboratory and microbiology Laboratory Tests 07/07/24 08:36 Test 07/07/24 08:36 Range/Units Serum Glucose 131 H 74-106 mg/dL Microbiology Date/Time Source Procedure Growth Status 07/05/24 22:45 Nose MRSA Screen - Final Complete 07/05/24 08:53 Blood Blood Culture - Preliminary NO GROWTH AFTER 48 HOURS OF INCUBATION. 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 Noted pulmonary hypertension. Moderate pulmonic insufficiency. Hypertensive emergency Primary essential HTN, uncontrolled Non ST-elevation [place] type 2 Hyperlipidemia History of CAD History of [place] History of COPD History of breast cancer with right mastectomy History of tobacco abuse H/o DVT left subclavian vein and axillary non occlusive on eliquis Chronic normocytic anemia, RDW elevated Ruled out COVID and INfluenza Biatrial and biventricular enlargement. Concentric LVH of moderate degree. Mild thickening of the aortic leaflets. Mild thickening and mild calcification of the left coronary cusp Surgical history of Appendectomy Surgical history of Hysterectomy Surgical history of Mastectomy S/p Bilateral zjqku-ehb-nild amputation, baseline wheelchair bound Surgical history of Tonsillectomy H/o Gout on allopurinol Anxiety/depression GERD Plan: IV Furosemide 40 mg, Resumed Entresto after 36 houred of AE-I washout period -wean O2 as tolerated to keep SpO2 around 92%. -low blood pressure slowly over 24-48 hours , restart home medications, as patient isn't MAYA, holding lisinopril. -avoid QTC prolonging drugs -Continue other home medications and GDMT as tolerated. likely will benefit from adding spironolactone to home GDTM as tolerate. -iv ceftriaxone, urine culture, blood culture, follow up. -physical therapy and social work as needed. -overall poor prognosis given advanced age and complex cardiovascular disease. Diet: Cardiac diet with 2 g salt restriction and 1000 mL fluid restriction per 24 hour. DVT prophylaxis: Continue home Eliquis GI prophylaxis with IV PPI Goal of care discussed + Dr. Harris for 15 minutes: Comfort care; Per patient she would like hospice care with [facility]. Plan discussed with: Patient, Other (family) My Orders My Orders Orders - SHEKHAR GUZMAN Procedure Category Date Status Time Clonidine Hcl Tablet PHA 07/07/24 In Process (Catapres Tablet) 22:00 Sacubitril-Valsartan PHA 07/07/24 In Process (Entresto 24-26 Mg 22:00 Date of Service: Jul 07, 2024 Billing Provider: JEROME HARRIS MD Common Visit Codes: [id number] INP/OBS CARE([facility]) SHEKHAR GUZMAN RESIDENT Jul 07, 2024 19:51 JEROME HARRIS MD Jul 13, 2024 21:50
[2024-07-07] MEDS: cloNIDine HCL 0.1 MG TAB PO SCH (21:49)
[2024-07-07] MEDS: DOCUSATE SOD 100 MG CAP PO ONE (22:25)
[2024-07-08] VITALS (7 sets, daily range): BP systolic 169–193; BP diastolic 49–90; PULSE 53–65; RESP 16–20; TEMP 97.6–98.4; O2SAT 90–99
[2024-07-08 05:48] LABS: Basophils # (auto) 0 10 ^3/uL (0-0.2); Basophils % (auto) 0.9 % (0.0-2.0); Eosinophils # (auto) 0.2 10 ^3/uL (0-0.8); Eosinophils % (auto) 3.1 % (0.0-7.0); Hematocrit 34.6 % (36.0-46.0); Hemoglobin 10.9 g/dL (12.2-16.2); Lymphocytes # (auto) 1.3 10 ^3/uL (0.4-5.4); Lymphocytes % (auto) 24.9 % (10.0-50.0); Mean Corpuscular Hemoglobin 28.7 pg (28.0-32.0); Mean Corpuscular Hgb Conc. 31.4 g/dL (32.0-36.0); Mean Corpuscular Volume 91.3 fL (80.0-100.0); Monocytes # (auto) 0.5 10 ^3/uL (0-1.3); Monocytes % (auto) 9.4 % (0.0-12.0); Neutrophils # (auto) 3.3 10 ^3/uL (1.6-8.6); Neutrophils % (auto) 61.7 % (37.0-80.0); Nucleated Red Blood Cells % 0.2 %; Platelet Count (auto) 211 10^3/uL (140-450); Red Blood Cells 3.79 10^6/uL (4.0-5.20); Red Cell Distribution Width 18.7 % (11.8-14.3); White Blood Cell 5.4 10^3/uL (4.4-10.8)
[2024-07-08 06:09] LABS: Potassium 4.1 mmol/L (3.5-5.1); Sodium 142 mmol/L (136-145)
[2024-07-08 06:10] LABS: Anion Gap 7 (5-15); Carbon Dioxide 24 mmol/L (20-31)
[2024-07-08 06:15] LABS: BUN/Creatinine Ratio 30.1 (10.0-20.0); Glucose 92 mg/dL (74-106)
[2024-07-08 06:16] LABS: Blood Urea Nitrogen 43 mg/dL (9-23)
[2024-07-08 06:17] LABS: Calcium 8.7 mg/dL (8.7-10.4); Chloride 111 mmol/L (98-107)
--- NOTE | 2024-07-08 10:55 | DVHPN2 ---
Consult Progress Note Subjective Other Systems: Patient in sinus bradycardia on athletic monitor. Denies any cardiac symptoms at time of assessment Objective vital signs Vital Sign Date Time Temp Pulse Resp B/P (MAP) Pulse Ox O2 Delivery O2 Flow Rate FiO2 07/08/24 09:53 193/90 07/08/24 08:39 98.1 60 16 96 98.1 07/07/24 20:00 Nasal Cannula* 2 28 Total Intake and Output 07/07/24 07/07/24 07/08/24 15:00 23:00 07:00 Intake Total 506 ml 520 ml Output Total 500 ml 500 ml Balance 6 ml 20 ml medications Current Medications Medications Dose Ordered Sig/Abundio Route Start Time Stop Time Status Last Admin Dose Admin Ondansetron HCl 4 mg Q4HP PRN IV 07/05/24 02:30 Docusate Sodium 100 mg BIDPRN PRN PO 07/05/24 02:30 Morphine Sulfate 2 mg Q4HPRN PRN IV 07/05/24 02:30 Nitroglycerin 0.4 mg Q5MINP PRN SL 07/05/24 02:30 Morphine Sulfate 2 mg Q30M PRN IV 07/05/24 02:30 Allopurinol 100 mg DAILY PO 07/05/24 10:00 07/08/24 09:52 100 MG Clopidogrel Bisulfate 75 mg DAILY PO 07/05/24 10:00 07/08/24 09:52 75 MG Atorvastatin Calcium 40 mg HS PO 07/05/24 22:00 07/07/24 21:47 40 MG Ceftriaxone Sodium 50 ml @ 100 mls/hr DAILY@09 IV 07/06/24 09:00 07/08/24 09:51 100 MLS/HR Carvedilol 25 mg Q12HR PO 07/05/24 22:00 07/07/24 21:48 25 MG Hydralazine HCl 25 mg Q8HR PO 07/05/24 14:00 07/08/24 06:02 25 MG Apixaban 2.5 mg BID PO 07/05/24 22:00 07/08/24 09:53 2.5 MG Isosorbide Dinitrate 10 mg Q8HR PO 07/05/24 22:00 07/08/24 06:02 10 MG Furosemide 40 mg DAILY IV 07/07/24 10:00 07/08/24 09:52 40 MG Clonidine HCl 0.1 mg BID PO 07/07/24 22:00 07/08/24 09:53 0.1 MG Sacubitril/ Valsartan 2 tab BID PO 07/07/24 22:00 07/08/24 09:52 2 TAB Examination: GENERAL:Abnormal (Generalized weakness), LUNGS:Normal, CVS:Normal, NEURO:Normal laboratory and microbiology Laboratory Tests 07/08/24 05:10 Test 07/08/24 05:10 Range/Units Serum Glucose 92 74-106 mg/dL Problem List/Assessment/Plan Problem List/Assessment/Plan Acute on chronic decompensated HFrEF, NYHA class III Hypertensive urgency NSTEMI type II secondary to above Dyslipidemia Prolonged QTc interval Pulmonary hypertension Peripheral arterial disease 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 Ruvalcaba): * Transthoracic echocardiogram from 05/23/2024 reveals EF 40%, RVSP 52 mmHg * Guideline directed medical therapy for CHF as renal function permits * Avoid ACEi/ARB/ARNI/MRA/ SGLT2i given renal function * Aggressive BP control: up-Titrate as tolerated * Aggressive diuresis as tolerated * Strict intake and output, daily weights, maintain fluid restriction * Avoid medication that prolong QTc interval; patient is at risk for Torsades de pointes * Lipid-lowering agent and single antiplatelet therapy * Close Cardiac surveillance Thank you for allowing us to care for this patient. Please call with any questions or concerns. This medical document was created using an electronic medical record system with voice recognition software and computerized dictation system. Although this document has been carefully reviewed, there might still be some phonetic and typographical errors. Occasional wrong-word or ``sound-alike substitutions may have occurred due to the inherent limitations of voice recognition software. These areas are purely typographical due to imperfections of the software programs and do not reflect any compromise in the patient's medical care. Please read the chart carefully and recognize, using context, where these substitutions have occurred. Plan discussed with: Patient Date of Service: Jul 08, 2024 Billing Provider: SUKHDEV CORTES Common Visit Codes: [id number] INP/OBS CARE(HIGH) SUKHDEV CORTES Jul 08, 2024 10:55
[2024-07-08] MEDS: hydrALAZINE HCL 25 MG TAB PO SCH (16:00)
--- NOTE | 2024-07-08 19:18 | DVHPNRES ---
Progress Note Date Seen: Jul 08, 2024 Resident Creating Document: SHEKHAR GUZMAN RESIDENT Has the PT tested + for MRSA If YES, has PT been informed?: No Medical Necessity Reason Pt with a Central, PICC or Fol: No Medical Necessity Reason Patient is an 89 year old female with a past medical history [place], COPD, CAD, CHF, chronic kidney disease (CKD) who presented to the ED with shortness of breath and abdominal distension for the past five days. Patient said she finds if difficult to lie flat as she experiences shortness of breath. She is currently on 2L of oxygen via nasal canula. But she is not usually on home oxygen. Patient told me that she has tried to be compliant with her all her medications; however, her daughter who is her primary caregiver does not always give the medications on time or miss them all together sometime. She also mention that sometime she drops the medications and can reach it. Hence she is not getting the right amount hen she gives it to her he that she loses them and so she not taking the adequate amount of medication that she is supposed to take.Patient said she quit smoking and drinking, denies illicit drug use, and reports no chest pain, abdominal pain, or other acute symptoms. In the ED, her lab values showed elevated troponin 136--> 289--> 295 and BNP of 2275. chest x-ray shows chronic interstitial changes and cardiomegaly. Patient is currently on furosemide and has produced 800ml of urine thus far. Of note, patient was recently discharged from the hospital in April 2024 where she was managed for acute chf exacerbation and patient on GDMT. Past Medical History: CAD, CHF, HTN, [place],COPD, CKD, right Breast cancer s/p b mastectomy Past Surgical History: Appendectomy, Hysterectomy, Mastectomy, Other (Bilateral [id number] amputation), Tonsillectomy Social history: lives at home with family, used to smoke for 25 years ( 1/2 pack a day) Family history: Noncontributory PN: 07/06/2024 Patient stable on 2L oxygen. her blood pressure been a little high in the 170s SBP and 60s DBP. She has no major concern at the hospital. But she mentioned about not been well cared for at home. Patient lives with her daughter and son in-law. She mentioned that she has been missing her medications because her daughters gives them to her when she gets the time. Somethings she would go for days with taking her medication. We spoke about Hospice care where would have some care for her proper. Will have the SW talk to her more about it and for arrangement once she qualifies. PN: 07/07/2024 Patient is seen and examined at the bedside. She is doing a lot better than she feels. Urine output today [id number]. She is currently on 1 L of oxygen compared to yesterday when she was on 2L. So, she is improving. Her blood pressure has been persistently elevated in the 200s SBP despite patient being in 4-5 antihypertensive medications. Will double her Entresto today and also add clonidine and will monitor her bp overnight and see how she response. Otherwise she has no other complaints. Patient spoke with the case manage/SW today and she would like hospice care with [facility]. PN 07/08/2024 Patient is seen and examined at the bedside. She is doing a lot better than she feels. She is currently on 1 L of oxygen. She has no compliants today. BP still running high in the despite patient being in 4-5 antihypertensive medications. Will increase Entresto and double the hydralazine to 50mg TID. Patient is ok with hospice care with [facility]. Subjective Review of Systems Constitutional: Denies fever no chills no feeling of malaise HEENT: Denies headache, ear pain, ear discharges, conjunctivitis, nasal discharge throat pain Cardiovascular: Denies chest pain, palpitation, orthopnea, PND, or pedal edema Respiratory: Denies shortness of breath, cough cough, sputum production, hemoptysis, GI: Denies abdominal pain, nausea, vomiting, diarrhea, hematemesis, hematochezia, : Denies frequency, urgency, hematuria, Endocrine: Denies unintentional weight gain or weight loss, feeling of hot flashes, Giorgio: Denies easy bruising, bleeding disorders, epistaxis Musculoskeletal: Denies joint pains, muscle aches Psych: No evidence of depression, fortino, suicidal ideation Objective vital signs Vital Sign Date Time Temp Pulse Resp B/P (MAP) Pulse Ox O2 Delivery O2 Flow Rate FiO2 07/08/24 16:54 98.1 53 16 169/55 (93) 97 98.1 07/08/24 08:00 Nasal Cannula* 2 28 Total Intake and Output 07/07/24 07/07/24 07/08/24 15:00 23:00 07:00 Intake Total 506 ml 520 ml Output Total 500 ml 500 ml Balance 6 ml 20 ml medications Current Medications Medications Dose Ordered Sig/Abundio Route Start Time Stop Time Status Last Admin Dose Admin Ondansetron HCl 4 mg Q4HP PRN IV 07/05/24 02:30 Docusate Sodium 100 mg BIDPRN PRN PO 07/05/24 02:30 Morphine Sulfate 2 mg Q4HPRN PRN IV 07/05/24 02:30 Nitroglycerin 0.4 mg Q5MINP PRN SL 07/05/24 02:30 Morphine Sulfate 2 mg Q30M PRN IV 07/05/24 02:30 Allopurinol 100 mg DAILY PO 07/05/24 10:00 07/08/24 09:52 100 MG Clopidogrel Bisulfate 75 mg DAILY PO 07/05/24 10:00 07/08/24 09:52 75 MG Atorvastatin Calcium 40 mg HS PO 07/05/24 22:00 07/07/24 21:47 40 MG Ceftriaxone Sodium 50 ml @ 100 mls/hr DAILY@09 IV 07/06/24 09:00 07/08/24 09:51 100 MLS/HR Carvedilol 25 mg Q12HR PO 07/05/24 22:00 07/07/24 21:48 25 MG Apixaban 2.5 mg BID PO 07/05/24 22:00 07/08/24 09:53 2.5 MG Isosorbide Dinitrate 10 mg Q8HR PO 07/05/24 22:00 07/08/24 14:50 10 MG Furosemide 40 mg DAILY IV 07/07/24 10:00 07/08/24 09:52 40 MG Clonidine HCl 0.1 mg BID PO 07/07/24 22:00 07/08/24 09:53 0.1 MG Hydralazine HCl 50 mg Q8HR PO 07/08/24 16:00 Sacubitril/ Valsartan 3 tab BID PO 07/08/24 22:00 UNV Examination General Appearance: Alert, Oriented X3, Cooperative, No acute distress HEENT: Atraumatic, PERRLA, EOMI, Mucous membrane moist/pink Respiratory: Clear to auscultation, Normal air movement Cardiovascular: Regular rate, Normal S1, Normal S2, No murmurs, no chest wall tenderness Abdominal: NO distention, no tenderness, bowel sounds present, no scars noted Extremities: BILATERAL lower extremity amputated Skin: No rashes, No breakdown, No significant lesion Neuro: Normal speech Psych/Mental Status: Mental status NL, Mood NL laboratory and microbiology Laboratory Tests 07/08/24 05:10 Test 07/08/24 05:10 Range/Units Serum Glucose 92 74-106 mg/dL Microbiology Date/Time Source Procedure Growth Status 07/05/24 22:45 Nose MRSA Screen - Final Complete 07/05/24 08:53 Blood Blood Culture - Preliminary NO GROWTH AFTER 72 HOURS OF INCUBATION. Resulted 07/05/24 03:39 Voided Urine Urine Culture - Final Enterococcus faecalis Presumptive Samantha albicans Complete Problem List/Assessment/Plan Problem List/Assessment/Plan Assessment Acute on chronic CHF exacerbation, NYHA III-IV Acute hypoxic respiratory failure--> Improving Heart failure with mildly reduced EF (HFmrEF 40%) Impaired diastolic relaxation ~ least grade 3 Acute kidney injury superimposed on chronic kidney disease stage 3 (baseline 1.2 Cr.) MAYA likely due to VMN Mixed type congestive heart failure, component of systolic as well as diastolic dysfunction of jjjswuco-[id number] degree Abdominal pain and distention due to fluid overload Prolonged QTC UTI Moderate tricuspid insufficiency. Noted pulmonary hypertension. Moderate pulmonic insufficiency. 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 Concentric LVH of moderate degree. Mild thickening of the aortic leaflets. Mild thickening and mild calcification of the left coronary cusp Surgical history of Appendectomy Surgical history of Hysterectomy Surgical history of Mastectomy S/p Bilateral pyitx-gpr-xmke amputation, baseline wheelchair bound Surgical history of Tonsillectomy H/o Gout on allopurinol Anxiety/depression GERD Plan: IV Furosemide 40 mg, INCRESASE the (Entresto ) 3 -wean O2 as tolerated to keep SpO2 around 92%. -low blood pressure slowly over 24-48 hours , restart home medications, as patient isn't MAYA, holding lisinopril. -avoid QTC prolonging drugs -Continue other home medications and GDMT as tolerated. likely will benefit from adding spironolactone to home GDTM as tolerate. -iv ceftriaxone, urine culture, blood culture, follow up. -physical therapy and social work as needed. -overall poor prognosis given advanced age and complex cardiovascular disease. --> double the hydralazine 50mg TID Diet: Cardiac diet with 2 g salt restriction and 1000 mL fluid restriction per 24 hour. DVT prophylaxis: Continue home Eliquis GI prophylaxis with IV PPI Goal of care discussed + Dr. Harris for 15 minutes: Comfort care; Per patient she would like hospice care with [facility]. Plan discussed with: Patient My Orders My Orders Orders - SHEKHAR GUZMAN Procedure Category Date Status Time Hydralazine Hcl PHA 07/08/24 In Process Tablet (Apresoline 16:00 Sacubitril-Valsartan PHA 07/08/24 Logged (Entresto 24-26 Mg 22:00 Date of Service: Jul 08, 2024 Billing Provider: JEROME HARRIS MD Common Visit Codes: [id number] INP/OBS CARE([facility]) SHEKHAR GUZMAN Jul 08, 2024 19:18 JEROME HARRIS MD Jul 13, 2024 22:03
[2024-07-08] MEDS: SACUBITRIL-VALSARTAN 24mg/26mg TAB PO SCH (22:09)
[2024-07-09] VITALS (8 sets, daily range): BP systolic 139–188; BP diastolic 48–60; PULSE 55–69; RESP 14–20; TEMP 97.6–98.1; O2SAT 90–99
[2024-07-09 11:06] LABS: Basophils # (auto) 0 10 ^3/uL (0-0.2); Basophils % (auto) 0.7 % (0.0-2.0); Eosinophils # (auto) 0.2 10 ^3/uL (0-0.8); Eosinophils % (auto) 3.4 % (0.0-7.0); Hematocrit 36.1 % (36.0-46.0); Hemoglobin 11.1 g/dL (12.2-16.2); Lymphocytes # (auto) 1.2 10 ^3/uL (0.4-5.4); Lymphocytes % (auto) 23.5 % (10.0-50.0); Mean Corpuscular Hemoglobin 28.6 pg (28.0-32.0); Mean Corpuscular Hgb Conc. 30.8 g/dL (32.0-36.0); Mean Corpuscular Volume 92.7 fL (80.0-100.0); Monocytes # (auto) 0.5 10 ^3/uL (0-1.3); Monocytes % (auto) 9.6 % (0.0-12.0); Neutrophils # (auto) 3.2 10 ^3/uL (1.6-8.6); Neutrophils % (auto) 62.8 % (37.0-80.0); Nucleated Red Blood Cells % 0.1 %; Platelet Count (auto) 197 10^3/uL (140-450); Red Blood Cells 3.89 10^6/uL (4.0-5.20); Red Cell Distribution Width 18.8 % (11.8-14.3); White Blood Cell 5.1 10^3/uL (4.4-10.8)
[2024-07-09 11:37] LABS: Potassium 4.3 mmol/L (3.5-5.1); Sodium 140 mmol/L (136-145)
[2024-07-09 11:38] LABS: Anion Gap 7 (5-15); Calcium 8.8 mg/dL (8.7-10.4); Carbon Dioxide 21 mmol/L (20-31)
[2024-07-09 11:43] LABS: BUN/Creatinine Ratio 28.7 (10.0-20.0)
[2024-07-09 11:56] LABS: Blood Urea Nitrogen 37 mg/dL (9-23); Chloride 112 mmol/L (98-107); Glucose 107 mg/dL (74-106)
[2024-07-09] MEDS: SACUBITRIL-VALSARTAN 24mg/26mg TAB PO SCH ×2 (13:11→22:02)
--- NOTE | 2024-07-09 13:53 | DVHPN2 ---
Consult Progress Note Date Seen: Jul 09, 2024 Subjective Review of Systems: CVS:Normal, RESPIRATORY:Normal, NEURO:Normal Objective vital signs Vital Sign Date Time Temp Pulse Resp B/P (MAP) Pulse Ox O2 Delivery O2 Flow Rate FiO2 07/09/24 13:10 179/58 07/09/24 10:59 69 07/09/24 09:00 98.0 16 99 98.0 07/09/24 08:00 Nasal Cannula* 2 28 Total Intake and Output 07/08/24 07/08/24 07/09/24 15:00 23:00 07:00 Intake Total 120 ml 1160 ml 240 ml Output Total 1100 ml 550 ml Balance 120 ml 60 ml -310 ml medications Current Medications Medications Dose Ordered Sig/Abundio Route Start Time Stop Time Status Last Admin Dose Admin Ondansetron HCl 4 mg Q4HP PRN IV 07/05/24 02:30 Docusate Sodium 100 mg BIDPRN PRN PO 07/05/24 02:30 Morphine Sulfate 2 mg Q4HPRN PRN IV 07/05/24 02:30 Nitroglycerin 0.4 mg Q5MINP PRN SL 07/05/24 02:30 Morphine Sulfate 2 mg Q30M PRN IV 07/05/24 02:30 Allopurinol 100 mg DAILY PO 07/05/24 10:00 07/09/24 09:56 100 MG Clopidogrel Bisulfate 75 mg DAILY PO 07/05/24 10:00 07/09/24 09:57 75 MG Atorvastatin Calcium 40 mg HS PO 07/05/24 22:00 07/08/24 22:09 40 MG Ceftriaxone Sodium 50 ml @ 100 mls/hr DAILY@09 IV 07/06/24 09:00 07/09/24 09:55 100 MLS/HR Carvedilol 25 mg Q12HR PO 07/05/24 22:00 07/09/24 09:59 25 MG Apixaban 2.5 mg BID PO 07/05/24 22:00 07/09/24 09:59 2.5 MG Isosorbide Dinitrate 10 mg Q8HR PO 07/05/24 22:00 07/09/24 05:32 10 MG Furosemide 40 mg DAILY IV 07/07/24 10:00 07/09/24 13:10 40 MG Clonidine HCl 0.1 mg BID PO 07/07/24 22:00 07/09/24 09:59 0.1 MG Hydralazine HCl 50 mg Q8HR PO 07/08/24 16:00 07/09/24 05:32 50 MG Sacubitril/ Valsartan 3 tab BID PO 07/09/24 10:00 07/09/24 13:11 3 TAB Examination: LUNGS:Normal, CVS:Normal, NEURO:Normal laboratory and microbiology Laboratory Tests 07/09/24 10:43 Test 07/09/24 10:43 Range/Units Serum Glucose 107 H 74-106 mg/dL Problem List/Assessment/Plan Problem List/Assessment/Plan Acute on chronic decompensated HFrEF, NYHA class III Hypertensive urgency NSTEMI type II secondary to above Dyslipidemia Prolonged QTc interval Pulmonary hypertension Peripheral arterial disease 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 Ruvalcaba) * Transthoracic echocardiogram from 05/23/2024 reveals EF 40%, RVSP 52 mmHg * Guideline directed medical therapy for CHF as renal function permits * Avoid ACEi/ARB/ARNI/MRA/ SGLT2i given renal function * Aggressive BP control: up-Titrate as tolerated * Avoid medication that prolong QTc interval; patient is at risk for Torsades de pointes * Lipid-lowering agent and single antiplatelet therapy Cardiac stable. There is no further cardiac work-up indicated at this time. Kindly call if in need to re-consult. Thank you for allowing us to care for this patient. This medical document was created using an electronic medical record system with voice recognition software and computerized dictation system. Although this document has been carefully reviewed, there might still be some phonetic and typographical errors. Occasional wrong-word or ``sound-alike substitutions may have occurred due to the inherent limitations of voice recognition software. These areas are purely typographical due to imperfections of the software programs and do not reflect any compromise in the patient's medical care. Please read the chart carefully and recognize, using context, where these substitutions have occurred. Plan discussed with: Patient, Other Date of Service: Jul 09, 2024 Billing Provider: CORIE FIGUEREDO Cardiology Common Codes: [id number] INP/OBS CARE(Mod) CORIE FIGUEREDO Jul 09, 2024 13:53
[2024-07-09] MEDS: NIFEdipine ER 30 MG TAB PO ONE (15:08)
--- NOTE | 2024-07-09 18:35 | DVHPNRES ---
Progress Note Date Seen: Jul 09, 2024 Resident Creating Document: SHEKHAR GUZMAN RESIDENT Has the PT tested + for MRSA If YES, has PT been informed?: No Medical Necessity Reason Pt with a Central, PICC or Fol: No Medical Necessity Reason Medical Necessity Reason Patient is an 89 year old female with a past medical history [place], COPD, CAD, CHF, chronic kidney disease (CKD) who presented to the ED with shortness of breath and abdominal distension for the past five days. Patient said she finds if difficult to lie flat as she experiences shortness of breath. She is currently on 2L of oxygen via nasal canula. But she is not usually on home oxygen. Patient told me that she has tried to be compliant with her all her medications; however, her daughter who is her primary caregiver does not always give the medications on time or miss them all together sometime. She also mention that sometime she drops the medications and can reach it. Hence she is not getting the right amount hen she gives it to her he that she loses them and so she not taking the adequate amount of medication that she is supposed to take.Patient said she quit smoking and drinking, denies illicit drug use, and reports no chest pain, abdominal pain, or other acute symptoms. In the ED, her lab values showed elevated troponin 136--> 289--> 295 and BNP of 2275. chest x-ray shows chronic interstitial changes and cardiomegaly. Patient is currently on furosemide and has produced 800ml of urine thus far. Of note, patient was recently discharged from the hospital in April 2024 where she was managed for acute chf exacerbation and patient on GDMT. Past Medical History: CAD, CHF, HTN, [place],COPD, CKD, right Breast cancer s/p b mastectomy Past Surgical History: Appendectomy, Hysterectomy, Mastectomy, Other (Bilateral [id number] amputation), Tonsillectomy Social history: lives at home with family, used to smoke for 25 years ( 1/2 pack a day) Family history: Noncontributory PN: 07/06/2024 Patient stable on 2L oxygen. her blood pressure been a little high in the 170s SBP and 60s DBP. She has no major concern at the hospital. But she mentioned about not been well cared for at home. Patient lives with her daughter and son in-law. She mentioned that she has been missing her medications because her daughters gives them to her when she gets the time. Somethings she would go for days with taking her medication. We spoke about Hospice care where would have some care for her proper. Will have the SW talk to her more about it and for arrangement once she qualifies. PN: 07/07/2024 Patient is seen and examined at the bedside. She is doing a lot better than she feels. Urine output today [id number]. She is currently on 1 L of oxygen compared to yesterday when she was on 2L. So, she is improving. Her blood pressure has been persistently elevated in the 200s SBP despite patient being in 4-5 antihypertensive medications. Will double her Entresto today and also add clonidine and will monitor her bp overnight and see how she response. Otherwise she has no other complaints. Patient spoke with the case manage/SW today and she would like hospice care with [facility]. PN 07/08/2024 Patient is seen and examined at the bedside. She is doing a lot better than she feels. She is currently on 1 L of oxygen. She has no complaints today. BP still running high in the despite patient being in 4-5 antihypertensive medications. Will increase Entresto and double the hydralazine to 50mg TID. Patient is ok with hospice care with [facility]. PN 07/09/2024 Patient is seen and examined at the bedside. She is doing a lot better than she feels. She is currently on 1 L of oxygen. She has no complaints today. BP still running high in the [address] despite patient being in 4-5 antihypertensive medications. Will double Entresto and double the hydralazine to 50mg TID. Patient is ok with hospice care with [facility]. Subjective Review of Systems Constitutional: Denies fever no chills no feeling of malaise HEENT: Denies headache, ear pain, ear discharges, conjunctivitis, nasal discharge throat pain Cardiovascular: Denies chest pain, palpitation, orthopnea, PND, or pedal edema Respiratory: Denies shortness of breath, cough cough, sputum production, hemoptysis, GI: Denies abdominal pain, nausea, vomiting, diarrhea, hematemesis, hematochezia, : Denies frequency, urgency, hematuria, Endocrine: Denies unintentional weight gain or weight loss, feeling of hot flashes, Giorgio: Denies easy bruising, bleeding disorders, epistaxis Musculoskeletal: Denies joint pains, muscle aches Psych: No evidence of depression, fortino, suicidal ideation Objective vital signs Vital Sign Date Time Temp Pulse Resp B/P (MAP) Pulse Ox O2 Delivery O2 Flow Rate FiO2 07/09/24 17:00 97.7 58 14 188/60 (102) 98 97.7 07/09/24 08:00 Nasal Cannula* 2 28 Total Intake and Output 07/08/24 07/08/24 07/09/24 15:00 23:00 07:00 Intake Total 120 ml 1160 ml 240 ml Output Total 1100 ml 550 ml Balance 120 ml 60 ml -310 ml medications Current Medications Medications Dose Ordered Sig/Abundio Route Start Time Stop Time Status Last Admin Dose Admin Ondansetron HCl 4 mg Q4HP PRN IV 07/05/24 02:30 Docusate Sodium 100 mg BIDPRN PRN PO 07/05/24 02:30 Morphine Sulfate 2 mg Q4HPRN PRN IV 07/05/24 02:30 Nitroglycerin 0.4 mg Q5MINP PRN SL 07/05/24 02:30 Morphine Sulfate 2 mg Q30M PRN IV 07/05/24 02:30 Allopurinol 100 mg DAILY PO 07/05/24 10:00 07/09/24 09:56 100 MG Clopidogrel Bisulfate 75 mg DAILY PO 07/05/24 10:00 07/09/24 09:57 75 MG Atorvastatin Calcium 40 mg HS PO 07/05/24 22:00 07/08/24 22:09 40 MG Ceftriaxone Sodium 50 ml @ 100 mls/hr DAILY@09 IV 07/06/24 09:00 07/09/24 09:55 100 MLS/HR Carvedilol 25 mg Q12HR PO 07/05/24 22:00 07/09/24 09:59 25 MG Apixaban 2.5 mg BID PO 07/05/24 22:00 07/09/24 09:59 2.5 MG Furosemide 40 mg DAILY IV 07/07/24 10:00 07/09/24 13:10 40 MG Clonidine HCl 0.1 mg BID PO 07/07/24 22:00 07/09/24 09:59 0.1 MG Hydralazine HCl 50 mg Q8HR PO 07/08/24 16:00 07/09/24 15:09 50 MG Sacubitril/ Valsartan 3 tab BID PO 07/09/24 10:00 07/09/24 13:11 3 TAB Nifedipine 60 mg DAILY PO 07/10/24 10:00 Examination General Appearance: Alert, Oriented X3, Cooperative, No acute distress, Comfortable HEENT: Atraumatic, PERRLA, EOMI, Mucous membrane moist/pink Respiratory: Clear to auscultation, Normal air movement Cardiovascular: Regular rate, Normal S1, Normal S2, No murmurs, no chest wall tenderness Abdominal: NO distention, no tenderness, bowel sounds present, no scars noted Extremities: BILATERAL lower extremity amputated Skin: No rashes, No breakdown, No significant lesion Neuro: Normal speech Psych/Mental Status: Mental status NL, Mood NL laboratory and microbiology Laboratory Tests 07/09/24 10:43 Test 07/09/24 10:43 Range/Units Serum Glucose 107 H 74-106 mg/dL Microbiology Date/Time Source Procedure Growth Status 07/05/24 22:45 Nose MRSA Screen - Final Complete 07/05/24 08:53 Blood Blood Culture - Preliminary NO GROWTH AFTER 72 HOURS OF INCUBATION. 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 Noted pulmonary hypertension. Moderate pulmonic insufficiency. 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 Concentric LVH of moderate degree. Mild thickening of the aortic leaflets. Mild thickening and mild calcification of the left coronary cusp Surgical history of Appendectomy Surgical history of Hysterectomy Surgical history of Mastectomy S/p Bilateral rrcwf-iow-drgr amputation, baseline wheelchair bound Surgical history of Tonsillectomy H/o Gout on allopurinol Anxiety/depression GERD Plan: IV Furosemide 40 mg, INCRESASE the (Entresto 24/) 3 -wean O2 as tolerated to keep SpO2 around 92%. -low blood pressure slowly over 24-48 hours , restart home medications, as patient isn't MAYA, holding lisinopril. -avoid QTC prolonging drugs -Continue other home medications and GDMT as tolerated. likely will benefit from adding spironolactone to home GDTM as tolerate. -iv ceftriaxone, urine culture, blood culture, follow up. -physical therapy and social work as needed. -overall poor prognosis given advanced age and complex cardiovascular disease. --> double the hydralazine 50mg TID Diet: Cardiac diet with 2 g salt restriction and 1000 mL fluid restriction per 24 hour. DVT prophylaxis: Continue home Eliquis GI prophylaxis with IV PPI Goal of care discussed + Dr. Harris for 15 minutes: Comfort care; Per patient she would like hospice care with [facility]. Plan discussed with: Patient My Orders My Orders Orders - SHEKHAR GUZMAN Procedure Category Date Status Time Sacubitril-Valsartan PHA 07/09/24 In Process (Entresto 24-26 Mg 10:00 Dietary Evaluation Review Comments: 1) cardiac + renal specific 40gm protein 2) Continue current plan of care Expected Outcomes/Goals: Pt will meet 75% estimated needs Fu 3-5 days Date of Service: Jul 09, 2024 Billing Provider: JEROME HARRIS MD Common Visit Codes: [id number] INP/OBS CARE(HIGH) SHEKHAR GUZMAN Jul 09, 2024 18:35 JEROME HARRIS MD Jul 13, 2024 22:06
[2024-07-10] VITALS (9 sets, daily range): BP systolic 147–178; BP diastolic 50–54; PULSE 56–99; RESP 16–18; TEMP 97.3–98.6; O2SAT 95–99
[2024-07-10] MEDS: NIFEdipine ER 30 MG TAB PO SCH (09:34)
[2024-07-10] MEDS ORDERED: SACU1TAB4 PO (10:33)
[2024-07-10] MEDS ORDERED: NIFE90TA75 PO (10:33)
[2024-07-10] MEDS ORDERED: CLOP75TA70 PO (10:33)
[2024-07-10] MEDS ORDERED: CLON0.1T PO (10:33)
[2024-07-10] MEDS ORDERED: LINE1TAB6 PO (10:35)
[2024-07-10 11:18] LABS: Potassium 4.4 mmol/L (3.5-5.1); Sodium 139 mmol/L (136-145)
[2024-07-10 11:19] LABS: Anion Gap 6 (5-15); Carbon Dioxide 25 mmol/L (20-31)
[2024-07-10 11:20] LABS: Calcium 9.5 mg/dL (8.7-10.4)
[2024-07-10 11:25] LABS: BUN/Creatinine Ratio 26.6 (10.0-20.0)
[2024-07-10 11:50] LABS: Blood Urea Nitrogen 34 mg/dL (9-23); Chloride 108 mmol/L (98-107); Glucose 118 mg/dL (74-106)
--- NOTE | 2024-07-10 16:31 | DVHDS2 ---
Discharge Summary Date of Admission Jul 05, 2024 at 02:21 Date of Discharge: Jul 10, 2024 Labs/Diagnostic Data: Laboratory Results Test 07/10/24 10:41 07/09/24 10:43 07/06/24 06:44 07/05/24 05:57 Sodium Level 139 mmol/L (136-145) Potassium Level 4.4 mmol/L (3.5-5.1) Chloride Level 108 mmol/L (98-107) Carbon Dioxide Level 25 mmol/L (20-31) Anion Gap 6 (5-15) Blood Urea Nitrogen 34 mg/dL (9-23) Creatinine 1.28 mg/dL (0.550-1.02) Glomerular Filtration Rate Calc 41 mL/min (>90) BUN/Creatinine Ratio 26.6 (10.0-20.0) Serum Glucose 118 mg/dL (74-106) Calcium Level 9.5 mg/dL (8.7-10.4) White Blood Count 5.1 10^3/uL (4.4-10.8) Red Blood Count 3.89 10^6/uL (4.0-5.20) Hemoglobin 11.1 g/dL (12.2-16.2) Hematocrit 36.1 % (36.0-46.0) Mean Corpuscular Volume 92.7 fL (80.0-100.0) Mean Corpuscular Hemoglobin 28.6 pg (28.0-32.0) Mean Corpuscular Hemoglobin Concent 30.8 g/dL (32.0-36.0) Red Cell Distribution Width 18.8 % (11.8-14.3) Platelet Count 197 10^3/uL (140-450) Mean Platelet Volume 8.9 fL (6.9-10.8) Neutrophils (%) (Auto) 62.8 % (37.0-80.0) Lymphocytes (%) (Auto) 23.5 % (10.0-50.0) Monocytes (%) (Auto) 9.6 % (0.0-12.0) Eosinophils (%) (Auto) 3.4 % (0.0-7.0) Basophils (%) (Auto) 0.7 % (0.0-2.0) Neutrophils # (Auto) 3.2 10 ^3/uL (1.6-8.6) Lymphocytes # (Auto) 1.2 10 ^3/uL (0.4-5.4) Monocytes # (Auto) 0.5 10 ^3/uL (0-1.3) Eosinophils # (Auto) 0.2 10 ^3/uL (0-0.8) Basophils # (Auto) 0 10 ^3/uL (0-0.2) Nucleated Red Blood Cells 0.1 % B-Type Natriuretic Peptide 2004.46 pg/mL (0-100) Total Bilirubin 0.2 mg/dL (0.2-1.0) Aspartate Amino Transferase (AST) 16 U/L (13-40) Alanine Aminotransferase (ALT) 10 U/L (7-40) Alkaline Phosphatase 96 U/L (46-116) Total Protein 6.1 g/dL (5.7-8.2) Albumin 3.2 g/dL (3.2-4.8) Lactic Acid Level 0.6 mmol/L (0.4-2.0) Magnesium Level 2.1 mg/dL (1.6-2.6) Iron Level 24 ug/dL (50-170) Total Iron Binding Capacity 271 ug/dL (250-425) Percent Iron Saturation 8.9 % (15-50) Ferritin 132.5 ng/mL (10-291) Lipase 42 U/L (12-53) Test 07/05/24 04:27 07/05/24 03:39 07/05/24 01:23 Troponin I High Sensitivity 295 ng/L (</=34) Thyroid Stimulating Hormone (TSH) 0.88 uIU/mL (0.55-4.78) Urine Color Light-yellow (Yellow) Urine Clarity Clear (Clear) Urine pH 6.0 (5.0-9.0) Urine Specific [place] 1.014 (1.001-1.035) Urine Protein 2+ (Negative) Urine Ketones Negative (Negative) Urine Blood Negative /uL (Negative) Urine Nitrite Negative (Negative) Urine Bilirubin Negative (Negative) Urine Urobilinogen Normal mg/dL (Negative) Urine Leukocyte Esterase 1+ /uL (Negative) Urine RBC <1 /hpf (0 - 4) Urine WBC Clumps Present /hpf (None Seen) Urine Microscopic WBC 18 /HPF (0-5) Urine Squamous Epithelial Cells Few /hpf (<5) Urine Bacteria Few /hpf (None Seen) Urine Glucose Normal mg/dL (Normal) Influenza Type A Antigen Negative (Negative) Influenza Type B Antigen Negative (Negative) SARS-CoV-2 Antigen (Rapid) Negative (NEGATIVE) Other Laboratory Tests 07/10/24 10:41 07/09/24 10:43 Brief Hx & Hospital Course: Patient is an 89 year old female with a past medical history [place], COPD, CAD, CHF, chronic kidney disease (CKD) who presented to the ED with shortness of breath and abdominal distension for the past five days. Patient said she finds if difficult to lie flat as she experiences shortness of breath. She is currently on 2L of oxygen via nasal canula. But she is not usually on home oxygen. Patient told me that she has tried to be compliant with her all her medications; however, her daughter who is her primary caregiver does not always give the medications on time or miss them all together sometime. She also mention that sometime she drops the medications and can reach it. Hence she is not getting the right amount hen she gives it to her he that she loses them and so she not taking the adequate amount of medication that she is supposed to take.Patient said she quit smoking and drinking, denies illicit drug use, and reports no chest pain, abdominal pain, or other acute symptoms. In the ED, her lab values showed elevated troponin 136--> 289--> 295 and BNP of 2275. chest x-ray shows chronic interstitial changes and cardiomegaly. Patient is currently on furosemide and has produced 800ml of urine thus far. Of note, patient was recently discharged from the hospital in April 2024 where she was managed for acute chf exacerbation and patient on GDMT. titrating up GDMT and BP meds, hypertensive urgency, no symptoms or end organ damage. patient to be dischargd to hospice on linezolid for UTI. Condition at Discharge: Good Final Diagnosis/Problems List HTN urgency severe atherosclerosis Discharge Disposition: Longterm Facility Discharge Instruct/Medications Diet: Consistent carbohydrate, Cardiac 2g Na,low cholest Activity: No Restrictions, As Tolerated Discharge Statement: "Patient was advised to return to the ER or call 911 if any headaches, dizziness, shortness of breath, chest pain, abdominal pain, bleeding, fevers, or worsening of medical condition. Patient was counseled about treatment plan, medications, possible side effects, patientverbalized understanding. All questions were answered to the best of my ability. 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 Noted pulmonary hypertension. Moderate pulmonic insufficiency. 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 Concentric LVH of moderate degree. Mild thickening of the aortic leaflets. Mild thickening and mild calcification of the left coronary cusp Surgical history of Appendectomy Surgical history of Hysterectomy Surgical history of Mastectomy S/p Bilateral kwxia-kay-zksh amputation, baseline wheelchair bound Surgical history of Tonsillectomy H/o Gout on allopurinol Anxiety/depression GERD Date of Service: Jul 10, 2024 Billing Provider: JEROME HARRIS MD Common Visit Codes: 57749-BGV/OBS DISCH DAY >30min JEROME HARRIS MD Jul 10, 2024 16:31
[2024-07-10] MEDS: LINEZOLID 600MG/300ML 300 ML IV SCH (21:21)
[2024-07-11] VITALS (7 sets, daily range): BP systolic 143–159; BP diastolic 44–57; PULSE 58–71; RESP 16–18; TEMP 98–98.5; O2SAT 95–97
--- NOTE | 2024-07-11 19:06 | DVHPNRES ---
Progress Note Date Seen: Jul 11, 2024 Resident Creating Document: SHEKHAR GUZMAN RESIDENT Has the PT tested + for MRSA If YES, has PT been informed?: No Medical Necessity Reason Pt with a Central, PICC or Fol: No Medical Necessity Reason Medical Necessity Reason Patient is an 89 year old female with a past medical history [place], COPD, CAD, CHF, chronic kidney disease (CKD) who presented to the ED with shortness of breath and abdominal distension for the past five days. Patient said she finds if difficult to lie flat as she experiences shortness of breath. She is currently on 2L of oxygen via nasal canula. But she is not usually on home oxygen. Patient told me that she has tried to be compliant with her all her medications; however, her daughter who is her primary caregiver does not always give the medications on time or miss them all together sometime. She also mention that sometime she drops the medications and can reach it. Hence she is not getting the right amount hen she gives it to her he that she loses them and so she not taking the adequate amount of medication that she is supposed to take.Patient said she quit smoking and drinking, denies illicit drug use, and reports no chest pain, abdominal pain, or other acute symptoms. In the ED, her lab values showed elevated troponin 136--> 289--> 295 and BNP of 2275. chest x-ray shows chronic interstitial changes and cardiomegaly. Patient is currently on furosemide and has produced 800ml of urine thus far. Of note, patient was recently discharged from the hospital in April 2024 where she was managed for acute chf exacerbation and patient on GDMT. Past Medical History: CAD, CHF, HTN, [place],COPD, CKD, right Breast cancer s/p b mastectomy Past Surgical History: Appendectomy, Hysterectomy, Mastectomy, Other (Bilateral [id number] amputation), Tonsillectomy Social history: lives at home with family, used to smoke for 25 years ( 1/2 pack a day) Family history: Noncontributory PN: 07/06/2024 Patient stable on 2L oxygen. her blood pressure been a little high in the 170s SBP and 60s DBP. She has no major concern at the hospital. But she mentioned about not been well cared for at home. Patient lives with her daughter and son in-law. She mentioned that she has been missing her medications because her daughters gives them to her when she gets the time. Somethings she would go for days with taking her medication. We spoke about Hospice care where would have some care for her proper. Will have the SW talk to her more about it and for arrangement once she qualifies. PN: 07/07/2024 Patient is seen and examined at the bedside. She is doing a lot better than she feels. Urine output today [id number]. She is currently on 1 L of oxygen compared to yesterday when she was on 2L. So, she is improving. Her blood pressure has been persistently elevated in the 200s SBP despite patient being in 4-5 antihypertensive medications. Will double her Entresto today and also add clonidine and will monitor her bp overnight and see how she response. Otherwise she has no other complaints. Patient spoke with the case manage/SW today and she would like hospice care with [facility]. PN 07/08/2024 Patient is seen and examined at the bedside. She is doing a lot better than she feels. She is currently on 1 L of oxygen. She has no complaints today. BP still running high in the 180/65 despite patient being in 4-5 antihypertensive medications. Will increase Entresto and double the hydralazine to 50mg TID. Patient is ok with hospice care with [facility]. PN 07/09/2024 Patient is seen and examined at the bedside. She is doing a lot better than she feels. She is currently on 1 L of oxygen. She has no complaints today. BP still running high in the 180/65 despite patient being in 4-5 antihypertensive medications. Will double Entresto and double the hydralazine to 50mg TID. Patient is ok with hospice care with [facility]. PN: 07/11/2024 Patient was discharge yesterday 07/10/2024. Patient did not leave because she decided she now wanted home hospice. This was arranged today. Patient will be going home today. Subjective Review of Systems Constitutional: Denies fever no chills no feeling of malaise HEENT: Denies headache, ear pain, ear discharges, conjunctivitis, nasal discharge throat pain Cardiovascular: Denies chest pain, palpitation, orthopnea, PND, or pedal edema Respiratory: Denies shortness of breath, cough cough, sputum production, hemoptysis, GI: Denies abdominal pain, nausea, vomiting, diarrhea, hematemesis, hematochezia, : Denies frequency, urgency, hematuria, Endocrine: Denies unintentional weight gain or weight loss, feeling of hot flashes, Giorgio: Denies easy bruising, bleeding disorders, epistaxis Musculoskeletal: Denies joint pains, muscle aches Psych: No evidence of depression, fortino, suicidal ideation Objective vital signs Vital Sign Date Time Temp Pulse Resp B/P (MAP) Pulse Ox O2 Delivery O2 Flow Rate FiO2 07/11/24 17:35 98.0 58 16 97 07/11/24 16:55 145/44 (77) 07/11/24 08:15 Nasal Cannula* 2 28 Total Intake and Output 07/10/24 07/10/24 07/11/24 15:00 23:00 07:00 Intake Total 50 ml 600 ml 540 ml Output Total 850 ml 700 ml Balance 50 ml -250 ml -160 ml medications Current Medications Medications Dose Ordered Sig/Abundio Route Start Time Stop Time Status Last Admin Dose Admin Ondansetron HCl 4 mg Q4HP PRN IV 07/05/24 02:30 Docusate Sodium 100 mg BIDPRN PRN PO 07/05/24 02:30 Morphine Sulfate 2 mg Q4HPRN PRN IV 07/05/24 02:30 Nitroglycerin 0.4 mg Q5MINP PRN SL 07/05/24 02:30 Morphine Sulfate 2 mg Q30M PRN IV 07/05/24 02:30 Allopurinol 100 mg DAILY PO 07/05/24 10:00 07/11/24 10:09 100 MG Clopidogrel Bisulfate 75 mg DAILY PO 07/05/24 10:00 07/11/24 10:08 75 MG Atorvastatin Calcium 40 mg HS PO 07/05/24 22:00 07/10/24 21:26 40 MG Ceftriaxone Sodium 50 ml @ 100 mls/hr DAILY@09 IV 07/06/24 09:00 07/11/24 08:46 100 MLS/HR Carvedilol 25 mg Q12HR PO 07/05/24 22:00 07/11/24 10:12 25 MG Apixaban 2.5 mg BID PO 07/05/24 22:00 07/11/24 10:06 2.5 MG Furosemide 40 mg DAILY IV 07/07/24 10:00 07/11/24 10:12 40 MG Clonidine HCl 0.1 mg BID PO 07/07/24 22:00 07/11/24 10:11 0.1 MG Hydralazine HCl 50 mg Q8HR PO 07/08/24 16:00 07/11/24 14:16 50 MG Nifedipine 60 mg DAILY PO 07/10/24 10:00 07/11/24 10:08 60 MG Sacubitril/ Valsartan 4 tab BID PO 07/09/24 22:00 07/11/24 10:05 4 TAB Linezolid 300 ml @ 150 mls/hr Q12HR IV 07/10/24 22:00 07/11/24 11:17 150 MLS/HR Examination General Appearance: Alert, Oriented X3, Cooperative, No acute distress HEENT: Atraumatic, PERRLA, EOMI, Mucous membrane moist/pink Respiratory: Clear to auscultation, Normal air movement Cardiovascular: Regular rate, Normal S1, Normal S2, No murmurs, no chest wall tenderness Abdominal: NO distention, no tenderness, bowel sounds present, no scars noted Extremities: No clubbing, No cyanosis, No edema, Normal pulses, No tenderness/swelling Skin: No rashes, No breakdown, No significant lesion Neuro: Normal gait, Normal speech, Strength at 5/5 X4 ext, Normal tone, Sensation intact, Cranial nerves 3-12 NL, Reflexes 2+ Psych/Mental Status: Mental status NL, Mood NL laboratory and microbiology Laboratory Tests 07/10/24 10:41 07/09/24 10:43 Test 07/10/24 10:41 Range/Units Serum Glucose 118 H 74-106 mg/dL Microbiology Date/Time Source Procedure Growth Status 07/05/24 22:45 Nose MRSA Screen - Final Complete 07/05/24 08:53 Blood Blood Culture - Final NO GROWTH AFTER 5 DAYS OF INCUBATION. 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 Noted pulmonary hypertension. Moderate pulmonic insufficiency. 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 Concentric LVH of moderate degree. Mild thickening of the aortic leaflets. Mild thickening and mild calcification of the left coronary cusp Surgical history of Appendectomy Surgical history of Hysterectomy Surgical history of Mastectomy S/p Bilateral [id number] amputation, baseline wheelchair bound Surgical history of Tonsillectomy H/o Gout on allopurinol Anxiety/depression GERD Plan: IV Furosemide 40 mg, INCRESASE the (Entresto ) 3 -wean O2 as tolerated to keep SpO2 around 92%. -low blood pressure slowly over 24-48 hours , restart home medications, as patient isn't MAYA, holding lisinopril. -avoid QTC prolonging drugs -Continue other home medications and GDMT as tolerated. likely will benefit from adding spironolactone to home GDTM as tolerate. -iv ceftriaxone, urine culture, blood culture, follow up. -physical therapy and social work as needed. -overall poor prognosis given advanced age and complex cardiovascular disease. --> double the hydralazine 50mg TID Diet: Cardiac diet with 2 g salt restriction and 1000 mL fluid restriction per 24 hour. DVT prophylaxis: Continue home Eliquis GI prophylaxis with IV PPI Goal of care discussed + Dr. Harris for 15 minutes: Comfort care; Home with home hospice Plan discussed with: Patient My Orders My Orders Orders - SHEKHAR GUZMAN Procedure Category Date Status Time * [employer] CONS 07/11/24 Transmitted Consult Discharge DISCHARGE 07/11/24 Transmitted 16:56 Dietary Evaluation Review Comments: 1) cardiac + renal specific 40gm protein 2) Continue current plan of care Expected Outcomes/Goals: Pt will meet 75% estimated needs Fu 3-5 days Date of Service: Jul 11, 2024 Billing Provider: JEROME HARRIS MD Common Visit Codes: [id number] INP/OBS CARE(HIGH) SHEKHAR GUZMAN Jul 11, 2024 19:06 JEROME HARRIS MD Jul 13, 2024 22:18
== END 2024-07-11 18:08 | disposition hospice, home (50) | DRG 280 ==
LOC: EDUNIT# 15:47 → EDBD 15:47 → ER 15:47 → OVERFLOW 07-05 02:21 → TELE-WESTW 07-05 17:51
PROVIDERS: ADMIT Student in an Organized Health Care Education/Training Program; ATTEND Emergency Medicine
DX: I13.0 Hypertensive heart and chronic kidney disease with heart failure and stage 1 through stage 4 chronic kidney disease, or unspecified chronic kidney disease (principal); I50.43 Acute on chronic combined systolic (congestive) and diastolic (congestive) heart failure; I21.A1 Myocardial infarction type 2; J96.01 Acute respiratory failure with hypoxia; N17.0 Acute kidney failure with tubular necrosis; N39.0 Urinary tract infection, site not specified; I16.1 Hypertensive emergency; Z20.822 Contact with and (suspected) exposure to COVID-19; N18.30 Chronic kidney disease, stage 3 unspecified; J44.9 Chronic obstructive pulmonary disease, unspecified; I27.20 Pulmonary hypertension, unspecified; I36.1 Nonrheumatic tricuspid (valve) insufficiency; I37.1 Nonrheumatic pulmonary valve insufficiency; E78.5 Hyperlipidemia, unspecified; D63.1 Anemia in chronic kidney disease; F41.9 Anxiety disorder, unspecified; F32.A Depression, unspecified; I25.10 Atherosclerotic heart disease of native coronary artery without angina pectoris; K21.9 Gastro-esophageal reflux disease without esophagitis; I73.9 Peripheral vascular disease, unspecified; M10.9 Gout, unspecified; N18.31 Chronic kidney disease, stage 3a; I44.0 Atrioventricular block, first degree; Z79.2 Long term (current) use of antibiotics; Z79.01 Long term (current) use of anticoagulants; Z79.899 Other long term (current) drug therapy; Z79.82 Long term (current) use of aspirin; Z90.49 Acquired absence of other specified parts of digestive tract; Z90.710 Acquired absence of both cervix and uterus; Z85.3 Personal history of malignant neoplasm of breast; I25.2 Old myocardial infarction; Z89.612 Acquired absence of left leg above knee; Z89.611 Acquired absence of right leg above knee; Z90.11 Acquired absence of right breast and nipple; Z99.3 Dependence on wheelchair; Z83.3 Family history of diabetes mellitus; Z82.49 Family history of ischemic heart disease and other diseases of the circulatory system; Z86.718 Personal history of other venous thrombosis and embolism; Z91.148 Patient's other noncompliance with medication regimen for other reason; Z99.2 Dependence on renal dialysis
CPT/HCPCS: 36415; 71045; 74176; 80048; 80053; 81001; 82728; 83540; 83550; 83605; 83690; 83735; 83880; 84443; 84484; 85025; 87040; 87081; 87086; 87088; 87186; 87426; 87804; 92610; 93005; 96374; 96375; 97110; 97163; 97530; 99291; G0378